=== PATIENT | female | born 1940 | race Caucasian/White ===

== ENCOUNTER → 2018-07-20 13:12 | Outpatient (CLI) | payer MEDICARE, SELFPAY ==
--- NOTE | 2018-07-20 | DI.RAD.S_ITS ---
PROCEDURE: XR CERVICAL SPINE 2V OR 3V INDICATIONS: NECK PAIN TECHNIQUE: 3 view(s) of the cervical spine were acquired. COMPARISON: None. FINDINGS: Bones: No fractures or dislocations to the T1 level. The lateral masses of C1 appear intact on the odontoid view. No suspicious bony lesions. Multilevel disc degeneration, most notably in severe at the C7-T1 level. Moderate mid and lower cervical spine multilevel facet joint arthropathy and uncovertebral hypertrophy. Soft tissues: No prevertebral soft tissue swelling. IMPRESSION: Multilevel degenerative changes throughout the cervical spine. Dictated by: Stefan VÁZQUEZ Interpreted: Stephen Dukes MD on 07/20/2018 at 13:42 Approved by: Stephen Dukes M.D. on 07/20/2018 at 17:18
== END ==
PROVIDERS: Family Provider Family Medicine; PCP Family Medicine; Visit Provider Anesthesiology Pain Medicine
DX: M47.22 Other spondylosis with radiculopathy, cervical region (principal); M50.13 Cervical disc disorder with radiculopathy, cervicothoracic region
CPT/HCPCS: 72040

== ENCOUNTER → 2018-07-25 14:41 | Outpatient (CLI) | payer MEDICARE, SELFPAY ==
[2018-07-25 15:36] LABS: Hemoglobin A1C% w Est Avg Glu 6.1 % (4.0-6.0)
== END ==
PROVIDERS: Family Provider Student in an Organized Health Care Education/Training Program; PCP Student in an Organized Health Care Education/Training Program; Visit Provider Student in an Organized Health Care Education/Training Program
DX: F41.9 Anxiety disorder, unspecified (principal)
CPT/HCPCS: 36415; 83036

== ENCOUNTER → 2018-08-01 14:00 | Outpatient (CLI) | payer MEDICARE, SELFPAY ==
--- NOTE | 2018-08-01 | DI.MRI.S_ITS ---
PROCEDURE: MR CERVICAL SPINE WO CON INDICATIONS: Radiculopathy, cervical region TECHNIQUE: Noncontrast sagittal T1 spin echo and T2 fast spin echo, sagittal STIR, foraminal oblique sagittal T2 fast spin echo, and axial gradient echo or T2 fast spin echo through the cervical spine. COMPARISON: None. FINDINGS: Image quality: Excellent. Alignment and Curvature: Straightening of the normal cervical lordosis. Trace anterolisthesis of C3 on C4, C5 on C6 and C7 on T1. There is also grade one anterolisthesis of T1 on T2. Bone Marrow: Scattered endplate spurring and degenerative signal changes. Spinal Cord: Visualized spinal cord has normal size and signal. No cerebellar tonsillar herniation. Paraspinous Soft Tissues: No paravertebral masses. Prevertebral soft tissues are normal in thickness. C2-C3: Bilateral uncovertebral arthropathy and posterior intervening disc osteophyte complex, and bilateral facet disease. No canal stenosis. Moderate bilateral foraminal stenoses. C3-C4: Bilateral uncovertebral arthropathy and posterior intervening disc osteophyte complex, and bilateral facet arthropathy. No definite canal stenosis. Moderate to severe bilateral foraminal stenoses C4-C5: Bilateral uncovertebral arthropathy and posterior intervening disc osteophyte complex, which is mildly asymmetric, right greater than left. Bilateral facet arthropathy also asymmetric, right greater than left. Mild canal narrowing partial effacement of the anterior thecal sac. Severe right foraminal stenosis. No definite left foraminal narrowing. C5-C6: Bilateral uncovertebral arthropathy and posterior intervening disc osteophyte complex, with superimposed left paracentral disc osteophyte protrusion. Bilateral facet disease. Moderate (predominantly left-sided) canal stenosis with effacement of the anterior and posterior thecal sac. Moderate to severe right foraminal narrowing. Minimal left foraminal narrowing. C6-C7: Bilateral uncovertebral arthropathy and posterior intervening disc osteophyte complex, and bilateral facet arthropathy. Mild to moderate canal narrowing. Moderate right foraminal stenosis. Mild to moderate left foraminal narrowing. C7-T1: Bilateral uncovertebral arthropathy and posterior intervening disc osteophyte complex, and bilateral facet disease. Mild canal stenosis. Mild right foraminal stenosis. Mild left foraminal narrowing. IMPRESSION: Multilevel cervical disc degeneration with straightening of the normal cervical lordosis and multilevel spondylolisthesis as above. Moderate C5-C6 and C6-C7 canal stenoses. Severe right C4-C5 and C5-C6 foraminal stenoses. Additional, multilevel [id number] foraminal narrowing as detailed above Dictated by: Stephen Dukes M.D. on 08/01/2018 at 15:46 Approved by: Stephen Dukes M.D. on 08/01/2018 at 15:57
== END ==
PROVIDERS: Family Provider Student in an Organized Health Care Education/Training Program; PCP Student in an Organized Health Care Education/Training Program; Visit Provider Anesthesiology Pain Medicine
DX: M50.11 Cervical disc disorder with radiculopathy, high cervical region (principal); M48.02 Spinal stenosis, cervical region; M43.12 Spondylolisthesis, cervical region; M43.13 Spondylolisthesis, cervicothoracic region
CPT/HCPCS: 72141

== ENCOUNTER → 2018-12-09 10:35 | Outpatient (CLI) | payer MEDICARE, SELFPAY ==
--- NOTE | 2018-12-09 10:39 | DI.RAD.S_ITS ---
PROCEDURE: XR SHOULDER LT MIN 2V INDICATIONS: Left shoulder pain, worsening TECHNIQUE: 3 views of the shoulder were acquired. COMPARISON: [facility], CR, XR SHOULDER RT MIN 2V, 12/09/2018, 10:42. [facility], CR, SHOULDER MINIMUM 2 VIEW LEFT, 06/07/2017, 18:49. FINDINGS: Bones: No fractures or dislocations. No suspicious bony lesions. There is moderate glenohumeral joint and mild acromioclavicular joint degeneration. Visualized ribs appear intact. Soft tissues: No suspicious soft tissue calcifications. IMPRESSION: Moderate degenerative joint disease at the left glenohumeral joint. Dictated by: Marjorie Gallo M.D. on 12/09/2018 at 16:00 Approved by: Marjorie Gallo M.D. on 12/09/2018 at 16:02
--- NOTE | 2018-12-09 10:39 | DI.RAD.S_ITS ---
PROCEDURE: XR SHOULDER RT MIN 2V INDICATIONS: right shoulder pain, worsening TECHNIQUE: 3 views of the shoulder were acquired. COMPARISON: None. FINDINGS: Bones: No fractures or dislocations. No suspicious bony lesions. There is [id number] degenerative joint disease in right acromioclavicular and glenohumeral joints. Large soft tissue calcification superior to the right acromioclavicular joint. Visualized ribs appear intact. Soft tissues: No suspicious soft tissue calcifications. IMPRESSION: Ijip-iu-fhytzcye degenerative disease. If clinical symptoms persist or clinical suspicion for internal derangement is high, MRI is suggested for further evaluation. Dictated by: Marjorie Gallo M.D. on 12/09/2018 at 15:56 Approved by: Marjorie Gallo M.D. on 12/09/2018 at 16:00
== END ==
PROVIDERS: Family Provider Student in an Organized Health Care Education/Training Program; PCP Student in an Organized Health Care Education/Training Program; Visit Provider Nurse Practitioner
DX: M25.512 Pain in left shoulder (principal); M25.511 Pain in right shoulder; M19.012 Primary osteoarthritis, left shoulder; M19.011 Primary osteoarthritis, right shoulder
CPT/HCPCS: 73030

== ENCOUNTER → 2018-12-19 07:53 | Outpatient (CLI) | payer MEDICARE, SELFPAY ==
--- NOTE | 2018-12-19 07:55 | DI.MRI.S_ITS ---
PROCEDURE: MR SHOULDER RT WO CON INDICATIONS: persistent right shoulder pain/unable to use arm. TECHNIQUE: Noncontrast oblique coronal T2 fast spin echo with fat saturation, oblique sagittal T1 spin echo and T2 fast spin echo with fat saturation, axial T1 spin echo and T2 fast spin echo with fat saturation through the shoulder. COMPARISON: None. FINDINGS: Image quality: Suboptimal due to signal dropout and body habitus. Rotator cuff: Full-thickness tear of the supraspinatus and infraspinatus tendons is seen measuring at least 2.0 cm in the transverse left longitudinal dimension as seen on coronal image 11 series 8. This measures at least 3.3 cm in AP dimension as seen on sagittal image 12 series 10. There is also marked thickening and intrasubstance signal change involving the teres minor tendon, with bursal surface fraying. Severe subscapularis tendinopathy with partial thickness articular and bursal sided tear although no definite full-thickness defect. There is atrophy of the supraspinatus, subscapularis and infraspinatus muscles. There is also severe fatty infiltration of the teres minor muscle Bones and bursae: No bone marrow contusions or fractures. Severe acromioclavicular and glenohumeral joint degeneration. The acromion demonstrates conventional anatomy, without an os acromiale. Small joint effusion. Capsule and soft tissues: Poorly defined circumferential tear the labrum is seen although suboptimal evaluation given motion artifact and signal drop out. Posterior subluxation of the humeral head relative to the glenoid suggestive of microinstability Medial subluxation of the long head biceps tendon. Long head biceps tendinopathy and intrasubstance signal change. Coracohumeral ligament not well visualized. IMPRESSION: Full-thickness tear of the supraspinatus and infraspinatus tendons. Severe subscapularis tendinopathy with partial-thickness bursal and articular sided tear. Teres minor tendinopathy and thickening with bursal surface fraying Diffuse atrophy of the rotator cuff musculature as above, in addition to fatty infiltration of the teres minor. Severe degenerative joint disease. Medial subluxation of the long head biceps tendon, with severe background tendinopathy. Poorly defined circumferential labral tear, likely chronic. Posteriorly subluxed appearance of the humeral head relative to the glenoid suggestive of microinstability. Please correlate clinically. Dictated by: Stephen Dukes M.D. on 12/19/2018 at 9:45 Approved by: Stephen Dukes M.D. on 12/19/2018 at 10:26
== END ==
PROVIDERS: Family Provider Student in an Organized Health Care Education/Training Program; PCP Student in an Organized Health Care Education/Training Program; Visit Provider Nurse Practitioner
DX: M25.511 Pain in right shoulder (principal); M75.121 Complete rotator cuff tear or rupture of right shoulder, not specified as traumatic; M19.011 Primary osteoarthritis, right shoulder; M75.81 Other shoulder lesions, right shoulder; S43.491A Other sprain of right shoulder joint, initial encounter
CPT/HCPCS: 73221

== ENCOUNTER → 2019-01-28 11:25 | Outpatient (CLI) | payer MEDICARE, SELFPAY ==
[2019-01-28 11:32] LABS: RBC Urine None Seen (0-5/HPF)
[2019-01-28 12:14] LABS: Appearance Urine UA CLOUDY; Bilirubin Urine UA NEGATIVE (NEGATIVE); Color Urine UA YELLOW; Glucose Urine UA NEGATIVE (Negative); Ketones Urine UA NEGATIVE (NEGATIVE); Leukocyte Esterase Urine UA 3+ (NEGATIVE); Nitrite Urine UA NEGATIVE (Negative); Occult Blood Urine UA TRACE-LYSED (Negative); Protein Urine UA TRACE (Negative); Urobilinogen Urine UA 0.2 E.U./dL (0.2)
[2019-01-28 13:36] LABS: Squamous Epithelial Cell Urine None Seen (0-5/HPF); WBC Urine >100/HPF (0-5/HPF)
[2019-01-28 13:37] LABS: Bacteria Urine Many (>30); Culture Indicated Urine Specimen Cultured; Renal Epithelial Cells Urine 1-5/HPF (0-1/HPF)
== END ==
PROVIDERS: Family Provider Student in an Organized Health Care Education/Training Program; PCP Student in an Organized Health Care Education/Training Program; Visit Provider Student in an Organized Health Care Education/Training Program
DX: R30.0 Dysuria (principal)
CPT/HCPCS: 81001; 87077; 87086; 87186

== ENCOUNTER → 2019-02-22 07:55 | Outpatient (CLI) | payer MEDICARE, SELFPAY ==
--- NOTE | 2019-02-22 | DI.MRI.S_ITS ---
PROCEDURE: MR LUMBAR SPINE WO CON INDICATIONS: Spinal stenosis, lumbosacral region TECHNIQUE: Noncontrast sagittal T1 spin echo and T2 fast echo, sagittal STIR, axial T1 and T2 fast spin echo through the lumbar spine. In cases with scoliosis, additional coronal T2 fast spin echo may be performed. COMPARISON: [facility], MR, L-SPINE WITHOUT CONTRAST, 02/25/2015, 9:29. FINDINGS: Image quality: Excellent. Alignment and Curvature: Dextrocurvature. Grade 1 anterolisthesis of L5 on S1. Bone Marrow: Multilevel degenerative endplate sclerosis and spurring. Diffuse facet arthropathy. . No acute vertebral body compression fractures. Normal appearance of the sacroiliac joints. Spinal Cord: Conus medullaris terminates at the L2 level. Visualized cord demonstrates normal signal and size. Paraspinous Soft Tissues: Presumed T2 hyperintense left renal cysts although technically nonspecific. There is diffuse dorsal epidural lipomatosis. There is nonspecific, dependent posterior subcutaneous soft tissue edema from level of L1-L4. L1-L2: Dorsal epidural lipomatosis and mild canal narrowing. Lateral recess appear grossly patent. No definite foraminal stenoses. L2-L3: Broad-based posterior disc bulge and bilateral facet arthropathy. Dorsal epidural lipomatosis, with moderate canal narrowing. Partial effacement of both lateral recesses although symmetric in nature. Overall no interval change. Severe left foraminal stenosis with nerve root compression. This appears progressed since the prior study. Mild unchanged right foraminal narrowing. L3-L4: Broad-based posterior disc bulge and bilateral facet arthropathy. Dorsal epidural lipomatosis is present. Mild central canal narrowing. Mild partial effacement of both lateral recesses although symmetric and grossly unchanged. Severe left and mild right foraminal narrowing, unchanged L4-L5: Broad-based posterior disc bulge and bilateral facet arthropathy. No central canal narrowing. Lateral recesses appear grossly patent. Severe left foraminal stenosis, with nerve root compression. There is also severe right foraminal narrowing with nerve root compression. This appears progressed slightly bilaterally L5-S1: Broad-based posterior disc bulge and bilateral facet arthropathy. No central canal narrowing. Lateral recesses appear grossly patent. Severe right foraminal narrowing with nerve root compression. Mild left foraminal stenosis. Overall, no interval change IMPRESSION: Slight interval progression in bilateral severe L4-L5 foraminal stenoses. There is also interval progression in severe left L2-L3 foraminal stenosis. Remainder of examination unchanged as detailed above. Dextroscoliosis. Grade 1 anterolisthesis of L5 on S1. Diffuse epidural lipomatosis. Dictated by: Stephen Dukes M.D. on 02/22/2019 at 11:25 Approved by: Stephen Dukes M.D. on 02/22/2019 at 11:56
== END ==
PROVIDERS: PCP Student in an Organized Health Care Education/Training Program; Visit Provider Anesthesiology Pain Medicine
DX: M48.07 Spinal stenosis, lumbosacral region (principal); M48.061 Spinal stenosis, lumbar region without neurogenic claudication; M47.816 Spondylosis without myelopathy or radiculopathy, lumbar region; M47.817 Spondylosis without myelopathy or radiculopathy, lumbosacral region; M51.26 Other intervertebral disc displacement, lumbar region; M51.27 Other intervertebral disc displacement, lumbosacral region; M43.17 Spondylolisthesis, lumbosacral region; M41.9 Scoliosis, unspecified; E88.2 Lipomatosis, not elsewhere classified
CPT/HCPCS: 72148

== ENCOUNTER 2019-03-25 19:00 | Emergency (ER) | payer MEDICARE, SELFPAY ==
[2019-03-25 19:03] VITALS: BP 194/103; PULSE 88; RESP 19; TEMP 37; O2SAT 100
--- NOTE | 2019-03-25 19:22 | DI.CT.S_ITS ---
PROCEDURE: CT HEAD/BRAIN WO CON INDICATIONS: GLF, head contusion TECHNIQUE: Noncontrast 4.5 mm thick angled axial sections acquired from the foramen magnum to the vertex, with coronal and sagittal reformats. For radiation dose reduction, the following was used: automated exposure control, adjustment of mA and/or kV according to patient size. COMPARISON: None. FINDINGS: Image quality: Excellent. CSF spaces: Basal cisterns are patent. No extra-axial fluid collections. The ventricles are symmetric in size and shape. Brain: No intracranial bleeds or masses. There is moderate cerebral volume loss for age, with resultant ventricular and sulcal prominence. There are severe periventricular and deep white matter chronic small vessel ischemic changes. There is intracranial internal carotid artery atherosclerosis. Skull and face: Calvarium and visualized facial bones appear intact, without suspicious lesions. Small occipital scalp hematoma. Sinuses: Visualized sinuses and mastoids are clear. IMPRESSION: No acute intracranial disease process. Dictated by: Rhiannon Gracia MD, PhD on 03/25/2019 at 19:45 Approved by: Rhiannon Gracia MD, PhD on 03/25/2019 at 19:47
--- NOTE | 2019-03-25 19:42 | ED_ITS ---
HPI - Fall <Renata Valencia PA-C - Last Filed: 03/25/19 20:55> General Chief Complaint: Fall Stated Complaint: GLF Time Seen by Provider: 03/25/19 19:01 Source: patient Mode of arrival: EMS Limitations: no limitations History of Present Illness HPI Narrative: This 79-year-old female is brought in by EMS secondary to ground level fall. 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 Earlier in the day, she had been kneeling on her knees for awhile in the garage and was trying to get to the hand rail when her left knee buckled and was stiff. She had to call EMS as she buckled to the ground and was not able to get up. They helped her get into her chair. Later this evening she was still having difficulty getting up secondary to the knee feeling like it was buckling, but eventually she was able to get up and walk with her walker to the kitchen and start to get some dinner. She states that her knee started to feel weak again so she started to walk to her chair. She reached out for the chair and went to turn around when the knee buckled and she fell backwards, hitting her head on the wood floor. She denies any LOC. Currently she denies any headache, vision change, nausea or vomiting. She states that she knew very well what had happened and she falls frequently, but thought she better get this checked because she noted a bump on the back of her head that is now smaller. She states she has chronic back pain and does not think she hit her back at all, no new pain. She denies any neck pain or hip pain. She states she has arthritis in the knee but did not hit it when she fell, no increased pain today. She denies any other new pain or complaints on systems review. She notes that she has chronic rotator cuff syndrome of the right shoulder which exacerbate her balance issues Related Data Home Medications Medication Instructions Recorded Confirmed [metamucil ] #0 10/26/16 03/19/19 diclofenac 1 % topical gel 2 gram TOP QID PRN 12/08/18 03/19/19 Previous Rx's Medication Instructions Recorded Lancet: Device ea . Q DAY #100 04/07/17 irbesartan 300 mg tablet 300 mg PO QDAY #90 tab 03/08/18 Glucose: Test Strips See Rx Instructions SUBCUT QDAY 06/24/18 #100 strip atorvastatin 10 mg tablet 10 mg PO HS #90 tab 09/13/18 omeprazole 20 mg capsule,delayed 20 mg PO DAILY #90 cap 09/13/18 release metformin 1,000 mg tablet 1,000 mg PO BID #180 tab 11/15/18 levothyroxine 88 mcg tablet 88 mcg PO QDAY #90 tab 12/16/18 metoprolol succinate ER 100 mg 100 mg PO QDAY #90 tab 12/16/18 tablet,extended release 24 hr triamterene 37.5 1 tab PO DAILY #90 tab 12/16/18 mg-hydrochlorothiazide 25 mg tablet hydroxyzine HCl 10 mg tablet 10 mg PO QID PRN #30 tab 12/17/18 olmesartan 20 mg tablet 20 mg PO DAILY #90 tab 01/05/19 DISABLED PARKING PERMIT #1 each 01/27/19 meloxicam 15 mg tablet 15 mg PO DAILY #90 tab 01/27/19 Allergies Allergy/AdvReac Type Severity Reaction Status Date / Time ciprofloxacin [CIPROFLOXACIN] AdvReac Severe Bloody Verified 03/19/19 10:18 diahrrea, swollen feet. Benzodiazepines AdvReac Intermediate EXTREME Verified 03/19/19 10:18 SENSITIVITY fentanyl AdvReac Intermediate EXTREME Verified 03/19/19 10:18 SENSITIVITY TO ALL NARCOTICS meperidine AdvReac Intermediate EXTREME Verified 03/19/19 10:18 SENSITIVITY Opioids - Morphine Analogues AdvReac Intermediate EXTREME Verified 03/19/19 10:18 SENSITIVITY - SOMNOLENCE Review of Systems <Renata Valencia PA-C - Last Filed: 03/25/19 20:55> Review of Systems ROS Unobtainable: All systems reviewed & are unremarkable except as noted in HPI and below Exam <Renata Valencia PA-C - Last Filed: 03/25/19 20:55> Narrative Exam Narrative: GENERAL APPEARANCE: Patient sitting comfortably, in no distress. HEENT: There is perhaps a tiny central occipital hematoma, minially tender. PERRL, EOMI, normal ear canals, nasal mucosa and oropharynx NECK: Supple LUNGS: Clear to auscultation bilaterally. HEART: Rate and rhythm regular without murmur, normal S1 and S2, no S3 or S4. ABDOMEN: Soft, NT, ND, + BS x 4 quadrants NEUROLOGIC: Alert and oriented, normal speech, gait and coordination. MUSCULOSKELETAL: No point tenderness over the cervical spine, full range of motion. No thoracolumbar point tenderness. No tenderness over the hips. Left knee mild effusion with mild joint line tenderness, full AROM. Strength 5/5 left knee extension, foot plantar and dorsiflexion Initial Vital Signs Initial Vital Signs: Vital Signs Temperature 98.6 F 03/25/19 19:03 Pulse Rate 88 03/25/19 19:03 Respiratory Rate 03/25/19 19:03 Blood Pressure 194/103 H 03/25/19 19:03 Pulse Oximetry 100 03/25/19 19:03 <Belkys Chacko DO - Last Filed: 03/26/19 03:18> Initial Vital Signs Initial Vital Signs: Vital Signs Temperature 98.6 F 03/25/19 19:03 Pulse Rate 88 03/25/19 19:03 Respiratory Rate 03/25/19 19:03 Blood Pressure 194/103 H 03/25/19 19:03 Pulse Oximetry 100 03/25/19 19:03 PFSH <Renata Valencia PA-C - Last Filed: 03/25/19 20:55> Medical History (Updated 03/25/19 @ 20:24 by Renata Valencia PA-C) Eczema (Chronic 02/10/16) 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) Hot flashes due to menopause (Resolved) Chronic pain of both shoulders (Chronic 10/26/16) Primary insomnia (Chronic 10/26/16) Balance problems (Chronic 02/01/17) Bunion (Chronic 03/02/17) Hammer toe of left foot (Chronic 03/02/17) Type 2 diabetes mellitus without complication, without long-term current use of insulin (Chronic 2015) Ankle pain (Chronic 1989) Diverticulitis (Chronic) Foot pain (Chronic 1989) GERD (gastroesophageal reflux disease) (Chronic) Moreno's disease (Chronic 1974) Hyperlipemia (Chronic 1979) Hypertension (Chronic 1979) Hypothyroidism (Chronic 1974) IBS (irritable bowel syndrome) (Chronic 2003) Lumbar spine pain (Chronic 2005) Scoliosis (Chronic) Sjogren's syndrome (Chronic 2003) Carpal tunnel syndrome (Resolved 1974) Cataracts, bilateral (Resolved 2013) Chicken pox (Resolved) Chickenpox (Resolved) Fibroids (Resolved 1979) Measles (Resolved) Measles (Resolved) Mumps (Resolved) Mumps (Resolved) Ovarian cyst (Resolved 1989) Acquired hypothyroidism (02/10/16) Essential hypertension with goal blood pressure less than 140/90 (02/10/16) History of diverticulitis (06/25/16) Pure hypercholesterolemia (02/10/16) Sjogren's syndrome (02/10/16) Surgical History (Updated 09/09/18 @ 13:05 by Maria De Jesus Camacho) Status post hysterectomy (Resolved 1990) History of carpal tunnel repair (Resolved 1974) Status post cholecystectomy (Resolved 1964) Status post appendectomy (Resolved 1954) Anesthesia complication (Resolved) History of colonoscopy (Resolved 04/01/07) History of colonoscopy with polypectomy (Resolved 05/08/11) History of left cataract surgery (Resolved 11/13/14) History of right cataract surgery (Resolved 12/11/14) Hx of hand surgery (Resolved 2013) Hx of surgical procedure (Resolved 1996) History of cataract removal with insertion of prosthetic lens (2013) Family History (Updated 09/09/18 @ 12:38 by Maria De Jesus Camacho) Child Hypertension Child Hypertension Sister Age: 77 Rheumatoid arthritis Father NC (myocardial infarction) Heart disease Mother NC (myocardial infarction) Hypertension Angina pectoris Sister Colon cancer Social History Smoking Status: Never smoker second hand exposure: No alcohol intake: former (I used to drink wine, but I don't anymore.) substance use type: does not use Social History Smoking Status: Never smoker second hand exposure: No alcohol intake: former (I used to drink wine, but I don't anymore.) substance use type: does not use Course <Renata Valencia PA-C - Last Filed: 03/25/19 20:55> Additional Information: Patient did not think she had any acute injury and declined knee x-ray. She did not appear to have other musculoskeletal injuries. She does have a history of frequent falls. She declined walking test with walker, but was able to ambulate to the restroom. She declined trial of a knee brace for instability. She has a friend who will help her get settled at home tonight and does have help from [facility] as needed. Advised about concern for frequent falls especially with her balance difficulties which are exacerbated by her joint issues and chronic rotator cuff syndrome. Advised home physical therapy eval for this specifically, and she agrees to talk with her PCP next week as she is at risk for significant injury Orders Ordered: ED Orders 03/25/19 19:22 CT head/brain wo con Stat Vital Signs - 8 hr 03/25/19 20:50 Pulse Rate 76 Respiratory Rate 17 Blood Pressure [Right Arm] 194/100 H Pulse Oximetry 100 <Belkys Chacko DO - Last Filed: 03/26/19 03:18> Orders Ordered: ED Orders 03/25/19 19:22 CT head/brain wo con Stat Vital Signs - 8 hr 03/25/19 20:50 Pulse Rate 76 Respiratory Rate 17 Blood Pressure [Right Arm] 194/100 H Pulse Oximetry 100 MDM - Fall <Renata Valencia PA-C - Last Filed: 03/25/19 20:55> Imaging Data CT scan - head: Radiologist's impression: Carey Mtz 79 F [address] [address] [address] Scan Report Signed Patient: Eldon Mtzula EMR#: [id number] : [id number] Age/Sex: 79 / FDate of Service: 03/25/19 Loc: ED Accession Number: [id number] Procedure: CT head/brain wo con Ordering Provider: Renata Valencia P.A-C PROCEDURE: CT HEAD/BRAIN WO CON INDICATIONS: GLF, head contusion TECHNIQUE: Noncontrast 4.5 mm thick angled axial sections acquired from the foramen magnum to the vertex, with coronal and sagittal reformats. For radiation dose reduction, the following was used: automated exposure control, adjustment of mA and/or kV according to patient size. COMPARISON: None. FINDINGS: Image quality: Excellent. CSF spaces: Basal cisterns are patent. No extra-axial fluid collections. The ventricles are symmetric in size and shape. Brain: No intracranial bleeds or masses. There is moderate cerebral volume loss for age, with resultant ventricular and sulcal prominence. There are severe periventricular and deep white matter chronic small vessel ischemic changes. There is intracranial internal carotid artery atherosclerosis. Skull and face: Calvarium and visualized facial bones appear intact, without suspicious lesions. Small occipital scalp hematoma. Sinuses: Visualized sinuses and mastoids are clear. IMPRESSION: No acute intracranial disease process. Dictated by: Rhiannon Gracia MD, PhD on 03/25/2019 at 19:45 Approved by: Rhiannon Gracia MD, PhD on 03/25/2019 at 19:47 Discharge Plan Departure Patient Disposition: Home Clinical Impression: Fall from ground level Contusion of scalp Qualifiers: Encounter type: initial encounter Qualified Code(s): S00.03XA - Contusion of scalp, initial encounter Discharge Date/Time: 03/25/19 20:55 Interventions: ED Discharge Assessment Last Done: 03/25/19 20:50 Instructions: How to Prevent Falls Activity Restrictions/Additional Instructions: As we talked about, you should return if you have any worsening symptoms or acute changes such as vomiting, vision change, or severe headache. (There was no acute problem found on your CT scan of your brain today, and you do not appear to have a concussion). I agree with you that your knee buckling and arthritis likely caused your falls today after you were kneeling, and I would like you to talk with Dr. Centeno and your physical therapist about getting a new walker with a seat, and handles that may be easier for you to use given your rotator cuff problem in your shoulder. Since you have had multiple falls, please follow-up with your PCP this week to discuss getting a physical therapy referral specifically the for this, preferably to come out to your house and evaluate there to see what you can do to get around more easily and safely at home as well as addressing your rotator cuff problem. Please rest and do minim al walking tonight and tomorrow, rest after walking a short distance rather than being up on your feet for a long time to make sure that you feel stable, and change positions slowly. Prescriptions: No Action Glucose: Test Strips See Rx Instructions SUBCUT QDAY Qty: 100 RF: 6 [metamucil ] Qty: 0 RF: 0 Lancet: Device . Q DAY Qty: 100 RF: 3 irbesartan [Avapro] 300 mg tablet 300 mg PO QDAY Qty: 90 RF: 3 levothyroxine 88 mcg tablet 88 mcg PO QDAY Qty: 90 RF: 3 metoprolol succinate [Toprol XL] 100 mg tablet extended release 24 hr 100 mg PO QDAY Qty: 90 RF: 1 triamterene-hydrochlorothiazid [Maxzide-25mg] 37.5-25 mg tablet 1 tab PO DAILY Qty: 90 RF: 1 hydroxyzine HCl 10 mg tablet 10 mg PO QID PRN (Reason: anxiety) Qty: 30 RF: 5 omeprazole 20 mg capsule,delayed release(DR/EC) 20 mg PO DAILY Qty: 90 RF: 1 atorvastatin [Lipitor] 10 mg tablet 10 mg PO HS Qty: 90 RF: 3 diclofenac sodium 1 % gel 2 gram TOP QID PRNRF: 0 metformin 1,000 mg tablet 1,000 mg PO BID Qty: 180 RF: 5 olmesartan 20 mg tablet 20 mg PO DAILY Qty: 90 RF: 1 DISABLED PARKING PERMIT Qty: 1 RF: 0 meloxicam 15 mg tablet 15 mg PO DAILY Qty: 90 RF: 1 Referrals: Catrachito Santiago MD [Primary Care Provider] - <Belkys Chacko DO - Last Filed: 03/26/19 03:18> Cosign ED Attending Vickyature Attestation: I was immediately available in the department for consultation. Documentation has been reviewed. I agree with assessment and plan.
[2019-03-25 20:50] VITALS: BP 194/100; PULSE 76; RESP 17; O2SAT 100
== END 2019-03-25 20:55 | disposition home or self-care (01) ==
PROVIDERS: Emergency Provider Internal Medicine; PCP Student in an Organized Health Care Education/Training Program
DX: S00.03XA Contusion of scalp, initial encounter (principal); W18.30XA Fall on same level, unspecified, initial encounter
CPT/HCPCS: 70450; 99282; 99284

== ENCOUNTER → 2019-03-28 10:38 | Outpatient (CLI) | payer MEDICARE, SELFPAY ==
[2019-03-28 11:38] LABS: Hemoglobin 11.3 g/dL (12.0-16.0); Mean Corpuscular HGB Conc 34.4 % (30-36); Mean Corpuscular Hemoglobin 32.6 PG (26-34); Mean Corpuscular Volume 94.9 fL (80-100); Platelet Count 290 X10^3/uL (150-400); Red Blood Cell Count 3.48 X10^6/uL (4.0-5.2); Red Cell Distribution Width 13.9 % (11.6-14.8); White Blood Cell Count 6.6 X10^3/uL (4.5-11.0)
[2019-03-28 12:16] LABS: Alanine Aminotransferase 14 IU/L (9-52); Albumin 4.1 g/dL (3.5-5.0); Albumin Globulin Ratio 1.6 (1.0-2.8); Alkaline Phosphatase 54 U/L (38-126); Aspartate Aminotransferase 20 IU/L (14-36); BUN Creatinine Ratio 21.4 (6-22); Bilirubin Total 0.6 mg/dL (0.2-1.3); Blood Urea Nitrogen 15 mg/dL (7-17); Calcium 9.4 mg/dL (8.4-10.2); Carbon Dioxide 28 mmol/L (22-32); Chloride 85 mmol/L (98-107); Creatine Kinase 91 U/L (30-135); Estimated Glomerular Filt Rate > 60.0 mL/min (>60); Globulin 2.5 g/dL (1.7-4.1); Glucose 112 mg/dL (80-110); HEMOLYSIS < 15 (0-50); Potassium 4.1 mmol/L (3.4-5.1); Sodium 124 mmol/L (137-145); Total Protein 6.6 g/dL (6.3-8.2)
[2019-03-28 12:26] LABS: Hemoglobin A1C% w Est Avg Glu 5.3 % (4.0-6.0); Prealbumin 21.8 mg/dL (17.6-36.0)
== END ==
PROVIDERS: PCP Student in an Organized Health Care Education/Training Program; Visit Provider Student in an Organized Health Care Education/Training Program
DX: E46 Unspecified protein-calorie malnutrition (principal); W18.30XA Fall on same level, unspecified, initial encounter; R73.9 Hyperglycemia, unspecified; R42 Dizziness and giddiness; Z92.241 Personal history of systemic steroid therapy
CPT/HCPCS: 36415; 80053; 82550; 83036; 84134; 85027

== ENCOUNTER 2019-04-15 22:05 | Observation (INO) | payer MEDICARE, SELFPAY ==
[2019-04-15 22:15] VITALS: BP 194/99; PULSE 94; RESP 20; TEMP 37.5; O2SAT 100; BMI 25.9
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
--- NOTE | 2019-04-15 22:34 | DI.CT.S_ITS ---
PROCEDURE: CT HEAD/BRAIN WO CON INDICATIONS: Confusion TECHNIQUE: Noncontrast 4.5 mm thick angled axial sections acquired from the foramen magnum to the vertex, with coronal and sagittal reformats. For radiation dose reduction, the following was used: automated exposure control, adjustment of mA and/or kV according to patient size. COMPARISON: [facility], CT, CT HEAD/BRAIN WO CON, 03/25/2019, 19:24. FINDINGS: Image quality: Excellent. CSF spaces: Basal cisterns are patent. No extra-axial fluid collections. Ventricles are mildly prominent. Brain: No midline shift. No intracranial masses or hemorrhage. [place]-white matter interface is normal. Moderate-sized areas of low-attenuation are seen within the periventricular and deep white matter of the supratentorial brain. Skull and face: Calvarium and visualized facial bones are intact, without suspicious lesions. Sinuses: Visualized sinuses and mastoids are clear. IMPRESSION: 1. No acute intracranial hemorrhage. 2. Moderate chronic small vessel ischemic changes and parenchymal volume loss are similar to the prior study. Note: The preliminary [facility] report and the final report are concordant. Dictated by: Derek Lopez M.D. on 04/16/2019 at 8:03 Approved by: Derek Lopez M.D. on 04/16/2019 at 8:06
[2019-04-15 22:41] LABS: Add Manual Diff / Slide Review NO; Basophils Absolute Auto 0 /uL (0-100); Basophils Percent Auto 0.5 % (0-2); Eosinophils Absolute Auto 100 /uL (0-450); Eosinophils Percent Auto 1.1 % (2-4); Hemoglobin 12.2 g/dL (12.0-16.0); Lymphocytes Absolute Auto 1500 /uL (1100-4500); Lymphocytes Percent Auto 15.1 % (25-40); Mean Corpuscular HGB Conc 33.8 % (30-36); Mean Corpuscular Hemoglobin 32.2 PG (26-34); Mean Corpuscular Volume 95.2 fL (80-100); Monocytes Absolute Auto 700 /uL (0-900); Monocytes Percent Auto 6.9 % (3-14); Neutrophils Absolute Auto 7400 /uL (1500-7000); Neutrophils Percent Auto 76.4 % (50-75); Platelet Count 349 X10^3/uL (150-400); Red Blood Cell Count 3.78 X10^6/uL (4.0-5.2); White Blood Cell Count 9.8 X10^3/uL (4.5-11.0)
[2019-04-15 22:42] LABS: INR 0.9 (0.9-1.3)
[2019-04-15 22:44] LABS: PTT Partial Thromboplastin Tim 27 SECONDS (26.4-36.2)
[2019-04-15 22:46] LABS: Alanine Aminotransferase 13 IU/L (9-52); Albumin 4.7 g/dL (3.5-5.0); Albumin Globulin Ratio 1.5 (1.0-2.8); Alkaline Phosphatase 66 U/L (38-126); Aspartate Aminotransferase 19 IU/L (14-36); BUN Creatinine Ratio 43.3 (6-22); Bilirubin Total 0.5 mg/dL (0.2-1.3); Blood Urea Nitrogen 26 mg/dL (7-17); Calcium 9.7 mg/dL (8.4-10.2); Carbon Dioxide 26 mmol/L (22-32); Chloride 92 mmol/L (98-107); Estimated Glomerular Filt Rate > 60.0 mL/min (>60); Globulin 3.2 g/dL (1.7-4.1); Glucose 129 mg/dL (80-110); HEMOLYSIS 20 (0-50); Lipase 51 U/L (23-300); Sodium 130 mmol/L (137-145); Total Protein 7.9 g/dL (6.3-8.2)
[2019-04-15 22:58] LABS: Troponin I < 0.012 ng/mL (0.01-0.034)
[2019-04-15 23:17] LABS: Thyroid Stimulating Hormone 0.13 uIU/mL (0.47-4.68)
[2019-04-15 23:48] VITALS: BP 175/102; PULSE 90; RESP 15; O2SAT 97
[2019-04-15 23:59] LABS: RBC Urine None Seen (0-5/HPF)
[2019-04-16 00:09] LABS: Bacteria Urine Few (2-10); Culture Indicated Urine Specimen Cultured; Squamous Epithelial Cell Urine 0-1 /HPF (0-5/HPF); WBC Urine 1-5/HPF (0-5/HPF)
[2019-04-16] MEDS: ASPIRIN 325 MG TABLET PO (00:34)
[2019-04-16 00:39] VITALS: BP 153/94; PULSE 85; RESP 18; O2SAT 96
[2019-04-16 00:57] VITALS: BP 157/94; PULSE 85; RESP 18; O2SAT 96
[2019-04-16 01:15] VITALS: BP 161/92; PULSE 84; RESP 18; TEMP 36.6; O2SAT 100
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
[2019-04-16 01:20] VITALS: BMI 25.9
[2019-04-16 04:39] VITALS: BP 153/92; PULSE 80; RESP 18; TEMP 36.1; O2SAT 100
[2019-04-16 05:16] VITALS: O2SAT 100
[2019-04-16 05:52] LABS: BUN Creatinine Ratio 36.7 (6-22); Blood Urea Nitrogen 22 mg/dL (7-17); Carbon Dioxide 27 mmol/L (22-32); Chloride 95 mmol/L (98-107); Cholesterol 178 mg/dL (140-199); Estimated Glomerular Filt Rate > 60.0 mL/min (>60); Glucose 122 mg/dL (80-110); HDL Cholesterol 62 mg/dL (40-60); HEMOLYSIS < 15 (0-50); LDL Cholesterol Calculated 109 mg/dL (<100); Potassium 3.8 mmol/L (3.4-5.1); Sodium 129 mmol/L (137-145); Triglycerides 37 mg/dL (35-150)
[2019-04-16 09:35] VITALS: BP 161/106; PULSE 92; RESP 18; TEMP 36.6; O2SAT 99
[2019-04-16] MEDS: LEVOTHYROXINE 88 MCG TABLET PO (09:45)
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
[2019-04-16] MEDS: METOPROLOL ER 50 MG TABLET 100 MG PO (10:57)
[2019-04-16] MEDS: IRBESARTAN 150 MG TABLET 300 MG PO (10:58)
[2019-04-16] MEDS: METFORMIN HCL 500 MG TABLET 1000 MG PO (10:58)
[2019-04-16] MEDS: AMLODIPINE 2.5 MG TABLET PO (10:58)
--- NOTE | 2019-04-16 11:52 | CM.DANOTE ---
DCP/Assessment: Reviewed chart. Patient is a 79yr old female admitted under OBS status with confusion. PCP listed is Dr. Chinchilla. Primary payor is 1)Medicare 2)AAR. Met with patient explained CM/SW role. Patient reports that she is completely I in all ADL's. Patient does not use DME and continues to drive. [place]. Patient reports that she [place] 2 [place]'s [place] Patient's spouse of over 50yrs approximately 4 months ago. Patient reports that she is having difficulty with the loss. Patient offered resources for grief and loss counseling and groups. Patient reports that she is aware of what is out there. Her spouse was on hospice and she is aware that they can assist. Patient denies having any d/c planning needs and would like to go home today. Patient has many friends in the area. She does not need additional support. Patient friend will be picking her up. P: Home when deemed medically stable. Anticipate today. Patient reports that all symptoms of confusion have resolved. JAKE Rodriguez Discharge Planning/Care Management CM Discharge Assessment Start: 04/16/19 11:50 Freq: Status: Active Protocol: Document 04/16/19 11:50 KJS (Rec: 04/16/19 11:52 KJS [id number]) Discharge Planning Assessment Assigned Platform Engineer JAKE Rodriguez Contact Information Nobody listed Advance Directives? No History Provided By Patient Medical Record Prior Living Arrangements House Household Members other Type of transporation used prior to Drives own vehicle admit Independent with ADL's Yes Is patient alert and oriented? Yes Caregiver for Another No Barriers to Discharge No Discharge Plan Home Transportation Arrangement Friends to provide transport. Referrals Initiated None needed Whiteboard Updated in Patient Room with Yes name and ext. # of Platform Engineer Review Status In Process Next Review Type Continued Stay Review
== END 2019-04-16 11:29 | disposition home or self-care (01) ==
LOC: ED 23:01 → AC 04-16 00:17
PROVIDERS: Admitting Provider Nurse Practitioner Adult Health; Emergency Provider Emergency Medicine; PCP Student in an Organized Health Care Education/Training Program; Visit Provider Nurse Practitioner Adult Health
DX: G45.9 Transient cerebral ischemic attack, unspecified (principal); R41.82 Altered mental status, unspecified; I10 Essential (primary) hypertension; E11.9 Type 2 diabetes mellitus without complications; Z79.84 Long term (current) use of oral hypoglycemic drugs; E78.5 Hyperlipidemia, unspecified; E06.3 Autoimmune thyroiditis; K58.9 Irritable bowel syndrome, unspecified; K21.9 Gastro-esophageal reflux disease without esophagitis
CPT/HCPCS: 36415; 70450; 80048; 80053; 80061; 81003; 81015; 82962; 83690; 84443; 84484; 85025; 85610; 85730; 87077; 87086; 87147; 93005; 93010; 94762; 99284; 99285; G0378

== ENCOUNTER 2019-04-18 14:38 | Emergency (ER) | payer MEDICARE, SELFPAY ==
[2019-04-18 14:41] VITALS: BP 190/94; PULSE 84; RESP 17; TEMP 36.4; O2SAT 100
[2019-04-18 14:46] VITALS: BP 189/100; PULSE 84; RESP 17; TEMP 36.4; O2SAT 100
--- NOTE | 2019-04-18 15:57 | ED.FALL ---
HPI - Fall <Noemi Larkin MD - Last Filed: 04/20/19 20:18> General Chief Complaint: Fall Stated Complaint: Fall at home: unable to ambulate Time Seen by Provider: 04/18/19 14:50 Source: patient Mode of arrival: EMS Limitations: no limitations History of Present Illness HPI Narrative: Patient comes emergency department complaining of bilateral lower extremity weakness that started this afternoon. She was just discharged from the hospital after having a possible TIA in states she was doing fine this morning, but that this afternoon, she took several falls. Patient states that she did not feel that there is any focal weakness, but that was just generally her lower extremities. Patient states that she has otherwise been feeling fine since discharge yesterday. Patient denies any fevers. She has not felt ill with anything else. Patient is not sure why she began to become weak. Patient denies any upper extremity symptoms. She was not hurt during her falls. No other complaints at this time. No chest pain or shortness of breath. No nausea or vomiting. No abdominal pain. Related Data Home Medications Medication Instructions Recorded Confirmed diclofenac 1 % topical gel 2 gram TOP QID PRN 12/08/18 04/20/19 Lancet: Device 1 ea . Q DAY 04/18/19 04/20/19 atorvastatin [Lipitor] 10 mg PO BEDTIME 04/18/19 04/20/19 diclofenac sodium 50 mg PO DAILY 04/18/19 04/20/19 fluoride (sodium) [PreviDent 5000 1 applic DENTAL DIRECTED 04/18/19 04/20/19 Dry Mouth] hydroxyzine HCl 10 - 20 mg PO Q6H PRN 04/18/19 04/20/19 irbesartan [Avapro] 300 mg PO DAILY 04/18/19 04/20/19 levothyroxine 88 mcg PO DAILY 04/18/19 04/20/19 metoprolol succinate [Toprol XL] 100 mg PO DAILY 04/18/19 04/20/19 polyethylene glycol 3350 [Miralax] 1 dose PO PRN PRN 04/18/19 04/20/19 Previous Rx's Medication Instructions Recorded Glucose: Test Strips See Rx Instructions SUBCUT QDAY 06/24/18 #100 strip omeprazole 20 mg capsule,delayed 20 mg PO DAILY #90 cap 09/13/18 release metformin 1,000 mg tablet 1,000 mg PO BID #180 tab 11/15/18 DISABLED PARKING PERMIT #1 each 01/27/19 meloxicam 15 mg tablet 15 mg PO DAILY #90 tab 01/27/19 aspirin 325 mg PO DAILY #30 tab 04/16/19 amlodipine 2.5 mg tablet 2.5 mg PO DAILY #90 tab 04/20/19 Allergies Allergy/AdvReac Type Severity Reaction Status Date / Time ciprofloxacin [CIPROFLOXACIN] AdvReac Severe Bloody Verified 04/20/19 09:08 diahrrea, swollen feet. Benzodiazepines AdvReac Intermediate EXTREME Verified 04/20/19 09:08 SENSITIVITY fentanyl AdvReac Intermediate EXTREME Verified 04/20/19 09:08 SENSITIVITY TO ALL NARCOTICS meperidine AdvReac Intermediate EXTREME Verified 04/20/19 09:08 SENSITIVITY Opioids - Morphine Analogues AdvReac Intermediate EXTREME Verified 04/20/19 09:08 SENSITIVITY - SOMNOLENCE Review of Systems <Noemi Larkin MD - Last Filed: 04/20/19 20:18> Constitutional Denies chills, Denies fever(s), Denies lethargy and Reports weakness Eyes Denies change in vision, Denies eye discharge, Denies irritation and Denies loss of vision ENT Ears, Nose, Mouth, and Throat: Denies change in voice, Denies neck pain and Denies sore throat Cardiovascular Denies chest pain, Denies irregular heart rhythm, Denies lightheadedness, Denies palpitations, Denies dyspnea, Denies dyspnea on exertion and Denies orthopnea Respiratory Denies cough, Denies dyspnea, Denies dyspnea on exertion and Denies wheezing Gastrointestinal Gastrointestinal: Denies abdominal pain, Denies change in bowel habits, Denies diarrhea, Denies nausea and Denies vomiting Genitourinary Denies hematuria, Denies flank pain, Denies urinary incontinence and Denies urinary urgency Musculoskeletal Denies neck pain Integumentary/Breasts Denies pruritus, Denies erythema, Denies rash and Denies wounds Neurologic Denies confusion, Denies loss of vision and Reports weakness Comments: Lower extremity weakness Psychiatric Denies anxiety, Denies confusion, Denies depression, Denies homicidal ideation and Denies suicidal ideation Endocrine Denies palpitations Hematologic/Lymphatic Denies easy bruising Allergic/Immunologic Denies wheezing Exam <Noemi Larkin MD - Last Filed: 07/11/19 20:18> Initial Vital Signs Initial Vital Signs: Vital Signs Temperature 97.6 F 04/18/19 14:41 Pulse Rate 84 04/18/19 14:41 Respiratory Rate 17 04/18/19 14:41 Blood Pressure 190/94 H 04/18/19 14:41 Pulse Oximetry 100 04/18/19 14:41 Const General: cooperative and well developed Nutritional Appearance: well nourished Orientation: alert, awake, oriented x3 and not confused [facility] Head: normocephalic and atraumatic Ears: external ears normal and TM's normal bilaterally Nose: external nose normal and No nasal discharge Face and sinus: sinuses nontender, face symmetric, no sinus tenderness and No dry mucous membranes Mouth: oral mucosae normal and moist mucous membranes Teeth and gingiva: dentition normal Throat: tonsils normal and uvula midline Eyes General: appearance normal, both eyes and all related structures Eyelids: eyelids normal Conjunctivae: conjunctivae normal Sclera: sclerae normal Pupils: PERRL EOM: EOM intact bilaterally Neck Neck: normal visual inspection, trachea midline, No lymphadenopathy, No midline deformity and No JVD Lymphatic: No lymphedema Chest Chest: normal inspection of the chest Resp Effort & Inspection: normal respiratory effort, able to speak in complete sentences, no respiratory distress and no use of accessory muscles Auscultation: clear to auscultation bilaterally, no rales, no rhonchi and no wheezes Cardio Rate: regular rate Rhythm: regular rhythm Heart Sounds: no click, no gallops, no murmurs and no rubs Pulses: normal peripheral pulses GI Inspection: non-distended Palpation: soft, no hepatosplenomegaly, No guarding, No pulsatile mass and No tender Auscultation: normal bowel sounds Back/Spine/Pelvis Back: No CVA tenderness Cervical Spine: cervical ROM normal and No pain with cervical ROM Thoracic/Lumbar Spine: thoracic and lumbar spine normal to inspection Skin General: no rashes or lesions noted, No jaundice and No petechiae Neuro General: alert, awake, oriented x3 and no focal motor deficits Cranial Nerves: CN's II-XI intact bilaterally Speech: speech normal Motor: muscle tone normal throughout and strength 5/5 throughout (Except for 5-strength at the left hip flexor--decreased compared to the rig) Extrem General: full ROM, no clubbing, cyanosis or edema, no pedal edema and no calf tenderness Psych Appearance: well kempt Mental Status: mental status grossly normal Attitude: cooperative Thought Content: normal and suicidality Judgment: judgment good <Sy Vogel DO - Last Filed: 04/19/19 00:36> Initial Vital Signs Initial Vital Signs: Vital Signs Temperature 97.6 F 04/18/19 14:41 Pulse Rate 84 04/18/19 14:41 Respiratory Rate 17 04/18/19 14:41 Blood Pressure 190/94 H 04/18/19 14:41 Pulse Oximetry 100 04/18/19 14:41 PFSH <Noemi Larkin MD - Last Filed: 04/20/19 20:18> Medical History Eczema (Chronic 02/10/16) 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) Hot flashes due to menopause (Resolved) Chronic pain of both shoulders (Chronic 10/26/16) Primary insomnia (Chronic 10/26/16) Balance problems (Chronic 02/01/17) Bunion (Chronic 03/02/17) Hammer toe of left foot (Chronic 03/02/17) Type 2 diabetes mellitus without complication, without long-term current use of insulin (Chronic 2015) Ankle pain (Chronic 1989) Diverticulitis (Chronic) Foot pain (Chronic 1989) GERD (gastroesophageal reflux disease) (Chronic) Moreno's disease (Chronic 1974) Hyperlipemia (Chronic 1979) Hypertension (Chronic 1979) Hypothyroidism (Chronic 1974) IBS (irritable bowel syndrome) (Chronic 2003) Lumbar spine pain (Chronic 2005) Scoliosis (Chronic) Sjogren's syndrome (Chronic 2003) Carpal tunnel syndrome (Resolved 1974) Cataracts, bilateral (Resolved 2013) Chicken pox (Resolved) Chickenpox (Resolved) Fibroids (Resolved 1979) Measles (Resolved) Measles (Resolved) Mumps (Resolved) Mumps (Resolved) Ovarian cyst (Resolved 1989) Acquired hypothyroidism (02/10/16) Essential hypertension with goal blood pressure less than 140/90 (02/10/16) History of diverticulitis (06/25/16) Pure hypercholesterolemia (02/10/16) Sjogren's syndrome (02/10/16) Surgical History Status post hysterectomy (Resolved 1990) History of carpal tunnel repair (Resolved 1974) Status post cholecystectomy (Resolved 1964) Status post appendectomy (Resolved 1954) Anesthesia complication (Resolved) History of colonoscopy (Resolved 04/01/07) History of colonoscopy with polypectomy (Resolved 05/08/11) History of left cataract surgery (Resolved 11/13/14) History of right cataract surgery (Resolved 12/11/14) Hx of hand surgery (Resolved 2013) Hx of surgical procedure (Resolved 1996) History of cataract removal with insertion of prosthetic lens (2013) Family History Child Hypertension Child Hypertension Sister Age: 77 Rheumatoid arthritis Father NM (myocardial infarction) Heart disease Mother NM (myocardial infarction) Hypertension Angina pectoris Sister Colon cancer Social History household members: other Smoking Status: Never smoker second hand exposure: No alcohol intake: former substance use type: does not use Family History Child Hypertension Child Hypertension Sister Age: 77 Rheumatoid arthritis Father NM (myocardial infarction) Heart disease Mother NM (myocardial infarction) Hypertension Angina pectoris Sister Colon cancer Social History household members: none Smoking Status: Never smoker second hand exposure: No alcohol intake: former substance use type: does not use Course <Noemi Larkin MD - Last Filed: 04/20/19 20:18> Course Narrative: Patient was worked up with labs , which showed moderate hyponatremia but otherwise unremarkable. PT was consulted to get the patient up, and found that the patient listed consistently to the left and could not walk steadily, even with a walker. they also noted that when given a cup of water, the patient was not able to be coordinated get the cup to her mouth, mainly with her left side, and ended up spilling the water on her shirt. An MRI of the patient's brain was ordered, as she had refused MRI on her recent admission, so this had never been done. This was pending at the time of shift change, and patient was signed out to Dr. Vogel for MRI and final disposition. Orders Ordered: ED Orders 04/18/19 15:40 Urine Microscopic Stat 04/18/19 15:47 Basic Metabolic Panel Stat Complete Blood Count AUTO DIFF Stat Partial Thromboplastin Time Stat Prothrombin Time INR Stat 04/18/19 17:24 MR head/brain wo con Stat 04/18/19 17:25 US carotid doppler BI Stat Vital Signs - 8 hr 04/18/19 16:54 04/18/19 19:21 Pulse Rate 80 Respiratory Rate 16 Blood Pressure [Left Arm] 186/92 H Blood Pressure [Right Arm] 175/92 H Pulse Oximetry 100 <Sy Vogel DO - Last Filed: 04/19/19 00:36> Orders Ordered: ED Orders 04/18/19 15:40 Urine Microscopic Stat 04/18/19 15:47 Basic Metabolic Panel Stat Complete Blood Count AUTO DIFF Stat Partial Thromboplastin Time Stat Prothrombin Time INR Stat 04/18/19 17:24 MR head/brain wo con Stat 04/18/19 17:25 US carotid doppler BI Stat Vital Signs - 8 hr 04/18/19 16:54 04/18/19 19:21 Pulse Rate 80 Respiratory Rate 16 Blood Pressure [Left Arm] 186/92 H Blood Pressure [Right Arm] 175/92 H Pulse Oximetry 100 MDM - Fall <Noemi Larkin MD - Last Filed: 04/20/19 20:18> Medical Records Attestation: I reviewed the patient's medical records. Lab Data Attestation: I reviewed the patient's lab results. Result diagrams: 04/18/19 15:47 04/18/19 15:47 Lab Results 04/18/19 04/18/19 04/18/19 Range/Units 15:40 15:47 15:47 WBC 9.2 (4.5-11.0) X10^3/uL RBC 3.67 L (4.0-5.2) X10^6/uL Hgb 11.9 L (12.0-16.0) g/dL Hct 34.5 L (36-46) % MCV 94.0 (80-100) fL MCH 32.5 (26-34) PG MCHC 34.6 (30-36) % RDW 13.8 (11.6-14.8) % Plt Count 286 (150-400) X10^3/uL Neut % (Auto) 83.7 H (50-75) % Lymph % (Auto) 8.8 L (25-40) % [place] % (Auto) 6.4 (3-14) % Eos % (Auto) 0.6 L (2-4) % Baso % (Auto) 0.5 (0-2) % Neut # (Auto) 7700 H (8615-1549) /uL Lymph # (Auto) 800 L (1825-1284) /uL [place] # (Auto) 600 (0-900) /uL Eos # (Auto) 100 (0-450) /uL Baso # (Auto) 0 (0-100) /uL PT 11.2 (10.1-12.7) SECONDS INR 1.0 (0.9-1.3) APTT 28 (26.4-36.2) SECONDS Sodium (137-145) mmol/L Potassium (3.4-5.1) mmol/L Chloride (98-107) mmol/L Carbon Dioxide (22-32) mmol/L BUN (7-17) mg/dL Creatinine (0.52-1.04) mg/dL Estimated GFR (>60) mL/min BUN/Creatinine Ratio (6-22) Glucose (80-110) mg/dL Calcium (8.4-10.2) mg/dL Urine RBC 0-1/hpf (0-5/HPF) Urine WBC 1-5/hpf (0-5/HPF) Ur Squamous Epith Cells 10-30 /hpf H D (0-5/HPF) Urine Bacteria Occasional (0-1) (None) Ur Culture Indicated? Cult not indicated 04/18/19 Range/Units 15:47 WBC (4.5-11.0) X10^3/uL RBC (4.0-5.2) X10^6/uL Hgb (12.0-16.0) g/dL Hct (36-46) % MCV (80-100) fL MCH (26-34) PG MCHC (30-36) % RDW (11.6-14.8) % Plt Count (150-400) X10^3/uL Neut % (Auto) (50-75) % Lymph % (Auto) (25-40) % [place] % (Auto) (3-14) % Eos % (Auto) (2-4) % Baso % (Auto) (0-2) % Neut # (Auto) (0438-2460) /uL Lymph # (Auto) (0884-6709) /uL [place] # (Auto) (0-900) /uL Eos # (Auto) (0-450) /uL Baso # (Auto) (0-100) /uL PT (10.1-12.7) SECONDS INR (0.9-1.3) APTT (26.4-36.2) SECONDS Sodium 126 L (137-145) mmol/L Potassium 3.8 (3.4-5.1) mmol/L Chloride 88 L (98-107) mmol/L Carbon Dioxide 26 (22-32) mmol/L BUN 22 H (7-17) mg/dL Creatinine 0.60 (0.52-1.04) mg/dL Estimated GFR > 60.0 (>60) mL/min BUN/Creatinine Ratio 36.7 H (6-22) Glucose 123 H (80-110) mg/dL Calcium 9.4 (8.4-10.2) mg/dL Urine RBC (0-5/HPF) Urine WBC (0-5/HPF) Ur Squamous Epith Cells (0-5/HPF) Urine Bacteria (None) Ur Culture Indicated? <Sy Vogel, DO - Last Filed: 04/19/19 00:36> Lab Data Lab Results 04/18/19 04/18/19 04/18/19 Range/Units 15:40 15:47 15:47 WBC 9.2 (4.5-11.0) X10^3/uL RBC 3.67 L (4.0-5.2) X10^6/uL Hgb 11.9 L (12.0-16.0) g/dL Hct 34.5 L (36-46) % MCV 94.0 (80-100) fL MCH 32.5 (26-34) PG MCHC 34.6 (30-36) % RDW 13.8 (11.6-14.8) % Plt Count 286 (150-400) X10^3/uL Neut % (Auto) 83.7 H (50-75) % Lymph % (Auto) 8.8 L (25-40) % [place] % (Auto) 6.4 (3-14) % Eos % (Auto) 0.6 L (2-4) % Baso % (Auto) 0.5 (0-2) % Neut # (Auto) 7700 H (3522-9040) /uL Lymph # (Auto) 800 L (7268-2448) /uL [place] # (Auto) 600 (0-900) /uL Eos # (Auto) 100 (0-450) /uL Baso # (Auto) 0 (0-100) /uL PT 11.2 (10.1-12.7) SECONDS INR 1.0 (0.9-1.3) APTT 28 (26.4-36.2) SECONDS Sodium (137-145) mmol/L Potassium (3.4-5.1) mmol/L Chloride (98-107) mmol/L Carbon Dioxide (22-32) mmol/L BUN (7-17) mg/dL Creatinine (0.52-1.04) mg/dL Estimated GFR (>60) mL/min BUN/Creatinine Ratio (6-22) Glucose (80-110) mg/dL Calcium (8.4-10.2) mg/dL Urine RBC 0-1/hpf (0-5/HPF) Urine WBC 1-5/hpf (0-5/HPF) Ur Squamous Epith Cells 10-30 /hpf H D (0-5/HPF) Urine Bacteria Occasional (0-1) (None) Ur Culture Indicated? Cult not indicated 04/18/19 Range/Units 15:47 WBC (4.5-11.0) X10^3/uL RBC (4.0-5.2) X10^6/uL Hgb (12.0-16.0) g/dL Hct (36-46) % MCV (80-100) fL MCH (26-34) PG MCHC (30-36) % RDW (11.6-14.8) % Plt Count (150-400) X10^3/uL Neut % (Auto) (50-75) % Lymph % (Auto) (25-40) % [place] % (Auto) (3-14) % Eos % (Auto) (2-4) % Baso % (Auto) (0-2) % Neut # (Auto) (2919-3046) /uL Lymph # (Auto) (7957-5302) /uL [place] # (Auto) (0-900) /uL Eos # (Auto) (0-450) /uL Baso # (Auto) (0-100) /uL PT (10.1-12.7) SECONDS INR (0.9-1.3) APTT (26.4-36.2) SECONDS Sodium 126 L (137-145) mmol/L Potassium 3.8 (3.4-5.1) mmol/L Chloride 88 L (98-107) mmol/L Carbon Dioxide 26 (22-32) mmol/L BUN 22 H (7-17) mg/dL Creatinine 0.60 (0.52-1.04) mg/dL Estimated GFR > 60.0 (>60) mL/min BUN/Creatinine Ratio 36.7 H (6-22) Glucose 123 H (80-110) mg/dL Calcium 9.4 (8.4-10.2) mg/dL Urine RBC (0-5/HPF) Urine WBC (0-5/HPF) Ur Squamous Epith Cells (0-5/HPF) Urine Bacteria (None) Ur Culture Indicated? Imaging Data MRI - head: Radiologist's impression: [place] [address] Magnetic Resonance Report Signed Patient: Carey Mtz EMR#: [id number] : 8Acct:[id number] Age/Sex: 79 / FDate of Service: 04/18/19 Loc: ED Accession Number: [id number] Procedure: MR head/brain wo con Ordering Provider: Noemi Larkin MD PROCEDURE: MR HEAD/BRAIN WO CON INDICATIONS: stroke sx TECHNIQUE: Non-contrast axial T1 spin echo, axial T2 fast spin echo, sagittal and axial FLAIR, coronal T2 fast spin echo, axial gradient echo, axial diffusion and ADC through the brain. COMPARISON: [facility], CT, CT HEAD/BRAIN WO CON, 04/15/2019, 22:34. FINDINGS: Image quality: Excellent. CSF spaces: Ventricles appear symmetric in size and shape. Basal cisterns are patent. No extra-axial fluid collections. Brain: No intracranial bleeds or mass effects. There is cerebral volume loss for age. There are periventricular and deep white matter chronic small vessel ischemic changes. Brainstem appears normal. Diffusion-weighted images show no acute ischemic insults. No chronic ischemic insults. Normal intravascular flow voids are present. Skull and face: Calvarial bone marrow is normal in signal. Orbits are normal. Sinuses: Sinuses and mastoids are clear. IMPRESSION: Diffuse small white matter signal changes, probably represent chronic microvascular ischemic disease, versus statistically less likely demyelination or other infectious, inflammatory, neurodegenerative etiology, technically nonspecific. No evidence of acute ischemia. Dictated by: Stephen Dukes M.D. on 04/18/2019 at 19:28 Approved by: Stephen Dukes M.D. on 04/18/2019 at 19:31 [facility] Narrative Medical decision making narrative: Received turned over from day provider. Patient's MRI in the brain shows no acute ischemic changes. Patient was alert and oriented x3. In my opinion has the capacity to make decisions. Was tolerating oral intake. Stated that she did not want to be admitted to the hospital wanted to go home. She stated that she was feeling much better. She uses a walker at home. She got up from a lying position to a seated position on the bed without any problems. With minimal assistance from myself she stood up next to the bed and took several steps around the room without any problems. She stated that she felt like she get around the house with her walker. She stated that she felt stable on her feet. Once again stated that she did not want to be admitted to the hospital. I evaluated this patient when she was in the emergency department a couple days ago when she made it abundantly clear to me at that time that she did not want any resuscitation. I informed the patient that she could return to the emergency department at any time for further evaluation. I did inform her that she should talk with her primary doctor about potential change in her living situation to avoid falling. She expressed understanding and agreement with this plan. Discharge Plan Departure Patient Disposition: Home Clinical Impression: Bilateral leg weakness Fall Qualifiers: Encounter type: initial encounter Qualified Code(s): W19.XXXA - Unspecified fall, initial encounter Discharge Date/Time: 04/18/19 20:25 Interventions: ED Discharge Assessment Last Done: 04/18/19 20:10 Instructions: How to Prevent Falls Activity Restrictions/Additional Instructions: Continue all of your medications as directed. I do recommend that you talk with your primary provider about your weakness. Use your walker at home. It is important that you avoid falling. Return to the emergency department for any new or worsening symptoms Prescriptions: No Action Glucose: Test Strips See Rx Instructions SUBCUT QDAY Qty: 100 RF: 6 omeprazole 20 mg capsule,delayed release(DR/EC) 20 mg PO DAILY Qty: 90 RF: 1 diclofenac sodium 1 % gel 2 gram TOP QID PRN (Reason: pain) RF: 0 amlodipine 2.5 mg tablet 2.5 mg PO DAILY Qty: 90 RF: 1 metformin 1,000 mg tablet 1,000 mg PO BID Qty: 180 RF: 5 DISABLED PARKING PERMIT Qty: 1 RF: 0 meloxicam 15 mg tablet 15 mg PO DAILY Qty: 90 RF: 1 aspirin 325 mg tablet,delayed release (DR/EC) 325 mg PO DAILY Qty: 30 RF: 0 PreviDent 5000 Dry Mouth 1.1 % gel 1 applic dental DIRECTED RF: 0 atorvastatin [Lipitor] 10 mg tablet 10 mg PO BEDTIME RF: 0 metoprolol succinate [Toprol XL] 100 mg tablet extended release 24 hr 100 mg PO DAILY RF: 0 levothyroxine 88 mcg tablet 88 mcg PO DAILY RF: 0 hydroxyzine HCl 10 mg tablet 10 - 20 mg PO Q6H PRN (Reason: anxiety) RF: 0 irbesartan [Avapro] 300 mg tablet 300 mg PO DAILY RF: 0 diclofenac sodium 50 mg Tablet,Delayed Release (Dr/Ec) 50 mg PO DAILY RF: 0 polyethylene glycol 3350 [Miralax] 17 gram/dose Powder 1 dose PO PRN PRN (Reason: Constipation) RF: 0 Lancet: Device 1 ea . Q DAY RF: 0 Referrals: Catrachito Santiago MD [Primary Care Provider] -
[2019-04-18 15:58] LABS: Add Manual Diff / Slide Review NO; Basophils Absolute Auto 0 /uL (0-100); Basophils Percent Auto 0.5 % (0-2); Eosinophils Absolute Auto 100 /uL (0-450); Eosinophils Percent Auto 0.6 % (2-4); Hematocrit 34.5 % (36-46); Hemoglobin 11.9 g/dL (12.0-16.0); Lymphocytes Absolute Auto 800 /uL (1100-4500); Lymphocytes Percent Auto 8.8 % (25-40); Mean Corpuscular HGB Conc 34.6 % (30-36); Mean Corpuscular Hemoglobin 32.5 PG (26-34); Monocytes Absolute Auto 600 /uL (0-900); Monocytes Percent Auto 6.4 % (3-14); Neutrophils Absolute Auto 7700 /uL (1500-7000); Neutrophils Percent Auto 83.7 % (50-75); Platelet Count 286 X10^3/uL (150-400); Red Blood Cell Count 3.67 X10^6/uL (4.0-5.2); Red Cell Distribution Width 13.8 % (11.6-14.8); White Blood Cell Count 9.2 X10^3/uL (4.5-11.0)
[2019-04-18 16:00] LABS: Bacteria Urine Occasional (0-1); Culture Indicated Urine Cult Not Indicated; RBC Urine 0-1/HPF (0-5/HPF); Squamous Epithelial Cell Urine 10-30 /HPF (0-5/HPF); WBC Urine 1-5/HPF (0-5/HPF)
--- NOTE | 2019-04-18 16:01 | ED_ITS ---
HPI - Fall <Noemi Larkin MD - Last Filed: 04/20/19 20:18> General Chief Complaint: Fall Stated Complaint: Fall at home: unable to ambulate Time Seen by Provider: 04/18/19 14:50 Source: patient Mode of arrival: EMS Limitations: no limitations History of Present Illness HPI Narrative: Patient comes emergency department complaining of bilateral lower extremity weakness that started this afternoon. She was just discharged from the hospital after having a possible TIA in states she was doing fine this morning, but that this afternoon, she took several falls. Patient states that she did not feel that there is any focal weakness, but that was just generally her lower extremities. Patient states that she has otherwise been feeling fine since discharge yesterday. Patient denies any fevers. She has not felt ill with anything else. Patient is not sure why she began to become weak. Patient denies any upper extremity symptoms. She was not hurt during her falls. No other complaints at this time. No chest pain or shortness of breath. No nausea or vomiting. No abdominal pain. Related Data Home Medications Medication Instructions Recorded Confirmed diclofenac 1 % topical gel 2 gram TOP QID PRN 12/08/18 04/20/19 Lancet: Device 1 ea . Q DAY 04/18/19 04/20/19 atorvastatin [Lipitor] 10 mg PO BEDTIME 04/18/19 04/20/19 diclofenac sodium 50 mg PO DAILY 04/18/19 04/20/19 fluoride (sodium) [PreviDent 5000 1 applic DENTAL DIRECTED 04/18/19 04/20/19 Dry Mouth] hydroxyzine HCl 10 - 20 mg PO Q6H PRN 04/18/19 04/20/19 irbesartan [Avapro] 300 mg PO DAILY 04/18/19 04/20/19 levothyroxine 88 mcg PO DAILY 04/18/19 04/20/19 metoprolol succinate [Toprol XL] 100 mg PO DAILY 04/18/19 04/20/19 polyethylene glycol 3350 [Miralax] 1 dose PO PRN PRN 04/18/19 04/20/19 Previous Rx's Medication Instructions Recorded Glucose: Test Strips See Rx Instructions SUBCUT QDAY 06/24/18 #100 strip omeprazole 20 mg capsule,delayed 20 mg PO DAILY #90 cap 09/13/18 release metformin 1,000 mg tablet 1,000 mg PO BID #180 tab 11/15/18 DISABLED PARKING PERMIT #1 each 01/27/19 meloxicam 15 mg tablet 15 mg PO DAILY #90 tab 01/27/19 aspirin 325 mg PO DAILY #30 tab 04/16/19 amlodipine 2.5 mg tablet 2.5 mg PO DAILY #90 tab 04/20/19 Allergies Allergy/AdvReac Type Severity Reaction Status Date / Time ciprofloxacin [CIPROFLOXACIN] AdvReac Severe Bloody Verified 04/20/19 09:08 diahrrea, swollen feet. Benzodiazepines AdvReac Intermediate EXTREME Verified 04/20/19 09:08 SENSITIVITY fentanyl AdvReac Intermediate EXTREME Verified 04/20/19 09:08 SENSITIVITY TO ALL NARCOTICS meperidine AdvReac Intermediate EXTREME Verified 04/20/19 09:08 SENSITIVITY Opioids - Morphine Analogues AdvReac Intermediate EXTREME Verified 04/20/19 09:08 SENSITIVITY - SOMNOLENCE Review of Systems <Noemi Larkin MD - Last Filed: 04/20/19 20:18> Constitutional Denies chills, Denies fever(s), Denies lethargy and Reports weakness Eyes Denies change in vision, Denies eye discharge, Denies irritation and Denies loss of vision ENT Ears, Nose, Mouth, and Throat: Denies change in voice, Denies neck pain and Denies sore throat Cardiovascular Denies chest pain, Denies irregular heart rhythm, Denies lightheadedness, Denies palpitations, Denies dyspnea, Denies dyspnea on exertion and Denies orthopnea Respiratory Denies cough, Denies dyspnea, Denies dyspnea on exertion and Denies wheezing Gastrointestinal Gastrointestinal: Denies abdominal pain, Denies change in bowel habits, Denies diarrhea, Denies nausea and Denies vomiting Genitourinary Denies hematuria, Denies flank pain, Denies urinary incontinence and Denies urinary urgency Musculoskeletal Denies neck pain Integumentary/Breasts Denies pruritus, Denies erythema, Denies rash and Denies wounds Neurologic Denies confusion, Denies loss of vision and Reports weakness Comments: Lower extremity weakness Psychiatric Denies anxiety, Denies confusion, Denies depression, Denies homicidal ideation and Denies suicidal ideation Endocrine Denies palpitations Hematologic/Lymphatic Denies easy bruising Allergic/Immunologic Denies wheezing Exam <Noemi Larkin MD - Last Filed: 07/11/19 20:18> Initial Vital Signs Initial Vital Signs: Vital Signs Temperature 97.6 F 04/18/19 14:41 Pulse Rate 84 04/18/19 14:41 Respiratory Rate 17 04/18/19 14:41 Blood Pressure 190/94 H 04/18/19 14:41 Pulse Oximetry 100 04/18/19 14:41 Const General: cooperative and well developed Nutritional Appearance: well nourished Orientation: alert, awake, oriented x3 and not confused [facility] Head: normocephalic and atraumatic Ears: external ears normal and TM's normal bilaterally Nose: external nose normal and No nasal discharge Face and sinus: sinuses nontender, face symmetric, no sinus tenderness and No dry mucous membranes Mouth: oral mucosae normal and moist mucous membranes Teeth and gingiva: dentition normal Throat: tonsils normal and uvula midline Eyes General: appearance normal, both eyes and all related structures Eyelids: eyelids normal Conjunctivae: conjunctivae normal Sclera: sclerae normal Pupils: PERRL EOM: EOM intact bilaterally Neck Neck: normal visual inspection, trachea midline, No lymphadenopathy, No midline deformity and No JVD Lymphatic: No lymphedema Chest Chest: normal inspection of the chest Resp Effort & Inspection: normal respiratory effort, able to speak in complete sentences, no respiratory distress and no use of accessory muscles Auscultation: clear to auscultation bilaterally, no rales, no rhonchi and no wheezes Cardio Rate: regular rate Rhythm: regular rhythm Heart Sounds: no click, no gallops, no murmurs and no rubs Pulses: normal peripheral pulses GI Inspection: non-distended Palpation: soft, no hepatosplenomegaly, No guarding, No pulsatile mass and No tender Auscultation: normal bowel sounds Back/Spine/Pelvis Back: No CVA tenderness Cervical Spine: cervical ROM normal and No pain with cervical ROM Thoracic/Lumbar Spine: thoracic and lumbar spine normal to inspection Skin General: no rashes or lesions noted, No jaundice and No petechiae Neuro General: alert, awake, oriented x3 and no focal motor deficits Cranial Nerves: CN's II-XI intact bilaterally Speech: speech normal Motor: muscle tone normal throughout and strength 5/5 throughout (Except for 5- strength at the left hip flexor--decreased compared to the rig) Extrem General: full ROM, no clubbing, cyanosis or edema, no pedal edema and no calf tenderness Psych Appearance: well kempt Mental Status: mental status grossly normal Attitude: cooperative Thought Content: normal and suicidality Judgment: judgment good <Sy Vogel DO - Last Filed: 04/19/19 00:36> Initial Vital Signs Initial Vital Signs: Vital Signs Temperature 97.6 F 04/18/19 14:41 Pulse Rate 84 04/18/19 14:41 Respiratory Rate 17 04/18/19 14:41 Blood Pressure 190/94 H 04/18/19 14:41 Pulse Oximetry 100 04/18/19 14:41 PFSH <Noemi Larkin MD - Last Filed: 04/20/19 20:18> Medical History Eczema (Chronic 02/10/16) 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) Hot flashes due to menopause (Resolved) Chronic pain of both shoulders (Chronic 10/26/16) Primary insomnia (Chronic 10/26/16) Balance problems (Chronic 02/01/17) Bunion (Chronic 03/02/17) Hammer toe of left foot (Chronic 03/02/17) Type 2 diabetes mellitus without complication, without long-term current use of insulin (Chronic 2015) Ankle pain (Chronic 1989) Diverticulitis (Chronic) Foot pain (Chronic 1989) GERD (gastroesophageal reflux disease) (Chronic) Moreno's disease (Chronic 1974) Hyperlipemia (Chronic 1979) Hypertension (Chronic 1979) Hypothyroidism (Chronic 1974) IBS (irritable bowel syndrome) (Chronic 2003) Lumbar spine pain (Chronic 2005) Scoliosis (Chronic) Sjogren's syndrome (Chronic 2003) Carpal tunnel syndrome (Resolved 1974) Cataracts, bilateral (Resolved 2013) Chicken pox (Resolved) Chickenpox (Resolved) Fibroids (Resolved 1979) Measles (Resolved) Measles (Resolved) Mumps (Resolved) Mumps (Resolved) Ovarian cyst (Resolved 1989) Acquired hypothyroidism (02/10/16) Essential hypertension with goal blood pressure less than 140/90 (02/10/16) History of diverticulitis (06/25/16) Pure hypercholesterolemia (02/10/16) Sjogren's syndrome (02/10/16) Surgical History Status post hysterectomy (Resolved 1990) History of carpal tunnel repair (Resolved 1974) Status post cholecystectomy (Resolved 1964) Status post appendectomy (Resolved 1954) Anesthesia complication (Resolved) History of colonoscopy (Resolved 04/01/07) History of colonoscopy with polypectomy (Resolved 05/08/11) History of left cataract surgery (Resolved 11/13/14) History of right cataract surgery (Resolved 12/11/14) Hx of hand surgery (Resolved 2013) Hx of surgical procedure (Resolved 1996) History of cataract removal with insertion of prosthetic lens (2013) Family History Child Hypertension Child Hypertension Sister Age: 77 Rheumatoid arthritis Father [place] (myocardial infarction) Heart disease Mother NC (myocardial infarction) Hypertension Angina pectoris Sister Colon cancer Social History household members: other Smoking Status: Never smoker second hand exposure: No alcohol intake: former substance use type: does not use Family History Child Hypertension Child Hypertension Sister Age: 77 Rheumatoid arthritis Father NC (myocardial infarction) Heart disease Mother NC (myocardial infarction) Hypertension Angina pectoris Sister Colon cancer Social History household members: none Smoking Status: Never smoker second hand exposure: No alcohol intake: former substance use type: does not use Course <Noemi Larkin MD - Last Filed: 04/20/19 20:18> Course Narrative: Patient was worked up with labs , which showed moderate hyponatremia but otherwise unremarkable. PT was consulted to get the patient up, and found that the patient listed consistently to the left and could not walk steadily, even with a walker. they also noted that when given a cup of water, the patient was not able to be coordinated get the cup to her mouth, mainly with her left side, and ended up spilling the water on her shirt. An MRI of the patient's brain was ordered, as she had refused MRI on her recent admission, so this had never been done. This was pending at the time of shift change, and patient was signed out to Dr. Vogel for MRI and final disposition. Orders Ordered: ED Orders 04/18/19 15:40 Urine Microscopic Stat 04/18/19 15:47 Basic Metabolic Panel Stat Complete Blood Count AUTO DIFF Stat Partial Thromboplastin Time Stat Prothrombin Time INR Stat 04/18/19 17:24 MR head/brain wo con Stat 04/18/19 17:25 US carotid doppler BI Stat Vital Signs - 8 hr 04/18/19 16:54 04/18/19 19:21 Pulse Rate 80 Respiratory Rate 16 Blood Pressure [Left Arm] 186/92 H Blood Pressure [Right Arm] 175/92 H Pulse Oximetry 100 <Sy Vogel DO - Last Filed: 04/19/19 00:36> Orders Ordered: ED Orders 04/18/19 15:40 Urine Microscopic Stat 04/18/19 15:47 Basic Metabolic Panel Stat Complete Blood Count AUTO DIFF Stat Partial Thromboplastin Time Stat Prothrombin Time INR Stat 04/18/19 17:24 MR head/brain wo con Stat 04/18/19 17:25 US carotid doppler BI Stat Vital Signs - 8 hr 04/18/19 16:54 04/18/19 19:21 Pulse Rate 80 Respiratory Rate 16 Blood Pressure [Left Arm] 186/92 H Blood Pressure [Right Arm] 175/92 H Pulse Oximetry 100 MDM - Fall <Noemi Larkin MD - Last Filed: 04/20/19 20:18> Medical Records Attestation: I reviewed the patient's medical records. Lab Data Attestation: I reviewed the patient's lab results. Result diagrams: 04/18/19 15:47 04/18/19 15:47 Lab Results 04/18/19 04/18/19 04/18/19 Range/Units 15:40 15:47 15:47 WBC 9.2 (4.5-11.0) X10^3/uL RBC 3.67 L (4.0-5.2) X10^6/uL Hgb 11.9 L (12.0-16.0) g/dL Hct 34.5 L (36-46) % MCV 94.0 (80-100) fL MCH 32.5 (26-34) PG MCHC 34.6 (30-36) % RDW 13.8 (11.6-14.8) % Plt Count 286 (150-400) X10^3/uL Neut % (Auto) 83.7 H (50-75) % Lymph % (Auto) 8.8 L (25-40) % [place] % (Auto) 6.4 (3-14) % Eos % (Auto) 0.6 L (2-4) % Baso % (Auto) 0.5 (0-2) % Neut # (Auto) 7700 H (4652-3188) /uL Lymph # (Auto) 800 L (4435-2760) /uL [place] # (Auto) 600 (0-900) /uL Eos # (Auto) 100 (0-450) /uL Baso # (Auto) 0 (0-100) /uL PT 11.2 (10.1-12.7) SECONDS INR 1.0 (0.9-1.3) APTT 28 (26.4-36.2) SECONDS Sodium (137-145) mmol/L Potassium (3.4-5.1) mmol/L Chloride (98-107) mmol/L Carbon Dioxide (22-32) mmol/L BUN (7-17) mg/dL Creatinine (0.52-1.04) mg/dL Estimated GFR (>60) mL/min BUN/Creatinine Ratio (6-22) Glucose (80-110) mg/dL Calcium (8.4-10.2) mg/dL Urine RBC 0-1/hpf (0-5/HPF) Urine WBC 1-5/hpf (0-5/HPF) Ur Squamous Epith Cells 10-30 /hpf H D (0-5/HPF) Urine Bacteria Occasional (0-1) (None) Ur Culture Indicated? Cult not indicated 04/18/19 Range/Units 15:47 WBC (4.5-11.0) X10^3/uL RBC (4.0-5.2) X10^6/uL Hgb (12.0-16.0) g/dL Hct (36-46) % MCV (80-100) fL MCH (26-34) PG MCHC (30-36) % RDW (11.6-14.8) % Plt Count (150-400) X10^3/uL Neut % (Auto) (50-75) % Lymph % (Auto) (25-40) % [place] % (Auto) (3-14) % Eos % (Auto) (2-4) % Baso % (Auto) (0-2) % Neut # (Auto) (5174-2474) /uL Lymph # (Auto) (1784-8646) /uL [place] # (Auto) (0-900) /uL Eos # (Auto) (0-450) /uL Baso # (Auto) (0-100) /uL PT (10.1-12.7) SECONDS INR (0.9-1.3) APTT (26.4-36.2) SECONDS Sodium 126 L (137-145) mmol/L Potassium 3.8 (3.4-5.1) mmol/L Chloride 88 L (98-107) mmol/L Carbon Dioxide 26 (22-32) mmol/L BUN 22 H (7-17) mg/dL Creatinine 0.60 (0.52-1.04) mg/dL Estimated GFR > 60.0 (>60) mL/min BUN/Creatinine Ratio 36.7 H (6-22) Glucose 123 H (80-110) mg/dL Calcium 9.4 (8.4-10.2) mg/dL Urine RBC (0-5/HPF) Urine WBC (0-5/HPF) Ur Squamous Epith Cells (0-5/HPF) Urine Bacteria (None) Ur Culture Indicated? <Sy Vogel, DO - Last Filed: 04/19/19 00:36> Lab Data Lab Results 04/18/19 04/18/19 04/18/19 Range/Units 15:40 15:47 15:47 WBC 9.2 (4.5-11.0) X10^3/uL RBC 3.67 L (4.0-5.2) X10^6/uL Hgb 11.9 L (12.0-16.0) g/dL Hct 34.5 L (36-46) % MCV 94.0 (80-100) fL MCH 32.5 (26-34) PG MCHC 34.6 (30-36) % RDW 13.8 (11.6-14.8) % Plt Count 286 (150-400) X10^3/uL Neut % (Auto) 83.7 H (50-75) % Lymph % (Auto) 8.8 L (25-40) % [place] % (Auto) 6.4 (3-14) % Eos % (Auto) 0.6 L (2-4) % Baso % (Auto) 0.5 (0-2) % Neut # (Auto) 7700 H (0052-3905) /uL Lymph # (Auto) 800 L (4438-2376) /uL [place] # (Auto) 600 (0-900) /uL Eos # (Auto) 100 (0-450) /uL Baso # (Auto) 0 (0-100) /uL PT 11.2 (10.1-12.7) SECONDS INR 1.0 (0.9-1.3) APTT 28 (26.4-36.2) SECONDS Sodium (137-145) mmol/L Potassium (3.4-5.1) mmol/L Chloride (98-107) mmol/L Carbon Dioxide (22-32) mmol/L BUN (7-17) mg/dL Creatinine (0.52-1.04) mg/dL Estimated GFR (>60) mL/min BUN/Creatinine Ratio (6-22) Glucose (80-110) mg/dL Calcium (8.4-10.2) mg/dL Urine RBC 0-1/hpf (0-5/HPF) Urine WBC 1-5/hpf (0-5/HPF) Ur Squamous Epith Cells 10-30 /hpf H D (0-5/HPF) Urine Bacteria Occasional (0-1) (None) Ur Culture Indicated? Cult not indicated 04/18/19 Range/Units 15:47 WBC (4.5-11.0) X10^3/uL RBC (4.0-5.2) X10^6/uL Hgb (12.0-16.0) g/dL Hct (36-46) % MCV (80-100) fL MCH (26-34) PG MCHC (30-36) % RDW (11.6-14.8) % Plt Count (150-400) X10^3/uL Neut % (Auto) (50-75) % Lymph % (Auto) (25-40) % [place] % (Auto) (3-14) % Eos % (Auto) (2-4) % Baso % (Auto) (0-2) % Neut # (Auto) (4774-8191) /uL Lymph # (Auto) (0472-5446) /uL [place] # (Auto) (0-900) /uL Eos # (Auto) (0-450) /uL Baso # (Auto) (0-100) /uL PT (10.1-12.7) SECONDS INR (0.9-1.3) APTT (26.4-36.2) SECONDS Sodium 126 L (137-145) mmol/L Potassium 3.8 (3.4-5.1) mmol/L Chloride 88 L (98-107) mmol/L Carbon Dioxide 26 (22-32) mmol/L BUN 22 H (7-17) mg/dL Creatinine 0.60 (0.52-1.04) mg/dL Estimated GFR > 60.0 (>60) mL/min BUN/Creatinine Ratio 36.7 H (6-22) Glucose 123 H (80-110) mg/dL Calcium 9.4 (8.4-10.2) mg/dL Urine RBC (0-5/HPF) Urine WBC (0-5/HPF) Ur Squamous Epith Cells (0-5/HPF) Urine Bacteria (None) Ur Culture Indicated? Imaging Data MRI - head: Radiologist's impression: [place] [address] Magnetic Resonance Report Signed Patient: Carey Mtz EMR#: [id number] : 8Acct:[id number] Age/Sex: 79 / FDate of Service: 04/18/19 Loc: ED Accession Number: [id number] Procedure: MR head/brain wo con Ordering Provider: Noemi Larkin MD PROCEDURE: MR HEAD/BRAIN WO CON INDICATIONS: stroke sx TECHNIQUE: Non-contrast axial T1 spin echo, axial T2 fast spin echo, sagittal and axial FLAIR, coronal T2 fast spin echo, axial gradient echo, axial diffusion and ADC through the brain. COMPARISON: [facility], CT, CT HEAD/BRAIN WO CON, 04/15/2019, 22:34. FINDINGS: Image quality: Excellent. CSF spaces: Ventricles appear symmetric in size and shape. Basal cisterns are patent. No extra-axial fluid collections. Brain: No intracranial bleeds or mass effects. There is cerebral volume loss for age. There are periventricular and deep white matter chronic small vessel ischemic changes. Brainstem appears normal. Diffusion-weighted images show no acute ischemic insults. No chronic ischemic insults. Normal intravascular flow voids are present. Skull and face: Calvarial bone marrow is normal in signal. Orbits are normal. Sinuses: Sinuses and mastoids are clear. IMPRESSION: Diffuse small white matter signal changes, probably represent chronic microvascular ischemic disease, versus statistically less likely demyelination or other infectious, inflammatory, neurodegenerative etiology, technically nonspecific. No evidence of acute ischemia. Dictated by: Stephen Dukes M.D. on 04/18/2019 at 19:28 Approved by: Stephen Dukes M.D. on 04/18/2019 at 19:31 [facility] Narrative Medical decision making narrative: Received turned over from day provider. Patient's MRI in the brain shows no acute ischemic changes. Patient was alert and oriented x3. In my opinion has the capacity to make decisions. Was tolerating oral intake. Stated that she did not want to be admitted to the spital wanted to go home. She stated that she was feeling much better. She uses a walker at home. She got up from a lying position to a seated position on the bed without any problems. With minimal assistance from myself she stood up next to the bed and took several steps around the room without any problems. She stated that she felt like she get around the house with her walker. She stated that she felt stable on her feet. Once again stated that she did not want to be admitted to the hospital. I evaluated this patient when she was in the emergency department a couple days ago when she made it abundantly clear to me at that time that she did not want any resuscitation. I informed the patient that she could return to the emergency department at any time for further evaluation. I did inform her that she should talk with her primary doctor about potential change in her living situation to avoid falling. She expressed understanding and agreement with this plan. Discharge Plan Departure Patient Disposition: Home Clinical Impression: Bilateral leg weakness Fall Qualifiers: Encounter type: initial encounter Qualified Code(s): W19.XXXA - Unspecified fall, initial encounter Discharge Date/Time: 04/18/19 20:25 Interventions: ED Discharge Assessment Last Done: 04/18/19 20:10 Instructions: How to Prevent Falls Activity Restrictions/Additional Instructions: Continue all of your medications as directed. I do recommend that you talk with your primary provider about your weakness. Use your walker at home. It is important that you avoid falling. Return to the emergency department for any new or worsening symptoms Prescriptions: No Action Glucose: Test Strips See Rx Instructions SUBCUT QDAY Qty: 100 RF: 6 omeprazole 20 mg capsule,delayed release(DR/EC) 20 mg PO DAILY Qty: 90 RF: 1 diclofenac sodium 1 % gel 2 gram TOP QID PRN (Reason: pain) RF: 0 amlodipine 2.5 mg tablet 2.5 mg PO DAILY Qty: 90 RF: 1 metformin 1,000 mg tablet 1,000 mg PO BID Qty: 180 RF: 5 DISABLED PARKING PERMIT Qty: 1 RF: 0 meloxicam 15 mg tablet 15 mg PO DAILY Qty: 90 RF: 1 aspirin 325 mg tablet,delayed release (DR/EC) 325 mg PO DAILY Qty: 30 RF: 0 PreviDent 5000 Dry Mouth 1.1 % gel 1 applic dental DIRECTED RF: 0 atorvastatin [Lipitor] 10 mg tablet 10 mg PO BEDTIME RF: 0 metoprolol succinate [Toprol XL] 100 mg tablet extended release 24 hr 100 mg PO DAILY RF: 0 levothyroxine 88 mcg tablet 88 mcg PO DAILY RF: 0 hydroxyzine HCl 10 mg tablet 10 - 20 mg PO Q6H PRN (Reason: anxiety) RF: 0 irbesartan [Avapro] 300 mg tablet 300 mg PO DAILY RF: 0 diclofenac sodium 50 mg Tablet,Delayed Release (Dr/Ec) 50 mg PO DAILY RF: 0 polyethylene glycol 3350 [Miralax] 17 gram/dose Powder 1 dose PO PRN PRN (Reason: Constipation) RF: 0 Lancet: Device 1 ea . Q DAY RF: 0 Referrals: Catrachito Santiago MD [Primary Care Provider] -
[2019-04-18 16:05] LABS: Prothrombin Time 11.2 SECONDS (10.1-12.7)
[2019-04-18 16:08] LABS: PTT Partial Thromboplastin Tim 28 SECONDS (26.4-36.2)
[2019-04-18 16:10] LABS: BUN Creatinine Ratio 36.7 (6-22); Blood Urea Nitrogen 22 mg/dL (7-17); Calcium 9.4 mg/dL (8.4-10.2); Carbon Dioxide 26 mmol/L (22-32); Chloride 88 mmol/L (98-107); Estimated Glomerular Filt Rate > 60.0 mL/min (>60); Glucose 123 mg/dL (80-110); HEMOLYSIS < 15 (0-50); Potassium 3.8 mmol/L (3.4-5.1); Sodium 126 mmol/L (137-145)
--- NOTE | 2019-04-18 16:24 | PT.IIE ---
Surgical History (Last Reviewed 04/18/19 @ 16:06 by Noemi Larkin MD) Status post hysterectomy (Resolved 1990) History of carpal tunnel repair (Resolved 1974) Status post cholecystectomy (Resolved 1964) Status post appendectomy (Resolved 1954) Anesthesia complication (Resolved) History of colonoscopy (Resolved 04/01/07) History of colonoscopy with polypectomy (Resolved 05/08/11) History of left cataract surgery (Resolved 11/13/14) History of right cataract surgery (Resolved 12/11/14) Hx of hand surgery (Resolved 2013) Hx of surgical procedure (Resolved 1996) History of cataract removal with insertion of prosthetic lens (2013) Medical History (Last Reviewed 04/18/19 @ 16:06 by Noemi Larkin MD) Eczema (Chronic 02/10/16) 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) Hot flashes due to menopause (Resolved) Chronic pain of both shoulders (Chronic 10/26/16) Primary insomnia (Chronic 10/26/16) Balance problems (Chronic 02/01/17) Bunion (Chronic 03/02/17) Hammer toe of left foot (Chronic 03/02/17) Type 2 diabetes mellitus without complication, without long-term current use of insulin (Chronic 2015) Ankle pain (Chronic 1989) Diverticulitis (Chronic) Foot pain (Chronic 1989) GERD (gastroesophageal reflux disease) (Chronic) Moreno's disease (Chronic 1974) Hyperlipemia (Chronic 1979) Hypertension (Chronic 1979) Hypothyroidism (Chronic 1974) IBS (irritable bowel syndrome) (Chronic 2003) Lumbar spine pain (Chronic 2005) Scoliosis (Chronic) Sjogren's syndrome (Chronic 2003) Carpal tunnel syndrome (Resolved 1974) Cataracts, bilateral (Resolved 2013) Chicken pox (Resolved) Chickenpox (Resolved) Fibroids (Resolved 1979) Measles (Resolved) Measles (Resolved) Mumps (Resolved) Mumps (Resolved) Ovarian cyst (Resolved 1989) Acquired hypothyroidism (02/10/16) Essential hypertension with goal blood pressure less than 140/90 (02/10/16) History of diverticulitis (06/25/16) Pure hypercholesterolemia (02/10/16) Sjogren's syndrome (02/10/16) Physical Therapy Inpatient Evaluation/Re-Eval M1 PT/OT-IP Prior Functional Status Start: 04/18/19 18:04 Freq: Status: Active Protocol: Document 04/18/19 16:24 AB (Rec: 04/18/19 18:23 AB [id number]) Medical Review Prior Functional Status Medical History Reviewed Yes Communication able to make needs known Mobility and Gait pt stated that she is modified independent with all mobilities and ambulation using a 4WW Prior Functional Level (Other details) pt was just hospitalized 04/15 for TIA but went home 04/28. pt stated that BLE just got weak and fell at home and unable to get up. pt stated that she has her life alert on and EMS came in. Social History Household Members none Living Arrangements House Number of Floors (Floors) One Floor Number of Stairs To Enter/Railing? has 1 step to enter Home Environment Standard Height Toilet Tub/Shower Home Equipment Four Wheel Walker Straight Cane Hand Held Shower Grab Bars Near Toilet Grab Bars In Shower Employment Status Retired Additional Social History Comment stated that she has a caregiver that comes in 3x/ week for ~ 2-4 hours and has friends that assists her with meals, grocery shopping and drives her to her doctor's appointments pt also stated that she has a life alert M2 PT-IP Current Condition Start: 04/18/19 18:04 Freq: Status: Active Protocol: Document 04/18/19 16:24 AB (Rec: 04/18/19 18:23 AB [id number]) Physical Therapy Current Condition Current Condition Evaluation Date 04/18/19 Treatment Diagnosis h/o falls; generalized weakness Onset Date 04/18/19 Precautions Other Precautions Falls M3 PT-IP Subjective Start: 04/18/19 18:04 Freq: Status: Active Protocol: Document 04/18/19 16:24 AB (Rec: 04/18/19 18:23 AB [id number]) Subjective Physical Therapy Visit Type Type Initial Evaluation Visit Start Time 16:24 Visit Stop Time 17:20 Total Visit Minutes 56 Number of SEWER BUILDER Visits 0 Physical Therapy Visit Comments Patient Comments pt agreed to do PT Therapy Pain Assessment Pain Present Pain Present Denied Pain M4 PT-IP Mobility and Gait Start: 04/18/19 18:04 Freq: Status: Active Protocol: Document 04/18/19 16:24 AB (Rec: 04/18/19 18:23 AB [id number]) PT-Bed Mobility Assessment Supine to Sit Supine to Sit Maximum Assistance 1 Person Assistance Sit to Supine Sit to Supine Standby Assistance PT-Transfer Assessment Sit to and From Stand Sit to and from Stand Moderate Assistance 1 Person Assistance Use of Upper Extremities Equipment Transfer Assistive Device Gait Belt Front Wheeled Walker Orthotic/Prosthetic Devices or Brace: No Comments Mobility Comments pt completed supine to sit max A and max cues. pt with increas posterior trunk LOB requiring max A to maintain sitting balance on EOB. repositioned pt and continues to require min to mod A for balance. pt completed sit to stand from EOB mod A and cues. pt ambulated in room using FWW mod to max A and max cues with unsteady gait, decrease FWW control especially n L side and tends to run into things on L side. pt assisted back to bed. positioned pt in bed. call light and table placed within reach. Gait Assessment Gait Gait Assistance Required: Moderate Assistance Maximum Assistance 1 Person Assist Distance (Feet) 10 Able to Maintain Weight Bearing Status Yes During Gait Assistive Devices Assistive Device Gait Belt Front Wheeled Walker Orthotic/Prosthetic Devices or Brace: No Gait Deviations General Gait Pattern Antalgic Decreased Stride Length Flexed Trunk Narrow Based Gait Factors Limiting Gait Function Factors Limiting Gait Function Decreased Activity Tolerance Decreased Strength Difficulty Following Directions Poor Balance Poor Safety Awareness Comments Gait Comments pt ambulated in room using FWW mod to max A ~ 10 ft requiring max cues for safety. pt presents with unsteady gait, increase forward trunk flexion, requires assist with maneuvering FWW due to pt running into things on L side. PT-Balance Assessment Sitting Balance and Reactions Static Sitting Balance Ability Fair Dynamic Sitting Balance Ability Poor Standing Balance and Reactions Static Standing Balance Ability Poor Dynamic Standing Balance Ability Poor Device Used FWW M5 PT-IP Objective Assessments Start: 04/18/19 18:04 Freq: Status: Active Protocol: Document 04/18/19 16:24 AB (Rec: 04/18/19 18:23 AB [id number]) Orientation Orientation/Cognition Level of Alertness Alert Language Function Ability Hard of Hearing Safety Awareness Decreased Safety Awareness Memory Description Short Term Impaired Bond Analyst Impaired Gross Range of Motion Lower Extremity ROM Assessment Right Impaired Strength Upper Extremity Strength Assessment Bilaterally Impaired Lower Extremity Strength Assessment Bilaterally Impaired Comments Strength Comments L senior network administrator is significantly less than R L elbow flexion/extension 3/5 RLE: 4-/5 LLE: 3+/5 Sensation Assessment Sensation Gross Sensation WNL Muscle Tone Muscle Tone WNL Yes M6 PT-IP Treatment Start: 04/18/19 18:04 Freq: Status: Active Protocol: Document 04/18/19 16:24 AB (Rec: 04/18/19 18:23 AB [id number]) Physical Therapy Treatment Education Education Provided Precautions Safety M7 PT-IP Assessment and Plan Start: 04/18/19 18:04 Freq: Status: Active Protocol: Document 04/18/19 16:24 AB (Rec: 04/18/19 18:23 AB [id number]) PT Summary Assessment and Plan Potential Rehabilitation Potential Fair Status of Condition at Evaluation Evolving Summary Impairments Pain ROM Strength Balance Coordination Sensation Tone Cognition Bed Mobility Transfers Gait Activity Tolerance Assessment Summary pt requiring mod to max A with mobility at this time. pt presents decrease sitting balance with increase posterior leaning with sitting on EOB. pt also has unsteady gait and decrease safety awareness. pt has decrease strength on L side of her body. pt lives alone and is not safe to go home at this time. Recommending SNF rehab to improve strength, safety and functional moiblity prior to going home. Goals Bed Mobility Goal Independent Transfer Goal Standby Assistance Front Wheeled Walker Four Wheeled Walker Gait Goal Standby Assistance Front Wheel Walker Four Wheel Walker Gait Distance 100 Other Goals uup/down 1 step using FWW/4WW SBA Days to Meet Goals 10 Frequency of Treatment Frequency Of Treatment Twice a Day Treatment Plan Physical Therapy Treatment Plan Bed Mobility Training Transfer Training Gait Training Therapeutic Exercise Balance Retraining Discharge Planning Hot or Cold Pack Neuromuscular Re-ed Coordination Retraining Manual Therapy Other Recommendations and Next Treatment ambulation Focus Recommendations To Nursing Amount of Assist Needed 2 Person Assist Discharge Recommendations PT Discharge Recommendations SNF Rehab Equipment Needed for Home Before FWW if pt goes home and not Discharge safe with 4WW
[2019-04-18 16:54] VITALS: BP 175/92
--- NOTE | 2019-04-18 17:24 | DI.MRI.S_ITS ---
PROCEDURE: MR HEAD/BRAIN WO CON INDICATIONS: stroke sx TECHNIQUE: Non-contrast axial T1 spin echo, axial T2 fast spin echo, sagittal and axial FLAIR, coronal T2 fast spin echo, axial gradient echo, axial diffusion and ADC through the brain. COMPARISON: [facility], CT, CT HEAD/BRAIN WO CON, 04/15/2019, 22:34. FINDINGS: Image quality: Excellent. CSF spaces: Ventricles appear symmetric in size and shape. Basal cisterns are patent. No extra-axial fluid collections. Brain: No intracranial bleeds or mass effects. There is cerebral volume loss for age. There are periventricular and deep white matter chronic small vessel ischemic changes. Brainstem appears normal. Diffusion-weighted images show no acute ischemic insults. No chronic ischemic insults. Normal intravascular flow voids are present. Skull and face: Calvarial bone marrow is normal in signal. Orbits are normal. Sinuses: Sinuses and mastoids are clear. IMPRESSION: Diffuse small white matter signal changes, probably represent chronic microvascular ischemic disease, versus statistically less likely demyelination or other infectious, inflammatory, neurodegenerative etiology, technically nonspecific. No evidence of acute ischemia. Dictated by: Stephen Dukes M.D. on 04/18/2019 at 19:28 Approved by: Stephen Dukes M.D. on 04/18/2019 at 19:31
--- NOTE | 2019-04-18 17:25 | DI.US.S_ITS ---
PROCEDURE: US CAROTID DOPPLER BI INDICATIONS: STROKE-LIKE SYMPTOMS TECHNIQUE: Color and pulse Doppler interrogation was performed of both carotid systems, with image documentation and velocity measurements. COMPARISON: None. FINDINGS: Stenosis calculations are based on SRU (Society of Radiologists in Ultrasound) criteria. Right side: Brachial blood pressure: 162/94 mm Hg. Common carotid artery peak systolic velocity: 45 cm/sec. Internal carotid artery peak systolic velocity: 31 cm/sec. Internal carotid artery end diastolic velocity: 10 cm/sec. External carotid artery peak systolic velocity: 58 cm/sec. ICA/CCA peak systolic ratio: 0.7. Rico scale imaging description: Minimal plaque at the bifurcation and proximal ICA Percent internal carotid artery stenosis: Less than 50%. Vertebral artery: Not visualized. Left side: Brachial blood pressure: 139/1:15 mm Hg. Common carotid artery peak systolic velocity: 65 cm/sec. Internal carotid artery peak systolic velocity: 40 cm/sec. Internal carotid artery end diastolic velocity: 9 cm/sec. External carotid artery peak systolic velocity: 58 cm/sec. ICA/CCA peak systolic ratio: 0.6. Rico scale imaging description: No plaque Percent internal carotid artery stenosis: None. Vertebral artery: Flow direction is antegrade. IMPRESSION: Less than 50% right ICA stenosis. No left ICA stenosis. Dictated by: Stephen Dukes M.D. on 04/18/2019 at 18:43 Approved by: Stephen Dukes M.D. on 04/18/2019 at 18:45
--- NOTE | 2019-04-18 18:49 | CM.SWNOTE ---
Addendum entered by JAKE Calvert 04/18/19 20:03: According to Dr Vogel, pt was able to walk around the room and desires to return home. She manages in her own home with the use of a walker and with the assistance of [facility]. No discharge planning services needed. Original Note: Presenting Problem: Pt was recently hospitalized at after a [place] [facility]. According to the notes, she was unable to express herself in Belarusian and tried to speak in [place]guillan. ( her sen[place] language) Pt told FERRY TERMINAL SUPERVISOR that she knew what she wanted to say, but it would not come out in either Belarusian or [place]guillan. Pt returned today after a fall. She reported that her legs were very weak, she grabbed onto the bathroom grab bar and it came out of the wall. Pt reported that her of 57 years, 4 months ago at home; they had home hospice and pt reported that they were a wonderful agency and they both felt very supported. She said she continues to receive phone calls from them regularly and finds this to be very helpful. A note form JAKE Rodriguez ( /dcp) on 04/16/19 stated pt denied any discharge planning needs and requested to be discharged that day. Pt has had frequent falls. She reported that she receives help at home from [facility] three times per week. ( Wednesday, 4 hours, Wednesday, 3 hours and 2 hours. This agency helps her with showers, dressing, and laundering her clothes. Pt stated that friends bring food to her as she would not probably eat the food cooked by this agency as she is particular about her food choices. Pt lives independently with the assistance of [facility] and friends. FERRY TERMINAL SUPERVISOR inquired if she could increase the hours with [facility] as she seemed to be falling more often. Pt stated that if necessary, she thought she would be able to increase the services. An MRI was ordered to evaluate whether there were specific issues causing the increased frequency of falls. Depending upon the results of this evaluation, discharge plans will be determined.
[2019-04-18 19:21] VITALS: BP 186/92; PULSE 80; RESP 16; O2SAT 100
== END 2019-04-18 20:25 | disposition home or self-care (01) ==
PROVIDERS: Emergency Medicine; Emergency Provider Emergency Medicine; PCP Student in an Organized Health Care Education/Training Program
DX: R29.898 Other symptoms and signs involving the musculoskeletal system (principal); E87.1 Hypo-osmolality and hyponatremia; R27.0 Ataxia, unspecified; W19.XXXA Unspecified fall, initial encounter; Z86.73 Personal history of transient ischemic attack (TIA), and cerebral infarction without residual deficits; Z91.81 History of falling
CPT/HCPCS: 36415; 70551; 80048; 81015; 85025; 85610; 85730; 93880; 97162; 97530; 99283; 99284

== ENCOUNTER 2019-06-30 13:57 | Observation (INO) | payer MEDICARE, SELFPAY ==
[2019-06-30] VITALS (7 sets, daily range): BP systolic 148–204; BP diastolic 83–108; PULSE 75–88; RESP 16–21; TEMP 36.3–36.8; O2SAT 96–100
--- NOTE | 2019-06-30 13:59 | DI.CT.S_ITS ---
PROCEDURE: CT HEAD/BRAIN WO CON INDICATIONS: stroke - TPA candidate TECHNIQUE: Noncontrast 4.5 mm thick angled axial sections acquired from the foramen magnum to the vertex, with coronal and sagittal reformats. For radiation dose reduction, the following was used: automated exposure control, adjustment of mA and/or kV according to patient size. COMPARISON: [facility], CT, CT HEAD/BRAIN WO CON, 03/25/2019, 19:24. [facility], MR, MR HEAD/BRAIN WO CON, 04/18/2019, 18:33. [facility], CT, CT HEAD/BRAIN WO CON, 04/15/2019, 22:34. FINDINGS: Image quality: This examination is limited by involuntary motion artifact. Images are repeated, with some improvement. CSF spaces: Basal cisterns are patent. No extra-axial fluid collections. The ventricles are symmetric in size and shape. Brain: No intracranial bleeds or masses. There is cerebral volume loss for age, with resultant ventricular and sulcal prominence. There are periventricular and deep white matter chronic small vessel ischemic changes. There is intracranial internal carotid artery atherosclerosis. Skull and face: Calvarium and visualized facial bones appear intact, without suspicious lesions. Sinuses: Visualized sinuses and mastoids are clear. IMPRESSION: Limited study, without visualization of an acute intracranial process. Dictated by: Ramírez Mauro M.D. on 06/30/2019 at 14:11 Approved by: Ramírez Mauro M.D. on 06/30/2019 at 14:12
--- NOTE | 2019-06-30 14:02 | ED.NEUROSD ---
HPI - Neuro Symptoms/Deficit General Chief Complaint: Neuro Symptoms/Deficit Stated Complaint: Stroke Time Seen by Provider: 06/30/19 14:00 Source: patient and EMS Mode of arrival: EMS Limitations: no limitations History of Present Illness HPI Narrative: 79-year-old female nonsmoker with history of hypertension, diabetes presents by EMS for stroke-like symptoms for the past 25 minutes. She was activated as a code stroke and taken directly to CT scan. She was at her primary care office this morning for routine follow-up and on the drive home the patient developed confusion and slurring of speech. EMS was called and she was transported here. Her speech had almost improved by the time she to reach the CT scan room. She has generalized weakness but no other focal neurologic findings. There has been no recent illness involving fever or chills. She was seen by EMS last week after a ground level fall but not transported. Onset (ago): minute(s) Timing confirmed by: caregiver Location: speech History of same: No Severity: moderate Quality: improving Relieving factors: none Exacerbating factors: none Context: sudden onset On Anticoagulants: No Associated symptoms: confusion and weakness Treatments Prior to Arrival: none Related Data Home Medications Medication Instructions Recorded Confirmed Lancet: Device 1 ea . Q DAY 04/18/19 06/30/19 atorvastatin [Lipitor] 10 mg PO BEDTIME 04/18/19 06/30/19 fluoride (sodium) [PreviDent 5000 1 applic DENTAL DIRECTED 04/18/19 06/30/19 Dry Mouth] hydroxyzine HCl 10 - 20 mg PO Q6H PRN 04/18/19 06/30/19 levothyroxine 88 mcg PO DAILY 04/18/19 06/30/19 metoprolol succinate [Toprol XL] 100 mg PO DAILY 04/18/19 06/30/19 polyethylene glycol 3350 [Miralax] 1 dose PO PRN PRN 04/18/19 06/30/19 aspirin 81 mg tablet,delayed 81 mg PO DAILY 06/16/19 06/30/19 release amlodipine 2.5 mg PO DAILY 06/30/19 06/30/19 Previous Rx's Medication Instructions Recorded Glucose: Test Strips See Rx Instructions SUBCUT QDAY 06/24/18 #100 strip omeprazole 20 mg capsule,delayed 20 mg PO DAILY #90 cap 09/13/18 release metformin 1,000 mg tablet 1,000 mg PO BID #180 tab 11/15/18 meloxicam 15 mg tablet 15 mg PO DAILY #90 tab 01/27/19 irbesartan 300 mg tablet 300 mg PO DAILY #90 tab 05/09/19 hydrochlorothiazide 12.5 mg tablet 12.5 mg PO DAILY #90 tab 06/16/19 meclizine 12.5 mg tablet 12.5 mg PO TID PRN #30 tab 06/30/19 Allergies Allergy/AdvReac Type Severity Reaction Status Date / Time ciprofloxacin [CIPROFLOXACIN] AdvReac Severe Bloody Verified 06/30/19 14:14 diahrrea, swollen feet. Benzodiazepines AdvReac Intermediate EXTREME Verified 06/30/19 14:14 SENSITIVITY fentanyl AdvReac Intermediate EXTREME Verified 06/30/19 14:14 SENSITIVITY TO ALL NARCOTICS meperidine AdvReac Intermediate EXTREME Verified 06/30/19 14:14 SENSITIVITY Opioids - Morphine Analogues AdvReac Intermediate EXTREME Verified 06/30/19 14:14 SENSITIVITY - SOMNOLENCE Review of Systems Review of Systems ROS Unobtainable: All systems reviewed & are unremarkable except as noted in HPI and below Constitutional Constitutional: Denies chills, Denies fatigue, Denies fever(s), Denies frequent falls, Denies lethargy and Reports weakness Eyes Eyes: Denies change in vision, Denies eye discharge, Denies irritation and Denies loss of vision ENT Ears, Nose, Mouth, and Throat: Denies change in voice, Denies dizziness, Denies neck pain, Denies sore throat and Denies throat swelling Cardiovascular Cardiovascular: Denies chest pain, Denies irregular heart rhythm, Denies lightheadedness, Denies palpitations, Denies dyspnea, Denies dyspnea on exertion and Denies orthopnea Respiratory Respiratory: Denies cough, Denies dyspnea, Denies dyspnea on exertion and Denies wheezing Gastrointestinal Gastrointestinal: Denies abdominal pain, Denies change in bowel habits, Denies diarrhea, Denies nausea and Denies vomiting Genitourinary Genitourinary: Denies hematuria, Denies flank pain, Denies urinary incontinence and Denies urinary urgency Musculoskeletal Musculoskeletal: Denies back pain, Denies muscle weakness, Denies neck pain, Denies numbness and Denies tingling Integumentary/Breasts Skin/Breast: Denies pruritus, Denies erythema, Denies rash and Denies wounds Neurologic Neurologic: Reports abnormal speech, Denies behavioral changes, Reports confusion, Denies dizziness, Denies frequent falls, Denies loss of vision, Denies numbness, Denies tingling and Reports weakness Psychiatric Psychiatric: Denies anxiety, Denies behavioral changes, Reports confusion, Denies depression, Denies homicidal ideation and Denies suicidal ideation Endocrine Endocrine: Denies fatigue, Denies flushing and Denies palpitations Hematologic/Lymphatic Hematologic/Lymphatic: Denies easy bruising Allergic/Immunologic Allergic/Immunologic: Denies urticaria, Denies throat swelling and Denies wheezing [facility] Medical History Acquired hypothyroidism (02/10/16) Ankle pain (Chronic 1989) Balance problems (Chronic 02/01/17) Bunion (Chronic 03/02/17) Carpal tunnel syndrome (Resolved 1974) Cataracts, bilateral (Resolved 2013) Chicken pox (Resolved) Chickenpox (Resolved) Chronic pain of both shoulders (Chronic 10/26/16) Diverticulitis (Chronic) Eczema (Chronic 02/10/16) Essential hypertension with goal blood pressure less than 140/90 (02/10/16) Fibroids (Resolved 1979) Foot pain (Chronic 1989) GERD (gastroesophageal reflux disease) (Chronic) Hammer toe of left foot (Chronic 03/02/17) Moreno's disease (Chronic 1974) History of diverticulitis (06/25/16) Hot flashes due to menopause (Resolved) Hyperlipemia (Chronic 1979) Hypertension (Chronic 1979) Hypothyroidism (Chronic 1974) IBS (irritable bowel syndrome) (Chronic 2003) Lumbar spine pain (Chronic 2005) Measles (Resolved) Measles (Resolved) Mumps (Resolved) Mumps (Resolved) 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) Ovarian cyst (Resolved 1989) Primary insomnia (Chronic 10/26/16) Pure hypercholesterolemia (02/10/16) Scoliosis (Chronic) Sjogren's syndrome (02/10/16) Sjogren's syndrome (Chronic 2003) Type 2 diabetes mellitus without complication, without long-term current use of insulin (Chronic 2015) Surgical History Anesthesia complication (Resolved) History of carpal tunnel repair (Resolved 1974) History of cataract removal with insertion of prosthetic lens (2013) History of colonoscopy (Resolved 04/01/07) History of colonoscopy with polypectomy (Resolved 05/08/11) History of left cataract surgery (Resolved 11/13/14) History of right cataract surgery (Resolved 12/11/14) Hx of hand surgery (Resolved 2013) Hx of surgical procedure (Resolved 1996) Status post appendectomy (Resolved 1954) Status post cholecystectomy (Resolved 1964) Status post hysterectomy (Resolved 1990) Family History Child Hypertension Child Hypertension Sister Age: 77 Rheumatoid arthritis Father [place] (myocardial infarction) Heart disease Mother [place] (myocardial infarction) Hypertension Angina pectoris Sister Colon cancer Social History household members: none Smoking Status: Never smoker second hand exposure: No alcohol intake: former substance use type: does not use Family History Child Hypertension Child Hypertension Sister Age: 77 Rheumatoid arthritis Father [place] (myocardial infarction) Heart disease Mother [place] (myocardial infarction) Hypertension Angina pectoris Sister Colon cancer Social History household members: none Smoking Status: Never smoker second hand exposure: No alcohol intake: former substance use type: does not use Exam Initial Vital Signs Initial Vital Signs: Vital Signs Temperature 98.2 F 06/30/19 13:56 Pulse Rate 80 06/30/19 13:56 Respiratory Rate 21 06/30/19 13:56 Blood Pressure 148/88 H 06/30/19 13:56 Pulse Oximetry 100 06/30/19 13:56 Scores ABCD2 Age >= 60 years: yes Initial BP. Either SBP >= 140 or DBP >= 90.: yes Clinical features of the TIA: speech disturbance without weakness Duration of symptoms: 10-59 minutes History of diabetes: yes ABCD2 Score: 5 NIH Stroke Scale Level of Conciousness: Not alert, but arousable by minor stim to obey, answer or respond Ask month/age: Answers both questions correctly. Open/close eyes, close hand: Performs both tasks correctly Best gaze horizontal: Normal Visual pryor: No visual loss Facial palsy: Minor paralysis, flattened nasolabial fold, asymmetry on smiling Left arm drift: Drifts down, not to bed Right arm drift: Drifts down, not to bed Left leg drift: Some effort against gravity, cannot maintain, drifts down to bed Right leg drift: Some effort against gravity, cannot maintain, drifts down to bed Limb ataxia: Absent Sensory on face/arms/legs: Normal, no sensory loss Best language: No aphasia, normal Dysarthria: Mild to mod,some slurring Extinction or inattention: No abnormality Total NIH Stroke scale score: 9 Course Course Course Narrative: by discussion with stroke physician NIHSS had improved to baseline Orders Ordered: ED Orders 06/30/19 13:59 CT head/brain wo con Stat 06/30/19 14:06 EKG-12 Lead Stat 06/30/19 14:10 Basic Metabolic Panel Stat Complete Blood Count AUTO DIFF Stat Partial Thromboplastin Time Stat Prothrombin Time INR Stat 06/30/19 15:26 Urine Culture Stat Urine Drug Screen, Rapid Stat Urine Microscopic Stat 06/30/19 16:27 CT angio head and neck Stat Sodium Chloride (Normal Saline 0.9%) 1,000 mls @ 150 mls/hr IV CONT MILADY Last Admin: 06/30/19 14:58 Dose: 150 mls/hr Documented by: MAKENNA Potassium Chloride 40 meq/ (Sodium Chloride) 520 mls @ 130 mls/hr IV NOW ONE Stop: 06/30/19 19:02 Last Admin: 06/30/19 15:18 Dose: 130 mls/hr Documented by: MAKENNA Cosigned by: BTONER Discontinued Medications Ondansetron HCl (Zofran) 4 mg IV NOW ONE Stop: 06/30/19 16:01 Last Admin: 06/30/19 16:04 Dose: 4 mg Documented by: MAKENNA Vital Signs Vital signs: Vital Signs - 8 hr 06/30/19 13:56 06/30/19 14:59 06/30/19 15:25 Temperature 98.2 F Pulse Rate 80 88 Respiratory Rate 21 20 Blood Pressure 148/88 H Blood Pressure [Left Arm] 158/101 H Pulse Oximetry 100 99 06/30/19 17:46 Temperature Pulse Rate 79 Respiratory Rate 19 Blood Pressure Blood Pressure [Left Arm] 188/97 H Pulse Oximetry 96 MDM - Neuro Symptoms/Deficit Lab Data Result diagrams: 06/30/19 14:10 06/30/19 14:10 Labs: Lab Results 06/30/19 06/30/19 06/30/19 Range/Units 14:10 14:10 14:10 WBC 10.4 (4.5-11.0) X10^3/uL RBC 3.60 L (4.0-5.2) X10^6/uL Hgb 11.4 L (12.0-16.0) g/dL Hct 33.3 L (36-46) % MCV 92.3 (80-100) fL MCH 31.7 (26-34) PG MCHC 34.4 (30-36) % RDW 14.0 (11.6-14.8) % Plt Count 373 (150-400) X10^3/uL Neut % (Auto) 79.5 H (50-75) % Lymph % (Auto) 11.0 L (25-40) % Creek % (Auto) 7.5 (3-14) % Eos % (Auto) 0.8 L (2-4) % Baso % (Auto) 1.2 (0-2) % Neut # (Auto) 8200 H (7666-2678) /uL Lymph # (Auto) 1100 (9290-2689) /uL Creek # (Auto) 800 (0-900) /uL Eos # (Auto) 100 (0-450) /uL Baso # (Auto) 100 (0-100) /uL PT 11.4 (10.1-12.7) SECONDS INR 1.0 (0.9-1.3) APTT 30 D (26.4-36.2) SECONDS Sodium 123 L (137-145) mmol/L Potassium 3.0 L (3.4-5.1) mmol/L Chloride 82 L (98-107) mmol/L Carbon Dioxide 29 (22-32) mmol/L BUN 16 (7-17) mg/dL Creatinine 0.70 (0.52-1.04) mg/dL Estimated GFR > 60.0 (>60) mL/min BUN/Creatinine Ratio 22.9 H (6-22) Glucose 117 H (80-110) mg/dL Calcium 9.6 (8.4-10.2) mg/dL Urine RBC (0-5/HPF) Urine WBC (0-5/HPF) Ur Squamous Epith Cells (0-5/HPF) Ur Transition Epith Cell (0-5/HPF) Ur Renal Epithelial Cell (0-1/HPF) Urine Bacteria (None) Hyaline Casts (None) Ur Culture Indicated? Urine Opiates Screen (Negative) Ur Oxycodone Screen (Negative) Urine Methadone Screen (Negative) Ur Barbiturates Screen (Negative) U Tricyclic Antidepress (Negative) Ur Phencyclidine Scrn (Negative) Ur Amphetamines Screen (Negative) U Methamphetamines Scrn (Negative) Ur MDMA Scrn (Ecstasy) (Negative) U Benzodiazepines Scrn (Negative) Urine Cocaine Screen (Negative) U Marijuana (THC) Screen (Negative) 06/30/19 06/30/19 Range/Units 15:26 15:26 WBC (4.5-11.0) X10^3/uL RBC (4.0-5.2) X10^6/uL Hgb (12.0-16.0) g/dL Hct (36-46) % MCV (80-100) fL MCH (26-34) PG MCHC (30-36) % RDW (11.6-14.8) % Plt Count (150-400) X10^3/uL Neut % (Auto) (50-75) % Lymph % (Auto) (25-40) % Creek % (Auto) (3-14) % Eos % (Auto) (2-4) % Baso % (Auto) (0-2) % Neut # (Auto) (6747-0952) /uL Lymph # (Auto) (6595-1649) /uL Creek # (Auto) (0-900) /uL Eos # (Auto) (0-450) /uL Baso # (Auto) (0-100) /uL PT (10.1-12.7) SECONDS INR (0.9-1.3) APTT (26.4-36.2) SECONDS Sodium (137-145) mmol/L Potassium (3.4-5.1) mmol/L Chloride (98-107) mmol/L Carbon Dioxide (22-32) mmol/L BUN (7-17) mg/dL Creatinine (0.52-1.04) mg/dL Estimated GFR (>60) mL/min BUN/Creatinine Ratio (6-22) Glucose (80-110) mg/dL Calcium (8.4-10.2) mg/dL Urine RBC 0-1/hpf (0-5/HPF) Urine WBC 30-100/hpf H (0-5/HPF) Ur Squamous Epith Cells 1-5 /hpf D (0-5/HPF) Ur Transition Epith Cell 1-5/hpf (0-5/HPF) Ur Renal Epithelial Cell 1-5/hpf H (0-1/HPF) Urine Bacteria Moderate (10-30) H (None) Hyaline Casts 1-5/lpf (None) Ur Culture Indicated? Specimen cultured Urine Opiates Screen Negative (Negative) Ur Oxycodone Screen Negative (Negative) Urine Methadone Screen Negative (Negative) Ur Barbiturates Screen Negative (Negative) U Tricyclic Antidepress Negative (Negative) Ur Phencyclidine Scrn Negative (Negative) Ur Amphetamines Screen Negative (Negative) U Methamphetamines Scrn Negative (Negative) Ur MDMA Scrn (Ecstasy) Negative (Negative) U Benzodiazepines Scrn Negative (Negative) Urine Cocaine Screen Negative (Negative) U Marijuana (THC) Screen Negative (Negative) Point of Care Testing Glucose POC 104 Urine Dip Bedside Urine Glucose Negative Bedside Urine Bilirubin - Negative Bedside Urine Ketone - Negative Urine Specific Okay 1.015 Bedside Urine Occult Blood - Negative Bedside Urine pH 6.5 Bedside Urine Protein +/- 15 Bedside Urine Urobilinogen - Negative Bedside Urine Nitrite - Negative Bedside Urine Leukocytes +++ [address] scan - head: Radiologist's impression: [place] [address] CT Scan Report Signed Patient: Carey Mtz EMR#: [id number] : 8Acct:[id number] Age/Sex: 79 / FDate of Service: 06/30/19 Loc: ED Accession Number: [id number] Procedure: CT angio head and neck Ordering Provider: Alber Anglin D.O. PROCEDURE: CT ANGIO HEAD AND NECK INDICATIONS: stroke symptoms, request per stroke TECHNIQUE: Pre-contrast images were performed earlier in the day and not repeated. This After the administration of intravenous contrast, 1 mm thick sections acquired from the aortic arch through the [place] of [place]. Post-contrast 4.5 mm thick sections then re-acquired from the foramen magnum to the vertex. 3-dimensional vardatp-qjegbbvhd-ylodubzkiw (MIP) and/or volume rendering reformats were acquired of the central intracranial vasculature and neck separately. COMPARISON: [facility], CT, CT HEAD/BRAIN WO CON, 06/30/2019, 13:53. [facility], CT, CT HEAD/BRAIN WO CON, 03/25/2019, 19:24. [facility], CT, CT HEAD/BRAIN WO CON, 04/15/2019, 22:34. [facility], MR, MR HEAD/BRAIN WO CON, 04/18/2019, 18:33. FINDINGS: Image quality: Excellent. BRAIN: CSF spaces: Ventricles are normal in size and shape. Basal cisterns are patent. No extra-axial fluid collections. Brain: No midline shift. No intracranial bleeds or masses. Rico-white matter interface appears intact. Skull and face: Calvarium and facial bones appear intact, without suspicious lesions. Orbits appear normal. Sinuses: Sinuses and mastoids are clear. HEAD CT ANGIOGRAPHY: Anterior circulation: Intracranial internal carotid arteries are normal in size and flow. The flow within the paired anterior cerebral arteries is normal and symmetric. The flow within the middle cerebral arteries is normal and symmetric. The anterior communicating artery is seen. No aneurysms are seen. Posterior circulation: Visualized portions of the vertebral arteries demonstrate normal caliber, and join to form a normal appearing basilar artery. There is a prominent right posterior communicating artery seen, with an accompanying diminutive right P1 segment. This is attributed to a type origin of the right posterior cerebral artery, which is considered to be a normal developmental variant of typically no clinical consequence. Flow within the posterior cerebral arteries is normal and symmetric. No aneurysms are seen. NECK CT ANGIOGRAPHY: Carotid system: The great vessels demonstrate a conventional anatomy as they arise from the aortic arch. The origins of the common carotid arteries appear patent. The common carotid arteries demonstrate normal caliber and courses. The bifurcation regions are both widely patent. The internal carotid arteries demonstrate normal calibers. Both internal carotid arteries are tortuous and demonstrate lateral image courses. Posterior circulation: The origins of the vertebral arteries both appear widely patent. The left vertebral artery is dominant to the right. The more superior extracranial portions of both vertebral arteries also demonstrate normal courses and calibers. They join to form a normal appearing basilar artery. Soft tissues: Visualized neck soft tissues demonstrate no suspicious abnormalities. Bones: No suspicious bony lesions. Visualized cervical spine appears normally aligned. Relatively prominent cervical spine degenerative changes are seen. Moderate to severe disc space narrowing is seen at C5-C6, C6-C7, and C7-T1. Bridging anterior osteophytes are seen at least C4-T2. IMPRESSION: No significant intracranial arterial abnormality is seen. Within the arteries of the neck, no hemodynamically significant stenosis can be seen. Any quantitative measurements of stenosis were performed using NASCET criteria. Dictated by: Ramírez Mauro M.D. on 06/30/2019 at 18:15 Approved by: Ramírez Mauro M.D. on 06/30/2019 at 18:21 [facility] Narrative Medical decision making narrative: 79-year-old female with hypertension and diabetes presents with neurologic symptoms including slurred speech, left-sided facial droop and lower extremity weakness. Her symptoms were improving even by the time we obtained the noncontrasted head CT. She did still have some residual lower extremity weakness and Neurology at [facility] ([place], [place]) was consulted, however by the time they called back the patient's symptoms had resolved and she was essentially at baseline. Their recommendation was to obtain CTA of the head neck to be sure there is no large vessel stenosis or occlusion given that she is still in the time frame for interventional radiology and clot retrieval. She continues to be at her baseline, imaging is back and not terribly impressive. Hospitalist is happy to accept. Discharge Plan Departure Patient Disposition: Admitted As Inpatient Clinical Impression: Brain TIA
[2019-06-30 14:25] LABS: Add Manual Diff / Slide Review NO; Basophils Absolute Auto 100 /uL (0-100); Basophils Percent Auto 1.2 % (0-2); Eosinophils Absolute Auto 100 /uL (0-450); Eosinophils Percent Auto 0.8 % (2-4); Hematocrit 33.3 % (36-46); Hemoglobin 11.4 g/dL (12.0-16.0); Lymphocytes Absolute Auto 1100 /uL (1100-4500); Mean Corpuscular HGB Conc 34.4 % (30-36); Mean Corpuscular Hemoglobin 31.7 PG (26-34); Mean Corpuscular Volume 92.3 fL (80-100); Monocytes Absolute Auto 800 /uL (0-900); Monocytes Percent Auto 7.5 % (3-14); Neutrophils Absolute Auto 8200 /uL (1500-7000); Neutrophils Percent Auto 79.5 % (50-75); Platelet Count 373 X10^3/uL (150-400); White Blood Cell Count 10.4 X10^3/uL (4.5-11.0)
[2019-06-30 14:30] LABS: Prothrombin Time 11.4 SECONDS (10.1-12.7)
[2019-06-30 14:33] LABS: PTT Partial Thromboplastin Tim 30 SECONDS (26.4-36.2)
[2019-06-30 14:35] LABS: BUN Creatinine Ratio 22.9 (6-22); Blood Urea Nitrogen 16 mg/dL (7-17); Calcium 9.6 mg/dL (8.4-10.2); Carbon Dioxide 29 mmol/L (22-32); Chloride 82 mmol/L (98-107); Estimated Glomerular Filt Rate > 60.0 mL/min (>60); Glucose 117 mg/dL (80-110); HEMOLYSIS < 15 (0-50); Sodium 123 mmol/L (137-145)
[2019-06-30] MEDS: SODIUM CHLORIDE 0.9% 1,000 ML 150 ML IV (14:58)
--- NOTE | 2019-06-30 14:58 | PC.NURSE ---
pt is climbing oob. 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
[2019-06-30] MEDS: POTASSIUM CHLORIDE 40 MEQ in SODIUM CHLORIDE 0.9% 500 ML 130 ML IV (15:18)
[2019-06-30 15:35] LABS: Urine Amphetamines Negative (Negative); Urine Barbiturates Negative (Negative); Urine Benzodiazepines Negative (Negative); Urine Cocaine Negative (Negative); Urine MDMA Negative (Negative); Urine Methadone Negative (Negative); Urine Methamphetamines Negative (Negative); Urine Morphine/Opi cutoff 2000 Negative (Negative); Urine Oxycodone Negative (Negative); Urine Phencyclidine Negative (Negative); Urine Tetrahydrocannabinol Negative (Negative); Urine Tricyclic Antidepressant Negative (Negative)
[2019-06-30 16:01] LABS: Bacteria Urine Moderate (10-30); Culture Indicated Urine Specimen Cultured; Hyaline Casts Urine 1-5/LPF; RBC Urine 0-1/HPF (0-5/HPF); Renal Epithelial Cells Urine 1-5/HPF (0-1/HPF); Squamous Epithelial Cell Urine 1-5 /HPF (0-5/HPF); Transitional Epi Cells Urine 1-5/HPF (0-5/HPF); WBC Urine 30-100/HPF (0-5/HPF)
[2019-06-30] MEDS: ONDANSETRON 4 MG/2 ML INJ IV (16:04)
--- NOTE | 2019-06-30 16:06 | PC.NURSE ---
c/o nausea. no abdominal pain.
--- NOTE | 2019-06-30 16:27 | DI.CT.S_ITS ---
PROCEDURE: CT ANGIO HEAD AND NECK INDICATIONS: stroke symptoms, request per stroke TECHNIQUE: Pre-contrast images were performed earlier in the day and not repeated. This After the administration of intravenous contrast, 1 mm thick sections acquired from the aortic arch through the [place] of [place]. Post-contrast 4.5 mm thick sections then re-acquired from the foramen magnum to the vertex. 3-dimensional mbutwjk-slljltdfm-tpsjksnfon (MIP) and/or volume rendering reformats were acquired of the central intracranial vasculature and neck separately. COMPARISON: [facility], CT, CT HEAD/BRAIN WO CON, 06/30/2019, 13:53. [facility], CT, CT HEAD/BRAIN WO CON, 03/25/2019, 19:24. [facility], CT, CT HEAD/BRAIN WO CON, 04/15/2019, 22:34. [facility], MR, MR HEAD/BRAIN WO CON, 04/18/2019, 18:33. FINDINGS: Image quality: Excellent. BRAIN: CSF spaces: Ventricles are normal in size and shape. Basal cisterns are patent. No extra-axial fluid collections. Brain: No midline shift. No intracranial bleeds or masses. Rico-white matter interface appears intact. Skull and face: Calvarium and facial bones appear intact, without suspicious lesions. Orbits appear normal. Sinuses: Sinuses and mastoids are clear. HEAD CT ANGIOGRAPHY: Anterior circulation: Intracranial internal carotid arteries are normal in size and flow. The flow within the paired anterior cerebral arteries is normal and symmetric. The flow within the middle cerebral arteries is normal and symmetric. The anterior communicating artery is seen. No aneurysms are seen. Posterior circulation: Visualized portions of the vertebral arteries demonstrate normal caliber, and join to form a normal appearing basilar artery. There is a prominent right posterior communicating artery seen, with an accompanying diminutive right P1 segment. This is attributed to a type origin of the right posterior cerebral artery, which is considered to be a normal developmental variant of typically no clinical consequence. Flow within the posterior cerebral arteries is normal and symmetric. No aneurysms are seen. NECK CT ANGIOGRAPHY: Carotid system: The great vessels demonstrate a conventional anatomy as they arise from the aortic arch. The origins of the common carotid arteries appear patent. The common carotid arteries demonstrate normal caliber and courses. The bifurcation regions are both widely patent. The internal carotid arteries demonstrate normal calibers. Both internal carotid arteries are tortuous and demonstrate lateral image courses. Posterior circulation: The origins of the vertebral arteries both appear widely patent. The left vertebral artery is dominant to the right. The more superior extracranial portions of both vertebral arteries also demonstrate normal courses and calibers. They join to form a normal appearing basilar artery. Soft tissues: Visualized neck soft tissues demonstrate no suspicious abnormalities. Bones: No suspicious bony lesions. Visualized cervical spine appears normally aligned. Relatively prominent cervical spine degenerative changes are seen. Moderate to severe disc space narrowing is seen at C5-C6, C6-C7, and C7-T1. Bridging anterior osteophytes are seen at least C4-T2. IMPRESSION: No significant intracranial arterial abnormality is seen. Within the arteries of the neck, no hemodynamically significant stenosis can be seen. Any quantitative measurements of stenosis were performed using NASCET criteria. Dictated by: Ramírez Mauro M.D. on 06/30/2019 at 18:15 Approved by: Ramírez Mauro M.D. on 06/30/2019 at 18:21
--- NOTE | 2019-06-30 18:52 | PC.NURSE ---
pt continues to have a generating station mechanic sitter at bedside. if left alone, pt starts to climb OOB, pulls at her iv's, etc.
--- NOTE | 2019-06-30 21:18 | PM.HP.1 ---
History of Present Illness History of Present Illness Date Patient Seen: 06/30/19 Time Patient Seen: 21:06 Chief complaint: Stroke Narrative: Ms Carey Mtz is an 79-year-old female patient with a complex medical history significant for type 2 noninsulin dependent diabetes, hypertension, hyperlipidemia, Moreno's thyroiditis, irritable bowel syndrome, lumbar sacral spine pain a history of scoliosis, diverticulosis and prior TIA who presents to the ER via EMS with stroke symptoms. At approximately 1:[address] while on the drive home the patient developed confusion and slurring of speech. She had associated left facial droop and left-sided weakness. She reports no prodromal symptoms of recent colder illness, she has had no headaches or dizziness before or since. She reports no chest pain or palpitations, shortness of breath cough or wheezing. She reports no abdominal pain, nausea vomiting diarrhea or constipation. She has frequent urination but denies dysuria. The patient was seen for a similar episode of confusion on 04/16/2019 at which time the patient declined echocardiogram or further imaging. Upon arrival to the ER the patient is found to be afebrile with temperature 98.2?, heart rate of 80, blood pressure was 66/90, respiratory rate 22 and saturation 100% on room air. A CT of the head was obtained which was limited study which found no acute intracranial processes. CTA was also obtained which found no intracranial arterial abnormalities and no neck artery stenosis. On laboratory analysis the patient has a white count of 10.4, hemoglobin of 11.4, hematocrit of 33.3 and platelets 373. On chemistries the patient found to have and a sodium of 123 and chloride of 82 with a potassium of 3.0. She has a BUN of 16 and creatinine of 0.7 nonfasting glucose 117. Her coags are unremarkable. Urinalysis was obtained finding white blood cells and bacteria with casts is reflex to culture. The patient is admitted for TIA and continued monitoring and evaluation. Patient History Medical History (Updated 07/01/19 @ 02:24 by TRACEY Martines) Acquired hypothyroidism (02/10/16) Ankle pain (Chronic 1989) Balance problems (Chronic 02/01/17) Bunion (Chronic 03/02/17) Carpal tunnel syndrome (Resolved 1974) Cataracts, bilateral (Resolved 2013) Chickenpox (Resolved) Chronic pain of both shoulders (Chronic 10/26/16) Diverticulitis (Chronic) Eczema (Chronic 02/10/16) Essential hypertension with goal blood pressure less than 140/90 (02/10/16) Fibroids (Resolved 1979) Foot pain (Chronic 1989) GERD (gastroesophageal reflux disease) (Chronic) Hammer toe of left foot (Chronic 03/02/17) History of diverticulitis (06/25/16) Hot flashes due to menopause (Resolved) Hyperlipemia (Chronic 1979) Hypertension (Chronic 1979) IBS (irritable bowel syndrome) (Chronic 2003) Lumbar spine pain (Chronic 2005) Measles (Resolved) Mumps (Resolved) 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) Ovarian cyst (Resolved 1989) Primary insomnia (Chronic 10/26/16) Pure hypercholesterolemia (02/10/16) Scoliosis (Chronic) Sjogren's syndrome (Chronic 2003) Type 2 diabetes mellitus without complication, without long-term current use of insulin (Chronic 2015) Surgical History Anesthesia complication (Resolved) History of carpal tunnel repair (Resolved 1974) History of cataract removal with insertion of prosthetic lens (2013) History of colonoscopy (Resolved 04/01/07) History of colonoscopy with polypectomy (Resolved 05/08/11) History of left cataract surgery (Resolved 11/13/14) History of right cataract surgery (Resolved 12/11/14) Hx of hand surgery (Resolved 2013) Hx of surgical procedure (Resolved 1996) Status post appendectomy (Resolved 1954) Status post cholecystectomy (Resolved 1964) Status post hysterectomy (Resolved 1990) Family History Child Hypertension Child Hypertension Sister Age: 77 Rheumatoid arthritis Father ND (myocardial infarction) Heart disease Mother ND (myocardial infarction) Hypertension Angina pectoris Sister Colon cancer Social History household members: none Smoking Status: Never smoker second hand exposure: No alcohol intake: former substance use type: does not use Family & Social History Family History Child Hypertension Child Hypertension Sister Age: 77 Rheumatoid arthritis Father ND (myocardial infarction) Heart disease Mother ND (myocardial infarction) Hypertension Angina pectoris Sister Colon cancer Social History: household members none Safety & Behavioral: Feels Safe in Current Yes Environment Been Physically Hurt or No Threatened By a Person Tobacco & Substance use: Smoking Status Never smoker alcohol intake former Substance Use Type does not use Comment: The patient lives alone in a condominium in a senior housing complex. The patient's 4 months ago after being for 56 years. Smoking: Patient denies having ever smoked. Alcohol: Patient with consume a rare glass of wine in the remote past. Substance use: Patient denies recreational pharmaceuticals, herbal or cannabis products. Advanced directives: The patient states emphatically that she wants nothing done and wishes to be DO NOT RESUSCITATE. She designates her daughter's Amina and Maribel Mtz as surrogate decision makers. Meds Home Medications and Allergies Home Medications Medication Instructions Recorded Confirmed Type Glucose: Test Strips See Rx Instructions SUBCUT QDAY 06/24/18 06/30/19 Rx #100 strip omeprazole 20 mg capsule,delayed 20 mg PO DAILY #90 cap 09/13/18 06/30/19 Rx release metformin 1,000 mg tablet 1,000 mg PO BID #180 tab 11/15/18 06/30/19 Rx meloxicam 15 mg tablet 15 mg PO DAILY #90 tab 01/27/19 06/30/19 Rx Lancet: Device 1 ea . Q DAY 04/18/19 06/30/19 History atorvastatin [Lipitor] 10 mg PO BEDTIME 04/18/19 06/30/19 History fluoride (sodium) [PreviDent 5000 1 applic DENTAL DIRECTED 04/18/19 06/30/19 History Dry Mouth] hydroxyzine HCl 10 - 20 mg PO Q6H PRN 04/18/19 06/30/19 History levothyroxine 88 mcg PO DAILY 04/18/19 06/30/19 History metoprolol succinate [Toprol XL] 100 mg PO DAILY 04/18/19 06/30/19 History polyethylene glycol 3350 [Miralax] 1 dose PO PRN PRN 04/18/19 06/30/19 History irbesartan 300 mg tablet 300 mg PO DAILY #90 tab 05/09/19 06/30/19 Rx aspirin 81 mg tablet,delayed 81 mg PO DAILY 06/16/19 06/30/19 History release hydrochlorothiazide 12.5 mg tablet 12.5 mg PO DAILY #90 tab 06/16/19 06/30/19 Rx amlodipine 2.5 mg PO DAILY 06/30/19 06/30/19 History meclizine 12.5 mg tablet 12.5 mg PO TID PRN #30 tab 06/30/19 06/30/19 Rx Allergies Allergy/AdvReac Type Severity Reaction Status Date / Time ciprofloxacin [CIPROFLOXACIN] AdvReac Severe Bloody Verified 06/30/19 14:14 diahrrea, swollen feet. Benzodiazepines AdvReac Intermediate EXTREME Verified 06/30/19 14:14 SENSITIVITY fentanyl AdvReac Intermediate EXTREME Verified 06/30/19 14:14 SENSITIVITY TO ALL NARCOTICS meperidine AdvReac Intermediate EXTREME Verified 06/30/19 14:14 SENSITIVITY Opioids - Morphine Analogues AdvReac Intermediate EXTREME Verified 06/30/19 14:14 SENSITIVITY - SOMNOLENCE Exam Vital Signs (past 8 hours): - 06/30/19 13:56 06/30/19 14:59 06/30/19 15:25 Temperature 98.2 F Pulse Rate 80 88 Respiratory Rate 21 20 Blood Pressure 148/88 H Blood Pressure [Left Arm] 158/101 H Pulse Oximetry 100 99 06/30/19 17:46 06/30/19 19:30 Temperature 97.6 F Pulse Rate 79 82 Respiratory Rate 19 18 Blood Pressure 204/108 H Blood Pressure [Left Arm] 188/97 H Pulse Oximetry 96 96 Oxygen Delivery Method Room Air Oxygen Flow Rate 0 Narrative Exam Narrative: GENERAL APPEARANCE: well developed, well nourished, in no acute distress. HEAD: Normocephalic, atraumatic, symmetrical facies, no scalp lesions. EYES: PERRL, sclera non-icteric, extraocular movement intact without nystagmus. EARS: normal external structures, no ear pain NOSE: sinuses non tender to percussion, no rhinorrhea ORAL CAVITY: No dysphonia, oral mucosa is dry without lesions or exudate, poor dentition, palate normal, tongue in midline. THROAT: normal, no erythema, no exudate, pharynx normal, uvula midline NECK/THYROID: neck supple, no jugular venous distention, no carotid bruit, no thyromegaly, trachea midline. LYMPH NODES: no cervical or supraclavicular lymphadenopathy. SKIN: warm and dry, no suspicious lesions, no rashes, good turgor. HEART: regular rate and rhythm, S1-S2 1/6 systolic murmur loudest over left sternal border, no rubs or gallops, brisk capillary refill, trace bilateral pedal edema LUNGS: clear to auscultation bilaterally, no coarseness crackles or wheezing, no cough present CHEST: Symmetrical movement, no accessory muscle use, no pain to AP and lateral compression. ABDOMEN: Soft, no distention, no epigastric or abdominal tenderness on palpation, no organomegaly, no flank tenderness, active bowel tones. 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 NEUROLOGIC: AAO x4, no focal neurologic deficits, cranial nerves II-XII grossly intact , motor strength normal upper and lower extremities, sensory exam intact to light monofilament touch, hearing grossly normal to speech. PSYCH: alert, marginally cooperative, frequently refusing care and evaluation. Objective Labs Result Diagrams: 06/30/19 14:10 06/30/19 14:10 Labs: Laboratory Results - last 24 hr 06/30/19 06/30/19 06/30/19 14:10 14:10 14:10 WBC 10.4 RBC 3.60 L Hgb 11.4 L Hct 33.3 L MCV 92.3 MCH 31.7 MCHC 34.4 RDW 14.0 Plt Count 373 Neut % (Auto) 79.5 H Lymph % (Auto) 11.0 L Fountain % (Auto) 7.5 Eos % (Auto) 0.8 L Baso % (Auto) 1.2 Neut # (Auto) 8200 H Lymph # (Auto) 1100 Fountain # (Auto) 800 Eos # (Auto) 100 Baso # (Auto) 100 PT 11.4 INR 1.0 APTT 30 D Sodium 123 L Potassium 3.0 L Chloride 82 L Carbon Dioxide 29 BUN 16 Creatinine 0.70 Estimated GFR > 60.0 BUN/Creatinine Ratio 22.9 H Glucose 117 H Calcium 9.6 Urine RBC Urine WBC Ur Squamous Epith Cells Ur Transition Epith Cell Ur Renal Epithelial Cell Urine Bacteria Hyaline Casts Ur Culture Indicated? Urine Opiates Screen Ur Oxycodone Screen Urine Methadone Screen Ur Barbiturates Screen U Tricyclic Antidepress Ur Phencyclidine Scrn Ur Amphetamines Screen U Methamphetamines Scrn Ur MDMA Scrn (Ecstasy) U Benzodiazepines Scrn Urine Cocaine Screen U Marijuana (THC) Screen 06/30/19 06/30/19 15:26 15:26 WBC RBC Hgb Hct MCV MCH MCHC RDW Plt Count Neut % (Auto) Lymph % (Auto) Fountain % (Auto) Eos % (Auto) Baso % (Auto) Neut # (Auto) Lymph # (Auto) Fountain # (Auto) Eos # (Auto) Baso # (Auto) PT INR APTT Sodium Potassium Chloride Carbon Dioxide BUN Creatinine Estimated GFR BUN/Creatinine Ratio Glucose Calcium Urine RBC 0-1/hpf Urine WBC 30-100/hpf H Ur Squamous Epith Cells 1-5 /hpf D Ur Transition Epith Cell 1-5/hpf Ur Renal Epithelial Cell 1-5/hpf H Urine Bacteria Moderate (10-30) H Hyaline Casts 1-5/lpf Ur Culture Indicated? Specimen cultured Urine Opiates Screen Negative Ur Oxycodone Screen Negative Urine Methadone Screen Negative Ur Barbiturates Screen Negative U Tricyclic Antidepress Negative Ur Phencyclidine Scrn Negative Ur Amphetamines Screen Negative U Methamphetamines Scrn Negative Ur MDMA Scrn (Ecstasy) Negative U Benzodiazepines Scrn Negative Urine Cocaine Screen Negative U Marijuana (THC) Screen Negative Assessment & Plan Assessment & Plan narrative: The patient is a 1-year-old female patient who previously has refused investigatory studies for prior TIA. The patient continues to be selectively cooperative. She states her desire to go home. 1. Transitory ischemic attack, resolved on admission -patient's presenting symptoms were confusion and speech difficulties, left facial droop and left-sided weakness -symptoms have mostly resolved upon arrival to the ER. Patient has no complaints of prodromal symptoms, headache or visual changes -patient currently is NIH score is 0 and has an ABC D 2 score of 6. -CT scan is negative for intracranial pathology and CTA finds no intracranial arterial abnormalities or neck or artery stenosis. -aspirin 325 mg administered in the ER will continue aspirin 81 mg daily. -perform serial neurological evaluations every 4 hours. -PT and OT to consult. 2. Chronic Hypertension, present on admission -admitting blood pressure is 166/90. She reports blood pressures at home over 200 systolic. She states she has been compliant with medications. -she denies complaints of chest pain or palpitations or shortness of breath. -will continue current regimen of amlodipine 2.5 mg daily, hydrochlorothiazide 12.5 daily, irbesartan 300 mg daily and metoprolol succinate 100 mg daily. 3. Chronic hyperlipidemia, active -patient is currently taking atorvastatin 10 mg daily. -last lipid panel reveals total cholesterol 178, LDL of 109 HDL of 62. -patient previously refused increase in atorvastatin dosage. -will obtain updated lipid panel. 4. Type 2 non insulin dependent diabetes, controlled, active -patient is currently taking metformin 1000 mg twice daily -last hemoglobin A1c obtained 03/28/2019 was 5.3 will recheck hemoglobin A1c. -glucose fingerstick a.c. and HS with correctional insulin low-dose range. -medium carbohydrate, heart healthy diet 5. Moreno's disease, active -will continue patient's home regimen of levothyroxine 88 mcg daily. -last TSH was 0.13, will recheck TSH with reflex to T4. 6. Lumbar spine disease, active -patient with minimal impairment in mobility with scoliosis of the lumbar spine and degenerative joint disease. -will continue home medication of meloxicam 15 mg with evidence of good renal function. The patient is admitted to the hospital related to the severity of her symptoms and the risk for potential complications and adverse events. Patient is admitted observation status with expected length of stay to be less than 2 midnights. Scores ABCD2 Age >= 60 years: yes Initial BP. Either SBP >= 140 or DBP >= 90.: yes Clinical features of the TIA: unilateral weakness Duration of symptoms: 10-59 minutes History of diabetes: yes ABCD2 Score: 6 NIHSS Level of Conciousness: Alert, keenly responsive Ask month/age: Answers both questions correctly. Open/close eyes, close hand: Performs both tasks correctly Best gaze horizontal: Normal Visual pryor: No visual loss Facial palsy: Normal symetrical movement Left arm drift: No drift for full 10 sec Right arm drift: No drift for full 10 sec Left leg drift: No drift for full 5 sec Right leg drift: No drift for full 5 sec Limb ataxia: Absent Sensory on face/arms/legs: Normal, no sensory loss Best language: No aphasia, normal Dysarthria: Normal Extinction or inattention: No abnormality Total NIH Stroke scale score: 0
--- NOTE | 2019-06-30 22:22 | PC.NURSE ---
Evening Shift/Admit Note- Patient arrived to room from ER via stretcher. Patient able to pivot from stretcher to bed with 1PA. Patient alert and confused. Patient impulsive and combative. Patient uncooperative with swallow eval and also uncooperative when asked questions. Patiehnt has 1:1 sitter due to impulsive behaviors, continuously trying to pull out IV live, trying to take tele monitor off, and removing hospital gown. Patient refused to do swallow eval with this RN. Unable to do admission assessmwent at this time due to patient confusion and patient being uncooperative. safety measures in place. !;1 in room. bed alarm activated. call jeronimo and phone within reach. will continue to monitor.
[2019-07-01] VITALS (12 sets, daily range): BP systolic 145–205; BP diastolic 75–112; PULSE 65–79; RESP 16–20; TEMP 36.5–36.9; O2SAT 93–100; BMI 23.9
--- NOTE | 2019-07-01 01:40 | PC.NURSE ---
Addendum entered by Gavi Dang R.N. 07/01/19 02:50: Pt refusing BS checks and vital signs. Addendum entered by Gavi Dang R.N. 07/01/19 02:15: Sedrick TRACEY was notified about pt's refusal for evaluations and assessments at 0130. Original Note: Pt refuses interventions. Pt refuses swallow eval, NIH, and assessment. Pt states No I don't want it. Reason for screening was explained but patient still refused. Pt did have sip of water on evening shift with no complications.
--- NOTE | 2019-07-01 09:47 | PC.NURSE ---
Day shift: Pt refused morning meds. This blog writer let Pt know that those meds are important but she still refused. 1 on 1 at door of room. Pt asking when she will d/c. Will inform MD that Pt is up to talking now. Pt did not want to do or say anything when she was eating breakfast. Call light in reach and bed alarm is on.
[2019-07-01 11:08] LABS: BUN Creatinine Ratio 18.3 (6-22); Blood Urea Nitrogen 11 mg/dL (7-17); Calcium 9.3 mg/dL (8.4-10.2); Carbon Dioxide 29 mmol/L (22-32); Chloride 87 mmol/L (98-107); Estimated Glomerular Filt Rate > 60.0 mL/min (>60); Glucose 166 mg/dL (80-110); HEMOLYSIS < 15 (0-50); Potassium 2.9 mmol/L (3.4-5.1); Sodium 127 mmol/L (137-145)
--- NOTE | 2019-07-01 12:28 | PT.IPTN ---
Physical Therapy Treatment Note M3 PT-IP Subjective Start: 07/01/19 12:27 Freq: NEEDED Status: Active Protocol: Document 07/01/19 12:27 AB (Rec: 07/01/19 12:28 AB [id number]) Subjective Physical Therapy Visit Type Notes checked on pt and pt is with the doctor. checked back on pt and pt just got her lunch tray and want PT later. will check on pt again in the afternoon.
[2019-07-01] MEDS: POTASSIUM CHLORIDE 20 MEQ TAB 40 MEQ PO (13:52)
[2019-07-01] MEDS: MAGNESIUM SULFATE 2 GM/50 ML PIGGYBACK IV (13:52)
--- NOTE | 2019-07-01 14:40 | PT.IPTN ---
Physical Therapy Treatment Note M3 PT-IP Subjective Start: 07/01/19 12:27 Freq: NEEDED Status: Active Protocol: Document 07/01/19 14:38 AB (Rec: 07/01/19 14:40 AB [id number]) Subjective Physical Therapy Visit Type Type Patient Refusal Notes pt refused PT. stated that they already know she does not walk that good and that PT is only wanting to know to let them know how she does. asked pt is PT can checked again and pt did not answer. asked pt is she can walk with PT and pt stated NO.
--- NOTE | 2019-07-01 16:10 | P.PN_ITS ---
Subjective Subjective Date Patient Seen: 07/01/19 Time Patient Seen: 08:45 Interval history: Ms Carey Mtz is an 79-year-old female patient with a complex medical history significant for type 2 noninsulin dependent diabetes, hypertension, hyperlipidemia, Moreno's thyroiditis, irritable bowel syndrome, lumbar sacral spine pain a history of scoliosis, diverticulosis and prior TIA who presents to the ER via EMS with stroke symptoms. She remains intermittently compliant and today she dressed herself to go home. I was uncomfortable with her doing this given her hyponatremia which is slightly lower than baseline but was still 123. During my discussion with her she was not able to tell me why I was worried about discharging her home which included gait imbalance, possible seizure, and . During this examination she became agitated with me and reported to me that she would rather be , and that she would rather be with her who passed. Later on she was compliant with laboratory evaluations which showed an improved sodium. She refused to take her blood pressure medications or any medications this morning. She refused an MRI, and ec hocardiogram. She did not want to work with physical therapy or occupational therapy. Exam Vital Signs (past 8 hours): - 07/01/19 09:02 07/01/19 09:35 07/01/19 12:53 Temperature Pulse Rate 73 Respiratory Rate 19 Blood Pressure 145/81 H Pulse Oximetry 97 94 93 07/01/19 16:00 Temperature 97.7 F Pulse Rate 70 Respiratory Rate 20 Blood Pressure 205/112 H Pulse Oximetry Oxygen Delivery Method Room Air Oxygen Flow Rate 0 Narrative Exam Narrative: GENERAL APPEARANCE: well developed, well nourished, in no acute distress. HEAD: Normocephalic, atraumatic, symmetrical facies, no scalp lesions. EYES: PERRL, sclera non-icteric, extraocular movement intact without nystagmus. EARS: normal external structures, no ear pain NOSE: sinuses non tender to percussion, no rhinorrhea ORAL CAVITY: No dysphonia, oral mucosa is dry without lesions or exudate, poor dentition, palate normal, tongue in midline. THROAT: normal, no erythema, no exudate, pharynx normal, uvula midline NECK/THYROID: neck supple, no jugular venous distention, no carotid bruit, no thyromegaly, trachea midline. LYMPH NODES: no cervical or supraclavicular lymphadenopathy. SKIN: warm and dry, no suspicious lesions, no rashes, good turgor. HEART: regular rate and rhythm, S1-S2 1/6 systolic murmur loudest over left sternal border, no rubs or gallops, brisk capillary refill, trace bilateral pedal edema LUNGS: clear to auscultation bilaterally, no coarseness crackles or wheezing, no cough present CHEST: Symmetrical movement, no accessory muscle use, no pain to AP and lateral compression. ABDOMEN: Soft, no distention, no epigastric or abdominal tenderness on palpation, no organomegaly, no flank tenderness, active bowel tones. 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 NEUROLOGIC: AAO x4, no focal neurologic deficits, cranial nerves II-XII grossly intact , motor strength normal upper and lower extremities, sensory exam intact to light monofilament touch, hearing grossly normal to speech. PSYCH: alert, marginally cooperative and intermittently agitated, frequently refusing care and evaluation. Objective Labs Result Diagrams: 06/30/19 14:10 07/01/19 11:02 Labs: Laboratory Results - last 24 hr 06/30/19 07/01/19 14:10 11:02 Sodium 127 L Potassium 2.9 L Chloride 87 L Carbon Dioxide 29 BUN 11 Creatinine 0.60 Estimated GFR > 60.0 BUN/Creatinine Ratio 18.3 Glucose 166 H Calcium 9.3 Magnesium 1.0 L Assessment & Plan Assessment & Plan narrative: The patient is a 79-year-old female patient who previously has refused investigatory studies for prior TIA, and refuses these evaluations again today. The patient continues to be selectively cooperative. She states her desire to go home but given her passive suicidal ideations, lack of someone at home, and lack of ability to discuss the risks of a discharge home we feel is unsafe for her to leave, even against medical advice at this time. 1. Transitory ischemic attack, resolved on admission -patient's presenting symptoms were confusion and speech difficulties, left facial droop and left-sided weakness -symptoms have seemingly resolved, except for confusion and depression as noted below. -patient currently is NIH score is 0. -CT scan is negative for intracranial pathology and CTA finds no intracranial arterial abnormalities or neck or artery stenosis. -aspirin 325 mg administered in the ER will continue aspirin 81 mg daily. -PT and OT to consult once patient allows - would like to do MRI, however patient refuses 2. Depression - patient reports passive suicidal ideation. She would not answer if she has a plan or not. She is refusing interventions at this time. This is likely secondary to grieving from the loss of her . Her prior TIA also resulted in confusion which resolved, so the hope is that this is temporary and will improve over time. - plan for psychiatry evaluation on Wednesday if still persistent. - would like to do MRI as noted above 2. Chronic Hypertension, present on admission -admitting blood pressure is 166/90. She reports blood pressures at home over 200 systolic. She states she has been compliant with medications. -she denies complaints of chest pain or palpitations or shortness of breath. -will continue current regimen of amlodipine 2.5 mg daily, hydrochlorothiazide 1 2.5 daily, irbesartan 300 mg daily and metoprolol succinate 100 mg daily. - hold HCTZ for hyponatremia. 3. Chronic hyperlipidemia, active -patient is currently taking atorvastatin 10 mg daily. -last lipid panel reveals total cholesterol 178, LDL of 109 HDL of 62. -patient previously refused increase in atorvastatin dosage and again refuses this stating her PCP will change these medications. 4. Type 2 non insulin dependent diabetes, controlled, active -patient is currently taking metformin 1000 mg twice daily -last hemoglobin A1c obtained 03/28/2019 was 5.3 will recheck hemoglobin A1c. -glucose fingerstick a.c. and HS with correctional insulin low-dose range. -medium carbohydrate, heart healthy diet 5. Moreno's disease, active -will continue patient's home regimen of levothyroxine 88 mcg daily. -last TSH was 0.13, will recheck TSH if patient allows additional labs. 6. Lumbar spine disease, active -patient with minimal impairment in mobility with scoliosis of the lumbar spine and degenerative joint disease. -will continue home medication of meloxicam 15 mg with evidence of good renal function. 7. Hyponatremia, chronic, improved- Patient's sodium on admission was 123. She appears to have chronic hyponatremia and this appears close to prior exam. HCTZ will be held and she refused BP medications this morning. - continue to monitor Na if patient allows. 8. Hypokalemia - potassium of 2.9 - patient refused repletion. Dispo: Patient is felt to be an unsafe discharge at this time given current confusion, passive suicidal ideation, and lack of support at home.
--- NOTE | 2019-07-01 16:12 | OT.IP.TRT ---
Occupational Therapy Treatment Note M3 OT- IP Subjective and Pain Start: 07/01/19 16:10 Freq: Status: Active Protocol: Document 07/01/19 16:11 CGR (Rec: 07/01/19 16:12 CGR [id number]) OT- Subjective Occupational Therapy Visit Type Type Administrative Note Notes Attempted to see pt in AM. Pt working with nursing. Attempted to see in PM and pt declines all activity. Per nursing, pt refusing some medications and activity. Will hold and continue to follow for OT services.
--- NOTE | 2019-07-01 17:14 | CM.DANOTE ---
DCP/Assessment: Reviewed chart. Patient is a 79yr old female admitted under OBS status with stroke like symptoms. PCP listed is Dr. Santiago. Primary payor is 1)Medicare 2)[employer]. Spoke with Dr. Osullivan in AM rounds. He reports that patient refusing all medical treatment. Unclear at this time if patient capable of making decisions for herself. Patient refused all therapy evaluations today and refused to answer any questions asked by CT TECHNOLOGIST. Placed call to [facility] and determined that patient is their client. Left vm with [facility] office requesting call back over the weekend. Dr. Osullivan treating patient for low sodium and hopes that patient will be more appropriate with care tomorrow. P: Pending. CT TECHNOLOGIST to follow closely. JAKE Rodriguez Discharge Planning/Care Management Advanced directive, confirm from FAMILY Start: 07/01/19 08:38 Freq: Q24H Status: Active Protocol: Document 07/01/19 08:38 YAD (Rec: 07/01/19 08:38 YAD [id number]) Advance Directive, confirm on record Time 08:38 Person contacted patient Copy received No CM Discharge Assessment Start: 07/01/19 17:09 Freq: Status: Active Protocol: Document 07/01/19 17:10 KJS (Rec: 07/01/19 17:14 KJS [id number]) Discharge Planning Assessment Assigned Side Panel Padder JAKE Rodriguez Contact Information None indicated. Advance Directives? No History Provided By Patient,Medical Record Has Patient been admitted in last 30 No days? Prior Living Arrangements House Household Members none Independent with ADL's Patient declines treatment/or work up Is patient alert and oriented? Unclear at this time Comment Unsure Caregiver for Another No Barriers to Discharge Yes Comment Patient refusing treatment during hospitalization. No contact listed. Reviewed previous notes indicating patient has [facility]? Left message at [facility] office ph# [phone]. Contacts per main office are Mady or Jeremias. Discharge Plan Home Transportation Arrangement Unclear because of patient's uncoopertativeness. Review Status In Process Next Review Type Continued Stay Review
--- NOTE | 2019-07-01 17:17 | PC.NURSE ---
Addendum entered by Renetta Diaz R.N. 07/01/19 21:50: Pt condition remains essentially unchanged. Has been cooperative this evening. HL intact. Call light w/in reach, bed alarm on for pt safety. Continune w/plan of care. Original Note: Pt sitting in chair, denies any issues at this time. SpO2 97% RA. HL MARY intact. NIH = 0 AC 130, pt refuses S/S. Call light w/in reach.
[2019-07-02 01:12] VITALS: O2SAT 97
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
[2019-07-02 05:48] VITALS: O2SAT 97
--- NOTE | 2019-07-02 05:48 | PC.NURSE ---
Patient woke up and had to use the restroom. I attempted to help her because she is very unsteady and she kept shoving me and raising her hand like she was gonna hit me and kept calling me stupid. I stood close by while she used the restroom and when I tried to help her get her blankets on she tried to kick me. She refused to have her vitals and blood sugar checked every time I asked.
[2019-07-02 08:17] VITALS: BP 161/104; PULSE 84; RESP 18; TEMP 36.7; O2SAT 99
--- NOTE | 2019-07-02 11:38 | PT.IIE ---
Surgical History (Last Reviewed 06/30/19 @ 21:18 by TRACEY Martines) Anesthesia complication (Resolved) History of carpal tunnel repair (Resolved 1974) History of cataract removal with insertion of prosthetic lens (2013) History of colonoscopy (Resolved 04/01/07) History of colonoscopy with polypectomy (Resolved 05/08/11) History of left cataract surgery (Resolved 11/13/14) History of right cataract surgery (Resolved 12/11/14) Hx of hand surgery (Resolved 2013) Hx of surgical procedure (Resolved 1996) Status post appendectomy (Resolved 1954) Status post cholecystectomy (Resolved 1964) Status post hysterectomy (Resolved 1990) Medical History (Last Updated 07/01/19 @ 02:24 by TRACEY Martines) Acquired hypothyroidism (02/10/16) Ankle pain (Chronic 1989) Balance problems (Chronic 02/01/17) Bunion (Chronic 03/02/17) Carpal tunnel syndrome (Resolved 1974) Cataracts, bilateral (Resolved 2013) Chickenpox (Resolved) Chronic pain of both shoulders (Chronic 10/26/16) Diverticulitis (Chronic) Eczema (Chronic 02/10/16) Essential hypertension with goal blood pressure less than 140/90 (02/10/16) Fibroids (Resolved 1979) Foot pain (Chronic 1989) GERD (gastroesophageal reflux disease) (Chronic) Hammer toe of left foot (Chronic 03/02/17) History of diverticulitis (06/25/16) Hot flashes due to menopause (Resolved) Hyperlipemia (Chronic 1979) Hypertension (Chronic 1979) IBS (irritable bowel syndrome) (Chronic 2003) Lumbar spine pain (Chronic 2005) Measles (Resolved) Mumps (Resolved) 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) Ovarian cyst (Resolved 1989) Primary insomnia (Chronic 10/26/16) Pure hypercholesterolemia (02/10/16) Scoliosis (Chronic) Sjogren's syndrome (Chronic 2003) Type 2 diabetes mellitus without complication, without long-term current use of insulin (Chronic 2015) Physical Therapy Inpatient Evaluation/Re-Eval M1 PT/OT-IP Prior Functional Status Start: 07/01/19 16:10 Freq: NEEDED Status: Active Protocol: Document 07/02/19 11:07 AW (Rec: 07/02/19 11:38 AW [id number]) Medical Review Prior Functional Status Medical History Reviewed Yes Diet/Fluid Consistency Regular Communication Able to make needs known Mobility and Gait Pt reports she ambulated with 4WW household and short community distances. She has scoliosis and presents with left-leaning at baseline Activities of Daily Living and IADL's Pt received assistance from [facility] in 3-4 hour shifts, 3 days per week. They assisted her with house cleaning, dressing, showering. Pt reports she manages her own meds. She states she drives in town, but often relies on a ride service for appointments, particularly when she needs to go to [place] Social History Household Members none Living Arrangements House Number of Floors (Floors) One Floor Number of Stairs To Enter/Railing? 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 Pt refused all other questions. She states she has two children who live on the [facility], one niece in [place], one nephew in [facility], and friends in [place]. Her dies this past December. M2 PT-IP Current Condition Start: 07/01/19 12:27 Freq: NEEDED Status: Active Protocol: Document 07/02/19 11:07 AW (Rec: 07/02/19 11:38 AW [id number]) Physical Therapy Current Condition Current Condition Evaluation Date 07/02/19 Treatment Diagnosis TIA, difficulty in walking Onset Date 06/30/19 Precautions Other Precautions Falls risk Weight Bearing Status Weight Bearing Status Full Weight Bearing M3 PT-IP Subjective Start: 07/01/19 12:27 Freq: NEEDED Status: Active Protocol: Document 07/02/19 11:07 AW (Rec: 07/02/19 11:38 AW [id number]) Subjective Physical Therapy Visit Type Type Initial Evaluation Visit Start Time 10:10 Visit Stop Time 10:55 Total Visit Minutes 45 Notes Pt refused PT at first, but was eventually persuaded to participate. Number of BISCUITWARE BRUSHER Visits 0 Physical Therapy Visit Comments Patient Comments I'm here as a result of a fall. The ID called EMS, I didn't. I want to go home Patient Goals To return to home with resumption of services through [facility]. Therapy Pain Assessment Pain When Pain Assessed At Rest Pain Present Pain Present Pain Reported Location hands Scale Used Pt reports pain with handshake but is able to roll scale man handles of 4WW Pain Behaviors Calling Out,Facial Grimacing, Holding Area,Restlessness M4 PT-IP Mobility and Gait Start: 07/01/19 12:27 Freq: NEEDED Status: Active Protocol: Document 07/02/19 11:07 AW (Rec: 07/02/19 11:38 AW [id number]) PT-Bed Mobility Assessment Rolling Type of Rolling Roll to Right Level of Assist Standby Assistance Sit to Supine Sit to Supine Standby Assistance Scooting Scooting to Edge of Bed Standby Assistance Scooting Up and Down in Bed Standby Assistance PT-Transfer Assessment Sit to and From Stand Sit to and from Stand Standby Assistance Equipment Transfer Assistive Device 4 Wheeled Walker Orthotic/Prosthetic Devices or Brace: No Transfers Transfer Destination Bed,Chair Transfer Technique pt ambulated to destination Transfer Ability Level of Assist Standby Assistance,Contact Guard Assistance Comments Mobility Comments Pt presents with left-leaning at baseline due to scoliosis. Gait Assessment Gait Gait Assistance Required: Standby Assistance,Contact Guard Assist,Minimum Assistance Distance (Feet) 500 Able to Maintain Weight Bearing Status Yes During Gait Assistive Devices Assistive Device 4 Wheeled Walker Orthotic/Prosthetic Devices or Brace: No Gait Deviations General Gait Pattern Decreased Stride Length, Decreased Feet Clearance, Lateral Trunk Lean Factors Limiting Gait Function Factors Limiting Gait Function Poor Balance,Poor Safety Awareness Comments Gait Comments Pt required SBA to ambulate with 4WW with occasional CGA due to poor obstacle navigation. Vision appears unaffected, no signs of annelise- neglect. Pt struggled to clear obstacles on both sides. At a T-intersection, she could identify all possible routes. Pt attempted to ambulate without 4WW in room, demonstrating heavy reliance on countertops and de leon for support with one loss of balance requiring therapist min assist to recover. PT-Balance Assessment Sitting Balance and Reactions Static Sitting Balance Ability Good Dynamic Sitting Balance Ability Fair Standing Balance and Reactions Static Standing Balance Ability Fair Dynamic Standing Balance Ability Fair Device Used 4WW M5 PT-IP Objective Assessments Start: 07/01/19 12:27 Freq: NEEDED Status: Active Protocol: Document 07/02/19 11:07 AW (Rec: 07/02/19 11:38 AW [id number]) Orientation Orientation/Cognition Level of Alertness Alert Orientation Name,Place Language Function Ability No Deficits Noted Safety Awareness Decreased Safety Awareness Memory Description Short Term Impaired Comments Pt insists she is here as the result of a fall. She remembers the slurred speech incident, but describes that as separate from current hospitalization. Decreased safety awareness evident with impulsive ambulation without AD and difficulty clearing obstacles in the hallway during ambulation with 4WW. Gross Range of Motion Upper Extremity ROM Assessment Right Impaired Impairments R GH flexion to ~90 degrees Lower Extremity ROM Impairments Pt refused assessment Strength Comments Strength Comments Pt refused assessment but was able to perform sit to stand transfer with CGA at most and ambulated 500 feet with 4WW Coordination Assessment Assessment Coordination Comments Pt refused formal assessment Sensation Assessment Comments Sensation Comments Pt refused assessment M6 PT-IP Treatment Start: 07/01/19 12:27 Freq: NEEDED Status: Active Protocol: Document 07/02/19 11:07 AW (Rec: 07/02/19 11:38 AW [id number]) Physical Therapy Treatment Education Education Provided Safety Other Treatments Other Treatment Performed Pt advised to use walker at all times M7 PT-IP Assessment and Plan Start: 07/01/19 12:27 Freq: NEEDED Status: Active Protocol: Document 07/02/19 11:07 AW (Rec: 07/02/19 11:38 AW [id number]) PT Summary Assessment and Plan Potential Rehabilitation Potential Good Status of Condition at Evaluation Stable Summary Impairments Balance,Transfers,Gait, Activity Tolerance Assessment Summary Pt is an 79 yo woman admitted two days ago with apparent TIA , exhibiting slurred speech and left-sided facial droop. Symptoms cleared and CT/CTA were unremarkable. PLOF: Pt reports use of 4WW for all mobility. She states [facility] service provides assistance with dressing, bathing, household management 3 days per week in 3-4 hour increments. CLOF: Pt was reluctantly willing to participate in PT. She insists she is in the hospital following a fall at home where her [facility] called EMS. She required mostly SBA/CGA for transfers and ambulation with 4WW due to unsteady gait and poor obstacle navigation but did not have any limitations in ambulation distance. Without an assistive device, she required min assist to recover from a loss of balance. She is likely at baseline for functional mobility as long as she uses an assistive device. PT recommends discharge to home with resumption of [facility] service including a possible increase in hours provided. She would also likely benefit from outpatient PT to address balance and gait concerns. Goals Bed Mobility Goal Independent Transfer Goal Standby Assistance,Four Wheeled Walker Gait Goal Standby Assistance,Four Wheel Walker Gait Distance 200 feet with good obstacle clearance Frequency of Treatment Frequency Of Treatment Once a Day Treatment Plan Physical Therapy Treatment Plan Bed Mobility Training,Transfer Training,Gait Training, Therapeutic Exercise,Balance Retraining,Post Op Education, Discharge Planning,Hot or Cold Pack,Neuromuscular Re-ed, Coordination Retraining,Manual Therapy Other Recommendations and Next Treatment gait training with 4WW for Focus improved environmental awareness and obstacle clearance Recommendations To Nursing Amount of Assist Needed 1 Person Assist Discharge Recommendations PT Discharge Recommendations Home with Assistance,Home with 24/ Assist,Outpatient PT
[2019-07-02] MEDS: LEVOTHYROXINE 88 MCG TABLET PO (12:35)
--- NOTE | 2019-07-02 14:20 | CM.DANOTE ---
Addendum entered by Loyda Terrazas JAKE 07/02/19 15:54: ADD: Per MD, pt medically stable to d/c home today with HH as she is mostly refusing medical care here and no medical interventions approved by pt at this time. Per RN, pt had two supportive friends bedside who will be back later this evening and can hopefully provide transport home, otherwise taxi can be set up as pt is ambulatory and lives a couple blocks away. MICHAEL faxed MD Cesar orders, and d/c summary to [facility] to review and left another message. MICHAEL called pt's Dtr Char and left msg regarding pt's d/c with HH and [facility] tomorrow at 0900 and left RN phone number to call if she has any medical questions. MICHAEL called allie Aqu[facility] and left msg with update on pt d/c today. BF Original Note: Per , pt continues to decline most medical care and recommendations for labs and tests and has been challenging for staff members and pt seems to be distrustful of her care here. If pt remains in the hospital through the weekend then MD will request Psych Consult to help clarify dx and symptoms of dementia vs depressive episode with possible paranoid features. MICHAEL called [facility] again and left msg for their furniture sales consultant staff who called back confirming that they do not have any other contact family/friend on record and pt had stated that she doesn't have anyone to call and to just call 911 if there is a problem. Allie Ken stated that pt has Caregivers M, Tues, Thurs for about 9-12 hours a week and has been mostly independent at home. They can increase hours easily if pt is agreeable. Per steel hanger, pt's Dtr Maribel was on the phone and RN transferred call to . Dtr Maribel ([phone]) and Dtr Char ([phone]) confirm that they are pt's DPOAs and both unfortunately live on the [facility]. Dtrs have noticed that pt seems to have increased confusion over the past few months and increased falls but typically declines coming to the doctor or hospital and is quite stubborn. Pt's spouse in December 2018 of this year and since then pt had [facility] [place] set up since February 2019. Dtrs state that pt has a couple of close friends/neighbors locally that help provide additional support and care to the pt and check on her regularly and one was headed to the hospital now as no one knew that the pt was in the hospital. Dtrs requested SW transfer the call into pt's room so that they could encourage her to get the medical care needed. SW met bedside with pt just as her supportive family friend Sana arrived bedside and pt tearful and so thankful that her Dtrs were calling. SW transferred call into the room and pt discussed her frustrations with not leaving the hospital for home yet and was able to calm. Family and friend Sana encouraged pt to increase her [facility] [place] hours and pt very agreeable and feels its needed as she has no caregiving from [facility]. Pt denies any hx of SNF or HH but states her PCP office had been working on HH but it had not happened yet. SW discussed HH and pt very agreeable as well as her supportive friend. Pt does not have a HH preference. Pt seemed to have some difficulty with either remembering or understanding that since she has refused further blood draws to check her levels or the MRI to determine any further medical concerns or take her medications that MD has been hesitant to discharge her from the hospital. Pt preference is still to go home with increased [facility] [place] (whose next appointment is at 0900 tomorrow), new referral to HH, and her local supportive friends to check on her. Pt denies the need for SNF or further senior living care. SW updated MD who feels pt's mentation has somewhat improved and now that family and local friends have been contacted pt is somewhat safer to return to the community and was agreeable with HH. MICHAEL made new referral to [facility] base on [facility] Calendar and called and left vm requesting review and faxed clinicals. Plan: SW to follow closely for possible pt d/c home with new [facility] referral and [facility] [place] and local supportive friends. JAKE Baltazar
--- NOTE | 2019-07-02 15:43 | PC.NURSE ---
Pt declines most medications this morning, but did take Thyroid med; IV d/c due to compromised site; MD informed regarding no IV access; Pt does declines any assessment of neuro and heart but did accept this RN's auscultation of lungs - LS crackles to LLL, diminished to RLL; pt's friend, Sana in room for part of the day today
--- NOTE | 2019-07-02 15:46 | PM.DS.1 ---
History of Present Illness History of Present Illness Date Patient Seen: 07/02/19 Time Patient Seen: 10:30 Chief complaint: Stroke Narrative: As per TRACEY Martines: Ms Carey Mtz is an 79-year-old female patient with a complex medical history significant for type 2 noninsulin dependent diabetes, hypertension, hyperlipidemia, Moreno's thyroiditis, irritable bowel syndrome, lumbar sacral spine pain a history of scoliosis, diverticulosis and prior TIA who presents to the ER via EMS with stroke symptoms. At approximately 1:[address] while on the drive home the patient developed confusion and slurring of speech. She had associated left facial droop and left-sided weakness. She reports no prodromal symptoms of recent colder illness, she has had no headaches or dizziness before or since. She reports no chest pain or palpitations, shortness of breath cough or wheezing. She reports no abdominal pain, nausea vomiting diarrhea or constipation. She has frequent urination but denies dysuria. The patient was seen for a similar episode of confusion on 04/16/2019 at which time the patient declined echocardiogram or further imaging. Upon arrival to the ER the patient is found to be afebrile with temperature 98.2?, heart rate of 80, blood pressure was 66/90, respiratory rate 22 and saturation 100% on room air. A CT of the head was obtained which was limited study which found no acute intracranial processes. CTA was also obtained which found no intracranial arterial abnormalities and no neck artery stenosis. On laboratory analysis the patient has a white count of 10.4, hemoglobin of 11.4, hematocrit of 33.3 and platelets 373. On chemistries the patient found to have and a sodium of 123 and chloride of 82 with a potassium of 3.0. She has a BUN of 16 and creatinine of 0.7 nonfasting glucose 117. Her coags are unremarkable. Urinalysis was obtained finding white blood cells and bacteria with casts is reflex to culture. The patient is admitted for TIA and continued monitoring and evaluation. Discharge Providers Provider Date of admission: 06/30/19 19:02 Discharge Date: 07/02/19 Primary care physician: Catrachito Santiago MD Consults: 06/30/19 21:12 Consult to Discharge Planning Routine Comment: Consult to Occupational Therapy Evaluate & Treat Comment: Recurrent TIA Physician Instructions: Evaluate and treat Consult to Physical Therapy Evaluate & Treat Comment: Recurrent TIA Physician Instructions: Evaluate and Treat 07/02/19 14:09 Consult to Home Health Routine Comment: TIA, Hypertension, Hyperlipidemia, Moreno Reason For Exam: Set up HH RN/PT/OT/SW for d/c home Discharge provider: Ryley Osullivan DO Summary Hospital Course Discharge Diagnosis: 1. Transitory ischemic attack, resolved on admission 2. Depression 3. Chronic Hypertension, present on admission 4. Chronic hyperlipidemia, active 5. Type 2 non insulin dependent diabetes, controlled, active 6. Moreno's disease, active 7. Lumbar spine disease, active 8. Hyponatremia, chronic 9. Hypokalemia Hospital Course: The patient is a 79-year-old female patient who previously has refused investigatory studies for prior TIA, who was admitted for confusion, speech difficulties left-sided facial droop and left-sided weakness. Her motor symptoms resolved rather quickly but her confusion continued. Evaluation was made difficult as patient did not trust the care providers here, stating she has a very good primary care provider who can take care of her better than we can. Her confusion seemed to improve over time and she was more agreeable, she worked with Physical therapy who recommended discharge home. She was seen by the care management team who will get her home health and potentially additional home services. She has adequate support in the area who state they will check on the patient. 1. Transitory ischemic attack, resolved on admission -patient's presenting symptoms were confusion and speech difficulties, left facial droop and left-sided weakness -symptoms have seemingly resolved, and confusion has improved. -CT scan is negative for intracranial pathology and CTA finds no intracranial arterial abnormalities or neck or artery stenosis. Patient refused further evaluation with MRI. -aspirin 325 mg administered in the ER will continue aspirin 81 mg daily. - recommend outpatient PT - PT evaluation recommended discharge home as patient was seemingly at baseline. 2. Depression - patient reported passive suicidal ideation during this admission, however she did not the following day. She appears to have adequate social support as noted above. - recommend outpatient PMD followup and potential psychiatry evaluation. 3. Chronic Hypertension, present on admission -admitting blood pressure is 166/90. She reports blood pressures at home over 200 systolic. She states she has been compliant with medications. -she denies complaints of chest pain or palpitations or shortness of breath. -will continue current regimen of amlodipine 2.5 mg daily, hydrochlorothiazide 12.5 daily, irbesartan 300 mg daily and metoprolol succinate 100 mg daily. - recommend holding HCTZ at discharge given hyponatremia. 4. Chronic hyperlipidemia, active -patient is currently taking atorvastatin 10 mg daily. -last lipid panel reveals total cholesterol 178, LDL of 109 HDL of 62. -patient previously refused increase in atorvastatin dosage and again refuses this stating her PCP will change these medications. 5. Type 2 non insulin dependent diabetes, controlled, active -patient is currently taking metformin 1000 mg twice daily and should continue this. 6. Moreno's disease, active -will continue patient's home regimen of levothyroxine 88 mcg daily. -last TSH was 0.13, will recheck TSH if patient allows additional labs. 7. Lumbar spine disease, active -patient with minimal impairment in mobility with scoliosis of the lumbar spine and degenerative joint disease. -will continue home medication of meloxicam 15 mg with evidence of good renal function. 8. Hyponatremia, chronic, improved- Patient's sodium on admission was 123 and improved to 127 on repeat. She appears to have chronic hyponatremia and this appears close to prior exam. 9. Hypokalemia - potassium of 2.9 - patient refused repletion. Dispo: Patient will be discharged home as she no longer reports passive SI, she does appear to have adequate support, and she is currently refusing all medical therapies and treatments due to distrust with medical providers here. She will have better medical care as an outpatient with providers she trusts. Exam Vital Signs (past 8 hours): - 07/02/19 08:17 Temperature 98.0 F Pulse Rate 84 Respiratory Rate 18 Blood Pressure 161/104 H Pulse Oximetry 99 Oxygen Delivery Method Room Air Oxygen Flow Rate 0 Narrative Exam Narrative: GENERAL APPEARANCE: Well developed, well nourished, in no acute distress. SKIN: Patient refused. HEENT: Patient refused. NECK: Patient refused. CHEST: Scoliosis present. LUNGS: Patient refused. CARDIOVASCULAR: Patient refused ABDOMEN: patient refused MUSCULOSKELETAL: There was no effusions noted. Muscle strength and tone were grossly normal. EXTREMITIES: No cyanosis, clubbing or edema. NEUROLOGIC: Alert. No facial droop. Gait steady with use of four wheeled walker. Objective Labs Result Diagrams: 06/30/19 14:10 07/01/19 11:02 Discharge Plan Discharge Plan Patient Disposition: Home Health Service Transfer to: [facility] Discharge comment: You were admitted to the hospital for weakness and had a TIA. Your symptoms resolved. You were evaluated by PT. You refused further evaluation with occupational therapy but when you worked with physical therapy you appeared to be at your baseline. You should see your primary care provider within one week and increase your home services. You should obtain outpatient physical therapy. You refused any medication changes but you should stop the HCTZ because of your low sodium. Discharge Med Rec/Prescriptions Prescriptions: Continued Glucose: Test Strips See Rx Instructions SUBCUT QDAY Qty: 100 RF: 6 irbesartan [Avapro] 300 mg tablet 300 mg PO DAILY Qty: 90 RF: 3 omeprazole 20 mg capsule,delayed release(DR/EC) 20 mg PO DAILY Qty: 90 RF: 1 aspirin 81 mg tablet,delayed release (DR/EC) 81 mg PO DAILY RF: 0 metformin 1,000 mg tablet 1,000 mg PO BID Qty: 180 RF: 5 meloxicam 15 mg tablet 15 mg PO DAILY Qty: 90 RF: 1 meclizine 12.5 mg tablet 12.5 mg PO TID PRN (Reason: dizziness) Qty: 30 RF: 0 amlodipine 2.5 mg tablet 2.5 mg PO DAILY RF: 0 fluoride (sodium) 1.1 % gel 1 applic dental DIRECTED RF: 0 atorvastatin [Lipitor] 10 mg tablet 10 mg PO BEDTIME RF: 0 metoprolol succinate [Toprol XL] 100 mg tablet extended release 24 hr 100 mg PO DAILY RF: 0 levothyroxine 88 mcg tablet 88 mcg PO DAILY RF: 0 hydroxyzine HCl 10 mg tablet 10 - 20 mg PO Q6H PRN (Reason: anxiety) RF: 0 polyethylene glycol 3350 [Miralax] 17 gram/dose Powder 1 dose PO PRN PRN (Reason: Constipation) RF: 0 Lancet: Device 1 ea . Q DAY RF: 0 Discontinued hydrochlorothiazide 12.5 mg tablet 12.5 mg PO DAILY Qty: 90 RF: 1 Follow up/Referrals: Catrachito Santiago MD [Primary Care Provider] - Provider Discharge Instructions Diet: Diet as Tolerated and Carb-consistent/Diabetic Activity: Please use 4 wheeled walker when ambulatory. Discharge Data Primary Care Provider: Catrachito Santiago
--- NOTE | 2019-07-02 15:52 | PC.NURSE ---
Pt refusing Vital Signs, refusing to use a walker, and threatening to hit me.
--- NOTE | 2019-07-02 16:10 | PC.NURSE ---
Addendum entered by Renetta Diaz R.N. 07/02/19 16:35: Discharge instructions given to pt and Sana (caregiver). Pt escorted by staff via W/C to waiting vehicle. Pt D/C'd in stable condition. Original Note: Pt sitting in chair. Refusing all care. Discharge orders received by . Pt friend Sana Olivas notified and will transport pt home.
[2019-07-02 18:06] LABS: Cholesterol 221 mg/dL (140-199); HDL Cholesterol 74 mg/dL (40-60); LDL Cholesterol Calculated 122 mg/dL (<100); Triglycerides 126 mg/dL (35-150)
[2019-07-02 18:07] LABS: Hemoglobin A1C% w Est Avg Glu 5.4 % (4.0-6.0)
[2019-07-02 18:36] LABS: TSH w/ Reflex to FT4 1.78 uIU/mL (0.47-4.68)
--- NOTE | 2019-07-05 14:55 | CM.DPNOTE ---
Per previous discussion with air drier machine operator, concerns were noted regarding pt previous d/c home with caregivers and HH due to pt's memory issues and pt continuing to drive and SW had agreed to place APS report for possible follow up at home to determine if any further intervention needed to keep pt safe in the community and at home. MICHAEL completed online APS report (confirmation #[id number]). JAKE Baltazar
--- NOTE | 2019-07-07 12:01 | CM.SWNOTE ---
APS referral: Received VM from [place], Intake at [facility] P# [phone] re: online report made 07.05.19. The VM stated the following: Report did not include the following; allegations? This person not refusing care and agrees to help in the home , PD does wellness check not APS. 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 No grounds for investigation found. JAKE Steward
--- NOTE | 2019-07-07 12:46 | PC.NURSE ---
late entry: magnesium sulfate stopped 07/01 1556
== END 2019-07-02 16:37 | disposition home health service (06) ==
LOC: ED 18:28 → AC 19:14
PROVIDERS: Nurse Practitioner Adult Health; Admitting Provider Internal Medicine; Emergency Provider Emergency Medicine; PCP Student in an Organized Health Care Education/Training Program; Visit Provider Internal Medicine
DX: G45.9 Transient cerebral ischemic attack, unspecified (principal); R29.818 Other symptoms and signs involving the nervous system; E87.6 Hypokalemia; E87.1 Hypo-osmolality and hyponatremia; M41.86 Other forms of scoliosis, lumbar region; E06.3 Autoimmune thyroiditis; E11.9 Type 2 diabetes mellitus without complications; Z79.84 Long term (current) use of oral hypoglycemic drugs; E78.5 Hyperlipidemia, unspecified; I10 Essential (primary) hypertension; F32.9 Major depressive disorder, single episode, unspecified
CPT/HCPCS: 36415; 36591; 70450; 70496; 70498; 80048; 80061; 80305; 81003; 81015; 82962; 83036; 83735; 84443; 85025; 85610; 85730; 87077; 87086; 87147; 93005; 96361; 96365; 96366; 96367; 96375; 97116; 97161; 99285; 99291; 99292; G0378; J2405; J3480; Q9967

== ENCOUNTER 2019-07-14 11:23 | Emergency (ER) | payer MEDICARE, SELFPAY ==
[2019-07-01 08:23] VITALS: BMI 23.9
[2019-07-14 11:25] VITALS: BP 193/91; PULSE 66; RESP 16; TEMP 36.8; O2SAT 96
--- NOTE | 2019-07-14 11:34 | DI.CT.S_ITS ---
PROCEDURE: CT HEAD/BRAIN WO CON INDICATIONS: fall hit head TECHNIQUE: Noncontrast 4.5 mm thick angled axial sections acquired from the foramen magnum to the vertex, with coronal and sagittal reformats. For radiation dose reduction, the following was used: automated exposure control, adjustment of mA and/or kV according to patient size. COMPARISON: [facility], CT, CT HEAD/BRAIN WO CON, 06/30/2019, 13:53. FINDINGS: Image quality: Excellent. CSF spaces: Basal cisterns are patent. No extra-axial fluid collections. The ventricles are symmetric in size and shape. Brain: No intracranial bleeds or masses. There is mild cerebral volume loss for age, with resultant ventricular and sulcal prominence. There are moderate periventricular and deep white matter chronic small vessel ischemic changes. There is intracranial internal carotid artery atherosclerosis. Skull and face: Calvarium and visualized facial bones appear intact, without suspicious lesions. Sinuses: Visualized sinuses and mastoids are clear. IMPRESSION: No acute intracranial disease process. Dictated by: Rhiannon Gracia MD, PhD on 07/14/2019 at 12:11 Approved by: Rhiannon Gracia MD, PhD on 07/14/2019 at 12:13
--- NOTE | 2019-07-14 11:38 | ED_ITS ---
HPI - Fall General Chief Complaint: Fall Stated Complaint: Dizziness Time Seen by Provider: 07/14/19 11:27 Source: patient and EMS Mode of arrival: EMS History of Present Illness HPI Narrative: Patient is an 79-year-old female who has hypertension, hyperlipidemia type 2 diabetes, she presents after ground level fall. She does have small abrasions on the left side of her head. No weakness numbness or tingling. She says she was little dizzy before she fell she does have some dementia as well she can't remember exactly how she fell she denies any complaints or pain. She was admitted to the hospital last TIA and discharged the following day. She has caretakers at home, some of the time. I spoke with the daughter STEPHENOA was grave concerns for her mother who has frequent falls. She called [facility] almost daily. They are trying to get her into assisted living however she has been refusing. According to the last up PCP no doctor rahseed states that she is willing to go. MD complaint: fall Onset (ago): minute(s) Fall from: standing Fall witnessed: no Place fall occurred: home Loss of consciousness: unsure Related Data Home Medications Medication Instructions Recorded Confirmed Lancet: Device 1 ea . Q DAY 04/18/19 07/14/19 atorvastatin [Lipitor] 10 mg PO BEDTIME 04/18/19 07/14/19 fluoride (sodium) 1 applic DENTAL DIRECTED 04/18/19 07/14/19 hydroxyzine HCl 10 - 20 mg PO Q6H PRN 04/18/19 07/14/19 levothyroxine 88 mcg PO DAILY 04/18/19 07/14/19 polyethylene glycol 3350 [Miralax] 1 dose PO PRN PRN 04/18/19 07/14/19 aspirin 81 mg tablet,delayed 81 mg PO DAILY 06/16/19 07/14/19 release amlodipine 2.5 mg PO DAILY 07/14/19 07/14/19 hydrochlorothiazide 12.5 mg PO DAILY 07/14/19 07/14/19 triamterene-hydrochlorothiazid 1 tab PO DAILY 07/14/19 07/14/19 Previous Rx's Medication Instructions Recorded Glucose: Test Strips See Rx Instructions SUBCUT QDAY 06/24/18 #100 strip omeprazole 20 mg capsule,delayed 20 mg PO DAILY #90 cap 09/13/18 release metformin 1,000 mg tablet 1,000 mg PO BID #180 tab 11/15/18 meloxicam 15 mg tablet 15 mg PO DAILY #90 tab 01/27/19 irbesartan 300 mg tablet 300 mg PO DAILY #90 tab 05/09/19 meclizine 12.5 mg tablet 12.5 mg PO TID PRN #30 tab 06/30/19 ketotifen fumarate 0.025 % (0.035 1 drop EYE-BOTH BID PRN #5 ml 07/06/19 %) eye drops metoprolol succinate 200 mg 200 mg PO DAILY #90 tab 07/06/19 tablet,extended release 24 hr Allergies Allergy/AdvReac Type Severity Reaction Status Date / Time ciprofloxacin [CIPROFLOXACIN] AdvReac Severe Bloody Verified 07/06/19 16:13 diahrrea, swollen feet. Benzodiazepines AdvReac Intermediate EXTREME Verified 07/06/19 16:13 SENSITIVITY fentanyl AdvReac Intermediate EXTREME Verified 07/06/19 16:13 SENSITIVITY TO ALL NARCOTICS meperidine AdvReac Intermediate EXTREME Verified 07/06/19 16:13 SENSITIVITY Opioids - Morphine Analogues AdvReac Intermediate EXTREME Verified 07/06/19 16:13 SENSITIVITY - SOMNOLENCE Review of Systems Review of Systems ROS Unobtainable: All systems reviewed & are unremarkable except as noted in HPI and below Constitutional Constitutional: Denies chills, Denies fever(s), Denies lethargy and Denies weakness Eyes Eyes: Denies change in vision, Denies eye discharge, Denies irritation and Denies loss of vision Cardiovascular Cardiovascular: Reports lightheadedness, Denies dyspnea and Denies dyspnea on exertion Respiratory Respiratory: Denies cough, Denies dyspnea, Denies dyspnea on exertion and Denies wheezing Gastrointestinal Gastrointestinal: Denies abdominal pain, Denies change in bowel habits, Denies diarrhea, Denies nausea and Denies vomiting Genitourinary Genitourinary: Denies hematuria, Denies flank pain, Denies urinary incontinence and Denies urinary urgency Musculoskeletal Musculoskeletal: Denies back pain, Denies muscle weakness, Denies numbness and Denies tingling Integumentary/Breasts Skin/Breast: Reports as per HPI Neurologic Neurologic: Denies loss of vision, Denies numbness, Denies tingling and Denies weakness Allergic/Immunologic Allergic/Immunologic: Denies wheezing Exam Initial Vital Signs Initial Vital Signs: Vital Signs Temperature 98.2 F 07/14/19 11:25 Pulse Rate 66 07/14/19 11:25 Respiratory Rate 16 07/14/19 11:25 Blood Pressure 193/91 H 07/14/19 11:25 Pulse Oximetry 96 07/14/19 11:25 GENERAL: Alert pleasant elderly female and in [no acute] distress. HEENT: Head small abrasion left temporal area no depressions or crepitation CARDIOVASCULAR: Regular rate and rhythm without murmurs, rubs or gallops. RESPIRATORY: Breath sounds equal bilaterally, no wheezes rales or rhonchi. ABDOMEN: Soft, nontender. Normoactive bowel sounds all 4 quadrants. No gu arding or rebound. : No CVA tenderness EXTREMITIES: Normal range of motion, no clubbing or edema. Neurovascularly intact NEUROLOGICAL: Normal gait and speech. Cranial nerves II through XII grossly intact. Production Planning Supervisor strength equal bilaterally SKIN: Warm, dry, no laceration, no petechiae, no rashes or lesions. [facility] Medical History Acquired hypothyroidism (02/10/16) Ankle pain (Chronic 1989) Balance problems (Chronic 02/01/17) Bunion (Chronic 03/02/17) Carpal tunnel syndrome (Resolved 1974) Cataracts, bilateral (Resolved 2013) Chickenpox (Resolved) Chronic pain of both shoulders (Chronic 10/26/16) Diverticulitis (Chronic) Eczema (Chronic 02/10/16) Essential hypertension with goal blood pressure less than 140/90 (02/10/16) Fibroids (Resolved 1979) Foot pain (Chronic 1989) GERD (gastroesophageal reflux disease) (Chronic) Hammer toe of left foot (Chronic 03/02/17) History of diverticulitis (06/25/16) Hot flashes due to menopause (Resolved) Hyperlipemia (Chronic 1979) Hypertension (Chronic 1979) IBS (irritable bowel syndrome) (Chronic 2003) Lumbar spine pain (Chronic 2005) Measles (Resolved) Mumps (Resolved) 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) Ovarian cyst (Resolved 1989) Primary insomnia (Chronic 10/26/16) Pure hypercholesterolemia (02/10/16) Scoliosis (Chronic) Sjogren's syndrome (Chronic 2003) Type 2 diabetes mellitus without complication, without long-term current use of insulin (Chronic 2015) Surgical History Anesthesia complication (Resolved) History of carpal tunnel repair (Resolved 1974) History of cataract removal with insertion of prosthetic lens (2013) History of colonoscopy (Resolved 04/01/07) History of colonoscopy with polypectomy (Resolved 05/08/11) History of left cataract surgery (Resolved 11/13/14) History of right cataract surgery (Resolved 12/11/14) Hx of hand surgery (Resolved 2013) Hx of surgical procedure (Resolved 1996) Status post appendectomy (Resolved 1954) Status post cholecystectomy (Resolved 1964) Status post hysterectomy (Resolved 1990) Family History Child Hypertension Child Hypertension Sister Age: 77 Rheumatoid arthritis Father CA (myocardial infarction) Heart disease Mother CA (myocardial infarction) Hypertension Angina pectoris Sister Colon cancer Social History household members: none Smoking Status: Never smoker second hand exposure: No alcohol intake: former substance use type: does not use Family History Child Hypertension Child Hypertension Sister Age: 77 Rheumatoid arthritis Father CA (myocardial infarction) Heart disease Mother CA (myocardial infarction) Hypertension Angina pectoris Sister Colon cancer Social History household members: none Smoking Status: Never smoker second hand exposure: No alcohol intake: former substance use type: does not use Course Orders Ordered: ED Orders 07/14/19 11:34 CT head/brain wo con Stat 07/14/19 11:40 Basic Metabolic Panel Stat Complete Blood Count AUTO DIFF Stat 07/14/19 13:06 Consult to Physical Therapy Evaluate & Treat 07/14/19 13:07 Consult to Physical Therapy Evaluate & Treat Vital Signs Vital signs: Vital Signs - 8 hr 07/14/19 11:25 07/14/19 12:33 07/14/19 13:30 Temperature 98.2 F Pulse Rate 66 70 67 Respiratory Rate 16 18 17 Blood Pressure 193/91 H Blood Pressure [Left Arm] 116/55 L 165/83 H Pulse Oximetry 96 98 98 07/14/19 14:00 07/14/19 15:26 Temperature Pulse Rate 70 68 Respiratory Rate 21 17 Blood Pressure Blood Pressure [Left Arm] 160/79 H 168/91 H Pulse Oximetry 99 100 MDM - Fall Lab Data Attestation: I reviewed the patient's lab results. Result diagrams: 07/14/19 11:40 07/14/19 11:40 Labs: Lab Results 07/14/19 07/14/19 Range/Units 11:40 11:40 WBC 8.7 (4.5-11.0) X10^3/uL RBC 3.88 L (4.0-5.2) X10^6/uL Hgb 12.2 (12.0-16.0) g/dL Hct 36.4 (36-46) % MCV 93.7 (80-100) fL MCH 31.5 (26-34) PG MCHC 33.7 (30-36) % RDW 14.0 (11.6-14.8) % Plt Count 342 (150-400) X10^3/uL Neut % (Auto) 86.3 H (50-75) % Lymph % (Auto) 7.8 L (25-40) % [place] % (Auto) 4.8 (3-14) % Eos % (Auto) 0.4 L (2-4) % Baso % (Auto) 0.7 (0-2) % Neut # (Auto) 7500 H (1896-5949) /uL Lymph # (Auto) 700 L (0741-3188) /uL [place] # (Auto) 400 (0-900) /uL Eos # (Auto) 0 (0-450) /uL Baso # (Auto) 100 (0-100) /uL Sodium 128 L (137-145) mmol/L Potassium 3.2 L (3.4-5.1) mmol/L Chloride 85 L (98-107) mmol/L Carbon Dioxide 29 (22-32) mmol/L BUN 15 (7-17) mg/dL Creatinine 0.70 (0.52-1.04) mg/dL Estimated GFR > 60.0 (>60) mL/min BUN/Creatinine Ratio 21.4 (6-22) Glucose 155 H (80-110) mg/dL Calcium 10.0 (8.4-10.2) mg/dL Imaging Data CT scan - head: Radiologist's impression: PROCEDURE: CT HEAD/BRAIN WO CON INDICATIONS: fall hit head TECHNIQUE: Noncontrast 4.5 mm thick angled axial sections acquired from the foramen magnum to the vertex, with coronal and sagittal reformats. For radiation dose reduction, the following was used: automated exposure control, adjustment of mA and/or kV according to patient size. COMPARISON: [facility], CT, CT HEAD/BRAIN WO CON, 06/30/2019, 13:53. FINDINGS: Image quality: Excellent. CSF spaces: Basal cisterns are patent. No extra-axial fluid collections. The ventricles are symmetric in size and shape. Brain: No intracranial bleeds or masses. There is mild cerebral volume loss f or age, with resultant ventricular and sulcal prominence. There are moderate periventricular and deep white matter chronic small vessel ischemic changes. There is intracranial internal carotid artery atherosclerosis. Skull and face: Calvarium and visualized facial bones appear intact, without suspicious lesions. Sinuses: Visualized sinuses and mastoids are clear. IMPRESSION: No acute intracranial disease process. Dictated by: Rhiannon Gracia MD, PhD on 07/14/2019 at 12:11 Approved by: Rhiannon Gracia MD, PhD on 07/14/2019 at 12:13 ECG Data Attestation: I personally reviewed and interpreted this ECG as follows: Prior ECG tracings: available for review Interpretation: Normal sinus rhythm rate 61 p.r[address] interval [address] changes, T- wave inversion noted in lead 3 similar to previous EKG MDM Narrative Medical decision making narrative: I discussed case with the daughter who feels like she is extreme extremely unsafe at home and wants her placed. However p atient has his historically declined going anywhere. I have spoken with Dr. Santiago who also says that she falls frequently but is also confirms that she refuses to go to assisted living. Patient is evaluated by physical therapy she is ambulatory with a walker without any difficulty healthy. She states that she is willing to go to assisted living and in fact measures have been taken to get her in to [facility] for next week. However she would like to go home 1st she has some things to do she does not want to go there today. Both her daughters are on their way here from different states in will be on airplanes over the weekend Leigh Ann Valenzuela is here to pick patient up Discharge Plan Departure Patient Disposition: Home Clinical Impression: Chronic hyponatremia Fall Qualifiers: Encounter type: initial encounter Qualified Code(s): W19.XXXA - Unspecified fall, initial encounter Discharge Date/Time: 07/14/19 16:12 Instructions: How to Prevent Falls Activity Restrictions/Additional Instructions: *You have been diagnosed with fall, chronic stable hyponatremia *What to do: At this time no indication to stay in the hospital. Use her walker at all times to get around nor your [facility] button at all times. It is recommended that you go to assisted living where people can help you and help prevent falls *Continue to take medications as directed *Follow up with your primary care provider in 2-3 days *Return to ER if you should have falls, confusion or any new, worsening or concerning symptoms Prescriptions: No Action Glucose: Test Strips See Rx Instructions SUBCUT QDAY Qty: 100 RF: 6 irbesartan [Avapro] 300 mg tablet 300 mg PO DAILY Qty: 90 RF: 3 omeprazole 20 mg capsule,delayed release(DR/EC) 20 mg PO DAILY Qty: 90 RF: 1 aspirin 81 mg tablet,delayed release (DR/EC) 81 mg PO DAILY RF: 0 metformin 1,000 mg tablet 1,000 mg PO BID Qty: 180 RF: 5 meloxicam 15 mg tablet 15 mg PO DAILY Qty: 90 RF: 1 meclizine 12.5 mg tablet 12.5 mg PO TID PRN (Reason: dizziness) Qty: 30 RF: 0 metoprolol succinate 200 mg tablet extended release 24 hr 200 mg PO DAILY Qty: 90 RF: 1 ketotifen fumarate 0.025 % (0.035 %) drops 1 drop EYE-BOTH BID PRN (Reason: allergy symptoms) Qty: 5 RF: 5 fluoride (sodium) 1.1 % gel 1 applic dental DIRECTED RF: 0 atorvastatin [Lipitor] 10 mg tablet 10 mg PO BEDTIME RF: 0 levothyroxine 88 mcg tablet 88 mcg PO DAILY RF: 0 hydroxyzine HCl 10 mg tablet 10 - 20 mg PO Q6H PRN (Reason: anxiety) RF: 0 polyethylene glycol 3350 [Miralax] 17 gram/dose Powder 1 dose PO PRN PRN (Reason: Constipation) RF: 0 Lancet: Device 1 ea . Q DAY RF: 0 amlodipine 2.5 mg tablet 2.5 mg PO DAILY RF: 0 triamterene-hydrochlorothiazid 37.5-25 mg tablet 1 tab PO DAILY RF: 0 hydrochlorothiazide 12.5 mg tablet 12.5 mg PO DAILY RF: 0 Referrals: Catrachito Santiago MD [Primary Care Provider] -
[2019-07-14 11:50] LABS: Add Manual Diff / Slide Review NO; Basophils Absolute Auto 100 /uL (0-100); Basophils Percent Auto 0.7 % (0-2); Eosinophils Absolute Auto 0 /uL (0-450); Eosinophils Percent Auto 0.4 % (2-4); Hematocrit 36.4 % (36-46); Hemoglobin 12.2 g/dL (12.0-16.0); Lymphocytes Absolute Auto 700 /uL (1100-4500); Lymphocytes Percent Auto 7.8 % (25-40); Mean Corpuscular HGB Conc 33.7 % (30-36); Mean Corpuscular Hemoglobin 31.5 PG (26-34); Mean Corpuscular Volume 93.7 fL (80-100); Monocytes Absolute Auto 400 /uL (0-900); Monocytes Percent Auto 4.8 % (3-14); Neutrophils Absolute Auto 7500 /uL (1500-7000); Neutrophils Percent Auto 86.3 % (50-75); Platelet Count 342 X10^3/uL (150-400); Red Blood Cell Count 3.88 X10^6/uL (4.0-5.2); White Blood Cell Count 8.7 X10^3/uL (4.5-11.0)
[2019-07-14 12:00] LABS: BUN Creatinine Ratio 21.4 (6-22); Blood Urea Nitrogen 15 mg/dL (7-17); Carbon Dioxide 29 mmol/L (22-32); Chloride 85 mmol/L (98-107); Estimated Glomerular Filt Rate > 60.0 mL/min (>60); Glucose 155 mg/dL (80-110); HEMOLYSIS < 15 (0-50); Potassium 3.2 mmol/L (3.4-5.1); Sodium 128 mmol/L (137-145)
[2019-07-14 12:33] VITALS: BP 116/55; PULSE 70; RESP 18; O2SAT 98
--- NOTE | 2019-07-14 12:49 | PC.NURSE ---
spoke with Char Smith, daughter and LEAH in length about plan of care and her mom. emotional support given to daughter. notified care management after I got off phone with Char. Char is requesting that her mom be placed in a senior living. JAKE Whitfield is aware and evaluating patient
[2019-07-14 13:30] VITALS: BP 165/83; PULSE 67; RESP 17; O2SAT 98
[2019-07-14 14:00] VITALS: BP 160/79; PULSE 70; RESP 21; O2SAT 99
--- NOTE | 2019-07-14 14:40 | PT.IIE ---
Surgical History (Last Reviewed 07/14/19 @ 11:46 by Belkys Chacko DO) Anesthesia complication (Resolved) History of carpal tunnel repair (Resolved 1974) History of cataract removal with insertion of prosthetic lens (2013) History of colonoscopy (Resolved 04/01/07) History of colonoscopy with polypectomy (Resolved 05/08/11) History of left cataract surgery (Resolved 11/13/14) History of right cataract surgery (Resolved 12/11/14) Hx of hand surgery (Resolved 2013) Hx of surgical procedure (Resolved 1996) Status post appendectomy (Resolved 1954) Status post cholecystectomy (Resolved 1964) Status post hysterectomy (Resolved 1990) Medical History (Last Reviewed 07/14/19 @ 11:46 by Belkys Chacko DO) Acquired hypothyroidism (02/10/16) Ankle pain (Chronic 1989) Balance problems (Chronic 02/01/17) Bunion (Chronic 03/02/17) Carpal tunnel syndrome (Resolved 1974) Cataracts, bilateral (Resolved 2013) Chickenpox (Resolved) Chronic pain of both shoulders (Chronic 10/26/16) Diverticulitis (Chronic) Eczema (Chronic 02/10/16) Essential hypertension with goal blood pressure less than 140/90 (02/10/16) Fibroids (Resolved 1979) Foot pain (Chronic 1989) GERD (gastroesophageal reflux disease) (Chronic) Hammer toe of left foot (Chronic 03/02/17) History of diverticulitis (06/25/16) Hot flashes due to menopause (Resolved) Hyperlipemia (Chronic 1979) Hypertension (Chronic 1979) IBS (irritable bowel syndrome) (Chronic 2003) Lumbar spine pain (Chronic 2005) Measles (Resolved) Mumps (Resolved) 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) Ovarian cyst (Resolved 1989) Primary insomnia (Chronic 10/26/16) Pure hypercholesterolemia (02/10/16) Scoliosis (Chronic) Sjogren's syndrome (Chronic 2003) Type 2 diabetes mellitus without complication, without long-term current use of insulin (Chronic 2015) Physical Therapy Inpatient Evaluation/Re-Eval M1 PT/OT-IP Prior Functional Status Start: 07/14/19 15:17 Freq: Status: Active Protocol: Document 07/14/19 14:40 DCW (Rec: 07/14/19 15:31 DCW [id number]) Medical Review Prior Functional Status Mobility and Gait Ambulates with 4WW at home Social History Household Members none Number of Floors (Floors) One Floor Number of Stairs To Enter/Railing? 2? Additional Social History Comment Pt poor historian. Seems to live in a one story home with two stairs to enter, although she can enter through the garage, which has no stairs. At various times, reports help at home by a tie puller, and no help at home. Reports she uses 4WW at all times. M2 PT-IP Current Condition Start: 07/14/19 15:17 Freq: Status: Active Protocol: Document 07/14/19 14:40 DCW (Rec: 07/14/19 15:31 DCW [id number]) Physical Therapy Current Condition Current Condition Evaluation Date 07/14/19 Treatment Diagnosis Fall, Lightheadedness, weakness Onset Date 07/14/19 M3 PT-IP Subjective Start: 07/14/19 15:17 Freq: Status: Active Protocol: Document 07/14/19 14:40 DCW (Rec: 07/14/19 15:31 DCW [id number]) Subjective Physical Therapy Visit Type Type Initial Evaluation Visit Start Time 14:40 Visit Stop Time 15:14 Total Visit Minutes 34 Number of WATCH ASSEMBLY INSPECTOR Visits 0 Physical Therapy Visit Comments Patient Comments Why do I always have to do what you people say? I can't just get up now, I need to wait. M4 PT-IP Mobility and Gait Start: 07/14/19 15:17 Freq: Status: Active Protocol: Document 07/14/19 14:40 DCW (Rec: 07/14/19 15:31 DCW [id number]) PT-Bed Mobility Assessment Rolling Type of Rolling Bilateral Level of Assist Independent Supine to Sit Supine to Sit Independent Sit to Supine Sit to Supine Independent Scooting Scooting to Edge of Bed Independent PT-Transfer Assessment Sit to and From Stand Sit to and from Stand Independent Equipment Transfer Assistive Device Front Wheeled Walker Comments Mobility Comments Pt able to get out of bed and stand at FWW completely independently. Gait Assessment Gait Gait Assistance Required: Standby Assistance Distance (Feet) 200 Assistive Devices Assistive Device Gait Belt,Standard Walker Factors Limiting Gait Function Factors Limiting Gait Function Difficulty Following Directions,Poor Safety Awareness Comments Gait Comments Pt able to ambulate loop around ER with no loss of balance, pain, or difficulties , although pt did have two instances of poor obstacle avoidance, when she would have caught the wheel of her walker on a cart without verbal cues. Pt gets easily distracted while walking. PT-Balance Assessment Sitting Balance and Reactions Static Sitting Balance Ability Normal Dynamic Sitting Balance Ability Normal Standing Balance and Reactions Static Standing Balance Ability Good Dynamic Standing Balance Ability Good Device Used FWW M5 PT-IP Objective Assessments Start: 07/14/19 15:17 Freq: Status: Active Protocol: Document 07/14/19 14:40 DCW (Rec: 07/14/19 15:31 DCW [id number]) Orientation Orientation/Cognition Orientation Name,Age,Birthday,Place, Situation Safety Awareness Decreased Safety Awareness Memory Description Short Term Impaired Comments Pt unsure of current date, including year. Tangential, confused history. Gross Range of Motion Upper Extremity ROM Assessment Within Functional Limits Lower Extremity ROM Assessment Within Functional Limits Strength Upper Extremity Strength Assessment Within Functional Limits Lower Extremity Strength Assessment Within Functional Limits M7 PT-IP Assessment and Plan Start: 07/14/19 15:17 Freq: Status: Active Protocol: Document 07/14/19 14:40 DCW (Rec: 07/14/19 15:31 DCW [id number]) PT Summary Assessment and Plan Potential Rehabilitation Potential Good Status of Condition at Evaluation Stable Summary Impairments Cognition Assessment Summary Pt demonstrated independent function during her evaluation . Pt bed mobility and transfers all independent. Pt even able to get herself back into the much higher-than normal ER bed, despite her smaller stature, with no assistance. Pt did demonstrate some lack of attention during walking, and nearly walked into two carts due to inattention. Pt appears to be relatively safe with her ambulation at this time, however her falls history suggests an ongoing issue at home. Pt would likely benefit from assistance at home following discharge from hospital. Per ER staff, pt will likely be discharging this evening. Frequency of Treatment Frequency Of Treatment Discharge Recommendations To Nursing Amount of Assist Needed Standby Assistance Discharge Recommendations PT Discharge Recommendations Home with Assistance
[2019-07-14 15:26] VITALS: BP 168/91; PULSE 68; RESP 17; O2SAT 100
--- NOTE | 2019-07-14 16:01 | PC.NURSE ---
small laceration was cleansed earlier with hibiclens and water. tolerated well. no bleeding.
--- NOTE | 2019-07-14 16:10 | CM.SWNOTE ---
ED Social Work Note ED provider requested social work assistance with care and resource coordination. Pt presents to the ED for the second time in 2-weeks after experiencing another fall, resulting in a small laceration on her forehead and EMS intervention. She presents with moderate dementia, is able to share some things congruently, has very limited short term memory. Dtr, Char (lives in [facility]) called the ED nurse and expressed wanting her mother placed in a snf. She will be flying out tomorrow, followed by her sister, who will arrive on Wednesday. FLAVOR EXTRACTOR called Char and explained that we are not able to place pt in a snf, explained the circumstances under which Medicare pays for skilled care, and that pt does not have any medical issues other than dementia at this time, and has been medically cleared by the ED doctor. The family did recently hire [facility] for limited in-home care. FLAVOR EXTRACTOR suggested that they call [facility] and ask if they can provide an evening shift for tonight, and that pt would soon be discharged home. She and her sister do already have a plan to move pt to [facility] next week. Pt was discharged home with her [facility] cg.
== END 2019-07-14 16:12 | disposition home or self-care (01) ==
PROVIDERS: Emergency Provider Emergency Medicine; PCP Student in an Organized Health Care Education/Training Program
DX: R42 Dizziness and giddiness (principal); E87.1 Hypo-osmolality and hyponatremia; W19.XXXA Unspecified fall, initial encounter
CPT/HCPCS: 36415; 70450; 80048; 85025; 93005; 97161; 99283; 99285

== ENCOUNTER 2019-10-14 10:11 | Emergency (ER) | payer MEDICARE, SELFPAY ==
[2019-07-01 08:23] VITALS: BMI 23.9
--- NOTE | 2019-10-14 10:04 | ED.FALL ---
HPI - Fall General Chief Complaint: Fall Stated Complaint: GLF Time Seen by Provider: 10/14/19 10:20 Source: patient and EMS Mode of arrival: EMS History of Present Illness HPI Narrative: The patient is an 79-year-old female who lives alone presenting after a ground level fall. She does have some mild dementia she is a difficult historian. She apparently fell and pushed her Life Alert button. She says she did hit her head although there is no evidence of head injury. She is awake alert unable to follow commands. She denies any chest pain dizziness lightheadedness. She does have some chronic ongoing low back pain which is only worse when she moves. Lying still it does not seem to bother her. Her PCP as she states that she uses her walker on a regular basis MD complaint: fall Onset (ago): minute(s) Fall from: standing Fall witnessed: no Place fall occurred: home Loss of consciousness: none Symptoms prior to fall: none Related Data Home Medications Medication Instructions Recorded Confirmed Lancet: Device 1 ea . Q DAY 04/18/19 10/10/19 fluoride (sodium) 1 applic DENTAL DIRECTED 04/18/19 10/10/19 polyethylene glycol 3350 [Miralax] 1 dose PO PRN PRN 04/18/19 10/10/19 Previous Rx's Medication Instructions Recorded Glucose: Test Strips See Rx Instructions SUBCUT QDAY 06/24/18 #100 strip irbesartan 300 mg tablet 300 mg PO DAILY #90 tab 05/09/19 ketotifen fumarate 0.025 % (0.035 1 drop EYE-BOTH BID PRN #5 ml 07/06/19 %) eye drops atorvastatin 10 mg tablet 10 mg PO BEDTIME #90 tab 10/10/19 levothyroxine 88 mcg tablet 88 mcg PO DAILY #90 tab 10/10/19 meloxicam 15 mg tablet 15 mg PO DAILY #90 tab 10/10/19 metformin 1,000 mg tablet 1,000 mg PO BID #180 tab 10/10/19 metoprolol succinate 200 mg 200 mg PO DAILY #90 tab 10/10/19 tablet,extended release 24 hr Allergies Allergy/AdvReac Type Severity Reaction Status Date / Time ciprofloxacin [CIPROFLOXACIN] AdvReac Severe Bloody Verified 10/14/19 10:46 diahrrea, swollen feet. Benzodiazepines AdvReac Intermediate EXTREME Verified 10/14/19 10:46 SENSITIVITY fentanyl AdvReac Intermediate EXTREME Verified 10/14/19 10:46 SENSITIVITY TO ALL NARCOTICS meperidine AdvReac Intermediate EXTREME Verified 10/14/19 10:46 SENSITIVITY Opioids - Morphine Analogues AdvReac Intermediate EXTREME Verified 10/14/19 10:46 SENSITIVITY - SOMNOLENCE Review of Systems Review of Systems ROS Unobtainable: All systems reviewed & are unremarkable except as noted in HPI and below Constitutional Constitutional: Denies chills, Denies fever(s), Reports frequent falls, Denies lethargy and Denies weakness Eyes Eyes: Denies change in vision, Denies eye discharge, Denies irritation and Denies loss of vision ENT Ears, Nose, Mouth, and Throat: Denies change in voice, Denies neck pain and Denies sore throat Cardiovascular Cardiovascular: Denies chest pain, Denies irregular heart rhythm, Denies lightheadedness, Denies palpitations, Denies dyspnea, Denies dyspnea on exertion and Denies orthopnea Respiratory Respiratory: Denies cough, Denies dyspnea, Denies dyspnea on exertion and Denies wheezing Gastrointestinal Gastrointestinal: Denies abdominal pain, Denies change in bowel habits, Denies diarrhea, Denies nausea and Denies vomiting Musculoskeletal Musculoskeletal: Reports back pain (chronic), Denies neck pain and Denies tingling Integumentary/Breasts Skin/Breast: Denies pruritus, Denies erythema, Denies rash and Denies wounds Neurologic Neurologic: Reports frequent falls, Denies focal weakness, Denies loss of vision, Denies tingling, Denies paresthesias, Denies tremor(s) and Denies weakness Endocrine Endocrine: Denies palpitations Allergic/Immunologic Allergic/Immunologic: Denies wheezing Patient History Medical History Acquired hypothyroidism (02/10/16) Ankle pain (Chronic 1989) Balance problems (Chronic 02/01/17) Bunion (Chronic 03/02/17) Carpal tunnel syndrome (Resolved 1974) Cataracts, bilateral (Resolved 2013) Chickenpox (Resolved) Chronic pain of both shoulders (Chronic 10/26/16) Diverticulitis (Chronic) Eczema (Chronic 02/10/16) Essential hypertension with goal blood pressure less than 140/90 (02/10/16) Fibroids (Resolved 1979) Foot pain (Chronic 1989) GERD (gastroesophageal reflux disease) (Chronic) Hammer toe of left foot (Chronic 03/02/17) History of diverticulitis (06/25/16) Hot flashes due to menopause (Resolved) Hyperlipemia (Chronic 1979) Hypertension (Chronic 1979) IBS (irritable bowel syndrome) (Chronic 2003) Lumbar spine pain (Chronic 2005) Measles (Resolved) Mumps (Resolved) 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) Ovarian cyst (Resolved 1989) Primary insomnia (Chronic 10/26/16) Pure hypercholesterolemia (02/10/16) Scoliosis (Chronic) Sjogren's syndrome (Chronic 2003) Type 2 diabetes mellitus without complication, without long-term current use of insulin (Chronic 2015) Surgical History Anesthesia complication (Resolved) History of carpal tunnel repair (Resolved 1974) History of cataract removal with insertion of prosthetic lens (2013) History of colonoscopy (Resolved 04/01/07) History of colonoscopy with polypectomy (Resolved 05/08/11) History of left cataract surgery (Resolved 11/13/14) History of right cataract surgery (Resolved 12/11/14) Hx of hand surgery (Resolved 2013) Hx of surgical procedure (Resolved 1996) Status post appendectomy (Resolved 1954) Status post cholecystectomy (Resolved 1964) Status post hysterectomy (Resolved 1990) Family History Child Hypertension Child Hypertension Sister Age: 77 Rheumatoid arthritis Father ND (myocardial infarction) Heart disease Mother ND (myocardial infarction) Hypertension Angina pectoris Sister Colon cancer Social History household members: none Smoking Status: Never smoker second hand exposure: No alcohol intake: former substance use type: does not use Smoking Status: Never smoker alcohol intake frequency: 0-2 drinks per day Substance Use Type: does not use Exam Initial Vital Signs Initial Vital Signs: Vital Signs Temperature 97.8 F 10/14/19 10:05 Pulse Rate 73 10/14/19 10:05 Respiratory Rate 15 10/14/19 10:05 Blood Pressure 203/93 H 10/14/19 10:05 Pulse Oximetry 100 10/14/19 10:05 GENERAL: Alert well-appearing pleasant elderly female and in no acute distress. HEENT: Head atraumatic,EOMI, pupils reactive, face symmetric, moist mucous membranes NECK: No vertebral tenderness no step-off CARDIOVASCULAR: Regular rate and rhythm without murmurs, rubs or gallops. RESPIRATORY: Breath sounds equal bilaterally, no wheezes rales or rhonchi. ABDOMEN: Soft, nontender. Normoactive bowel sounds all 4 quadrants. No guarding or rebound. BACK: Mild lumbar tenderness no sign of trauma no step-off : No CVA tenderness EXTREMITIES: Normal range of motion, no clubbing or edema. Neurovascularly intact NEUROLOGICAL: Alert and oriented to person place. Pecan Sheller strength equal bilaterally following, SKIN: Warm, dry, no laceration, no petechiae, no rashes or lesions. Course Orders Ordered: ED Orders 10/14/19 10:11 CT head/brain wo con Stat XR chest 1V Stat EKG-12 Lead Stat 10/14/19 10:22 Complete Blood Count AUTO DIFF Stat Comprehensive Metabolic Panel Stat Lipase Stat Partial Thromboplastin Time Stat Prothrombin Time INR Stat Troponin & CK Cardiac Panel Stat Discontinued Medications Sodium Chloride (Normal Saline 0.9%) 1,000 mls @ 150 mls/hr IV CONT MILADY Last Infusion: 10/14/19 14:50 Dose: 0 mls/hr Documented by: Infusion: 10/14/19 12:35 Dose: 0 mls/hr Documented by: Admin: 10/14/19 11:07 Dose: 150 mls/hr Documented by: MAKENNA Vital Signs Vital signs: Vital Signs - 8 hr 10/14/19 10:05 10/14/19 11:00 10/14/19 11:25 Temperature 97.8 F Pulse Rate 73 68 67 Respiratory Rate 15 21 16 Blood Pressure 203/93 H Blood Pressure [Left Arm] 185/91 H 185/91 H Blood Pressure [Right Arm] Pulse Oximetry 100 99 97 10/14/19 12:00 10/14/19 13:20 10/14/19 15:04 Temperature 98.9 F Pulse Rate 67 73 72 Respiratory Rate 17 17 18 Blood Pressure Blood Pressure [Left Arm] 167/88 H 168/92 H Blood Pressure [Right Arm] 170/99 H Pulse Oximetry 98 98 97 MDM - Fall Lab Data Attestation: I reviewed the patient's lab results. Result diagrams: 10/14/19 10:22 10/14/19 10:22 Labs: Lab Results 10/14/19 10/14/19 10/14/19 Range/Units 10:22 10:22 10:22 WBC 8.0 (4.5-11.0) X10^3/uL RBC 4.03 (4.0-5.2) X10^6/uL Hgb 12.6 (12.0-16.0) g/dL Hct 37.0 (36-46) % MCV 91.9 (80-100) fL MCH 31.3 (26-34) PG MCHC 34.1 (30-36) % RDW 14.5 (11.6-14.8) % Plt Count 329 (150-400) X10^3/uL Neut % (Auto) 72.4 (50-75) % Lymph % (Auto) 18.0 L (25-40) % Villalba % (Auto) 6.3 (3-14) % Eos % (Auto) 2.0 (2-4) % Baso % (Auto) 1.3 (0-2) % Neut # (Auto) 5800 (3280-7220) /uL Lymph # (Auto) 1400 (1818-5340) /uL Villalba # (Auto) 500 (0-900) /uL Eos # (Auto) 200 (0-450) /uL Baso # (Auto) 100 (0-100) /uL PT 10.4 (10.1-12.7) SECONDS INR 0.9 (0.9-1.3) APTT 27 D (26.4-36.2) SECONDS Sodium 124 L (137-145) mmol/L Potassium 3.7 (3.4-5.1) mmol/L Chloride 85 L (98-107) mmol/L Carbon Dioxide 29 (22-32) mmol/L BUN 22 H (7-17) mg/dL Creatinine 0.80 (0.52-1.04) mg/dL Estimated GFR > 60.0 (>60) mL/min BUN/Creatinine Ratio 27.5 H (6-22) Glucose 143 H (80-110) mg/dL Calcium 9.9 (8.4-10.2) mg/dL Total Bilirubin 0.7 (0.2-1.3) mg/dL AST 23 (14-36) IU/L ALT 13 (<35) IU/L Alkaline Phosphatase 69 (38-126) U/L Total Creatine Kinase 93 (30-135) U/L CK-MB (CK-2) TNP CK-MB (CK-2) Rel Index TNP Troponin I < 0.012 (0.01-0.034) ng/mL Total Protein 7.2 (6.3-8.2) g/dL Albumin 4.5 (3.5-5.0) g/dL Globulin 2.7 (1.7-4.1) g/dL Albumin/Globulin Ratio 1.7 (1.0-2.8) Lipase 62 (23-300) U/L Imaging Data Chest x-ray: Radiologist's Impression: PROCEDURE: XR CHEST 1V INDICATIONS: fall TECHNIQUE: One view of the chest was acquired. COMPARISON: [facility], , CHEST 1 VIEW, 12/24/2016, 20:41. [facility], CT, CT HEAD/BRAIN WO CON, 10/14/2019, 10:22. [facility], CHEST 2 VIEW, 10/09/2017, 13:06. FINDINGS: Surgical changes and devices: An apparent epigastric postoperative changes are seen. Lungs and pleura: Lungs are clear. No pleural effusions or pneumothorax. Mediastinum: The cardiac contours are within normal limits. The aorta demonstrates calcification and tortuosity. Bones and chest wall: No suspicious bony lesions. Overlying soft tissues appear unremarkable. IMPRESSION: No acute abnormality is seen on this portable chest study. Dictated by: Ramírez Mauro M.D. on 10/14/2019 at 9:43 CT scan - head: Radiologist's Impression: PROCEDURE: CT HEAD/BRAIN WO CON INDICATIONS: fall TECHNIQUE: Noncontrast 4.5 mm thick angled axial sections acquired from the foramen magnum to the vertex, with coronal and sagittal reformats. For radiation dose reduction, the following was used: automated exposure control, adjustment of mA and/or kV according to patient size. COMPARISON: [facility], MR, MR HEAD/BRAIN WO CON, 04/18/2019, 18:33. [facility], CT, CT HEAD/BRAIN WO CON, 06/30/2019, 13:53. [facility], CT, CT ANGIO HEAD AND NECK, 06/30/2019, 17:29. [facility], CR, XR CHEST 1V, 10/14/2019, 10:15. [facility], CT, CT HEAD/BRAIN WO CON, 07/14/2019, 11:56. FINDINGS: Image quality: Excellent. CSF spaces: Basal cisterns are patent. No extra-axial fluid collections. The ventricles are symmetric in size and shape. Brain: No intracranial bleeds or masses. There is cerebral volume loss for age, with resultant ventricular and sulcal prominence. There are periventricular and deep white matter chronic small vessel ischemic changes. There is intracranial internal carotid artery atherosclerosis. Skull and face: Calvarium and visualized facial bones appear intact, without suspicious lesions. Sinuses: Visualized sinuses and mastoids are clear. IMPRESSION: No acute intracranial process is seen. Dictated by: Ramírez Mauro M.D. on 10/14/2019 at 9:44 ECG Data Attestation: I personally reviewed and interpreted this ECG as follows: Prior ECG tracings: available for review Interpretation: Sinus rhythm rate [address] elevation depression or T-wave inversion. MDM Narrative Medical decision making narrative: The patient is hyponatremic slightly lower than her baseline she is usually 127 however she has in the past been as low as 123. Today sodium levels 124. She is awake alert cooperative. I've called and spoken with her daughter Maribel who lives in [place] and updated her on test results. At this time patient is ambulatory in the in the emergency department with a walker without any difficulty. Visiting kristan is scheduled to be with her from 3-5. They will come to the emergency department and pick her up. At this time no reason for fall. Discharge Plan Departure Patient Disposition: Home Clinical Impression: Fall Qualifiers: Encounter type: initial encounter Qualified Code(s): W19.XXXA - Unspecified fall, initial encounter Discharge Date/Time: 10/14/19 15:04 Instructions: How to Prevent Falls Activity Restrictions/Additional Instructions: *You have been diagnosed with fall *What to do: At this time blood work and CT scan are negative. I spoke with Maribel she has been updated on all your test results. If you continue to have frequent falls you may require assisted living *Continue to take medications as directed *Follow up with your primary care provider in 2-3 days *Return to ER if you should have recurrent falls, increased confusion or any new, worsening or concerning symptoms Prescriptions: No Action Glucose: Test Strips See Rx Instructions SUBCUT QDAY Qty: 100 RF: 6 irbesartan [Avapro] 300 mg tablet 300 mg PO DAILY Qty: 90 RF: 3 ketotifen fumarate 0.025 % (0.035 %) drops 1 drop EYE-BOTH BID PRN (Reason: allergy symptoms) Qty: 5 RF: 5 atorvastatin [Lipitor] 10 mg tablet 10 mg PO BEDTIME Qty: 90 RF: 3 levothyroxine 88 mcg tablet 88 mcg PO DAILY Qty: 90 RF: 3 metformin 1,000 mg tablet 1,000 mg PO BID Qty: 180 RF: 3 meloxicam 15 mg tablet 15 mg PO DAILY Qty: 90 RF: 3 metoprolol succinate 200 mg tablet extended release 24 hr 200 mg PO DAILY Qty: 90 RF: 3 fluoride (sodium) 1.1 % gel 1 applic dental DIRECTED RF: 0 polyethylene glycol 3350 [Miralax] 17 gram/dose Powder 1 dose PO PRN PRN (Reason: Constipation) RF: 0 Lancet: Device 1 ea . Q DAY RF: 0 Referrals: Catrachito Santiago MD [Primary Care Provider] -
[2019-10-14 10:05] VITALS: BP 203/93; PULSE 73; RESP 15; TEMP 36.6; O2SAT 100
--- NOTE | 2019-10-14 10:11 | DI.RAD.S_ITS ---
PROCEDURE: XR CHEST 1V INDICATIONS: fall TECHNIQUE: One view of the chest was acquired. COMPARISON: [facility], CR, CHEST 1 VIEW, 12/24/2016, 20:41. [facility], CT, CT HEAD/BRAIN WO CON, 10/14/2019, 10:22. [facility], CR, CHEST 2 VIEW, 10/09/2017, 13:06. FINDINGS: Surgical changes and devices: An apparent epigastric postoperative changes are seen. Lungs and pleura: Lungs are clear. No pleural effusions or pneumothorax. Mediastinum: The cardiac contours are within normal limits. The aorta demonstrates calcification and tortuosity. Bones and chest wall: No suspicious bony lesions. Overlying soft tissues appear unremarkable. IMPRESSION: No acute abnormality is seen on this portable chest study. Dictated by: Ramírez Mauro M.D. on 10/14/2019 at 9:43 Approved by: Ramírez Mauro M.D. on 10/14/2019 at 9:44
--- NOTE | 2019-10-14 10:11 | DI.CT.S_ITS ---
PROCEDURE: CT HEAD/BRAIN WO CON INDICATIONS: fall TECHNIQUE: Noncontrast 4.5 mm thick angled axial sections acquired from the foramen magnum to the vertex, with coronal and sagittal reformats. For radiation dose reduction, the following was used: automated exposure control, adjustment of mA and/or kV according to patient size. COMPARISON: [facility], MR, MR HEAD/BRAIN WO CON, 04/18/2019, 18:33. [facility], CT, CT HEAD/BRAIN WO CON, 06/30/2019, 13:53. [facility], CT, CT ANGIO HEAD AND NECK, 06/30/2019, 17:29. [facility], CR, XR CHEST 1V, 10/14/2019, 10:15. [facility], CT, CT HEAD/BRAIN WO CON, 07/14/2019, 11:56. FINDINGS: Image quality: Excellent. CSF spaces: Basal cisterns are patent. No extra-axial fluid collections. The ventricles are symmetric in size and shape. Brain: No intracranial bleeds or masses. There is cerebral volume loss for age, with resultant ventricular and sulcal prominence. There are periventricular and deep white matter chronic small vessel ischemic changes. There is intracranial internal carotid artery atherosclerosis. Skull and face: Calvarium and visualized facial bones appear intact, without suspicious lesions. Sinuses: Visualized sinuses and mastoids are clear. IMPRESSION: No acute intracranial process is seen. Dictated by: Ramírez Mauro M.D. on 10/14/2019 at 9:44 Approved by: Ramírez Mauro M.D. on 10/14/2019 at 9:46
[2019-10-14 10:28] LABS: Add Manual Diff / Slide Review NO; Basophils Absolute Auto 100 /uL (0-100); Basophils Percent Auto 1.3 % (0-2); Eosinophils Absolute Auto 200 /uL (0-450); Hemoglobin 12.6 g/dL (12.0-16.0); Lymphocytes Absolute Auto 1400 /uL (1100-4500); Mean Corpuscular HGB Conc 34.1 % (30-36); Mean Corpuscular Hemoglobin 31.3 PG (26-34); Mean Corpuscular Volume 91.9 fL (80-100); Monocytes Absolute Auto 500 /uL (0-900); Monocytes Percent Auto 6.3 % (3-14); Neutrophils Absolute Auto 5800 /uL (1500-7000); Neutrophils Percent Auto 72.4 % (50-75); Platelet Count 329 X10^3/uL (150-400); Red Blood Cell Count 4.03 X10^6/uL (4.0-5.2); Red Cell Distribution Width 14.5 % (11.6-14.8)
[2019-10-14 10:29] LABS: INR 0.9 (0.9-1.3); Prothrombin Time 10.4 SECONDS (10.1-12.7)
[2019-10-14 10:32] LABS: PTT Partial Thromboplastin Tim 27 SECONDS (26.4-36.2)
[2019-10-14 10:35] LABS: Alanine Aminotransferase 13 IU/L (<35); Albumin 4.5 g/dL (3.5-5.0); Albumin Globulin Ratio 1.7 (1.0-2.8); Alkaline Phosphatase 69 U/L (38-126); Aspartate Aminotransferase 23 IU/L (14-36); BUN Creatinine Ratio 27.5 (6-22); Bilirubin Total 0.7 mg/dL (0.2-1.3); Blood Urea Nitrogen 22 mg/dL (7-17); Calcium 9.9 mg/dL (8.4-10.2); Carbon Dioxide 29 mmol/L (22-32); Chloride 85 mmol/L (98-107); Creatine Kinase 93 U/L (30-135); Estimated Glomerular Filt Rate > 60.0 mL/min (>60); Globulin 2.7 g/dL (1.7-4.1); Glucose 143 mg/dL (80-110); HEMOLYSIS < 15 (0-50); Lipase 62 U/L (23-300); Potassium 3.7 mmol/L (3.4-5.1); Sodium 124 mmol/L (137-145); Total Protein 7.2 g/dL (6.3-8.2)
[2019-10-14 10:47] LABS: Troponin I < 0.012 ng/mL (0.01-0.034)
[2019-10-14 11:00] VITALS: BP 185/91; PULSE 68; RESP 21; O2SAT 99
[2019-10-14] MEDS: SODIUM CHLORIDE 0.9% 1,000 ML 150 ML IV (11:07)
[2019-10-14 11:25] VITALS: BP 185/91; PULSE 67; RESP 16; O2SAT 97
[2019-10-14 12:00] VITALS: BP 167/88; PULSE 67; RESP 17; O2SAT 98
--- NOTE | 2019-10-14 13:18 | PC.NURSE ---
SBA with patient and walker. Walked to the main ED door and back.
[2019-10-14 13:20] VITALS: BP 168/92; PULSE 73; RESP 17; O2SAT 98
[2019-10-14 15:04] VITALS: BP 170/99; PULSE 72; RESP 18; TEMP 37.2; O2SAT 97
== END 2019-10-14 15:04 | disposition home or self-care (01) ==
PROVIDERS: Emergency Provider Emergency Medicine; PCP Student in an Organized Health Care Education/Training Program
DX: F03.90 Unspecified dementia, unspecified severity, without behavioral disturbance, psychotic disturbance, mood disturbance, and anxiety (principal); I10 Essential (primary) hypertension; W18.30XA Fall on same level, unspecified, initial encounter; Z91.81 History of falling
CPT/HCPCS: 70450; 71045; 80053; 82550; 83690; 84484; 85025; 85610; 85730; 93005; 96360; 99284; 99285

== ENCOUNTER → 2019-10-18 14:37 | Outpatient (CLI) | payer MEDICARE, SELFPAY ==
[2019-07-01 08:23] VITALS: BMI 23.9
[2019-10-18 16:01] LABS: Creatinine Urine Random 74.5 mg/dL; Potassium Urine Random 46.2 mmol/L; Sodium Urine Random 27 mmol/L (30-90)
== END ==
PROVIDERS: PCP Student in an Organized Health Care Education/Training Program; Visit Provider Student in an Organized Health Care Education/Training Program
DX: E87.8 Other disorders of electrolyte and fluid balance, not elsewhere classified (principal)
CPT/HCPCS: 82570; 84133; 84300

== ENCOUNTER 2019-12-26 13:07 | Emergency (ER) | payer MEDICARE, SELFPAY ==
[2019-07-01 08:23] VITALS: BMI 23.9
[2019-12-26] VITALS (10 sets, daily range): BP systolic 182–228; BP diastolic 98–124; PULSE 83–98; RESP 14–22; TEMP 36.8; O2SAT 97–100
--- NOTE | 2019-12-26 13:15 | ED.HEATRA ---
HPI - Head Injury General Chief complaint: Fall Stated complaint: GLF Time Seen by Provider: 12/26/19 13:09 Source: patient and EMS Mode of arrival: EMS History of Present Illness HPI Narrative: Female nonsmoker with history of hypertension and hyperlipidemia presents by EMS for evaluation of a ground level fall suffered just prior to arrival. The patient states that she was walking on a smooth surface in her socks in her feet were caught up in her walker and she fell, striking the back of her head. She has full recall denies any loss of consciousness, nausea, vomiting or other neurologic symptoms. She takes no blood thinners. She denies any other injury. She lives at home with home nursing help but due to the - pandemic they have ceased services. Patient has no upper respiratory symptoms, fever or exposure to known or suspected patient's MD Complaint: head injury Onset (ago): minute(s) Mechanism of Injury: fall Place: home Loss of Consciousness: no Location of injury: occipital Severity: mild Quality: aching Radiation: none Associated symptoms: denies other symptoms Related Data Home Medications Medication Instructions Recorded Confirmed Lancet: Device 1 ea . Q DAY 04/18/19 10/18/19 fluoride (sodium) 1 applic DENTAL DIRECTED 04/18/19 10/18/19 polyethylene glycol 3350 [Miralax] 1 dose PO PRN PRN 04/18/19 10/18/19 Previous Rx's Medication Instructions Recorded Glucose: Test Strips See Rx Instructions SUBCUT QDAY 06/24/18 #100 strip irbesartan 300 mg tablet 300 mg PO DAILY #90 tab 05/09/19 atorvastatin 10 mg tablet 10 mg PO BEDTIME #90 tab 10/10/19 levothyroxine 88 mcg tablet 88 mcg PO DAILY #90 tab 10/10/19 meloxicam 15 mg tablet 15 mg PO DAILY #90 tab 10/10/19 metformin 1,000 mg tablet 1,000 mg PO BID #180 tab 10/10/19 metoprolol succinate 200 mg 200 mg PO DAILY #90 tab 10/10/19 tablet,extended release 24 hr ketotifen fumarate 0.025 % (0.035 1 drop EYE-BOTH BID PRN #5 ml 10/18/19 %) eye drops ondansetron 4 mg disintegrating 4 mg PO Q8H PRN 60 Days #30 tab 10/18/19 tablet Allergies Allergy/AdvReac Type Severity Reaction Status Date / Time ciprofloxacin [CIPROFLOXACIN] AdvReac Severe Bloody Verified 10/18/19 14:10 diahrrea, swollen feet. Benzodiazepines AdvReac Intermediate EXTREME Verified 10/18/19 14:10 SENSITIVITY fentanyl AdvReac Intermediate EXTREME Verified 10/18/19 14:10 SENSITIVITY TO ALL NARCOTICS meperidine AdvReac Intermediate EXTREME Verified 10/18/19 14:10 SENSITIVITY Opioids - Morphine Analogues AdvReac Intermediate EXTREME Verified 10/18/19 14:10 SENSITIVITY - SOMNOLENCE Review of Systems Constitutional Constitutional: Denies chills, Denies fatigue, Denies fever(s), Denies frequent falls, Denies lethargy and Denies weakness Eyes Eyes: Denies change in vision, Denies eye discharge, Denies irritation and Denies loss of vision ENT Ears, Nose, Mouth, and Throat: Denies change in voice, Denies dizziness, Denies neck pain, Denies sore throat and Denies throat swelling Cardiovascular Cardiovascular: Denies chest pain, Denies irregular heart rhythm, Denies lightheadedness, Denies palpitations, Denies dyspnea, Denies dyspnea on exertion and Denies orthopnea Respiratory Respiratory: Denies cough, Denies dyspnea, Denies dyspnea on exertion and Denies wheezing Gastrointestinal Gastrointestinal: Denies abdominal pain, Denies change in bowel habits, Denies diarrhea, Denies nausea and Denies vomiting Genitourinary Genitourinary: Denies hematuria, Denies flank pain, Denies urinary incontinence and Denies urinary urgency Musculoskeletal Musculoskeletal: Denies back pain, Denies muscle weakness, Denies neck pain, Denies numbness and Denies tingling Integumentary/Breasts Skin/Breast: Denies pruritus, Denies erythema, Denies rash and Denies wounds Neurologic Neurologic: Denies behavioral changes, Denies confusion, Denies dizziness, Denies frequent falls, Denies loss of vision, Denies numbness, Denies tingling and Denies weakness Psychiatric Psychiatric: Denies anxiety, Denies behavioral changes, Denies confusion, Denies depression, Denies homicidal ideation and Denies suicidal ideation Endocrine Endocrine: Denies fatigue, Denies flushing and Denies palpitations Hematologic/Lymphatic Hematologic/Lymphatic: Denies easy bruising Allergic/Immunologic Allergic/Immunologic: Denies urticaria, Denies throat swelling and Denies wheezing Patient History Medical History Acquired hypothyroidism (02/10/16) Ankle pain (Chronic 1989) Balance problems (Chronic 02/01/17) Bunion (Chronic 03/02/17) Carpal tunnel syndrome (Resolved 1974) Cataracts, bilateral (Resolved 2013) Chickenpox (Resolved) Chronic pain of both shoulders (Chronic 10/26/16) Diverticulitis (Chronic) Eczema (Chronic 02/10/16) Essential hypertension with goal blood pressure less than 140/90 (02/10/16) Fibroids (Resolved 1979) Foot pain (Chronic 1989) GERD (gastroesophageal reflux disease) (Chronic) Hammer toe of left foot (Chronic 03/02/17) History of diverticulitis (06/25/16) Hot flashes due to menopause (Resolved) Hyperlipemia (Chronic 1979) Hypertension (Chronic 1979) IBS (irritable bowel syndrome) (Chronic 2003) Lumbar spine pain (Chronic 2005) Measles (Resolved) Mumps (Resolved) 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) Ovarian cyst (Resolved 1989) Primary insomnia (Chronic 10/26/16) Pure hypercholesterolemia (02/10/16) Scoliosis (Chronic) Sjogren's syndrome (Chronic 2003) Type 2 diabetes mellitus without complication, without long-term current use of insulin (Chronic 2015) Surgical History Anesthesia complication (Resolved) History of carpal tunnel repair (Resolved 1974) History of cataract removal with insertion of prosthetic lens (2013) History of colonoscopy (Resolved 04/01/07) History of colonoscopy with polypectomy (Resolved 05/08/11) History of left cataract surgery (Resolved 11/13/14) History of right cataract surgery (Resolved 12/11/14) Hx of hand surgery (Resolved 2013) Hx of surgical procedure (Resolved 1996) Status post appendectomy (Resolved 1954) Status post cholecystectomy (Resolved 1964) Status post hysterectomy (Resolved 1990) Family History Child Hypertension Child Hypertension Sister Age: 77 Rheumatoid arthritis Father NC (myocardial infarction) Heart disease Mother NC (myocardial infarction) Hypertension Angina pectoris Sister Colon cancer Social History household members: none Smoking Status: Never smoker second hand exposure: No alcohol intake: former substance use type: does not use Smoking Status: Never smoker alcohol intake frequency: 0-2 drinks per day Substance Use Type: does not use Exam Narrative Exam Narrative: GENERAL: [79] year old patient appears stated age. Well-nourished, well-developed patient, in mild distress. Pleasantly confused. GCS 14 HEAD: Atraumatic. Normocephalic. EYES: Pupils equal round and reactive. Extraocular motions intact. No scleral icterus. No injection or drainage. ENT: Nose without bleeding, purulent drainage. Throat without erythema, tonsillar hypertrophy or exudate. Airway patent. NECK: Trachea midline. Non tender CARDIOVASCULAR: Regular rate and rhythm without murmurs, gallops, or rubs. RESPIRATORY: Clear to auscultation. Breath sounds equal bilaterally. No wheezes, rales, or rhonchi. GASTROINTESTINAL: Abdomen soft, non-tender, nondistended. EXTREMITIES: No edema or joint tenderness. BACK: Nontender without deformity or crepitance. No flank tenderness. NEURO: AOx3. SKIN: No rash or erythema of visible areas Initial Vital Signs Initial Vital Signs: Vital Signs Temperature 98.3 F 12/26/19 13:11 Pulse Rate 98 H 12/26/19 13:11 Respiratory Rate 20 12/26/19 13:11 Blood Pressure 210/114 H 12/26/19 13:11 Pulse Oximetry 97 12/26/19 13:11 Course Course Course Narrative: patient AOx3. Demonstrates capacity to make her own decisions. Orders Ordered: ED Orders 12/26/19 13:21 CT head/brain wo con Stat 12/26/19 13:40 Basic Metabolic Panel Stat Complete Blood Count AUTO DIFF Stat NT-proBNP (BNP-Adult 18+) Stat Troponin & CK Cardiac Panel Stat 12/26/19 13:44 EKG-12 Lead Stat 12/26/19 14:15 Urine Culture Stat Urine Microscopic Stat 12/26/19 15:11 Consult to Physical Therapy Evaluate & Treat Discontinued Medications Hydralazine HCl (Apresoline) 5 mg IV NOW ONE Stop: 12/26/19 15:16 Last Admin: 12/26/19 15:29 Dose: 5 mg Documented by: AURE Labetalol HCl (Trandate) 10 mg IV NOW ONE Stop: 12/26/19 13:43 Last Admin: 12/26/19 13:49 Dose: 10 mg Documented by: AURE Vital Signs Vital signs: Vital Signs - 8 hr 12/26/19 13:11 12/26/19 13:42 12/26/19 13:49 Temperature 98.3 F Pulse Rate 98 H 97 H 98 H Respiratory Rate 20 17 Blood Pressure 210/114 H 228/124 H Blood Pressure [Left Arm] 228/124 H Pulse Oximetry 97 99 12/26/19 13:57 12/26/19 14:30 12/26/19 15:03 Temperature Pulse Rate 91 H 91 H 94 H Respiratory Rate 14 Blood Pressure 197/104 H Blood Pressure [Left Arm] 185/117 H 198/98 H Pulse Oximetry 99 12/26/19 15:14 12/26/19 15:29 12/26/19 17:08 Temperature Pulse Rate 91 H 90 85 Respiratory Rate 22 18 Blood Pressure 188/109 H Blood Pressure [Left Arm] 189/109 H 218/105 H Pulse Oximetry 98 98 MDM - Head Injury Lab Data Result diagrams: 12/26/19 13:40 12/26/19 13:40 Labs: Lab Results 12/26/19 12/26/19 12/26/19 Range/Units 13:40 13:40 14:15 WBC 10.4 (4.5-11.0) X10^3/uL RBC 3.88 L (4.0-5.2) X10^6/uL Hgb 12.4 (12.0-16.0) g/dL Hct 36.7 (36-46) % MCV 94.8 (80-100) fL MCH 32.1 (26-34) PG MCHC 33.9 (30-36) % RDW 15.5 H (11.6-14.8) % Plt Count 330 (150-400) X10^3/uL Neut % (Auto) 78.5 H (50-75) % Lymph % (Auto) 13.2 L (25-40) % [place] % (Auto) 6.6 (3-14) % Eos % (Auto) 1.1 L (2-4) % Baso % (Auto) 0.6 (0-2) % Neut # (Auto) 8200 H (2952-9489) /uL Lymph # (Auto) 1400 (4596-5005) /uL [place] # (Auto) 700 (0-900) /uL Eos # (Auto) 100 (0-450) /uL Baso # (Auto) 100 (0-100) /uL Sodium 131 L (137-145) mmol/L Potassium 4.2 (3.4-5.1) mmol/L Chloride 94 L (98-107) mmol/L Carbon Dioxide 26 (22-32) mmol/L BUN 21 H (7-17) mg/dL Creatinine 0.83 (0.52-1.04) mg/dL Estimated GFR > 60.0 (>60) mL/min BUN/Creatinine Ratio 25.3 H (6-22) Glucose 129 H (80-110) mg/dL Calcium 9.9 (8.4-10.2) mg/dL Total Creatine Kinase 76 (30-135) U/L CK-MB (CK-2) TNP CK-MB (CK-2) Rel Index TNP Troponin I < 0.012 (0.01-0.034) ng/mL NT-Pro-B Natriuret Pep 403 (<450) pg/mL Urine RBC 0-1/hpf (0-5/HPF) Urine WBC 5-10/hpf H (0-5/HPF) Ur Squamous Epith Cells 1-5 /hpf (0-5/HPF) Urine Bacteria Many (>30) H (None) Hyaline Casts 1-5/lpf (None) Urine Mucus 1+ H (Negative) Ur Culture Indicated? Specimen cultured MDM Narrative Medical decision making narrative: patient ready to go home, labs and exam reassuring. BP remains elevated, call to PCP whom suggests we hold off on any changes given her lability, this is confirmed by her daughter. Family has been pushing for assisted living for quite sometime, happy for her to go home and will follow up with her. Questions answered to her apparent satisfaction, return precautions given Discharge Plan Departure Patient Disposition: Home Clinical Impression: Contusion of scalp, Hypertension Instructions: How to Prevent Falls Activity Restrictions/Additional Instructions: *You have been diagnosed with [ chronic hypertension, fall with scalp contusion ] *What to do: *Take medications as directed *Follow up with your primary care provider in 2-3 days, call for an appointment. Let them know you were seen in the Emergency Department and that we ask that you be seen in follow up *Return to ER if you should have any new, worsening or concerning symptoms Prescriptions: No Action Glucose: Test Strips See Rx Instructions SUBCUT QDAY Qty: 100 RF: 6 irbesartan [Avapro] 300 mg tablet 300 mg PO DAILY Qty: 90 RF: 3 atorvastatin [Lipitor] 10 mg tablet 10 mg PO BEDTIME Qty: 90 RF: 3 levothyroxine 88 mcg tablet 88 mcg PO DAILY Qty: 90 RF: 3 metformin 1,000 mg tablet 1,000 mg PO BID Qty: 180 RF: 3 meloxicam 15 mg tablet 15 mg PO DAILY Qty: 90 RF: 3 metoprolol succinate 200 mg tablet extended release 24 hr 200 mg PO DAILY Qty: 90 RF: 3 ondansetron 4 mg tablet,disintegrating 4 mg PO Q8H PRN (Reason: nausea and vomiting) 60 Days Qty: 30 RF: 1 ketotifen fumarate 0.025 % (0.035 %) drops 1 drop EYE-BOTH BID PRN (Reason: allergy symptoms) Qty: 5 RF: 5 fluoride (sodium) 1.1 % gel 1 applic dental DIRECTED RF: 0 polyethylene glycol 3350 [Miralax] 17 gram/dose Powder 1 dose PO PRN PRN (Reason: Constipation) RF: 0 Lancet: Device 1 ea . Q DAY RF: 0 Referrals: Catrachito Santiago MD [Primary Care Provider] -
--- NOTE | 2019-12-26 13:16 | PC.NURSE ---
Denies neck or back pain. denies any other injury in fall. Requested to come by EMS. Lives home alone.
--- NOTE | 2019-12-26 13:21 | DI.CT.S_ITS ---
PROCEDURE: CT HEAD/BRAIN WO CON INDICATIONS: fall with head injury TECHNIQUE: Noncontrast 4.5 mm thick angled axial sections acquired from the foramen magnum to the vertex, with coronal and sagittal reformats. For radiation dose reduction, the following was used: automated exposure control, adjustment of mA and/or kV according to patient size. COMPARISON: [facility], CT, CT HEAD/BRAIN WO CON, 10/14/2019, 10:22. [facility], CT, CT HEAD/BRAIN WO CON, 07/14/2019, 11:56. FINDINGS: Image quality: Excellent. CSF spaces: Basal cisterns are patent. No extra-axial fluid collections. The ventricles are symmetric in size and shape. Brain: No intracranial bleeds or masses. There is cerebral volume loss for age, with resultant ventricular and sulcal prominence. There are periventricular and deep white matter chronic small vessel ischemic changes. There is intracranial internal carotid artery atherosclerosis. Skull and face: Calvarium and visualized facial bones appear intact, without suspicious lesions. Sinuses: Visualized sinuses and mastoids are clear. IMPRESSION: Moderate microvascular atherosclerotic change in the deep white matter of each hemisphere, no acute trauma found. Dictated by: Jace Rodriguez M.D. on 12/26/2019 at 14:00 Approved by: Jace Rodriguez M.D. on 12/26/2019 at 14:01
--- NOTE | 2019-12-26 13:25 | PC.NURSE ---
[facility].
[2019-12-26 13:49] LABS: Add Manual Diff / Slide Review NO; Basophils Absolute Auto 100 /uL (0-100); Basophils Percent Auto 0.6 % (0-2); Eosinophils Absolute Auto 100 /uL (0-450); Eosinophils Percent Auto 1.1 % (2-4); Hematocrit 36.7 % (36-46); Hemoglobin 12.4 g/dL (12.0-16.0); Lymphocytes Absolute Auto 1400 /uL (1100-4500); Lymphocytes Percent Auto 13.2 % (25-40); Mean Corpuscular HGB Conc 33.9 % (30-36); Mean Corpuscular Hemoglobin 32.1 PG (26-34); Mean Corpuscular Volume 94.8 fL (80-100); Monocytes Absolute Auto 700 /uL (0-900); Monocytes Percent Auto 6.6 % (3-14); Neutrophils Absolute Auto 8200 /uL (1500-7000); Neutrophils Percent Auto 78.5 % (50-75); Platelet Count 330 X10^3/uL (150-400); Red Blood Cell Count 3.88 X10^6/uL (4.0-5.2); Red Cell Distribution Width 15.5 % (11.6-14.8); White Blood Cell Count 10.4 X10^3/uL (4.5-11.0)
[2019-12-26] MEDS: LABETALOL 20 MG/4 ML SYRINGE 10 MG IV (13:49)
[2019-12-26 13:57] LABS: BUN Creatinine Ratio 25.3 (6-22); Blood Urea Nitrogen 21 mg/dL (7-17); Calcium 9.9 mg/dL (8.4-10.2); Carbon Dioxide 26 mmol/L (22-32); Chloride 94 mmol/L (98-107); Creatine Kinase 76 U/L (30-135); Estimated Glomerular Filt Rate > 60.0 mL/min (>60); Glucose 129 mg/dL (80-110); Potassium 4.2 mmol/L (3.4-5.1); Sodium 131 mmol/L (137-145)
[2019-12-26 14:08] LABS: Troponin I < 0.012 ng/mL (0.01-0.034)
[2019-12-26 14:26] LABS: HEMOLYSIS 17 (0-50); NT-proBNP (BNP-Adult 18+) 403 pg/mL (<450)
[2019-12-26 14:51] LABS: RBC Urine 0-1/HPF (0-5/HPF)
[2019-12-26 14:52] LABS: Bacteria Urine Many (>30); Culture Indicated Urine Specimen Cultured; Hyaline Casts Urine 1-5/LPF; Mucus Urine 1+ (Negative); Squamous Epithelial Cell Urine 1-5 /HPF (0-5/HPF); WBC Urine 5-10/HPF (0-5/HPF)
[2019-12-26] MEDS: HYDRALAZINE 20 MG/ML VIAL 5 MG IV (15:29)
--- NOTE | 2019-12-26 16:20 | PC.NURSE ---
PT at bedside
--- NOTE | 2019-12-26 17:27 | PT.IIE ---
Surgical History (Last Reviewed 12/26/19 @ 13:39 by Alber Anglin DO) Anesthesia complication (Resolved) History of carpal tunnel repair (Resolved 1974) History of cataract removal with insertion of prosthetic lens (2013) History of colonoscopy (Resolved 04/01/07) History of colonoscopy with polypectomy (Resolved 05/08/11) History of left cataract surgery (Resolved 11/13/14) History of right cataract surgery (Resolved 12/11/14) Hx of hand surgery (Resolved 2013) Hx of surgical procedure (Resolved 1996) Status post appendectomy (Resolved 1954) Status post cholecystectomy (Resolved 1964) Status post hysterectomy (Resolved 1990) Medical History (Last Reviewed 12/26/19 @ 13:39 by Alber Anglin DO) Acquired hypothyroidism (02/10/16) Ankle pain (Chronic 1989) Balance problems (Chronic 02/01/17) Bunion (Chronic 03/02/17) Carpal tunnel syndrome (Resolved 1974) Cataracts, bilateral (Resolved 2013) Chickenpox (Resolved) Chronic pain of both shoulders (Chronic 10/26/16) Diverticulitis (Chronic) Eczema (Chronic 02/10/16) Essential hypertension with goal blood pressure less than 140/90 (02/10/16) Fibroids (Resolved 1979) Foot pain (Chronic 1989) GERD (gastroesophageal reflux disease) (Chronic) Hammer toe of left foot (Chronic 03/02/17) History of diverticulitis (06/25/16) Hot flashes due to menopause (Resolved) Hyperlipemia (Chronic 1979) Hypertension (Chronic 1979) IBS (irritable bowel syndrome) (Chronic 2003) Lumbar spine pain (Chronic 2005) Measles (Resolved) Mumps (Resolved) 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 Mobility and Gait Pt does not answer questions. She has a 4WRW and over the phone, her daughter, Lucia, states that she lives alone, has visiting angels but does not provide further info to the nurse. Activities of Daily Living and IADL's Pt cannot report Prior Functional Level (Other details) Pt does state that she wears Depends everyday Social History Household Members none Number of Stairs To Enter/Railing? Pt refuses to answer questions when asked. States, I don't know that. Can you call my daughter? 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 When asked where her daughter, Lucia, lives, she states, [place] say [place]. M2 PT-IP Current Condition Start: 12/26/19 16:49 Freq: Status: Active Protocol: Document 12/26/19 16:12 MB (Rec: 12/26/19 17:27 [id number]) Physical Therapy Current Condition Current Condition Evaluation Date 12/26/19 Treatment Diagnosis Falls, confusion, decreased safety Onset Date Today, history of falls and ED visits M3 PT-IP Subjective Start: 12/26/19 16:49 Freq: Status: Active Protocol: Document 12/26/19 16:12 MB (Rec: 12/26/19 17:27 MB [id number]) Subjective Physical Therapy Visit Type Type Initial Evaluation Visit Start Time 16:12 Visit Stop Time 16:35 Total Visit Minutes 27 Number of USED CAR SALES MANAGER Visits 0 Physical Therapy Visit Comments Patient Comments Pt is not clear, states she does not like therapist, states she doesn't want to use the BSC and then states she wants to after PT leaves the room and so asst to get to commode and nsg stays with her , pt wants to talk with her daughter Patient Goals To go home Therapy Pain Assessment Pain When Pain Assessed Mobility Pain Present Pain Present Denied Pain M4 PT-IP Mobility and Gait Start: 12/26/19 16:49 Freq: Status: Active Protocol: Document 12/26/19 16:12 MB (Rec: 12/26/19 17:27 MB [id number]) PT-Bed Mobility Assessment Rolling Level of Assist Minimal Assistance Supine to Sit Supine to Sit Minimal Assistance Sit to Supine Sit to Supine Contact Guard Assistance Scooting Scooting to Edge of Bed Standby Assistance PT-Transfer Assessment Sit to and From Stand Sit to and from Stand Contact Guard Assistance Equipment Transfer Assistive Device Gait Belt,Front Wheeled Walker Transfers Transfer Destination Toilet Transfer Ability Level of Assist Minimal Assistance Comments Mobility Comments First sit to stand to walker: CGA with gait belt; second transfer when she wants to get OOB again to get to [facility], left RUSTIC FENCE BUILDER Gait Assessment Gait Gait Assistance Required: Minimum Assistance Distance (Feet) 10 Assistive Devices Assistive Device Gait Belt,Front Wheeled Walker Gait Deviations General Gait Pattern Decreased Stride Length, Decreased Feet Clearance, Flexed Trunk Factors Limiting Gait Function Factors Limiting Gait Function Poor Balance Comments Gait Comments Pt refuses gait in hallway. She gait trains 10' around room, has trouble moving walker that is hospital issue. It is high for her and cannot be lowered anymore and it does stick to floor. She requires min A to help move it , occ LOB. PT-Balance Assessment Sitting Balance and Reactions Static Sitting Balance Ability Good Dynamic Sitting Balance Ability Good Standing Balance and Reactions Static Standing Balance Ability Fair Dynamic Standing Balance Ability Poor Device Used PT RUSTIC FENCE BUILDER Comments Other Balance Tests/Deviations/Treatment UE support for static and : dynamic sitting, RUSTIC FENCE BUILDER for static and dynamic standing balance M5 PT-IP Objective Assessments Start: 12/26/19 16:49 Freq: Status: Active Protocol: Document 12/26/19 16:12 MB (Rec: 12/26/19 17:27 [id number]) Orientation Orientation/Cognition Level of Alertness Confusional State Orientation Name,Birthday,Month,Place, Situation Language Function Ability [place] as Second Language Safety Awareness Decreased Safety Awareness Memory Description Short Term Impaired,Auto Body Repair Technician Impaired Comments Pt is somewhat resistant to answering questions, gets easily agitated and does not answer questions Gross Range of Motion Upper Extremity ROM Impairments She does not participate with range or strength testing, appears functional all limbs Lower Extremity ROM Impairments She does not participate with range or strength testing, appears functional all limbs Strength Comments Strength Comments She does not participate with range or strength testing, appears functional all limbs M7 PT-IP Assessment and Plan Start: 12/26/19 16:49 Freq: Status: Active Protocol: Document 12/26/19 16:12 MB (Rec: 12/26/19 17:27 MB [id number]) PT Summary Assessment and Plan Potential Rehabilitation Potential Poor Status of Condition at Evaluation Evolving Summary Impairments Balance,Cognition,Bed Mobility ,Transfers,Gait Assessment Summary Pt is an 79 y/o female presenting with agitation, poor communication and historian, fall before arriving to ED and history of falls and ED visits. She denies dizziness and does not participate with orthostatic and BPPV testing. She continually moves her arm when PT attempts to check her BP. She does not participate with range and strength testing. She requires asst for bed mobility, transfers and gait. She is unsteady, has decreased safety awareness and poor communicator of needs. PT is concerned about home safety, fall risk and injury risk. Recommend ongoing PT for gait and balance and transfer training, 24 hour asst at d/c and increasing level of care from home alone to assisted living. Goals Bed Mobility Goal Independent Transfer Goal Independent,Front Wheeled Walker Gait Goal Independent,Front Wheel Walker Gait Distance 100 Frequency of Treatment Frequency Of Treatment Once a Day Treatment Plan Physical Therapy Treatment Plan Bed Mobility Training,Transfer Training,Gait Training, Therapeutic Exercise,Balance Retraining Recommendations To Nursing Amount of Assist Needed 1 Person Assist Discharge Recommendations Other Discharge Recommendations 24 hour asst and PT consult at d/c
== END 2019-12-26 17:55 | disposition home or self-care (01) ==
PROVIDERS: Emergency Provider Emergency Medicine; PCP Student in an Organized Health Care Education/Training Program
DX: S00.03XA Contusion of scalp, initial encounter (principal); I10 Essential (primary) hypertension; E78.5 Hyperlipidemia, unspecified; W18.30XA Fall on same level, unspecified, initial encounter
CPT/HCPCS: 36415; 70450; 80048; 81015; 82550; 83880; 84484; 85025; 87077; 87086; 87186; 93005; 96374; 96375; 97161; 99284; J0360; Q9967

== ENCOUNTER 2020-02-14 17:46 | Inpatient (IN) | payer MEDICARE, SELFPAY ==
[2019-07-01 08:23] VITALS: BMI 23.9
[2020-02-14 18:10] VITALS: BP 157/80; PULSE 120; RESP 16; TEMP 36.7; O2SAT 97
--- NOTE | 2020-02-14 18:12 | ED_ITS ---
HPI - Head Injury General Chief complaint: Fall Stated complaint: Trip/fell hit head Time Seen by Provider: 02/14/20 18:07 Source: EMS Mode of arrival: EMS Limitations: altered mental status History of Present Illness HPI Narrative: 79-year-old female nonsmoker with history of hypertension and hyperlipidemia presents by EMS with what is reported as a mechanical fall from ground level in which she fell and struck her head on furniture in her home. She lives at home alone and has full recall of the event. She denies the use of any blood thinners. She denies loss of consciousness and has had some nausea but denies any vomiting. She has no chest pain or shortness of breath. She denies any dizziness or lightheadedness. There is a significant amount of blood loss noted at the scene and patient is covered in bright red blood from the scalp laceration. MD Complaint: head injury Onset (ago): minute(s) Mechanism of Injury: fall Place: home Loss of Consciousness: no Location of injury: occipital Severity: moderate Quality: sharp Other Injuries: none Associated symptoms: nausea Related Data Home Medications Medication Instructions Recorded Confirmed Lancet: Device 1 ea . Q DAY 04/18/19 10/18/19 fluoride (sodium) 1 applic DENTAL DIRECTED 04/18/19 10/18/19 polyethylene glycol 3350 [Miralax] 1 dose PO PRN PRN 04/18/19 10/18/19 Previous Rx's Medication Instructions Recorded Glucose: Test Strips See Rx Instructions SUBCUT QDAY 06/24/18 #100 strip irbesartan 300 mg tablet 300 mg PO DAILY #90 tab 05/09/19 atorvastatin 10 mg tablet 10 mg PO BEDTIME #90 tab 10/10/19 levothyroxine 88 mcg tablet 88 mcg PO DAILY #90 tab 10/10/19 meloxicam 15 mg tablet 15 mg PO DAILY #90 tab 10/10/19 metformin 1,000 mg tablet 1,000 mg PO BID #180 tab 10/10/19 metoprolol succinate 200 mg 200 mg PO DAILY #90 tab 10/10/19 tablet,extended release 24 hr ketotifen fumarate 0.025 % (0.035 1 drop EYE-BOTH BID PRN #5 ml 10/18/19 %) eye drops ondansetron 4 mg disintegrating 4 mg PO Q8H PRN 60 Days #30 tab 10/18/19 tablet Allergies Allergy/AdvReac Type Severity Reaction Status Date / Time ciprofloxacin [CIPROFLOXACIN] AdvReac Severe Bloody Verified 10/18/19 14:10 diahrrea, swollen feet. Benzodiazepines AdvReac Intermediate EXTREME Verified 10/18/19 14:10 SENSITIVITY fentanyl AdvReac Intermediate EXTREME Verified 10/18/19 14:10 SENSITIVITY TO ALL NARCOTICS meperidine AdvReac Intermediate EXTREME Verified 10/18/19 14:10 SENSITIVITY Opioids - Morphine Analogues AdvReac Intermediate EXTREME Verified 10/18/19 14:10 SENSITIVITY - SOMNOLENCE Review of Systems Constitutional Constitutional: Denies chills, Denies fatigue, Denies fever(s), Denies frequent falls, Denies lethargy and Denies weakness Eyes Eyes: Denies change in vision, Denies eye discharge, Denies irritation and D enies loss of vision ENT Ears, Nose, Mouth, and Throat: Denies change in voice, Denies dizziness, Denies neck pain, Denies sore throat and Denies throat swelling Cardiovascular Cardiovascular: Denies chest pain, Denies irregular heart rhythm, Denies lightheadedness, Denies palpitations, Denies dyspnea, Denies dyspnea on exertion and Denies orthopnea Respiratory Respiratory: Denies cough, Denies dyspnea, Denies dyspnea on exertion and Denies wheezing Gastrointestinal Gastrointestinal: Denies abdominal pain, Denies change in bowel habits, Denies diarrhea, Denies nausea and Denies vomiting Genitourinary Genitourinary: Denies hematuria, Denies flank pain, Denies urinary incontinence and Denies urinary urgency Musculoskeletal Musculoskeletal: Denies back pain, Denies muscle weakness, Denies neck pain, De nies numbness and Denies tingling Integumentary/Breasts Skin/Breast: Denies pruritus, Denies erythema, Denies rash and Reports wounds Neurologic Neurologic: Denies behavioral changes, Denies confusion, Denies dizziness, Denies frequent falls, Denies loss of vision, Denies numbness, Denies tingling and Denies weakness Psychiatric Psychiatric: Denies anxiety, Denies behavioral changes, Denies confusion, Denies depression, Denies homicidal ideation and Denies suicidal ideation Endocrine Endocrine: Denies fatigue, Denies flushing and Denies palpitations Hematologic/Lymphatic Hematologic/Lymphatic: Denies easy bruising Allergic/Immunologic Allergic/Immunologic: Denies urticaria, Denies throat swelling and Denies wheezing Patient History Medical History Acquired hypothyroidism (02/10/16) Ankle pain (Chronic 1989) Balance problems (Chronic 02/01/17) Bunion (Chronic 03/02/17) Carpal tunnel syndrome (Resolved 1974) Cataracts, bilateral (Resolved 2013) Chickenpox (Resolved) Chronic pain of both shoulders (Chronic 10/26/16) Diverticulitis (Chronic) Eczema (Chronic 02/10/16) Essential hypertension with goal blood pressure less than 140/90 (02/10/16) Fibroids (Resolved 1979) Foot pain (Chronic 1989) GERD (gastroesophageal reflux disease) (Chronic) Hammer toe of left foot (Chronic 03/02/17) History of diverticulitis (06/25/16) Hot flashes due to menopause (Resolved) Hyperlipemia (Chronic 1979) Hypertension (Chronic 1979) IBS (irritable bowel syndrome) (Chronic 2003) Lumbar spine pain (Chronic 2005) Measles (Resolved) Mumps (Resolved) 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) Ovarian cyst (Resolved 1989) Primary insomnia (Chronic 10/26/16) Pure hypercholesterolemia (02/10/16) Scoliosis (Chronic) Sjogren's syndrome (Chronic 2003) Type 2 diabetes mellitus without complication, without long-term current use of insulin (Chronic 2015) Surgical History Anesthesia complication (Resolved) History of carpal tunnel repair (Resolved 1974) History of cataract removal with insertion of prosthetic lens (2013) History of colonoscopy (Resolved 04/01/07) History of colonoscopy with polypectomy (Resolved 05/08/11) History of left cataract surgery (Resolved 11/13/14) History of right cataract surgery (Resolved 12/11/14) Hx of hand surgery (Resolved 2013) Hx of surgical procedure (Resolved 1996) Status post appendectomy (Resolved 1954) Status post cholecystectomy (Resolved 1964) Status post hysterectomy (Resolved 1990) Family History Child Hypertension Child Hypertension Sister Age: 78 Rheumatoid arthritis Father [place] (myocardial infarction) Heart disease Mother [place] (myocardial infarction) Hypertension Angina pectoris Sister Colon cancer Social History household members: none Smoking Status: Never smoker second hand exposure: No alcohol intake: former substance use type: does not use Smoking Status: Never smoker alcohol intake frequency: 0-2 drinks per day Substance Use Type: does not use Exam Narrative Exam Narrative: GENERAL: [79] year old patient appears stated age. Well- nourished, well-developed patient, in mild distress. HEAD: 2 cm deep laceration on occiput with active bleeding, no depressed skull fracture EYES: Pupils equal round and reactive. Extraocular motions intact. No scleral icterus. No injection or drainage. ENT: Nose without bleeding, purulent drainage. Throat without erythema, tonsillar hypertrophy or exudate. Airway patent. NECK: Trachea midline. Non tender CARDIOVASCULAR: Regular rate and rhythm without murmurs, gallops, or rubs. RESPIRATORY: Clear to auscultation. Breath sounds equal bilaterally. No wheezes, rales, or rhonchi. GASTROINTESTINAL: Abdomen soft, non-tender, nondistended. EXTREMITIES: No edema or joint tenderness. BACK: Nontender without deformity or crepitance. No flank tenderness. NEURO: AOx3. SKIN: No rash or erythema of visible areas Initial Vital Signs Initial Vital Signs: Vital Signs Temperature 98.0 F 02/14/20 18:10 Pulse Rate 120 H 02/14/20 18:10 Respiratory Rate 16 02/14/20 18:10 Blood Pressure 157/80 H 02/14/20 18:10 Pulse Oximetry 97 02/14/20 18:10 Procedures Laceration Repair Laceration 1: Site: scalp Size (cm): 2 Description: linear and clean Depth: involves muscle layer Local Anesthetic: lidocaine 1% and with epi Amount of anesthesia used (mL): 4 Pre-repair: wound explored, irrigated extensively and deep structures intact Skin layer closed with: donna Subcutaneous layer closed with: vicryl Size: 3-0 Number of sutures: 1 Scores GCS [place] coma scale eye opening: Spontaneous Gustavo coma scale verbal response: Confused [place] coma scale motor response: Obey commands Gustavo coma scale total score: 14 Course Course Course Narrative: Nursing has spoken with the patient's daughter. Patient lives at home alone and has had at least 3 falls in the past few weeks. She has become increasingly confused. Orders Ordered: Acetaminophen (Tylenol) 650 mg PO Q6HR PRN PRN Reason: Fever/Mild Pain (1-3) Atorvastatin Calcium (Lipitor) 10 mg PO BEDTIME [facility] Last Admin: 02/14/20 22:42 Dose: 10 mg Documented by: MATTI Dextrose ([email or web address]) 25 gm IV PRN PRN PRN Reason: Hypoglycemia Sodium Chloride (Normal Saline 0.9%) 1,000 mls @ 100 mls/hr IV CONT [facility] Stop: 03/16/20 07:44 Last Admin: 02/14/20 22:43 Dose: 100 mls/hr Documented by: MATTI Insulin Aspart (Novolog Flexpen) 0 unit SUBCUT ACHS [facility]; Protocol Irbesartan (Avapro) 300 mg PO DAILY [facility] Levothyroxine Sodium (Synthroid) 88 mcg PO 0700 [facility] Magnesium Hydroxide (Milk Of Magnesia) 30 ml PO DAILY PRN PRN Reason: Constipation Metoprolol Tartrate (Lopressor) 50 mg PO BID [facility] Naloxone HCl (Narcan) 0.2 mg IV Q2MIN PRN PRN Reason: Opiate Reversal Ondansetron HCl (Zofran) 4 mg IV Q8HR PRN PRN Reason: Nausea And Vomiting Discontinued Medications Lidocaine/Epinephrine (Xylocaine 1% W/Epi) 1 ml SUBCUT NOW ONE Stop: 02/14/20 18:14 Last Admin: 02/14/20 18:52 Dose: 1 ml Documented by: SILVERIO Metoprolol Tartrate (Lopressor) 25 mg PO NOW ONE Stop: 02/14/20 22:10 Last Admin: 02/14/20 22:42 Dose: 25 mg Documented by: MATTI Tranexamic Acid (Cyklokapron) 1,000 mg MM NOW ONE Stop: 02/14/20 18:12 Last Admin: 02/14/20 18:53 Dose: Not Given Documented by: SILVERIO Consultations Consultation #1: call to supervisor communications and signals surgery (Rosalba) given admission of patient with traumatic injury. No significant additions Consultation #2: hospitalist happy to accept Vital Signs Vital signs: Vital Signs - 8 hr 02/14/20 18:10 02/14/20 18:30 02/14/20 19:49 Temperature 98.0 F Pulse Rate 120 H 104 H 102 H Respiratory Rate 16 16 Blood Pressure 157/80 H Blood Pressure [Left Arm] 170/94 H 169/91 H Pulse Oximetry 97 98 100 02/14/20 20:11 Temperature Pulse Rate 101 H Respiratory Rate 12 Blood Pressure Blood Pressure [Left Arm] 164/84 H Pulse Oximetry 99 MDM - Head Injury Lab Data Result diagrams: 02/15/20 05:33 02/15/20 05:33 Labs: Lab Results 02/14/20 02/14/20 02/14/20 Range/Units 18:23 18:23 18:23 WBC 7.1 (4.5-11.0) X10^3/uL RBC 3.27 L (4.0-5.2) X10^6/uL Hgb 10.7 L (12.0-16.0) g/dL Hct 30.4 L (36-46) % MCV 93.0 (80-100) fL MCH 32.7 (26-34) PG MCHC 35.2 (30-36) % RDW 14.1 (11.6-14.8) % Plt Count 341 (150-400) X10^3/uL Neut % (Auto) 66.3 (50-75) % Lymph % (Auto) 22.0 L (25-40) % [place] % (Auto) 9.1 (3-14) % Eos % (Auto) 2.3 (2-4) % Baso % (Auto) 0.3 (0-2) % Neut # (Auto) 4700 (3766-9754) /uL Lymph # (Auto) 1600 (6264-2373) /uL [place] # (Auto) 700 (0-900) /uL Eos # (Auto) 200 (0-450) /uL Baso # (Auto) 0 (0-100) /uL PT 11.6 (10.1-12.7) SECONDS INR 1.0 (0.9-1.3) APTT 21 L D (26.4-36.2) SECONDS Sodium 129 L (137-145) mmol/L Potassium 4.0 (3.4-5.1) mmol/L Chloride 95 L (98-107) mmol/L Carbon Dioxide 25 (22-32) mmol/L BUN 20 H (7-17) mg/dL Creatinine 0.75 (0.52-1.04) mg/dL Estimated GFR > 60.0 (>60) mL/min BUN/Creatinine Ratio 26.7 H (6-22) Glucose 170 H (80-110) mg/dL Hemoglobin A1c (4.0-6.0) % Calcium 9.4 (8.4-10.2) mg/dL Total Bilirubin 0.2 (0.2-1.3) mg/dL AST 20 (14-36) IU/L ALT 16 (<35) IU/L Alkaline Phosphatase 57 (38-126) U/L Total Creatine Kinase (30-135) U/L CK-MB (CK-2) CK-MB (CK-2) Rel Index Troponin I (0.01-0.034) ng/mL Total Protein 6.7 (6.3-8.2) g/dL Albumin 3.9 (3.5-5.0) g/dL Globulin 2.8 (1.7-4.1) g/dL Albumin/Globulin Ratio 1.4 (1.0-2.8) Blood Type Antibody Screen 02/14/20 02/14/20 02/14/20 Range/Units 18:23 18:23 18:23 WBC (4.5-11.0) X10^3/uL RBC (4.0-5.2) X10^6/uL Hgb (12.0-16.0) g/dL Hct (36-46) % MCV (80-100) fL MCH (26-34) PG MCHC (30-36) % RDW (11.6-14.8) % Plt Count (150-400) X10^3/uL Neut % (Auto) (50-75) % Lymph % (Auto) (25-40) % [place] % (Auto) (3-14) % Eos % (Auto) (2-4) % Baso % (Auto) (0-2) % Neut # (Auto) (9841-8485) /uL Lymph # (Auto) (0683-6234) /uL [place] # (Auto) (0-900) /uL Eos # (Auto) (0-450) /uL Baso # (Auto) (0-100) /uL PT (10.1-12.7) SECONDS INR (0.9-1.3) APTT (26.4-36.2) SECONDS Sodium (137-145) mmol/L Potassium (3.4-5.1) mmol/L Chloride (98-107) mmol/L Carbon Dioxide (22-32) mmol/L BUN (7-17) mg/dL Creatinine (0.52-1.04) mg/dL Estimated GFR (>60) mL/min BUN/Creatinine Ratio (6-22) Glucose (80-110) mg/dL Hemoglobin A1c 6.0 (4.0-6.0) % Calcium (8.4-10.2) mg/dL Total Bilirubin (0.2-1.3) mg/dL AST (14-36) IU/L ALT (<35) IU/L Alkaline Phosphatase (38-126) U/L Total Creatine Kinase 73 (30-135) U/L CK-MB (CK-2) TNP CK-MB (CK-2) Rel Index TNP Troponin I 0.024 (0.01-0.034) ng/mL Total Protein (6.3-8.2) g/dL Albumin (3.5-5.0) g/dL Globulin (1.7-4.1) g/dL Albumin/Globulin Ratio (1.0-2.8) Blood Type A Negative Antibody Screen Negative Imaging Data CT scan - head: Radiologist's Impression: [place] [address] CT Scan Report Signed Patient: Carey Mtz EMR#: [id number] : 8Acct:[id number] Age/Sex: 79 / FDate of Service: 02/14/20 Loc: ED Accession Number: [id number] Procedure: CT head/brain wo con Ordering Provider: Alber Anglin D.O. PROCEDURE: CT HEAD/BRAIN WO CON INDICATIONS: fall, head injury TECHNIQUE: Noncontrast 4.5 mm thick angled axial sections acquired from the foramen magnum to the vertex, with coronal and sagittal reformats. For radiation dose reduction, the following was used: automated exposure control, adjustment of mA and/or kV according to patient size. COMPARISON: [facility], CT, CT HEAD/BRAIN WO CON, 07/14/2019, 11:56. [facility], CT, CT HEAD/BRAIN WO CON, 12/26/2019, 13:21. FINDINGS: Image quality: Excellent. CSF spaces: Basal cisterns are patent. No extra-axial fluid collections. The ventricles are symmetric in size and shape. Brain: No intracranial bleeds or masses. There is cerebral volume loss for age, with resultant ventricular and sulcal prominence. There are periventricular and deep white matter chronic small vessel ischemic changes. There is intracranial internal carotid artery atherosclerosis. Skull and face: Calvarium and visualized facial bones appear intact, without suspicious lesions. Right posterior scalp donna Sinuses: Visualized sinuses and mastoids are clear. IMPRESSION: Right posterior scalp laceration No acute intracranial process. Dictated by: Stephen Dukes M.D. on 02/14/2020 at 19:44 Approved by: Stephen Dukes M.D. on 02/14/2020 at 19:46 [facility] Narrative Medical decision making narrative: With increasing falls presents with laceration, significant blood loss, nearly 2 g hemoglobin down. Lives at home alone and remains mildly confused after head injury. No chest pain, SOB, abdominal pain or other complaint. Patient will require overnight stay in hospital for observation, repeat neuro checks and probable repeat H&H. PCP is Dr. Santiago. Discharge Plan Departure Patient Disposition: Admitted as Observation Clinical Impression: Closed head injury, Laceration of scalp Discharge Date/Time: 02/14/20 21:49 Admit Date/Time: 02/14/20 21:12 Admit Provider: Meagan Dukes
[2020-02-14 18:30] VITALS: BP 170/94; PULSE 104; O2SAT 98
--- NOTE | 2020-02-14 18:41 | DI.CT.S_ITS ---
PROCEDURE: CT HEAD/BRAIN WO CON INDICATIONS: fall, head injury TECHNIQUE: Noncontrast 4.5 mm thick angled axial sections acquired from the foramen magnum to the vertex, with coronal and sagittal reformats. For radiation dose reduction, the following was used: automated exposure control, adjustment of mA and/or kV according to patient size. COMPARISON: [facility], CT, CT HEAD/BRAIN WO CON, 07/14/2019, 11:56. [facility], CT, CT HEAD/BRAIN WO CON, 12/26/2019, 13:21. FINDINGS: Image quality: Excellent. CSF spaces: Basal cisterns are patent. No extra-axial fluid collections. The ventricles are symmetric in size and shape. Brain: No intracranial bleeds or masses. There is cerebral volume loss for age, with resultant ventricular and sulcal prominence. There are periventricular and deep white matter chronic small vessel ischemic changes. There is intracranial internal carotid artery atherosclerosis. Skull and face: Calvarium and visualized facial bones appear intact, without suspicious lesions. Right posterior scalp donna Sinuses: Visualized sinuses and mastoids are clear. IMPRESSION: Right posterior scalp laceration No acute intracranial process. Dictated by: Stephen Dukes M.D. on 02/14/2020 at 19:44 Approved by: Stephen Dukes M.D. on 02/14/2020 at 19:46
[2020-02-14] MEDS: LIDOCAINE 1% W/EPI 1 ML SUBCUT (18:52)
[2020-02-14 19:09] LABS: Add Manual Diff / Slide Review NO; Basophils Absolute Auto 0 /uL (0-100); Basophils Percent Auto 0.3 % (0-2); Eosinophils Absolute Auto 200 /uL (0-450); Eosinophils Percent Auto 2.3 % (2-4); Hematocrit 30.4 % (36-46); Hemoglobin 10.7 g/dL (12.0-16.0); Lymphocytes Absolute Auto 1600 /uL (1100-4500); Mean Corpuscular HGB Conc 35.2 % (30-36); Mean Corpuscular Hemoglobin 32.7 PG (26-34); Monocytes Absolute Auto 700 /uL (0-900); Monocytes Percent Auto 9.1 % (3-14); Neutrophils Absolute Auto 4700 /uL (1500-7000); Neutrophils Percent Auto 66.3 % (50-75); Platelet Count 341 X10^3/uL (150-400); Red Blood Cell Count 3.27 X10^6/uL (4.0-5.2); Red Cell Distribution Width 14.1 % (11.6-14.8); White Blood Cell Count 7.1 X10^3/uL (4.5-11.0)
[2020-02-14 19:15] LABS: Prothrombin Time 11.6 SECONDS (10.1-12.7)
[2020-02-14 19:17] LABS: PTT Partial Thromboplastin Tim 21 SECONDS (26.4-36.2)
[2020-02-14 19:20] LABS: Alanine Aminotransferase 16 IU/L (<35); Albumin 3.9 g/dL (3.5-5.0); Albumin Globulin Ratio 1.4 (1.0-2.8); Alkaline Phosphatase 57 U/L (38-126); Aspartate Aminotransferase 20 IU/L (14-36); BUN Creatinine Ratio 26.7 (6-22); Bilirubin Total 0.2 mg/dL (0.2-1.3); Blood Urea Nitrogen 20 mg/dL (7-17); Calcium 9.4 mg/dL (8.4-10.2); Carbon Dioxide 25 mmol/L (22-32); Chloride 95 mmol/L (98-107); Estimated Glomerular Filt Rate > 60.0 mL/min (>60); Globulin 2.8 g/dL (1.7-4.1); Glucose 170 mg/dL (80-110); HEMOLYSIS < 15 (0-50); Sodium 129 mmol/L (137-145); Total Protein 6.7 g/dL (6.3-8.2)
[2020-02-14 19:49] VITALS: BP 169/91; PULSE 102; RESP 16; O2SAT 100
[2020-02-14 20:11] VITALS: BP 164/84; PULSE 101; RESP 12; O2SAT 99
--- NOTE | 2020-02-14 20:18 | DI.RAD.S_ITS ---
PROCEDURE: XR CHEST 1V INDICATIONS: fall, confusion TECHNIQUE: One view of the chest was acquired. COMPARISON: [facility], CR, XR CHEST 1V, 10/14/2019, 10:15. FINDINGS: Surgical changes and devices: None. Lungs and pleura: Lungs are clear. No pleural effusions or pneumothorax. Mediastinum: Mediastinal contours appear normal. Heart size is normal. Mitral annular calcifications Bones and chest wall: No suspicious bony lesions. Overlying soft tissues appear unremarkable. IMPRESSION: No acute disease Dictated by: Stephen Dukes M.D. on 02/14/2020 at 21:23 Approved by: Stephen Dukes M.D. on 02/14/2020 at 21:24
[2020-02-14 20:49] LABS: Creatine Kinase 73 U/L (30-135)
[2020-02-14 21:02] LABS: Troponin I 0.024 ng/mL (0.01-0.034)
[2020-02-14 21:45] VITALS: BP 163/73; PULSE 99; RESP 17; TEMP 36.3; O2SAT 97
[2020-02-14 22:08] VITALS: BMI 27.8
[2020-02-14] MEDS: METOPROLOL IR 25 MG TABLET PO (22:42)
[2020-02-14] MEDS: ATORVASTATIN 10 MG TABLET PO (22:42)
[2020-02-14] MEDS: SODIUM CHLORIDE 0.9% 1,000 ML 100 ML IV (22:43)
--- NOTE | 2020-02-14 23:21 | P.HP_ITS ---
History of Present Illness History of Present Illness Date Patient Seen: 02/14/20 Time Patient Seen: 21:00 Chief complaint: Trip/fell hit head Narrative: Carey Mtz is an 79-year-old Bengali and Omani speaking female who lives at home alone was brought into the emergency department after a ground level fall resulting in a scalp laceration. She has a history of having 7 visits since March of 2019 and 2 admissions for falls and TIAs resulting in falls and admitted for workups. She is quite confused tonight and keeps talking about her parents and has speaks in unintellegable words (possibly O[place]i) with me during my interview with her. She refers to living with her parents and when asked how old they are and how old she is she seems to get quite confused. She is unable to give me a history or provide a review of systems. Upon reviewing her prior records, her admissions have always been accompanied with a UTI. Review of her medical records and prescription history indicate that she has been mistrustful of medications changed on discharge and a questionable compliance history. In the ED, they did a head CT which was negative for an acute process. They sutured up a posterior head laceration. Patient History Medical History Acquired hypothyroidism (02/10/16) Ankle pain (Chronic 1989) Balance problems (Chronic 02/01/17) Bunion (Chronic 03/02/17) Carpal tunnel syndrome (Resolved 1974) Cataracts, bilateral (Resolved 2013) Chickenpox (Resolved) Chronic pain of both shoulders (Chronic 10/26/16) Diverticulitis (Chronic) Eczema (Chronic 02/10/16) Essential hypertension with goal blood pressure less than 140/90 (02/10/16) Fibroids (Resolved 1979) Foot pain (Chronic 1989) GERD (gastroesophageal reflux disease) (Chronic) Hammer toe of left foot (Chronic 03/02/17) History of diverticulitis (06/25/16) Hot flashes due to menopause (Resolved) Hyperlipemia (Chronic 1979) Hypertension (Chronic 1979) IBS (irritable bowel syndrome) (Chronic 2003) Lumbar spine pain (Chronic 2005) Measles (Resolved) Mumps (Resolved) 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) Ovarian cyst (Resolved 1989) Primary insomnia (Chronic 10/26/16) Pure hypercholesterolemia (02/10/16) Scoliosis (Chronic) Sjogren's syndrome (Chronic 2003) Type 2 diabetes mellitus without complication, without long-term current use of insulin (Chronic 2015) Surgical History Anesthesia complication (Resolved) History of carpal tunnel repair (Resolved 1974) History of cataract removal with insertion of prosthetic lens (2013) History of colonoscopy (Resolved 04/01/07) History of colonoscopy with polypectomy (Resolved 05/08/11) History of left cataract surgery (Resolved 11/13/14) History of right cataract surgery (Resolved 12/11/14) Hx of hand surgery (Resolved 2013) Hx of surgical procedure (Resolved 1996) Status post appendectomy (Resolved 1954) Status post cholecystectomy (Resolved 1964) Status post hysterectomy (Resolved 1990) Family & Social History Family History Child Hypertension Child Hypertension Sister Age: 78 Rheumatoid arthritis Father [place] (myocardial infarction) Heart disease Mother VT (myocardial infarction) Hypertension Angina pectoris Sister Colon cancer Social History: household members none Safety & Behavioral: Feels Safe in Current Yes Environment Been Physically Hurt or No Threatened By a Person Tobacco & Substance use: Smoking Status Never smoker alcohol intake former alcohol intake frequency 0-2 drinks per day Substance Use Type does not use Meds Home Medications and Allergies Home Medications Medication Instructions Recorded Confirmed Type Glucose: Test Strips See Rx Instructions SUBCUT QDAY 06/24/18 10/18/19 Rx #100 strip Lancet: Device 1 ea . Q DAY 04/18/19 10/18/19 History fluoride (sodium) 1 applic DENTAL DIRECTED 04/18/19 10/18/19 History polyethylene glycol 3350 [Miralax] 1 dose PO PRN PRN 04/18/19 10/18/19 History irbesartan 300 mg tablet 300 mg PO DAILY #90 tab 05/09/19 10/18/19 Rx atorvastatin 10 mg tablet 10 mg PO BEDTIME #90 tab 10/10/19 10/18/19 Rx levothyroxine 88 mcg tablet 88 mcg PO DAILY #90 tab 10/10/19 10/18/19 Rx meloxicam 15 mg tablet 15 mg PO DAILY #90 tab 10/10/19 10/18/19 Rx metformin 1,000 mg tablet 1,000 mg PO BID #180 tab 10/10/19 10/18/19 Rx metoprolol succinate 200 mg 200 mg PO DAILY #90 tab 10/10/19 10/18/19 Rx tablet,extended release 24 hr ketotifen fumarate 0.025 % (0.035 1 drop EYE-BOTH BID PRN #5 ml 10/18/19 10/18/19 Rx %) eye drops ondansetron 4 mg disintegrating 4 mg PO Q8H PRN 60 Days #30 tab 10/18/19 10/18/19 Rx tablet Allergies Allergy/AdvReac Type Severity Reaction Status Date / Time ciprofloxacin [CIPROFLOXACIN] AdvReac Severe Bloody Verified 10/18/19 14:10 diahrrea, swollen feet. Benzodiazepines AdvReac Intermediate EXTREME Verified 10/18/19 14:10 SENSITIVITY fentanyl AdvReac Intermediate EXTREME Verified 10/18/19 14:10 SENSITIVITY TO ALL NARCOTICS meperidine AdvReac Intermediate EXTREME Verified 10/18/19 14:10 SENSITIVITY Opioids - Morphine Analogues AdvReac Intermediate EXTREME Verified 10/18/19 14:10 SENSITIVITY - SOMNOLENCE Review of Systems Review of Systems ROS: Yes unobtainable due to mental status Exam Vital Signs (past 8 hours): - 02/14/20 18:10 02/14/20 18:30 02/14/20 19:49 Temperature 98.0 F Pulse Rate 120 H 104 H 102 H Respiratory Rate 16 16 Blood Pressure 157/80 H Blood Pressure [Left Arm] 170/94 H 169/91 H Pulse Oximetry 97 98 100 02/14/20 20:11 02/14/20 21:45 Temperature 97.3 F L Pulse Rate 101 H 99 H Respiratory Rate 12 17 Blood Pressure 163/73 H Blood Pressure [Left Arm] 164/84 H Pulse Oximetry 99 97 Oxygen Delivery Method Room Air Oxygen Flow Rate 0 Narrative Exam Narrative: Gen: Alert, oriented, thin 79 y.o. female, is very confused HEENT: has blood staining in her head and surrounding bedding,conjunctiva clear, sclera non-icteric, oral mucosa pink and moist Neck: supple, full ROM, no JVD Resp: Lungs CTA, non-labored breathing CV: RRR, no murmur or rubs Abd: soft, non-tender, normoactive BTs Skin: no lesions or rashes, dry and intact Neuro: Confused as to time, keeps stating her parents are alive and that she lives with them, word salad or speaking in Omani Extremities: Right arm appears to be flaccid, negative Francia?s sign Psyche: mildly agitated Objective Labs Result Diagrams: 02/14/20 18:23 02/14/20 18:23 Labs: Laboratory Results - last 24 hr 02/14/20 02/14/20 02/14/20 18:23 18:23 18:23 WBC 7.1 RBC 3.27 L Hgb 10.7 L Hct 30.4 L MCV 93.0 MCH 32.7 MCHC 35.2 RDW 14.1 Plt Count 341 Neut % (Auto) 66.3 Lymph % (Auto) 22.0 L [place] % (Auto) 9.1 Eos % (Auto) 2.3 Baso % (Auto) 0.3 Neut # (Auto) 4700 Lymph # (Auto) 1600 [place] # (Auto) 700 Eos # (Auto) 200 Baso # (Auto) 0 PT 11.6 INR 1.0 APTT 21 L D Sodium 129 L Potassium 4.0 Chloride 95 L Carbon Dioxide 25 BUN 20 H Creatinine 0.75 Estimated GFR > 60.0 BUN/Creatinine Ratio 26.7 H Glucose 170 H Hemoglobin A1c Calcium 9.4 Total Bilirubin 0.2 AST 20 ALT 16 Alkaline Phosphatase 57 Total Creatine Kinase CK-MB (CK-2) CK-MB (CK-2) Rel Index Troponin I Total Protein 6.7 Albumin 3.9 Globulin 2.8 Albumin/Globulin Ratio 1.4 Blood Type Antibody Screen 02/14/20 02/14/20 02/14/20 18:23 18:23 18:23 WBC RBC Hgb Hct MCV MCH MCHC RDW Plt Count Neut % (Auto) Lymph % (Auto) [place] % (Auto) Eos % (Auto) Baso % (Auto) Neut # (Auto) Lymph # (Auto) [place] # (Auto) Eos # (Auto) Baso # (Auto) PT INR APTT Sodium Potassium Chloride Carbon Dioxide BUN Creatinine Estimated GFR BUN/Creatinine Ratio Glucose Hemoglobin A1c 6.0 Calcium Total Bilirubin AST ALT Alkaline Phosphatase Total Creatine Kinase 73 CK-MB (CK-2) TNP CK-MB (CK-2) Rel Index TNP Troponin I 0.024 Total Protein Albumin Globulin Albumin/Globulin Ratio Blood Type A Negative Antibody Screen Negative Assessment & Plan Assessment & Plan narrative: Carey Mtz is admitted for a probable concussion to monitor for progressive neurologic deterioration or improvement Probable concussion, in the setting of a ground level fall, acute and present on admission -Q4hour neuro checks -Posterior head laceration repair was done in the ED. -Patient has been admitted or seen in the ED for multiple ground level falls. It is no longer safe for her to live at home alone and during previous visits, the patient was amenable to being placed in assisted living. -Discharge planning consult to initiate discussion with her family regarding long-term placement. -PT/OT evaluations Confusion, acute, likely secondary to concussion and possible infectious etiology, acute and present on admission -She has exhibited this on prior admissions and has been found previously to have a UTI. -U/A ordered by ED, but cancelled -due to previous history of UTIs at previous admissions, new U/A W/reflex to micro ordered Chronic Hypertension, present on admission -admitting blood pressure is 163/73 -will continue current regimen of irbesartan 300 mg daily -She was previously taking metoprolol succinate 200 mg daily, I have changed to metoprolol tartrate 50 mg po bid to start in the am, with a one time dose of metoprolol tartrate 25 mg po X 1. Chronic hyperlipidemia, active, present on admission -patient is currently taking atorvastatin 10 mg daily. -last lipid panel reveals total cholesterol 178, LDL of 109 HDL of 62. -patient previously refused increase in atorvastatin dosage. -will obtain updated lipid panel, was not done during previous admission. Type 2 non insulin dependent diabetes, controlled with an A1c of 6, present on admission -patient is currently taking metformin 1000 mg twice daily -glucose fingerstick a.c. and HS with correctional insulin low-dose range. -medium carbohydrate, heart healthy diet Moreno's disease, active -will continue patient's home regimen of levothyroxine 88 mcg daily. -last TSH on 06/30 was 1.78, will recheck TSH with reflex to T4. Lumbar spine disease, active -patient with minimal impairment in mobility with scoliosis of the lumbar spine and degenerative joint disease. -Holding home medication of meloxicam due to current risk of bleeding The patient is admitted as an inpatient to the hospital related to the severity of her symptoms and the risk for potential complications and adverse events. Consults: none. ED initially consulted surgery per trauma protocol and they recommended medical management. FEN: NS at 100 ml/hour X 2L, carb control diet, BMP in the am. VTE prophylaxis: Bilateral SCDs Dispo: Probable rehab, eventual assisted living Code Status: DNR/DNI on comfort measures per POLST in her chart.
--- NOTE | 2020-02-14 23:53 | PC.NURSE ---
Evening Shift/Admit Note- Patient arrived to room via stretcher from ER at 2145. Slider board used to transfer patient. Unable to fully complete admissiob questions due to patients confusion. Patient alert and confused and unable to answer questiobns appropriatly and occasionbally slips into speaking Tim while trying to answer questions. Skin check done with nightshift NATALIO Reina. Laceration with donna to right side of back of head and skin tear with purple bruise to left lower woods. Attempted to orient patinet to bed controls and call jeronimo. Safety measures in place. bed alar activated. call jeronimo within reach. will continue to monitor.
[2020-02-15] VITALS: BP 125/59; PULSE 81; RESP 18; TEMP 36.7; O2SAT 99
--- NOTE | 2020-02-15 01:48 | PC.NURSE ---
Patient seen and assessed at 0040. Is oriented to self and birthdate but stated she already celebrated her birthday ([birth year]) on Wednesday and does not believe staff that it it is [birth year]. Wouldn't answer most of questions stating I'll let you figure that out for yourself or becoming upset stating she is too weak and needs to sleep. Breath sounds CTA with RA sat of 99%. HRR. BT present and abdomen is soft. Has not voided as yet this shift; evening RN reports patient used bedpan earlier. Is able to turn self in bed. Laceration to posterior head with donna; oozing blood. Noted small skin tear on left LE. Denies pain. Bilateral calf SCD's applied. Fall risk score is high and bed alarm is activated.
[2020-02-15 02:47] LABS: Appearance Urine UA CLEAR; Bilirubin Urine UA NEGATIVE (NEGATIVE); Color Urine UA YELLOW; Glucose Urine UA NEGATIVE (Negative); Ketones Urine UA NEGATIVE (NEGATIVE); Leukocyte Esterase Urine UA 1+ (NEGATIVE); Nitrite Urine UA NEGATIVE (Negative); Occult Blood Urine UA 2+ (Negative); Protein Urine UA NEGATIVE (Negative); Specific Gravity Urine UA 1.015 (1.000-1.035); Urobilinogen Urine UA 0.2 E.U./dL (0.2)
[2020-02-15 02:48] LABS: pH Urine UA 6.5 (4.5-8.0)
[2020-02-15 03:07] LABS: Bacteria Urine Few (2-10); Culture Indicated Urine Specimen Cultured; RBC Urine 1-5/HPF (0-5/HPF); Squamous Epithelial Cell Urine 1-5 /HPF (0-5/HPF); WBC Urine 1-5/HPF (0-5/HPF)
[2020-02-15 05:48] LABS: Add Manual Diff / Slide Review NO; Basophils Absolute Auto 100 /uL (0-100); Basophils Percent Auto 1.3 % (0-2); Eosinophils Absolute Auto 100 /uL (0-450); Eosinophils Percent Auto 1.9 % (2-4); Hemoglobin 8.1 g/dL (12.0-16.0); Lymphocytes Absolute Auto 1100 /uL (1100-4500); Lymphocytes Percent Auto 17.8 % (25-40); Mean Corpuscular HGB Conc 34.8 % (30-36); Mean Corpuscular Hemoglobin 32.3 PG (26-34); Mean Corpuscular Volume 92.8 fL (80-100); Monocytes Absolute Auto 600 /uL (0-900); Neutrophils Absolute Auto 4300 /uL (1500-7000); Platelet Count 249 X10^3/uL (150-400); Red Blood Cell Count 2.52 X10^6/uL (4.0-5.2); Red Cell Distribution Width 13.9 % (11.6-14.8); White Blood Cell Count 6.1 X10^3/uL (4.5-11.0)
[2020-02-15 05:59] LABS: Cholesterol 154 mg/dL (140-199); HDL Cholesterol 45 mg/dL (40-60); LDL Cholesterol Calculated 89 mg/dL (<100); Triglycerides 98 mg/dL (35-150)
[2020-02-15 06:00] LABS: BUN Creatinine Ratio 27.6 (6-22); Blood Urea Nitrogen 21 mg/dL (7-17); Calcium 8.6 mg/dL (8.4-10.2); Carbon Dioxide 27 mmol/L (22-32); Chloride 98 mmol/L (98-107); Estimated Glomerular Filt Rate > 60.0 mL/min (>60); Glucose 119 mg/dL (80-110); HEMOLYSIS < 15 (0-50); Magnesium 1.5 mg/dL (1.6-2.3); Potassium 3.8 mmol/L (3.4-5.1); Sodium 130 mmol/L (137-145)
[2020-02-15 06:04] LABS: Hematocrit 23.4 % (36-46)
[2020-02-15 06:37] LABS: TSH w/ Reflex to FT4 3.84 uIU/mL (0.47-4.68)
--- NOTE | 2020-02-15 07:52 | P.HP_ITS ---
History of Present Illness History of Present Illness Date Patient Seen: 02/15/20 Time Patient Seen: 07:53 Chief complaint: Trip/fell hit head Narrative: This is a 79-year-old woman who tripped and had a ground level fall striking the back of her head, she did not lose consciousness.. Asked to see the patient in consultation for trauma. On admission she was hemodynamically stable she underwent a CT of her head which shows no evidence of intracranial injury as well as a chest x-ray which was normal. She had laboratory studies the CBC is normal. Chemistries remarkable for a sodium of 130 and a urinalysis is consistent with a urinary tract infection. This morning she says she feels well. She has mild pain in the posterior scalp where she had a laceration. She is not on anticoagulation. Patient History Medical History Acquired hypothyroidism (02/10/16) Ankle pain (Chronic 1989) Balance problems (Chronic 02/01/17) Bunion (Chronic 03/02/17) Carpal tunnel syndrome (Resolved 1974) Cataracts, bilateral (Resolved 2013) Chickenpox (Resolved) Chronic pain of both shoulders (Chronic 10/26/16) Diverticulitis (Chronic) Eczema (Chronic 02/10/16) Essential hypertension with goal blood pressure less than 140/90 (02/10/16) Fibroids (Resolved 1979) Foot pain (Chronic 1989) GERD (gastroesophageal reflux disease) (Chronic) Hammer toe of left foot (Chronic 03/02/17) History of diverticulitis (06/25/16) Hot flashes due to menopause (Resolved) Hyperlipemia (Chronic 1979) Hypertension (Chronic 1979) IBS (irritable bowel syndrome) (Chronic 2003) Lumbar spine pain (Chronic 2005) Measles (Resolved) Mumps (Resolved) 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) Ovarian cyst (Resolved 1989) Primary insomnia (Chronic 10/26/16) Pure hypercholesterolemia (02/10/16) Scoliosis (Chronic) Sjogren's syndrome (Chronic 2003) Type 2 diabetes mellitus without complication, without long-term current use of insulin (Chronic 2015) Surgical History Anesthesia complication (Resolved) History of carpal tunnel repair (Resolved 1974) History of cataract removal with insertion of prosthetic lens (2013) History of colonoscopy (Resolved 04/01/07) History of colonoscopy with polypectomy (Resolved 05/08/11) History of left cataract surgery (Resolved 11/13/14) History of right cataract surgery (Resolved 12/11/14) Hx of hand surgery (Resolved 2013) Hx of surgical procedure (Resolved 1996) Status post appendectomy (Resolved 1954) Status post cholecystectomy (Resolved 1964) Status post hysterectomy (Resolved 1990) Family & Social History Family History Child Hypertension Child Hypertension Sister Age: 78 Rheumatoid arthritis Father [place] (myocardial infarction) Heart disease Mother [place] (myocardial infarction) Hypertension Angina pectoris Sister Colon cancer Social History: household members none Prior Living Arrangements House Safety & Behavioral: Feels Safe in Current Yes Environment Been Physically Hurt or No Threatened By a Person Tobacco & Substance use: Smoking Status Never smoker alcohol intake former alcohol intake frequency 0-2 drinks per day Substance Use Type does not use Meds Home Medications and Allergies Home Medications Medication Instructions Recorded Confirmed Type Glucose: Test Strips See Rx Instructions SUBCUT QDAY 06/24/18 10/18/19 Rx #100 strip Lancet: Device 1 ea . Q DAY 04/18/19 10/18/19 History fluoride (sodium) 1 applic DENTAL DIRECTED 04/18/19 10/18/19 History polyethylene glycol 3350 [Miralax] 1 dose PO PRN PRN 04/18/19 10/18/19 History irbesartan 300 mg tablet 300 mg PO DAILY #90 tab 05/09/19 10/18/19 Rx atorvastatin 10 mg tablet 10 mg PO BEDTIME #90 tab 10/10/19 10/18/19 Rx levothyroxine 88 mcg tablet 88 mcg PO DAILY #90 tab 10/10/19 10/18/19 Rx meloxicam 15 mg tablet 15 mg PO DAILY #90 tab 10/10/19 10/18/19 Rx metformin 1,000 mg tablet 1,000 mg PO BID #180 tab 10/10/19 10/18/19 Rx metoprolol succinate 200 mg 200 mg PO DAILY #90 tab 10/10/19 10/18/19 Rx tablet,extended release 24 hr ketotifen fumarate 0.025 % (0.035 1 drop EYE-BOTH BID PRN #5 ml 10/18/19 10/18/19 Rx %) eye drops ondansetron 4 mg disintegrating 4 mg PO Q8H PRN 60 Days #30 tab 10/18/19 10/18/19 Rx tablet Allergies Allergy/AdvReac Type Severity Reaction Status Date / Time ciprofloxacin [CIPROFLOXACIN] AdvReac Severe Bloody Verified 10/18/19 14:10 diahrrea, swollen feet. Benzodiazepines AdvReac Intermediate EXTREME Verified 10/18/19 14:10 SENSITIVITY fentanyl AdvReac Intermediate EXTREME Verified 10/18/19 14:10 SENSITIVITY TO ALL NARCOTICS meperidine AdvReac Intermediate EXTREME Verified 10/18/19 14:10 SENSITIVITY Opioids - Morphine Analogues AdvReac Intermediate EXTREME Verified 10/18/19 14:10 SENSITIVITY - SOMNOLENCE Exam Vital Signs (past 8 hours): - 02/15/20 00:00 Temperature 98.0 F Pulse Rate 81 Respiratory Rate 18 Blood Pressure 125/59 L Pulse Oximetry 99 Oxygen Delivery Method Room Air Oxygen Flow Rate 0 Narrative Exam Narrative: General-no acute distress, elderly female HEENT-moist mucous membranes, no scleral icterus, hemostatic up posterior scalp plaque. Neck-supple, no lymphadenopathy, no new C-spine tenderness, she has some chronic lower posterior neck pain Chest- non labored respirations, clear to auscultation bilaterally Cardiac-regular rate no peripheral edema Abdomen-soft, nontender, non distended Extremities-warm, well perfused Neurological-alert and oriented, no focal deficits Objective Labs Result Diagrams: 02/15/20 05:33 02/15/20 05:33 Labs: Laboratory Results - last 24 hr 02/14/20 02/14/20 02/14/20 18:23 18:23 18:23 WBC 7.1 RBC 3.27 L Hgb 10.7 L Hct 30.4 L MCV 93.0 MCH 32.7 MCHC 35.2 RDW 14.1 Plt Count 341 Neut % (Auto) 66.3 Lymph % (Auto) 22.0 L [place] % (Auto) 9.1 Eos % (Auto) 2.3 Baso % (Auto) 0.3 Neut # (Auto) 4700 Lymph # (Auto) 1600 [place] # (Auto) 700 Eos # (Auto) 200 Baso # (Auto) 0 PT 11.6 INR 1.0 APTT 21 L D Sodium 129 L Potassium 4.0 Chloride 95 L Carbon Dioxide 25 BUN 20 H Creatinine 0.75 Estimated GFR > 60.0 BUN/Creatinine Ratio 26.7 H Glucose 170 H Hemoglobin A1c Calcium 9.4 Magnesium Total Bilirubin 0.2 AST 20 ALT 16 Alkaline Phosphatase 57 Total Creatine Kinase CK-MB (CK-2) CK-MB (CK-2) Rel Index Troponin I Total Protein 6.7 Albumin 3.9 Globulin 2.8 Albumin/Globulin Ratio 1.4 Triglycerides Cholesterol LDL Cholesterol, Calc HDL Cholesterol TSH Urine Color Urine Appearance Urine pH Ur Specific [place] Urine Protein Urine Glucose (UA) Urine Ketones Urine Occult Blood Urine Nitrate Urine Bilirubin Urine Urobilinogen Ur Leukocyte Esterase Urine RBC Urine WBC Ur Squamous Epith Cells Urine Bacteria Ur Culture Indicated? Blood Type Antibody Screen 02/14/20 02/14/20 02/14/20 18:23 18:23 18:23 WBC RBC Hgb Hct MCV MCH MCHC RDW Plt Count Neut % (Auto) Lymph % (Auto) [place] % (Auto) Eos % (Auto) Baso % (Auto) Neut # (Auto) Lymph # (Auto) [place] # (Auto) Eos # (Auto) Baso # (Auto) PT INR APTT Sodium Potassium Chloride Carbon Dioxide BUN Creatinine Estimated GFR BUN/Creatinine Ratio Glucose Hemoglobin A1c 6.0 Calcium Magnesium Total Bilirubin AST ALT Alkaline Phosphatase Total Creatine Kinase 73 CK-MB (CK-2) TNP CK-MB (CK-2) Rel Index TNP Troponin I 0.024 Total Protein Albumin Globulin Albumin/Globulin Ratio Triglycerides Cholesterol LDL Cholesterol, Calc HDL Cholesterol TSH Urine Color Urine Appearance Urine pH Ur Specific [place] Urine Protein Urine Glucose (UA) Urine Ketones Urine Occult Blood Urine Nitrate Urine Bilirubin Urine Urobilinogen Ur Leukocyte Esterase Urine RBC Urine WBC Ur Squamous Epith Cells Urine Bacteria Ur Culture Indicated? Blood Type A Negative Antibody Screen Negative 02/15/20 02/15/20 02/15/20 02:40 05:33 05:33 WBC 6.1 RBC 2.52 L Hgb 8.1 L Hct 23.4 L MCV 92.8 MCH 32.3 MCHC 34.8 RDW 13.9 Plt Count 249 Neut % (Auto) 70.0 Lymph % (Auto) 17.8 L [place] % (Auto) 9.0 Eos % (Auto) 1.9 L Baso % (Auto) 1.3 Neut # (Auto) 4300 Lymph # (Auto) 1100 [place] # (Auto) 600 Eos # (Auto) 100 Baso # (Auto) 100 PT INR APTT Sodium 130 L Potassium 3.8 Chloride 98 Carbon Dioxide 27 BUN 21 H Creatinine 0.76 Estimated GFR > 60.0 BUN/Creatinine Ratio 27.6 H Glucose 119 H Hemoglobin A1c Calcium 8.6 Magnesium 1.5 L Total Bilirubin AST ALT Alkaline Phosphatase Total Creatine Kinase CK-MB (CK-2) CK-MB (CK-2) Rel Index Troponin I Total Protein Albumin Globulin Albumin/Globulin Ratio Triglycerides Cholesterol LDL Cholesterol, Calc HDL Cholesterol TSH Urine Color Yellow Urine Appearance Clear Urine pH 6.5 Ur Specific [place] 1.015 Urine Protein Negative Urine Glucose (UA) Negative Urine Ketones Negative Urine Occult Blood 2+ H Urine Nitrate Negative Urine Bilirubin Negative Urine Urobilinogen 0.2 Ur Leukocyte Esterase 1+ H Urine RBC 1-5/hpf Urine WBC 1-5/hpf Ur Squamous Epith Cells 1-5 /hpf Urine Bacteria Few (2-10) H Ur Culture Indicated? Specimen cultured Blood Type Antibody Screen 02/15/20 02/15/20 05:33 05:33 WBC RBC Hgb Hct MCV MCH MCHC RDW Plt Count Neut % (Auto) Lymph % (Auto) [place] % (Auto) Eos % (Auto) Baso % (Auto) Neut # (Auto) Lymph # (Auto) [place] # (Auto) Eos # (Auto) Baso # (Auto) PT INR APTT Sodium Potassium Chloride Carbon Dioxide BUN Creatinine Estimated GFR BUN/Creatinine Ratio Glucose Hemoglobin A1c Calcium Magnesium Total Bilirubin AST ALT Alkaline Phosphatase Total Creatine Kinase CK-MB (CK-2) CK-MB (CK-2) Rel Index Troponin I Total Protein Albumin Globulin Albumin/Globulin Ratio Triglycerides 98 Cholesterol 154 LDL Cholesterol, Calc 89 HDL Cholesterol 45 TSH 3.84 Urine Color Urine Appearance Urine pH Ur Specific [place] Urine Protein Urine Glucose (UA) Urine Ketones Urine Occult Blood Urine Nitrate Urine Bilirubin Urine Urobilinogen Ur Leukocyte Esterase Urine RBC Urine WBC Ur Squamous Epith Cells Urine Bacteria Ur Culture Indicated? Blood Type Antibody Screen Assessment & Plan Assessment and plan (1) Closed head injury: Problem details: 79-year-old woman status post ground level fall with scalp laceration. Laboratory studies and imaging reviewed. There is no evidence of intracranial injury. I suspect that her initial confusion was secondary to urinary tract infection and and the confusion has cleared at this time she is currently alert and oriented x3. Tertiary trauma survey performed and negative. No trauma intervention required or further workup needed at this time.. Please call with questions. Qualifiers: Encounter type: initial encounter Qualified Code(s): S09.90XA - Unspecified injury of head, initial encounter Current visit: Yes Status: Acute Quality VTE Deep Vein Thrombosis/Pulmonary Embolism Present on Admission: No
[2020-02-15 08:00] VITALS: BP 142/91; PULSE 108; RESP 18; TEMP 36.7; O2SAT 100
--- NOTE | 2020-02-15 08:09 | PC.NURSE ---
Addendum entered by Mikaela Villalta R.N. 02/15/20 14:14: Patient rude and irritated with staff. Does not follow direction and not taking suggestions when offered. She denies pain, IV out, attempted to start twice and unable. Gabriela gonzales will try to start an iv for patient soon. Addendum entered by Mikaela Villalta R.N. 02/15/20 11:30: Patient pleasant and then gets irritated easily if we try to assist her with help. She has tried to get out of bed x1 with bed alarm on. Back to bed. Patient did take her medication but is refusing her insulin. Original Note: Assess- Patient is awake and confused. She does not understand that she is in the hospital, asking to call her mom. Refuses to take her medication and insulin at this time. Voided about 50cc on the bed tomlin, yellow in color. Patient has a laceration to the back of her with donna intact and bloody hair. Chucks pad applied under her head. Will call patients daughter to update her on Carey's condition later. She is eating her breakfast independently.
[2020-02-15] MEDS: SODIUM CHLORIDE 0.9% 1,000 ML 100 ML IV (09:04)
[2020-02-15] MEDS: METOPROLOL IR 50 MG TABLET PO ×2 (10:11→21:41)
[2020-02-15] MEDS: IRBESARTAN 150 MG TABLET 300 MG PO (10:11)
[2020-02-15] MEDS: LEVOTHYROXINE 88 MCG TABLET PO (10:12)
[2020-02-15 12:00] VITALS: BP 165/76; PULSE 79; RESP 18; TEMP 36.3; O2SAT 100
--- NOTE | 2020-02-15 12:52 | PT.IIE ---
Current Diagnoses Unspecified injury of head, initial encounter (02/14/20) Surgical History (Last Reviewed 02/15/20 @ 07:53 by Ata Navarrete MD) Anesthesia complication (Resolved) History of carpal tunnel repair (Resolved 1974) History of cataract removal with insertion of prosthetic lens (2013) History of colonoscopy (Resolved 04/01/07) History of colonoscopy with polypectomy (Resolved 05/08/11) History of left cataract surgery (Resolved 11/13/14) History of right cataract surgery (Resolved 12/11/14) Hx of hand surgery (Resolved 2013) Hx of surgical procedure (Resolved 1996) Status post appendectomy (Resolved 1954) Status post cholecystectomy (Resolved 1964) Status post hysterectomy (Resolved 1990) Medical History (Last Reviewed 02/15/20 @ 07:53 by Ata Navarrete MD) Acquired hypothyroidism (02/10/16) Ankle pain (Chronic 1989) Balance problems (Chronic 02/01/17) Bunion (Chronic 03/02/17) Carpal tunnel syndrome (Resolved 1974) Cataracts, bilateral (Resolved 2013) Chickenpox (Resolved) Chronic pain of both shoulders (Chronic 10/26/16) Diverticulitis (Chronic) Eczema (Chronic 02/10/16) Essential hypertension with goal blood pressure less than 140/90 (02/10/16) Fibroids (Resolved 1979) Foot pain (Chronic 1989) GERD (gastroesophageal reflux disease) (Chronic) Hammer toe of left foot (Chronic 03/02/17) History of diverticulitis (06/25/16) Hot flashes due to menopause (Resolved) Hyperlipemia (Chronic 1979) Hypertension (Chronic 1979) IBS (irritable bowel syndrome) (Chronic 2003) Lumbar spine pain (Chronic 2005) Measles (Resolved) Mumps (Resolved) 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) Ovarian cyst (Resolved 1989) Primary insomnia (Chronic 10/26/16) Pure hypercholesterolemia (02/10/16) Scoliosis (Chronic) Sjogren's syndrome (Chronic 2003) Type 2 diabetes mellitus without complication, without long-term current use of insulin (Chronic 2015) Physical Therapy Inpatient Evaluation/Re-Eval M1 PT/OT-IP Prior Functional Status Start: 02/15/20 08:28 Freq: NEEDED Status: Active Protocol: Document 02/15/20 09:10 HH (Rec: 02/15/20 12:52 HH [id number]) Medical Review Prior Functional Status Medical History Reviewed Yes Diet/Fluid Consistency Regular Communication slurred speech noted. able to answer simple questions but often speaks out her random thoughts. Mobility and Gait Per EMR from her last admission in , Pt has been using 4WW houshold and short community distance. Pt has scoliosis at baseline who present trunk lean during ambulation Activities of Daily Living and IADL's Per EMR from her last admission in , Pt has [facility] for 3-4 hrs shift 3 times per week to assist with shower, dressing and cleaning. Pt used ride service for MD appts. Pt also reports she has a friend to assist her for house cleaning sometimes but she does her own cooking. Social History Household Members none Living Arrangements House Number of Floors (Floors) One Floor Number of Stairs To Enter/Railing? Per EMR pt has 0 LUANN but she stated she has 5 LUANN upon assessment Home Environment Standard Height Toilet,Walk in Shower Home Equipment Four Wheel Walker,Shower Seat without Backrest,Grab Bars Near Toilet,Grab Bars In Shower Employment Status Retired Additional Social History Comment Pt has 7 hospital admission last year, 2of them for falls and TIAs. Pt has a niece lives in [place] and nephew in [facility] and 2 children in [facility]. Per , pt's son has been considering placing pt to a joint terminal attack controller care facility. M2 PT-IP Current Condition Start: 02/15/20 08:28 Freq: NEEDED Status: Active Protocol: Document 02/15/20 09:10 (Rec: 02/15/20 12:52 [email or web address]) Physical Therapy Current Condition Current Condition Evaluation Date 02/15/20 Treatment Diagnosis GLF, confusion, possible UTI and generalized weakness. Onset Date 02/13/20 Weight Bearing Status Weight Bearing Status Full Weight Bearing M3 PT-IP Subjective Start: 02/15/20 08:28 Freq: NEEDED Status: Active Protocol: Document 02/15/20 09:10 HH (Rec: 02/15/20 12:52 [email or web address]) Subjective Physical Therapy Visit Type Type Initial Evaluation Visit Start Time 09:10 Visit Stop Time 10:05 Total Visit Minutes 55 Notes Pt's CBC has been declining as RN stated. Cont to monitor before tx. Number of SUPERVISOR COFFEE Visits 0 Physical Therapy Visit Comments Patient Comments I feel better today Patient Goals To go home Therapy Pain Assessment Pain Present Pain Present Denied Pain M4 PT-IP Mobility and Gait Start: 02/15/20 08:28 Freq: NEEDED Status: Active Protocol: Document 02/15/20 09:10 HH (Rec: 02/15/20 12:52 [email or web address]) PT-Bed Mobility Assessment Scooting Scooting to Edge of Bed Contact Guard Assistance PT-Transfer Assessment Sit to and From Stand Sit to and from Stand Minimal Assistance,Use of Upper Extremities Equipment Transfer Assistive Device Gait Belt,Front Wheeled Walker Orthotic/Prosthetic Devices or Brace: No Transfers Transfer Destination Chair,Toilet Transfer Technique with FWW Transfer Ability Level of Assist Minimal Assistance,Use of Upper Extremities Comments Mobility Comments Pt was getting out of her bathroom with PEOPLESO[employer] TALEO MANAGER upno PT arrival. Pt then sat at EOB to measure BP. 142/91 HR 111 SpO2 100%. Pt overall able to answer simple questions but with inconsistent answers regarding her PLOF/ social history. She often spoke out her random thoughts. Pt then stood up from EOB with min A but slowly and required BUEs to push off from bed. She then amb to hallway but she insisted not to be CGA and appeared to be somewhat irritated. She amb ~ 150 feet with FWW but she was unable to keep it a straight line and often showed difficulty navigating her walker (tends to drive to R side). She also presented a lateral trunk lean with antalgic gait, along with signs of unsteadiness. She then amb back to her bathroom for toileting and she was able to transfer by using grab bar. She then amb to sink counter for pericare but she often attempted to avoid using her walker. Pt also misused baby powder as her tooth paste and lifeline as her hand soap. Pt easily get irritated when this PT provides instructions. Pt overall was unsteady without support and require closed SBA /CGA and reminders to use FWW. Pt went back to bedside chair with FWW and needed min A for stand to sit. Call light placed within reach and chair alarm activated. Gait Assessment Gait Gait Assistance Required: Contact Guard Assist Distance (Feet) 150 Able to Maintain Weight Bearing Status No During Gait Assistive Devices Assistive Device Gait Belt,Front Wheeled Walker Orthotic/Prosthetic Devices or Brace: No Gait Deviations General Gait Pattern Antalgic,Decreased Stride Length,Decreased Feet Clearance,Festinating,Flexed Trunk Factors Limiting Gait Function Factors Limiting Gait Function Decreased Activity Tolerance, Decreased Strength,Difficulty Following Directions,Limited Range of Motion,Poor Balance, Poor Safety Awareness Comments Gait Comments see mobility comments. Stair Climbing Assessment Comments Stair Climbing Comments did not assess d/t weakness. PT-Balance Assessment Sitting Balance and Reactions Static Sitting Balance Ability Good Dynamic Sitting Balance Ability Good Standing Balance and Reactions Static Standing Balance Ability Fair Dynamic Standing Balance Ability Fair Device Used FWW M5 PT-IP Objective Assessments Start: 02/15/20 08:28 Freq: NEEDED Status: Active Protocol: Document 02/15/20 09:10 (Rec: 02/15/20 12:52 [email or web address]) Orientation Orientation/Cognition Level of Alertness Confusional State Orientation Name,Age,Birthday,Month,Date, Year Language Function Ability Uzbek as Second Language, Hard of Hearing Safety Awareness Decreased Safety Awareness Memory Description No Deficits Noted,Short Term Impaired Comments Pt overall able to answer simple questions but with inconsistent answers regarding her PLOF/ social history. She often spoke out her random thoughts. Pt is confused with baby powed as tooth paste and lifeline as her hand soap . Pt is easily irritated with instructions. Gross Range of Motion Upper Extremity ROM Assessment Right Impaired Impairments RUE is unable to reach overhead and needed L UE to assist Lower Extremity ROM Assessment Within Functional Limits Strength Upper Extremity Strength Assessment Right Impaired Shoulder 3-/5 Elbow 4/5 Wrist 4/5 Lower Extremity Strength Assessment Within Functional Limits M6 PT-IP Treatment Start: 02/15/20 08:28 Freq: NEEDED Status: Active Protocol: Document 02/15/20 09:10 (Rec: 02/15/20 12:52 [email or web address]) Physical Therapy Treatment Education Education Provided Safety M7 PT-IP Assessment and Plan Start: 02/15/20 08:28 Freq: NEEDED Status: Active Protocol: Document 02/15/20 09:10 (Rec: 02/15/20 12:52 [email or web address]) PT Summary Assessment and Plan Potential Rehabilitation Potential Good Status of Condition at Evaluation Evolving Summary Impairments ROM,Strength,Balance,Cognition ,Transfers,Gait,Activity Tolerance Assessment Summary This is a mod complexity evaluation for this 79 yo female admitted to s/p GLF and increased confusion and possible UTI. Upon assessment, She was able to answer simple questions but with inconsistent answers regarding her PLOF/ social history. She often spoke out her random thoughts. She also get easily irritated with instructions and does not like to be assisted with mobility. She often needed closed CGA/ min A for all mobility since she is very unsteady along with poor safety awareness. She also has significant fall history and lives alone which becomes unsafe to be d/c home. Pt will benefit from skilled rehab to improve her mobility and strength to reduce her fall risks. Goals Bed Mobility Goal Standby Assistance Transfer Goal Standby Assistance,Front Wheeled Walker Gait Goal Standby Assistance,Front Wheel Walker Gait Distance 300 Days to Meet Goals 5 Frequency of Treatment Frequency Of Treatment Once a Day Treatment Plan Physical Therapy Treatment Plan Bed Mobility Training,Transfer Training,Gait Training, Therapeutic Exercise,Balance Retraining,Discharge Planning Other Recommendations and Next Treatment check vital Focus closed CGA for mobility transfer and gait training as gabriella Recommendations To Nursing Amount of Assist Needed 1 Person Assist Discharge Recommendations PT Discharge Recommendations SNF Rehab Equipment Needed for Home Before FWW if d/c home Discharge Transportation Needs at Discharge Wheelchair/Cabulance
--- NOTE | 2020-02-15 14:13 | DI.MRI.S_ITS ---
PROCEDURE: MR HEAD/BRAIN WO CON INDICATIONS: r/o stroke TECHNIQUE: Noncontrast axial T1 spin echo, axial T2 fast spin echo, sagittal and axial FLAIR, coronal T2 fast spin echo, axial gradient echo, axial diffusion and ADC through the brain. COMPARISON: [facility], , MR HEAD/BRAIN WO CON, 04/18/2019, 18:33. FINDINGS: Image quality: Limited due to patient's inability to hold still. CSF Spaces: Basal cisterns are patent. No extra-axial fluid collections. Ventricles are normal in size and shape. Brain: Punctate foci of periventricular restricted diffusion in the left frontal lobe, left frontal temporal lobe, and right parietal occipital lobe. These are new compared to 04/18/2019 and are most compatible with small infarcts. No obvious intracranial masses or hemorrhage. Intravascular flow voids appear normal. Intubated probable loss and prominent extra-axial bifrontal fluid similar to prior exam. Skull and face: Calvarium has normal marrow signal. Orbits appear normal. Sinuses: Sinuses and mastoids are clear. IMPRESSION: Exam is limited due to patient motion. Small foci of periventricular restricted diffusion in the left frontal, left frontal temporal, and right parietal-occipital lobes are suspicious for small acute or subacute infarcts. Consider repeat exam. Dictated by: Roderick Starr M.D. on 02/15/2020 at 19:22 Approved by: Roderick Starr M.D. on 02/15/2020 at 19:30
--- NOTE | 2020-02-15 15:23 | CM.DANOTE ---
Addendum entered by Maribel Posadas LPN 02/15/20 15:33: Met with pt for brief introduction of self and role and then spoke at length in conference call with pt's daughters: POA/Financial and Medical : Char: Vlad: [phone] and Maribel: Ishaan Singh: [phone]. (POA paperwork has been faxed from Char's deputy prosecuting attorney's office to Medical Records dept today). Pt is an 79 year old female who lives alone in her home in [place]. She admitted to care of hospitalist team last night after a fall, resulting in a scalp laceration with blood all over her home per the caregiver who reported same to the daughter's. Consulting: Dr. Navarrete who saw pt for post trauma and has said that at this point no further trauma workup is needed. PCP: Dr. Santiago P[facility] Medicare [facility] Admission status: INPT: confirmed by UR NATALIO Ramos. Dr. Llanes saw pt this afternoon, her documentation is pending, but she reports that, among other things, she is working pt up for dementia. She says pt is clearly not decisional. Char and Francesca state that pt has had [facility]/private caregiver agency assist but has often dismissed the caregivers. She has found one caregiver at the agency that she now considers a friend and who sees pt a few times a week for very limited help. Sometimes helps with basic ADL's, sometimes gets groceries or meals from restaurants for her. Pt refuses to let anyone help her with her medication or so much of any significance but does at least have the safely net of the caregiver checking on her. Pt has had HH in the past but it is unclear how long she allowed them to see her. Family report she has been very independent, stubborn and mistrustful of others trying to offer assist all of her adult life and that this has only gotten worse since she has aged. They report this has become markedly worse in the last month. PT and OT are seeing pt and have just spoken with PT/Jakob and OT Arabella now. Arabella will be seeing pt this afternoon and will do cognitive testing as part of the evaluation. PT is recommending snf at d/c. Pt is not considered safe to return to the home setting. P: At this point the plan is for pt to d/c to a snf setting under her Medicare snf benefit when stable for same. (Dr. 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 Both are working closely together on this, noting that they both work time study engineer and thus rely on each other as a team to get their mother the help she needs. Have given referral now to [facility] after a review of the updated snf options for referrals/completed today by PARAMJIT Wang and plan to followup tomorrow with the daughter's after hearing from March. Contact info for both CM/dc planning desks is given to the daughters. DCP team to follow closely to assist in facilitation of above plan. Original Note: Discharge Planning/Care Management DCP: assessment: case received, EMR reviewed and discussed with Dr. Llanes after she saw pt and disucssed the POC with pt's daughters by phone. CM Discharge Assessment Start: 02/15/20 15:16 Freq: Status: Active Protocol: Document 02/15/20 15:17 ITV (Rec: 02/15/20 15:22 ITV [id number]) Discharge Planning Assessment Advance Directives? Yes History Provided By Patient,Family Member,Medical Record Has Patient been admitted in last 30 No days? Comment last admission to was in November 2018 but pt has had several ER visists since then. Prior Living Arrangements House Household Members none Independent with ADL's No Is patient alert and oriented? No Caregiver for Another No Comment Allie Aquino: private caregiver company Pt will only accept limited assistance from one caregiver, per her daughters Referrals Initiated Penitentiary Review Status In Process
[2020-02-15 15:25] VITALS: BP 164/100; PULSE 81; RESP 20; TEMP 36.2
--- NOTE | 2020-02-15 15:33 | PC.NURSE ---
I was not taking care of this Pt for the day but I had to respond to her bed alarm going off. The Pt was sitting on the side of the bed getting ready to stand up when I got there. When asked where she was going and what I could help with she said she I have to go to the bathroom. I helped her into the bathroom with the walker and waited outside the bathroom door till she was finished. I told her not to worry I would help her but she was upset about the hat in the toilet so she dumped it herself and threw it away from the toilet. I moved to stand to her side when she got agitated and said you're in my way, get out of my way.. I replied that I was just trying to stay close by for her safety. Once I moved she then shoved the walker all the way to the bed and proceeded to walk to the sink without the walker or help from me. I asked if she could please use the walker for her safety because she seemed to be walking off balanced and I did not want her to fall and she yelled I don't need any of your help, you are walking off balanced and you need to get out of my way!. The Pt was very agitated with me the whole time but I was able to get her safely back in bed with the alarm on and call light in reach.
[2020-02-15] MEDS: MAGNESIUM SULFATE 2 GM/50 ML PIGGYBACK IV (15:43)
--- NOTE | 2020-02-15 15:45 | OT.IP.EVAL ---
Current Diagnoses Unspecified injury of head, initial encounter (02/14/20) Past Medical History (Last Reviewed 02/15/20 @ 07:53 by Ata Navarrete MD) Acquired hypothyroidism (02/10/16) Ankle pain (Chronic 1989) Balance problems (Chronic 02/01/17) Bunion (Chronic 03/02/17) Carpal tunnel syndrome (Resolved 1974) Cataracts, bilateral (Resolved 2013) Chickenpox (Resolved) Chronic pain of both shoulders (Chronic 10/26/16) Diverticulitis (Chronic) Eczema (Chronic 02/10/16) Essential hypertension with goal blood pressure less than 140/90 (02/10/16) Fibroids (Resolved 1979) Foot pain (Chronic 1989) GERD (gastroesophageal reflux disease) (Chronic) Hammer toe of left foot (Chronic 03/02/17) History of diverticulitis (06/25/16) Hot flashes due to menopause (Resolved) Hyperlipemia (Chronic 1979) Hypertension (Chronic 1979) IBS (irritable bowel syndrome) (Chronic 2003) Lumbar spine pain (Chronic 2005) Measles (Resolved) Mumps (Resolved) 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) Ovarian cyst (Resolved 1989) Primary insomnia (Chronic 10/26/16) Pure hypercholesterolemia (02/10/16) Scoliosis (Chronic) Sjogren's syndrome (Chronic 2003) Type 2 diabetes mellitus without complication, without long-term current use of insulin (Chronic 2015) Surgical History (Last Reviewed 02/15/20 @ 07:53 by Ata Navarrete MD) Anesthesia complication (Resolved) History of carpal tunnel repair (Resolved 1974) History of cataract removal with insertion of prosthetic lens (2013) History of colonoscopy (Resolved 04/01/07) History of colonoscopy with polypectomy (Resolved 05/08/11) History of left cataract surgery (Resolved 11/13/14) History of right cataract surgery (Resolved 12/11/14) Hx of hand surgery (Resolved 2013) Hx of surgical procedure (Resolved 1996) Status post appendectomy (Resolved 1954) Status post cholecystectomy (Resolved 1964) Status post hysterectomy (Resolved 1990) Occupational Therapy Inpatient Evaluation/Re-Eval M1 PT/OT-IP Prior Functional Status Start: 02/15/20 16:53 Freq: NEEDED Status: Active Protocol: Document 02/15/20 15:45 CCC (Rec: 02/15/20 17:16 CCC [id number]) Medical Review Prior Functional Status Medical History Reviewed Yes Diet/Fluid Consistency Regular Mobility and Gait Per EMR from her last admission in , Pt has been using 4WW houshold and short community distance. Pt has scoliosis at baseline who present trunk lean during ambulation Activities of Daily Living and IADL's Per EMR from her last admission in , Pt has [facility] [place] [facility] for 3-4 hrs shift 3 times per week to assist with shower, dressing and cleaning. Pt used ride service for MD appts. Pt also reports she has a friend to assist her for house cleaning sometimes but she does her own cooking. clinical laboratory manager able to clarify that pt has a friend that comes a few times a week for limited assist -basic ADl' s, groceries or meals. Pt refuses to allow for any assist for medication needs. Social History Household Members none Living Arrangements House Number of Floors (Floors) One Floor Number of Stairs To Enter/Railing? Per EMR pt has 0 LUANN but she stated she has 5 LUANN upon assessment Home Environment Standard Height Toilet,Walk in Shower Home Equipment Four Wheel Walker,Shower Seat without Backrest,Grab Bars Near Toilet,Grab Bars In Shower Employment Status Retired Additional Social History Comment Pt has family out [facility] trying to set-up a facility for her to stay in [facility] . M2 OT-IP Current Condition Start: 02/15/20 16:53 Freq: Status: Active Protocol: Document 02/15/20 15:45 [facility] (Rec: 02/15/20 17:16 [facility] [id number]) Occupational Therapy Current Condition Current Condition Evaluation Date 02/15/20 Treatment Diagnosis GLF, confusion,probable concussion Diagnosis Onset Date 02/15/20 M3 OT- IP Subjective and Pain Start: 02/15/20 16:53 Freq: Status: Active Protocol: Document 02/15/20 15:45 [facility] (Rec: 02/15/20 17:16 [facility] [id number]) OT- Subjective Occupational Therapy Visit Type Type Initial Evaluation Visit Start Time 15:45 Visit Stop Time 16:15 Total Visit Minutes 30 Occupational Therapy Visit Comments Patient Comments Nursing in the room as pt trying to get to the bathroom and OT stepped in to assist. M4 OT- IP ADL's Start: 02/15/20 16:53 Freq: Status: Active Protocol: Document 02/15/20 15:45 [facility] (Rec: 02/15/20 17:16 [facility] [id number]) OT [id number] Comments OT Self-Feeding Comments Not at meal time. OT ADL-Grooming General Evaluation Grooming Ability Standby Assistance Comments OT Grooming Comments Pt able to wash her hands, comb her hair, and needing occasional cues/ reminders that the sink was automatic. OT ADL-Dressing Comments OT Dressing Comments Not performed. OT ADL-Toileting General Evaluation Toileting Ability Standby Assistance Comments OT Toileting Comments Close SBA while pt standing for brief management needs. OT ADL-Bathing Comments OT Bathing Comments NOt at this time. M5 OT- IP IADL's Start: 02/15/20 16:53 Freq: Status: Active Protocol: Document 02/15/20 15:45 [facility] (Rec: 02/15/20 17:16 [facility] [id number]) OT-Instrumental Activities of Daily Living Home Safety Awareness Home Safety Comments Pt very confused, unsteady on her feet and not thinking well and at this time if going home would requirs someone to stay with her and manage all IADL and assist as needed for ADl needs. M6 OT- IP Functional Cognition Start: 02/15/20 16:53 Freq: Status: Active Protocol: Document 02/15/20 15:45 [facility] (Rec: 02/15/20 17:16 [facility] [id number]) Cognitive Factors Limiting Selfcare Function Cognitive Ability Level of Alertness Alert,Confusional State Patient Orientation Name Attention Span Ability Capable of Focused Attention, Unable to Sustain Attention Ability to Follow Commands Able to Follow One Step Commands Memory Description Short Term Impaired Safety Awareness Underestimates Need for Assistance Problem Solving Ability Unable to Identify Errors, Needs Assist to Identify Solutions Cognitive Comments Cognitive Assessment Comments Pt highly distracted, seeing objects on the floor but nothing present besides moore on the floor, pt a bit impulsive and insistent on doing things her way. Pt resistive to having a gait belt on even after explanations for her safety as pt is very unsteady on her feet at this time. Pt getting confused trying to find the comb in front of her and then reaching for the life alert. Pt perservating on straightening the items on the counter and trying to make sure everything in the right place. Pt's level of confusion and cognitive level maybe also be influenced/exacerbated by her fall, low blood levels. To try SLUMS tomorrow. M7 OT- IP Mobility and Balance Start: 02/15/20 16:53 Freq: Status: Active Protocol: Document 02/15/20 15:45 [facility] (Rec: 02/15/20 17:16 [facility] [id number]) OT- Bed Mobility Assessment Sit to Supine Sit to Supine Assist Contact Guard Assistance OT-Transfer Assessment Sit to and From Stand Sit to and from Stand Standby Assistance,Contact Guard Assistance Transfers Transfer Ability Standby Assistance,Contact Guard Assistance Technique Transfer Destination Bed,Toilet Transfer Technique Stand Step Pivot Devices Transfer Assistive Devices None,Front Wheeled Walker Comments Mobility Comments Pt adamantly refused gait belt . Therapist at times having to hold onto her gown as unsteady on her feet and not using the FWW appropriately at time just leaving it to the side instead on having it in front of her. To try 4ww has one at home. OT- Balance Assessment Sitting Balance and Reactions Static Sitting Balance Ability Normal Dynamic Sitting Balance Ability Good Standing Balance and Reactions Static Standing Balance Ability Fair Comments Other Balance Tests/Deviations/Treatment Pt when holding onto the bed : as pushed the FWW aside hanging on the edge of th ebed and trying to organize the sheet on her bed and needing close SBA to CGA for her safety. M8 OT- IP Objective Assessments Start: 02/15/20 16:53 Freq: Status: Active Protocol: Document 02/15/20 15:45 [facility] (Rec: 02/15/20 17:16 [facility] [id number]) OT Gross Range of Motion Upper Extremity Range of Motion ROM Impairments WFL for toileting and bed mobility needs. OT Strength Comments Strength Comments At least 3+/5, not able to formally assess. M9 OT- IP Assessment and Plan Start: 02/15/20 16:53 Freq: Status: Active Protocol: Document 02/15/20 15:45 [facility] (Rec: 02/15/20 17:16 [facility] [id number]) OT Summary Assessment and Plan Potential Rehabilitation Potential Good Analytic Complexity at Evaluation Low Summary OT Impairments Balance,Functional Cognition, Functional Mobility,Dressing, Toileting,Bathing,Toilet Transfers,Shower Transfers, Activity Tolerance Progress Towards Goals Slow Progress due to Medical Issues,Slow Progress due to Cognition Assessment Summary Pt here from GLF and probable concussion and now confused, unsteady on her feet and needing assist for safety, follow through for sequencing tasks- however noted better since this morning with PT as she confused baby powder for the toothpaste and life line for soap. Pt would benefit from skilled rehab to help improve her balance and maximize her safety with Adl and functional mobility needs. Goals Grooming Goal Independent Dressing Goal Independent Toileting Goal Independent Bathing Goal Standby Assistance Toilet Transfer Goal Independent Shower Transfer Goal Standby Assistance Days to Meet Goals 7 Frequency of Treatment Frequency Of Treatment Once a Day Treatment Plan OT Treatment Plan ADL Training,Functional Cognition Training,Functional Mobility,Patient/Family Education,Discharge Planning Other Treatment Recommendations and Next SLUMS Treatment Focus Discharge Recommendations OT Discharge Recommendations SNF Rehab Home Equipment Needs defer to SNF
--- NOTE | 2020-02-15 15:50 | PM.PN.1 ---
Subjective Subjective Interval history: Patient is slightly angry and hostile currently. She resents being asked questions like, Do you know where you are. She is agreeable for the moment to go to SNF. She is at times impulsive and wants to get up. Patient has had multiple falls and evidence of progressive dementia. Exam Vital Signs (past 8 hours): - 02/15/20 08:00 02/15/20 12:00 Temperature 98.1 F 97.4 F L Pulse Rate 108 H 79 Respiratory Rate 18 18 Blood Pressure 142/91 H 165/76 H Pulse Oximetry 100 100 Oxygen Delivery Method Room Air Oxygen Flow Rate 0 Narrative Exam Narrative: Elderly female lying in bed Lungs: decreased breath sounds but clear to auscultation CV: RRR nl S1 S2 2/6 HILTON Abd; soft/ non tender Scalp: laceration on posterior scalp with [address] no active bleeding Objective Labs Result Diagrams: 02/15/20 05:33 02/15/20 05:33 Labs: Laboratory Results - last 24 hr 02/14/20 02/14/20 02/14/20 18:23 18:23 18:23 WBC 7.1 RBC 3.27 L Hgb 10.7 L Hct 30.4 L MCV 93.0 MCH 32.7 MCHC 35.2 RDW 14.1 Plt Count 341 Neut % (Auto) 66.3 Lymph % (Auto) 22.0 L [place] % (Auto) 9.1 Eos % (Auto) 2.3 Baso % (Auto) 0.3 Neut # (Auto) 4700 Lymph # (Auto) 1600 [place] # (Auto) 700 Eos # (Auto) 200 Baso # (Auto) 0 PT 11.6 INR 1.0 APTT 21 L D Sodium 129 L Potassium 4.0 Chloride 95 L Carbon Dioxide 25 BUN 20 H Creatinine 0.75 Estimated GFR > 60.0 BUN/Creatinine Ratio 26.7 H Glucose 170 H Hemoglobin A1c Calcium 9.4 Magnesium Total Bilirubin 0.2 AST 20 ALT 16 Alkaline Phosphatase 57 Total Creatine Kinase CK-MB (CK-2) CK-MB (CK-2) Rel Index Troponin I Total Protein 6.7 Albumin 3.9 Globulin 2.8 Albumin/Globulin Ratio 1.4 Triglycerides Cholesterol LDL Cholesterol, Calc HDL Cholesterol TSH Urine Color Urine Appearance Urine pH Ur Specific [place] Urine Protein Urine Glucose (UA) Urine Ketones Urine Occult Blood Urine Nitrate Urine Bilirubin Urine Urobilinogen Ur Leukocyte Esterase Urine RBC Urine WBC Ur Squamous Epith Cells Urine Bacteria Ur Culture Indicated? Blood Type Antibody Screen 02/14/20 02/14/20 02/14/20 18:23 18:23 18:23 WBC RBC Hgb Hct MCV MCH MCHC RDW Plt Count Neut % (Auto) Lymph % (Auto) [place] % (Auto) Eos % (Auto) Baso % (Auto) Neut # (Auto) Lymph # (Auto) [place] # (Auto) Eos # (Auto) Baso # (Auto) PT INR APTT Sodium Potassium Chloride Carbon Dioxide BUN Creatinine Estimated GFR BUN/Creatinine Ratio Glucose Hemoglobin A1c 6.0 Calcium Magnesium Total Bilirubin AST ALT Alkaline Phosphatase Total Creatine Kinase 73 CK-MB (CK-2) TNP CK-MB (CK-2) Rel Index TNP Troponin I 0.024 Total Protein Albumin Globulin Albumin/Globulin Ratio Triglycerides Cholesterol LDL Cholesterol, Calc HDL Cholesterol TSH Urine Color Urine Appearance Urine pH Ur Specific [place] Urine Protein Urine Glucose (UA) Urine Ketones Urine Occult Blood Urine Nitrate Urine Bilirubin Urine Urobilinogen Ur Leukocyte Esterase Urine RBC Urine WBC Ur Squamous Epith Cells Urine Bacteria Ur Culture Indicated? Blood Type A Negative Antibody Screen Negative 02/15/20 02/15/20 02/15/20 02:40 05:33 05:33 WBC 6.1 RBC 2.52 L Hgb 8.1 L Hct 23.4 L MCV 92.8 MCH 32.3 MCHC 34.8 RDW 13.9 Plt Count 249 Neut % (Auto) 70.0 Lymph % (Auto) 17.8 L [place] % (Auto) 9.0 Eos % (Auto) 1.9 L Baso % (Auto) 1.3 Neut # (Auto) 4300 Lymph # (Auto) 1100 [place] # (Auto) 600 Eos # (Auto) 100 Baso # (Auto) 100 PT INR APTT Sodium 130 L Potassium 3.8 Chloride 98 Carbon Dioxide 27 BUN 21 H Creatinine 0.76 Estimated GFR > 60.0 BUN/Creatinine Ratio 27.6 H Glucose 119 H Hemoglobin A1c Calcium 8.6 Magnesium 1.5 L Total Bilirubin AST ALT Alkaline Phosphatase Total Creatine Kinase CK-MB (CK-2) CK-MB (CK-2) Rel Index Troponin I Total Protein Albumin Globulin Albumin/Globulin Ratio Triglycerides Cholesterol LDL Cholesterol, Calc HDL Cholesterol TSH Urine Color Yellow Urine Appearance Clear Urine pH 6.5 Ur Specific [place] 1.015 Urine Protein Negative Urine Glucose (UA) Negative Urine Ketones Negative Urine Occult Blood 2+ H Urine Nitrate Negative Urine Bilirubin Negative Urine Urobilinogen 0.2 Ur Leukocyte Esterase 1+ H Urine RBC 1-5/hpf Urine WBC 1-5/hpf Ur Squamous Epith Cells 1-5 /hpf Urine Bacteria Few (2-10) H Ur Culture Indicated? Specimen cultured Blood Type Antibody Screen 02/15/20 02/15/20 05:33 05:33 WBC RBC Hgb Hct MCV MCH MCHC RDW Plt Count Neut % (Auto) Lymph % (Auto) [place] % (Auto) Eos % (Auto) Baso % (Auto) Neut # (Auto) Lymph # (Auto) [place] # (Auto) Eos # (Auto) Baso # (Auto) PT INR APTT Sodium Potassium Chloride Carbon Dioxide BUN Creatinine Estimated GFR BUN/Creatinine Ratio Glucose Hemoglobin A1c Calcium Magnesium Total Bilirubin AST ALT Alkaline Phosphatase Total Creatine Kinase CK-MB (CK-2) CK-MB (CK-2) Rel Index Troponin I Total Protein Albumin Globulin Albumin/Globulin Ratio Triglycerides 98 Cholesterol 154 LDL Cholesterol, Calc 89 HDL Cholesterol 45 TSH 3.84 Urine Color Urine Appearance Urine pH Ur Specific [place] Urine Protein Urine Glucose (UA) Urine Ketones Urine Occult Blood Urine Nitrate Urine Bilirubin Urine Urobilinogen Ur Leukocyte Esterase Urine RBC Urine WBC Ur Squamous Epith Cells Urine Bacteria Ur Culture Indicated? Blood Type Antibody Screen Assessment & Plan Assessment & Plan narrative: Carey Mtz is admitted for a probable concussion to monitor for progressive neurologic deterioration or improvement Probable concussion, in the setting of a ground level fall, acute and present on admission -Q4hour neuro checks -Posterior head laceration repair was done in the ED. -Patient has been admitted or seen in the ED for multiple ground level falls. It is no longer safe for her to live at home alone and during previous visits, the patient was amenable to being placed in assisted living. -Discharge planning consult to initiate discussion with her family regarding fci placement. -PT/OT evaluations -Patient lost a significant amount of blood -Now with acute blood loss anemia, H/ H 06/02. Will transfuse if hemoglobin drops further Confusion, acute, likely secondary to concussion and possible infectious etiology, acute and present on admission -She has exhibited this on prior admissions and has been found previously to have a UTI. -U/A ordered by ED, but cancelled -due to previous history of UTIs at previous admissions, new U/A W/reflex to micro ordered -Suspect progressive dementia -TSH normal, will check B12, Folate, RPR, MRI of brain to r/o intracranial lesion. May need EEG to r/o non convulsive status -low dose seroquel tonight 12.5 qhs Chronic Hypertension, present on admission -admitting blood pressure is 163/73 -will continue current regimen of irbesartan 300 mg daily -She was previously taking metoprolol succinate 200 mg daily, I have changed to metoprolol tartrate 50 mg po bid to start in the am, with a one time dose of metoprolol tartrate 25 mg po X 1. Chronic hyperlipidemia, active, present on admission -patient is currently taking atorvastatin 10 mg daily. -last lipid panel reveals total cholesterol 178, LDL of 109 HDL of 62. -patient previously refused increase in atorvastatin dosage. -will obtain updated lipid panel, was not done during previous admission. Type 2 non insulin dependent diabetes, controlled with an A1c of 6, present on admission -patient is currently taking metformin 1000 mg twice daily -glucose fingerstick a.c. and HS with correctional insulin low-dose range. -medium carbohydrate, heart healthy diet -dietary consult, daughter reports she eats a low carbohydrate diet Moreno's disease, active -will continue patient's home regimen of levothyroxine 88 mcg daily. -last TSH on 06/30 was 1.78, will recheck TSH with reflex to T4. Lumbar spine disease, active -patient with minimal impairment in mobility with scoliosis of the lumbar spine and degenerative joint disease. -Holding home medication of meloxicam due to current risk of bleeding Disposition, patient needs placement, daughters are agreeable ultimately will need termite helper plan, spoke to bernie Monique, they would like her to ultimately go to [place] for Assisted living The patient is admitted as an inpatient to the hospital related to the severity of her symptoms and the risk for potential complications and adverse events. Quality VTE Deep Vein Thrombosis/Pulmonary Embolism Present on Admission: No
[2020-02-15] MEDS: INSULIN ASPART 100 UNIT/ML INSULN PEN SUBCUT (17:11)
[2020-02-15] MEDS: QUETIAPINE 25 MG TABLET 12.5 MG PO (17:59)
[2020-02-15 19:26] LABS: Vitamin B12 177 pg/mL (239-931)
[2020-02-15 21:00] VITALS: BP 157/96; PULSE 94; RESP 16; TEMP 36.7; O2SAT 98
--- NOTE | 2020-02-15 21:24 | PC.NURSE ---
Assumed care of pt at 1500. Pt setting off bed alarm. [employer]INTER RAILRO[employer] CAR in to assist. See PAINTER [employer]RO[employer] note for details. Pt continues to set off alarm states I am leaving your house. Reoriented to hospital and pt states I need to go to the bathroom. Unsteady gait noted pt yells at this service writer for asking her to use walker. Pt states you are a bitch, leave me alone. 1:1 Sitter assigned. Pt off unit for MRI, flight test data acquisition technician stated pt would not remain still but will submit the images taken. Pt continues to be agitated and uncooperative with care. MD notified, Seraquel ordered and given; no effect noted. Pt ambulated in halls several times. Refusing to allow staff assist with ambulation or ADL's. Provider notified again. Awaiting orders. Pt accepted to lay down in bed at approx 2100. Bed alarm on. Sitter at bedside.
[2020-02-15] MEDS: ATORVASTATIN 10 MG TABLET PO (21:41)
[2020-02-15] MEDS: LORazepam 2 MG/ML INJ 0.5 MG IV (22:12)
[2020-02-16] VITALS (7 sets, daily range): BP systolic 111–185; BP diastolic 69–95; PULSE 75–91; RESP 16–17; TEMP 36.3–36.6; O2SAT 96–100
--- NOTE | 2020-02-16 02:12 | PC.NURSE ---
Addendum entered by Latosha Jasso R.N. 02/16/20 05:17: Continues to be resistive when cares attempted and has been incontinent multiple times this shift; not always allowing staff to change her. This morning remains confused and resistive and frequently throwing legs over and/or through siderails stating she needs to get up and get dressed. Refusing to have gown put on so is lying in only incontinent brief with warm blankets over her. Original Note: Patient has been sleeping up until 0130 and found to have been incontinent of urine. Resistive when PHD INTERN's changing brief/linens but cooperative with this RN. Knows own name and birthdate but not age. Occasionally lapses into speaking Israeli. Breath sounds diminished at bases but CTA with RA sat of 99%. HRR. Denies nausea. BT hypoactive; abdomen is soft. Is able to turn herself in bed. Laceration to posterior head with donna; well approximated and without redness and no bleeding. Skin tear/bruising on left anterior LE unchanged. Skin is cool to touch. Did not UE tremoring. Denies pain. Refusing SCD's. Fall risk score is high and bed alarm is activated. Is being provided 1:1 sitter due to earlier behavior on evening shift.
[2020-02-16 05:23] LABS: Add Manual Diff / Slide Review NO; Basophils Absolute Auto 100 /uL (0-100); Basophils Percent Auto 0.8 % (0-2); Eosinophils Absolute Auto 100 /uL (0-450); Eosinophils Percent Auto 1.9 % (2-4); Hematocrit 27.4 % (36-46); Hemoglobin 9.6 g/dL (12.0-16.0); Lymphocytes Absolute Auto 1200 /uL (1100-4500); Lymphocytes Percent Auto 16.6 % (25-40); Mean Corpuscular HGB Conc 35.1 % (30-36); Mean Corpuscular Hemoglobin 32.6 PG (26-34); Mean Corpuscular Volume 92.7 fL (80-100); Monocytes Absolute Auto 500 /uL (0-900); Monocytes Percent Auto 6.5 % (3-14); Neutrophils Absolute Auto 5500 /uL (1500-7000); Neutrophils Percent Auto 74.2 % (50-75); Platelet Count 288 X10^3/uL (150-400); Red Blood Cell Count 2.95 X10^6/uL (4.0-5.2); White Blood Cell Count 7.4 X10^3/uL (4.5-11.0)
[2020-02-16 05:39] LABS: BUN Creatinine Ratio 23.6 (6-22); Blood Urea Nitrogen 17 mg/dL (7-17); Calcium 9.8 mg/dL (8.4-10.2); Carbon Dioxide 29 mmol/L (22-32); Chloride 93 mmol/L (98-107); Estimated Glomerular Filt Rate > 60.0 mL/min (>60); Glucose 142 mg/dL (80-110); HEMOLYSIS < 15 (0-50); Potassium 3.5 mmol/L (3.4-5.1); Sodium 130 mmol/L (137-145)
[2020-02-16 06:40] LABS: Vitamin B12 212 pg/mL (239-931)
[2020-02-16] MEDS: CEFTRIAXONE 1 GM/50 ML FROZ.PIGGY IV (08:29)
[2020-02-16] MEDS: METOPROLOL IR 50 MG TABLET PO ×2 (08:30→20:27)
[2020-02-16] MEDS: LEVOTHYROXINE 88 MCG TABLET PO (08:30)
[2020-02-16] MEDS: IRBESARTAN 150 MG TABLET 300 MG PO (08:30)
[2020-02-16] MEDS: MULTIVITAMIN 1 TABLET 1 TAB PO (08:30)
[2020-02-16] MEDS: SODIUM CHLORIDE 0.9% FLUSH 10 ML IV ×2 (08:31→20:54)
--- NOTE | 2020-02-16 10:17 | CM.DPC ---
Addendum entered by Maribel Posadas LPN 02/16/20 16:21: Daughters are updated via conference call. Provided RAL Opal's cell number and encouraged Char to call her as this facility thus far appears best option to accept pt and be able to meet pt's current needs. Data Center Project Manager Isadora is updated. Addendum entered by Maribel Posadas LPN 02/16/20 15:49: Received a vm from Aileen just now. Her nurse reviewed notes, agreed that only a memory care unit would meet pt's needs, not the lluvia unit. Aileen is reaching out to a sister facility: [facility] [place] and will ask the automation sales manager Sherice to reach out to [facility] dcp dept if a bed is available. Facility number is [phone]. Due to lateness of hour will leave to DCPlanning team for tomorrow to continue with this case. Will update family now. Addendum entered by Maribel Posadas LPN 02/16/20 14:23: Have now faxed referrals to: [facility] CC/SNF: Supriya. She will take to her team for review. Has no possibility of acceptance until Wednesday: 02/18. Referrals: to Memory Care/RAL: Opal. She and her nurse Violeta will review. Violeta will be over to assess pt. If all goes well and COVID-19 is negative Opal would be able to accept pt on Sunday 02/18 or Monday 02/19. She will need to talk with RONNIE Pardo for financial and plan of case specifics. Opal agrees to have her cell# [phone] given to Char. Referral given to Aileen: [facility] in [place] (prior to this was called [facility]). Aileen is very familiar with pt and her daughters as she had accepted pt last year and then the pt, who at that time was decisional, refused to admit. She has been in touch with Char and her sister Maribel frequently. Her only concern is that currently their Memory care portion of the facility is full. She does have a studio apt in the assisted section which may work for pt. She will have her nurse review the notes and then will reach out to Char. Char has indicated prior to this that [facility] would be her preference. DCP team to continue to follow. Will update Char again before leaving for the day. Addendum entered by Maribel Posadas LPN 02/16/20 11:26: Conference call held with daughters: LEAH Pardo and Maribel. They had multiple questions and Dr. Osullivan has agreed to speak later today with them to discuss specifics of MRI, new medications and overall POC. Addendum entered by Maribel Posadas LPN 02/16/20 10:59: COVID-19 testing: Dr. Llanes has planned to order a test yesterday: a review of Serology does not show this yet. Will update Dr. Osullivan and pt's RN Sarah. Will also now update pt's daughters. 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 Winn back from Brisa/Claire. She states that at this point the team will continue to consider this pt BUT pt needs to be without need for a 1/1 sitter and with behavior stabilizing. She will be on over the weekend and will continue to be available for discussion. Have spoken now with Eloisa Thomas/Margaux as this Memory Care facility is able to manage patients with dementia and challenging behaviors. Margaux confirms they have a female opening but the facility is unable to accept anyone new at this time. She states they are updated week to week. Plan to also discuss case with Nadine Olivas and then will send out initial referral inquiries to other snfs. Addendum entered by Maribel Posadas LPN 02/16/20 10:35: Spoke with Brisa this morning and stated this referral would be discussed in their team meeting and she would call back later with update. Further EMR review now of medications and nursing notes from sana and educational paraprofessional reveal: pt became increasingly confused and anxious with need for a 1/1 sitter. Sana shift nursing staff assisted pt several times to walk in the halls. Dr. Llanes started pt on 12.5 mg of Seroquel to be given each evening. Pt did take this medication. Dr. Osullivan has this morning started pt on a daily dose of IV Rocephin and culture/sensitivities are pending. Original Note: DCP: continued: case discussed in Team Rounds. EMR reviewed. Dr. Osullivan is taking over case today and will see pt later. OT was able to work with pt yesterday, SLUMS is planned for today. PT was present at Team Rounds: continues to recommend snf rehab after d/c. Plan remains eventual transition to long-term care setting that will support pt's needs once she is deemed stable and predictable. r
--- NOTE | 2020-02-16 10:35 | OT.IP.TRT ---
Current Diagnoses Unspecified injury of head, initial encounter (02/14/20) Occupational Therapy Treatment Note M2 OT-IP Current Condition Start: 02/15/20 16:53 Freq: Status: Active Protocol: Document 02/15/20 15:45 [facility] (Rec: 02/15/20 17:16 [facility] [id number]) Occupational Therapy Current Condition Current Condition Evaluation Date 02/15/20 Treatment Diagnosis GLF, confusion,probable concussion Diagnosis Onset Date 02/15/20 M3 OT- IP Subjective and Pain Start: 02/15/20 16:53 Freq: Status: Active Protocol: Document 02/16/20 12:44 [facility] (Rec: 02/16/20 13:07 [facility] [email or web address]) OT- Subjective Occupational Therapy Visit Type Type Progress Note Visit Start Time 10:00 Visit Stop Time 10:35 Total Visit Minutes 35 Notes partial co-treat with P.T. OT Pain Assessment Pain When Pain Assessed At Rest Pain Present Pain Present Denied Pain M4 OT- IP ADL's Start: 02/15/20 16:53 Freq: Status: Active Protocol: Document 02/16/20 12:44 [facility] (Rec: 02/16/20 13:07 C[facility] [id number]) OT [id number] Comments OT Self-Feeding Comments Not meal time OT ADL-Grooming General Evaluation Grooming Ability Standby Assistance Areas Needing Assistance Combing/Brushing Hair,Face Washing Comments OT Grooming Comments Standing at sink with multiple LOB but able to regain using the counter OT ADL-Oral Care General Eval Oral Care Ability Standby Assistance Areas of Assistance Brushing Teeth,Retrieving/Set- Up of Items Comments Oral Care Comments Standing at sink with multiple LOB but able to regain using the counter. OT ADL-Dressing General Eval Lower Body Dressing Ability Minimal Assistance Areas Needing Assistance Underpants/Brief Comments OT Dressing Comments Pt donned clean brief seated on toielt with min a for threading feet. OT ADL-Toileting General Evaluation Toileting Ability Contact Guard Assistance Devices Toileting Assistive Devices Grab Bars Comments OT Toileting Comments Pt urinated seated on the toilet and performed pericare. Poor sitting balance on the toilet. OT ADL-Bathing Comments OT Bathing Comments Not performed M5 OT- IP IADL's Start: 02/15/20 16:53 Freq: Status: Active Protocol: Document 02/15/20 15:45 [facility] (Rec: 02/15/20 17:16 [facility] [id number]) OT-Instrumental Activities of Daily Living Home Safety Awareness Home Safety Comments Pt very confused, unsteady on her feet and not thinking well and at this time if going home would requirs someone to stay with her and manage all IADL and assist as needed for ADl needs. M6 OT- IP Functional Cognition Start: 02/15/20 16:53 Freq: Status: Active Protocol: Document 02/16/20 12:44 [facility] (Rec: 02/16/20 13:07 CGR [email or web address]) Cognitive Factors Limiting Selfcare Function Cognitive Ability Level of Alertness Alert Patient Orientation Name,Place Attention Span Ability Unable to Focus,Unable to Sustain Attention Ability to Follow Commands Able to Follow One Step Commands with Increased Time, Able to Follow One Step Commands with Repetition Safety Awareness Underestimates Need for Assistance Problem Solving Ability Unable to Identify Errors, Needs Assist to Identify Solutions Cognitive Comments Cognitive Assessment Comments Pt appeared semi lucid today, stating that she was [place] but becomes agitated when asked orientation questions. M7 OT- IP Mobility and Balance Start: 02/15/20 16:53 Freq: Status: Active Protocol: Document 02/16/20 12:44 [facility] (Rec: 02/16/20 13:07 [facility] [email or web address]) OT- Bed Mobility Assessment Rolling Type of Rolling Roll to Left Level of Assistance Contact Guard Assistance Supine to Sit Supine to Sit Assist Moderate Assistance Sit to Supine Sit to Supine Assist Total Assistance,2 Person Assistance Scooting Scooting to Edge of Bed Minimal Assistance OT-Transfer Assessment Sit to and From Stand Sit to and from Stand Contact Guard Assistance Transfers Transfer Ability Contact Guard Assistance Technique Transfer Destination Bed,Toilet Transfer Technique Stand Step Pivot Devices Transfer Assistive Devices Gait Belt,4 Wheeled Walker Comments Mobility Comments Pt got out of bed and mobilized to the bathroom with very unsteady gate and multiple LOB that did not require assist to regain balance. OT- Balance Assessment Sitting Balance and Reactions Static Sitting Balance Ability Fair Dynamic Sitting Balance Ability Fair M8 OT- IP Objective Assessments Start: 02/15/20 16:53 Freq: Status: Active Protocol: Document 02/15/20 15:45 [facility] (Rec: 02/15/20 17:16 [facility] [id number]) OT Gross Range of Motion Upper Extremity Range of Motion ROM Impairments WFL for toileting and bed mobility needs. OT Strength Comments Strength Comments At least 3+/5, not able to formally assess. M9 OT- IP Assessment and Plan Start: 02/15/20 16:53 Freq: Status: Active Protocol: Document 02/16/20 12:44 [facility] (Rec: 02/16/20 13:07 [facility] [email or web address]) OT Summary Assessment and Plan Potential Rehabilitation Potential Good Analytic Complexity at Evaluation Low Summary OT Impairments Balance,Functional Cognition, Functional Mobility,Dressing, Toileting,Bathing,Toilet Transfers,Shower Transfers, Activity Tolerance Progress Towards Goals Slow Progress due to Medical Issues,Slow Progress due to Cognition Assessment Summary Pt presents as more agreeable to activities this AM. Pt allowed gait belt use and ambulated to BR. Pt donned brief seated on toilet and ambulated to sink with 4ww for ADLs. At end of ADLs at sink, pt leaned over and rested head on the counter. Pt then became mostly unresponsive. She was assisted to sitting on the 4ww and rolled to bedside . Total A x 2 for sit to stand and transfer to bed and for sit to supine. Pt snoring upon laying in bed. AM BP 185/95, Sitting BP after becoming minimally responsive 124/57, supine in bed after becoming unresponsive 142/82. Attempted sternal rub and finger nail bed pinch with minimal response. Nursing present and to notify MD. Pt left supine in bed asleep, bed fall alarm on and nursing present. Unable to perform SLUMS on this date . Goals Grooming Goal Independent Dressing Goal Independent Toileting Goal Independent Bathing Goal Standby Assistance Toilet Transfer Goal Independent Shower Transfer Goal Standby Assistance Days to Meet Goals 6 Frequency of Treatment Frequency Of Treatment Once a Day Treatment Plan OT Treatment Plan ADL Training,Functional Cognition Training,Functional Mobility,Patient/Family Education,Discharge Planning Other Treatment Recommendations and Next SLUMS Treatment Focus Discharge Recommendations OT Discharge Recommendations SNF Rehab Home Equipment Needs defer to SNF Transportation Needs at Discharge Wheelchair/Cabulance
--- NOTE | 2020-02-16 13:04 | PT.IPTN ---
Current Diagnoses Unspecified injury of head, initial encounter (02/14/20) Physical Therapy Treatment Note M2 PT-IP Current Condition Start: 02/15/20 08:28 Freq: NEEDED Status: Active Protocol: Document 02/15/20 09:10 [facility] (Rec: 02/15/20 12:52 [id number]) Physical Therapy Current Condition Current Condition Evaluation Date 02/15/20 Treatment Diagnosis GLF, confusion, possible UTI and generalized weakness. Onset Date 02/13/20 Weight Bearing Status Weight Bearing Status Full Weight Bearing M3 PT-IP Subjective Start: 02/15/20 08:28 Freq: NEEDED Status: Active Protocol: Document 02/16/20 10:12 [facility] (Rec: 02/16/20 13:04 [id number]) Subjective Physical Therapy Visit Type Type Treatment Note Visit Start Time 10:12 Visit Stop Time 10:35 Total Visit Minutes 23 Notes co-tx with OT Physical Therapy Visit Comments Patient Comments Pt was on toilet for self care with OT upon PT arrival. M4 PT-IP Mobility and Gait Start: 02/15/20 08:28 Freq: NEEDED Status: Active Protocol: Document 02/16/20 10:12 [facility] (Rec: 02/16/20 13:04 [id number]) PT-Bed Mobility Assessment Sit to Supine Sit to Supine Total Assistance PT-Transfer Assessment Sit to and From Stand Sit to and from Stand Minimal Assistance,Use of Upper Extremities Equipment Transfer Assistive Device Gait Belt,4 Wheeled Walker Orthotic/Prosthetic Devices or Brace: No Transfers Transfer Destination Bed,Chair,Toilet Transfer Technique with 4WW Transfer Ability Level of Assist Minimal Assistance,Total Assistance Comments Mobility Comments Pt was on toilet for self care with OT upon PT arrival. She was able to stand up with OT min A then used 4WW to amb with this PT min A to sink counter for sink counter. Pt needed assistance to navigate 4WW since she often caught on door frame and wall. Pt then stood infront of counter with 1 UE support for self care. She cont mistaken lifeline as soap. However, pt suddenly lean against table and went unresponsive. Pt needed both PT and OT for support and transferred her back to seating position on 4WW. Pt slept soundly and attempted sternum rub but unsuccessful. BP 124/57 HR 56 RN came in attempted to wake pt up but also unsuccessful. Pt was then transferred back from 4WW to bed with 3PA total asssit. Pt' s BP 142/82 HR 63 in supine but remained unresponsive but sleeping soundly. left pt with RN and call light within reach. Gait Assessment Gait Gait Assistance Required: Minimum Assistance Distance (Feet) 6 Able to Maintain Weight Bearing Status No During Gait Assistive Devices Assistive Device Gait Belt,Front Wheeled Walker Orthotic/Prosthetic Devices or Brace: No Gait Deviations General Gait Pattern Antalgic,Decreased Stride Length,Decreased Feet Clearance,Festinating,Flexed Trunk Factors Limiting Gait Function Factors Limiting Gait Function Decreased Activity Tolerance, Decreased Strength,Difficulty Following Directions,Limited Range of Motion,Poor Balance, Poor Safety Awareness Comments Gait Comments see mobility comments. Stair Climbing Assessment Comments Stair Climbing Comments did not assess d/t weakness. M5 PT-IP Objective Assessments Start: 02/15/20 08:28 Freq: NEEDED Status: Active Protocol: Document 02/15/20 09:10 (Rec: 02/15/20 12:52 [id number]) Orientation Orientation/Cognition Level of Alertness Confusional State Orientation Name,Age,Birthday,Month,Date, Year Language Function Ability Peruvian as Second Language, Hard of Hearing Safety Awareness Decreased Safety Awareness Memory Description No Deficits Noted,Short Term Impaired Comments Pt overall able to answer simple questions but with inconsistent answers regarding her PLOF/ social history. She often spoke out her random thoughts. Pt is confused with baby powed as tooth paste and lifeline as her hand soap . Pt is easily irritated with instructions. Gross Range of Motion Upper Extremity ROM Assessment Right Impaired Impairments RUE is unable to reach overhead and needed L UE to assist Lower Extremity ROM Assessment Within Functional Limits Strength Upper Extremity Strength Assessment Right Impaired Shoulder 3-/5 Elbow 4/5 Wrist 4/5 Lower Extremity Strength Assessment Within Functional Limits M6 PT-IP Treatment Start: 02/15/20 08:28 Freq: NEEDED Status: Active Protocol: Document 02/15/20 09:10 (Rec: 02/15/20 12:52 [email or web address]) Physical Therapy Treatment Education Education Provided Safety M7 PT-IP Assessment and Plan Start: 02/15/20 08:28 Freq: NEEDED Status: Active Protocol: Document 02/16/20 10:12 (Rec: 02/16/20 13:04 HH [id number]) PT Summary Assessment and Plan Potential Rehabilitation Potential Good Status of Condition at Evaluation Evolving Summary Impairments ROM,Strength,Balance,Cognition ,Transfers,Gait,Activity Tolerance Progress Towards Goals Slow Progress due to Medical Issues Assessment Summary Pt had an episode of being unresponsive during this session who was standing in front of counter for self care and suddently fell into sleep soundly, who needed total assist to transfer back to bed . Pt's BP in seated was 124/56 but went back to 142/82. According to nursing BP history, pt tends to have HTN so this episode might be relate to orthostatic hypotension. Will cont monitor during session. Goals Bed Mobility Goal Standby Assistance Transfer Goal Standby Assistance,Front Wheeled Walker Gait Goal Standby Assistance,Front Wheel Walker Gait Distance 300 Days to Meet Goals 5 Frequency of Treatment Frequency Of Treatment Once a Day Treatment Plan Physical Therapy Treatment Plan Bed Mobility Training,Transfer Training,Gait Training, Therapeutic Exercise,Balance Retraining,Discharge Planning Other Recommendations and Next Treatment check vital Focus closed CGA for mobility transfer and gait training as gabriella Recommendations To Nursing Amount of Assist Needed 1 Person Assist Discharge Recommendations PT Discharge Recommendations SNF Rehab Equipment Needed for Home Before FWW if d/c home Discharge Transportation Needs at Discharge Wheelchair/Cabulance
[2020-02-16] MEDS: INSULIN ASPART 100 UNIT/ML INSULN PEN SUBCUT ×2 (13:24→17:27)
--- NOTE | 2020-02-16 14:57 | PC.NURSE ---
Day shift note: Patient awake and alert to self only, unaware of situation and place, or date this am. Sleepy and drowsy this am, up OOB with PT/OT and became very fatigued post therapy. VSS. Sitting up in bed having lunch and pleasantly conversation and responding to questions. Occasionally will state random thoughts. Received bed bath this shift. X 1 incontinent void in brief. X 1 void in BSC. High fall risk precautions maintained and 1:[address] Osullivan to see patient this afternoon. No c/o pain or discomfort. Refusing SCDs, otherwise cooperative with other interventions. DOes not call for staff assistance.
[2020-02-16] MEDS: ACETAMINOPHEN 325 MG TABLET 650 MG PO (16:33)
[2020-02-16 17:55] LABS: COVID19 -Nasal RAPID Negative (Negative)
--- NOTE | 2020-02-16 19:05 | PM.PN.1 ---
Subjective Subjective Date Patient Seen: 02/16/20 Time Patient Seen: 19:06 Interval history: Ms. Carey Mtz is an 79-year-old female patient with a complex medical history significant for type 2 noninsulin dependent diabetes, hypertension, hyperlipidemia, Moreno's thyroiditis, irritable bowel syndrome, lumbar sacral spine pain a history of scoliosis, diverticulosis and prior TIA who was admitted after a ground level fall. She was found to have a low B12 level as well as a UTI for which both are now being treated. She is planned for discharge to a SNF, and she is medically stable for transfer once she has an accepting facility. Exam Vital Signs (past 8 hours): - 02/16/20 15:00 02/16/20 16:00 Temperature 97.8 F Pulse Rate 91 H Respiratory Rate 16 Blood Pressure 139/93 H Pulse Oximetry 99 100 Oxygen Delivery Method Room Air Oxygen Flow Rate 0 Narrative Exam Narrative: Gen:Elderly female lying in bed Lungs: decreased breath sounds but clear to auscultation CV: RRR nl S1 S2 2/6 HILTON Abd; soft/ non tender Scalp: laceration on posterior scalp with [address] no active bleeding Objective Labs Result Diagrams: 02/16/20 05:02 02/16/20 05:02 Labs: Laboratory Results - last 24 hr 02/15/20 02/16/20 02/16/20 05:33 05:02 05:02 WBC 7.4 RBC 2.95 L Hgb 9.6 L Hct 27.4 L MCV 92.7 MCH 32.6 MCHC 35.1 RDW 14.0 Plt Count 288 Neut % (Auto) 74.2 Lymph % (Auto) 16.6 L [place] % (Auto) 6.5 Eos % (Auto) 1.9 L Baso % (Auto) 0.8 Neut # (Auto) 5500 Lymph # (Auto) 1200 [place] # (Auto) 500 Eos # (Auto) 100 Baso # (Auto) 100 Sodium 130 L Potassium 3.5 Chloride 93 L Carbon Dioxide 29 BUN 17 Creatinine 0.72 Estimated GFR > 60.0 BUN/Creatinine Ratio 23.6 H Glucose 142 H Calcium 9.8 Vitamin B12 177 L COVID-19 PCR 02/16/20 02/16/20 02/16/20 05:02 14:30 14:30 WBC RBC Hgb Hct MCV MCH MCHC RDW Plt Count Neut % (Auto) Lymph % (Auto) [place] % (Auto) Eos % (Auto) Baso % (Auto) Neut # (Auto) Lymph # (Auto) [place] # (Auto) Eos # (Auto) Baso # (Auto) Sodium Potassium Chloride Carbon Dioxide BUN Creatinine Estimated GFR BUN/Creatinine Ratio Glucose Calcium Vitamin B12 212 L COVID-19 PCR Cancelled Negative Assessment & Plan Assessment & Plan narrative: Carey Mtz is admitted for a probable concussion to monitor for progressive neurologic deterioration or improvement 1. Probable concussion, in the setting of a ground level fall, acute and present on admission -Q4hour neuro checks -Posterior head laceration repair was done in the ED. -Patient has been admitted or seen in the ED for multiple ground level falls. It is no longer safe for her to live at home alone and during previous visits, the patient was amenable to being placed in assisted living. -Appreciate social work assistance with placement. -PT/OT evaluations -Hg dropped initially, stabilized on repeat. Continue to monitor -further evaluation as noted above. 2. Confusion, acute, likely secondary to concussion and possible infectious etiology, acute and present on admission -She has exhibited this on prior admissions and has been found previously to have a UTI. UA was positive this admission and she has been started on ceftraixone. Acute confused may be related to toxic/metabolic enecphalopathy from acute cystitis, b12 deficiency or progressie dementia. -UA as noted above -continue ceftriaxone x3 days - progressive dementia evaluation as noted below -TSH normal, b12 decreased and has been started on supplementation. Folate, RPR pending, MRI with significant motion artifacts. There is a possible diffusion abnormality consistent with possible CVA, however patient with no lateralizing symptoms on exam. It will be difficult to tell if this truly represents an acute CVA given patient's history. -low dose seroquel started 3. Chronic Hypertension, present on admission -admitting blood pressure is 163/73 and has improved today. -will continue current regimen of irbesartan 300 mg daily -She was previously taking metoprolol succinate 200 mg daily, continue at 50 mg BID. 4. Chronic hyperlipidemia, active, present on admission -patient is currently taking atorvastatin 10 mg daily. -last lipid panel reveals total cholesterol 178, LDL of 109 HDL of 62. -patient previously refused increase in atorvastatin dosage. -will obtain updated lipid panel, was not done during previous admission. 5. Type 2 non insulin dependent diabetes, controlled with an A1c of 6, present on admission -patient is currently taking metformin 1000 mg twice daily -glucose fingerstick a.c. and HS with correctional insulin low-dose range. -medium carbohydrate, heart healthy diet -dietary consult, daughter reports she eats a low carbohydrate diet 6. Moreno's disease, active -will continue patient's home regimen of levothyroxine 88 mcg daily. -last TSH on 06/30 was 1.78. Repeat TSH here unremarkable. 7. Lumbar spine disease, active -patient with minimal impairment in mobility with scoliosis of the lumbar spine and degenerative joint disease. -Holding home medication of meloxicam due to current risk of bleeding Disposition, patient needs placement, daughters are agreeable ultimately will need long-term plan, spoke to daughter Kayden, they would like her to ultimately go to [place] for Assisted living. Appreciate social work assitance with short term placement nearby with SNF placement followed by assisted living here and will transfer to [place] once COVID restrictions are relaxed. Plan for discharge to SNF once she has an accepting facility, hopefully in the next 24-48 hours. The patient is admitted as an inpatient to the hospital related to the severity of her symptoms and the risk for potential complications and adverse events. Quality VTE Deep Vein Thrombosis/Pulmonary Embolism Present on Admission: No
[2020-02-16] MEDS: ATORVASTATIN 10 MG TABLET PO (20:27)
[2020-02-16] MEDS: QUETIAPINE 25 MG TABLET 12.5 MG PO (20:27)
--- NOTE | 2020-02-16 21:44 | PC.NURSE ---
Pt remains confused, but knew details about her daughter and her best friend that had called her. She knew she was in the hospital and had a hole in her head. She rates her head pain 7/10. 650 mg APAP helpful. She was cooperative and redirectable. She has been able to sleep and ate all of her dinner. She has been incontinent and also able to use the BSC. Her stand and pivot was strong this shift. VSS.
[2020-02-17] VITALS: O2SAT 96
[2020-02-17 08:00] VITALS: BP 148/84; PULSE 88; RESP 18; TEMP 36.3; O2SAT 99
[2020-02-17] MEDS: LEVOTHYROXINE 88 MCG TABLET PO (08:12)
[2020-02-17] MEDS: IRBESARTAN 150 MG TABLET 300 MG PO (08:12)
[2020-02-17] MEDS: METOPROLOL IR 50 MG TABLET PO ×2 (08:13→20:21)
[2020-02-17] MEDS: CEFTRIAXONE 1 GM/50 ML FROZ.PIGGY IV (08:13)
[2020-02-17] MEDS: CYANOCOBALAMIN (VITAMIN B-12) 500 MCG TABLET 1000 MCG PO (08:13)
[2020-02-17] MEDS: SODIUM CHLORIDE 0.9% FLUSH 10 ML IV ×2 (08:13→20:23)
[2020-02-17] MEDS: MULTIVITAMIN 1 TABLET 1 TAB PO (08:13)
[2020-02-17] MEDS: INSULIN ASPART 100 UNIT/ML INSULN PEN SUBCUT ×2 (08:14→20:22)
[2020-02-17 09:21] LABS: Add Manual Diff / Slide Review NO; Basophils Absolute Auto 100 /uL (0-100); Basophils Percent Auto 1.4 % (0-2); Eosinophils Absolute Auto 100 /uL (0-450); Hematocrit 29.4 % (36-46); Hemoglobin 10.3 g/dL (12.0-16.0); Lymphocytes Absolute Auto 1000 /uL (1100-4500); Lymphocytes Percent Auto 14.6 % (25-40); Mean Corpuscular Hemoglobin 32.7 PG (26-34); Mean Corpuscular Volume 93.4 fL (80-100); Monocytes Absolute Auto 400 /uL (0-900); Neutrophils Absolute Auto 5500 /uL (1500-7000); Platelet Count 333 X10^3/uL (150-400); Red Blood Cell Count 3.14 X10^6/uL (4.0-5.2); Red Cell Distribution Width 14.3 % (11.6-14.8); White Blood Cell Count 7.1 X10^3/uL (4.5-11.0)
[2020-02-17 09:34] LABS: BUN Creatinine Ratio 30.5 (6-22); Blood Urea Nitrogen 25 mg/dL (7-17); Calcium 9.7 mg/dL (8.4-10.2); Carbon Dioxide 26 mmol/L (22-32); Chloride 91 mmol/L (98-107); Estimated Glomerular Filt Rate > 60.0 mL/min (>60); Glucose 161 mg/dL (80-110); Magnesium 1.8 mg/dL (1.6-2.3); Potassium 4.2 mmol/L (3.4-5.1); Sodium 128 mmol/L (137-145)
[2020-02-17 09:36] LABS: HEMOLYSIS 101 (0-50)
--- NOTE | 2020-02-17 10:35 | CM.DPC ---
Addendum entered by Ksenia Higuera R.N. 02/17/20 15:31: It is noted that a referral was also sent over to [facility], to Supriya in admissions. Called facility, and Mateus answered the phone. Stated that there was no one in admissions today, but would text inquiry regarding to referral to admissions office. Addendum entered by Ksenia Higuera R.N. 02/17/20 13:10: Received a phone call from Sherice, she is nurse performing virtual assessment on patient from [facility] in [place]. Stated that she can do assessment by reviewing notes. Asked for her phone number. It is: [phone]. Her fax number is: [phone]. She mentioned that they have also been in contact with family. She also indicated that they have several [facility] facilities through out the , and may have one close to the [place] area for her to get [facility]. She is requesting COVID results be faxed to her, as well as recent notes. She will plan on assessment for tomorrow, and will be in touch. Stated that they can also accept Wednesday, but hospital will need to provide transportation. She also indicated that she will fax over a form for plan of care that will need to be signed by the hospitalist. She is planning on sending it over tomorrow. Will send her over current notes from today. Have not yet heard back from patient's daughter. Addendum entered by Ksenia Higuera R.N. 02/17/20 11:52: Violeta at [facility] stated that they can accept patient on Wednesday. They have a room picked out for her. She is unclear at this time if daughter has spoken to Opal, environmental control administrator, regarding details. Attempted to call Catherine in [place], it was her personal voice mail, and left her a message regarding acceptance. Also let her know that [facility] can accept patient, not the [place] office. Will await her call back. Brisa at [facility] also stated that the concern is one on one, and will also need to be resolved before acceptance. Original Note: DCP Cont: Violeta at [facility] called and stated that she would be by to see patient between 10:00-11:00. Had also received a voice mail from Sy Reich at [facility] in [place]. His phone number is: [phone]. He mentioned that their sister facility in [place] did not have memory care, and referred to their [place] office. Spoke to Sy and updated him. He mentioned that they can possibly accept patient on Wednesday, and that their nurse would need to do a virtual assessment. Also, would need a COVID test good for 48 hours. He stated that he would fax over their form that they would need for orders. He would also be in touch with daughters. Violeta from [facility] is here seeing patient. She stated, it's highly likely that they can accept patient. Stated that they can't accept until Wednesday. She will touch base with this transplant case manager after she meets with patient. P: DCP to continue to follow. Will update daughter later today on assessment, and options. Ksenia Higeura RN/Research Mechanic
[2020-02-17] MEDS: ACETAMINOPHEN 325 MG TABLET 650 MG PO (10:59)
--- NOTE | 2020-02-17 11:35 | PT-IP ANOTE ---
Pt was laying in bed with nurse when arrived, nurse in room. Pt refused PT today stating I didnt' have a good day yesterday and need to take a step back. I am to tired today. Discussion with nurse, patient was active in transfers out of bed and had a shower this am. CASKET UPHOLSTERER educated patient on importance of mobilization to continue to improve strength for mobility but continued to declined No, I can't. Pt agreed to work with PT tomorrow when asked.
--- NOTE | 2020-02-17 14:03 | CM.DPC ---
Addendum entered by Ksenia Higuera R.N. 02/17/20 14:14: Fax to Sherice at [facility] did not go through. Her correct fax number is: [phone]. Just resent information. Original Note: DCP Cont: Spoke to Dr. Osullivan who had just recently gotten off the phone with patient's daughter. He mentioned, daughter is hopeful that her [facility], other than a [facility] care unit, for she is improving. Let him know that this home health care case manager has left a message with daughter, and she has not yet gotten back. Did let him know that this home health care case manager can reach out again to March at [facility], to let her know that patient has shown some cognitive improvement today. Checked in with March at [facility] and gave her update. Let her know that at this time, patient does not need one on one sitter. According to note, she did refuse P.T. today. Brisa mentioned that they would not be able to accept her until Wednesday, possibly Wednesday, and that they would need to discuss at their team meeting. She also indicated that Oliver, from facility, may need to come over to assess patient. At this time, accepting facilities are [facility] in [place], and potentially [facility]. Will attempt again to reach out to daughter. P: DCP to continue to follow. Patient has accepting facilities for Wednesday. Ksenia Higuera RN/Scroll Shear Operator
--- NOTE | 2020-02-17 14:05 | OT.IP.TRT ---
Current Diagnoses Unspecified injury of head, initial encounter (02/14/20) Occupational Therapy Treatment Note M2 OT-IP Current Condition Start: 02/15/20 16:53 Freq: Status: Active Protocol: Document 02/15/20 15:45 CCC (Rec: 02/15/20 17:16 CCC [id number]) Occupational Therapy Current Condition Current Condition Evaluation Date 02/15/20 Treatment Diagnosis GLF, confusion,probable concussion Diagnosis Onset Date 02/15/20 M3 OT- IP Subjective and Pain Start: 02/15/20 16:53 Freq: Status: Active Protocol: Document 02/17/20 14:45 CGR (Rec: 02/17/20 14:55 CGR [id number]) OT- Subjective Occupational Therapy Visit Type Type Progress Note Visit Start Time 10:29 Visit Stop Time 10:37 Total Visit Minutes 38 Notes split session on this date. [id number] and returned later [id number] for SLUMS OT Pain Assessment Pain When Pain Assessed At Rest Pain Present Pain Present Pain Reported Location hands Scale Used did not rate Management Techniques Modification of Treatment M4 OT- IP ADL's Start: 02/15/20 16:53 Freq: Status: Active Protocol: Document 02/17/20 14:45 CGR (Rec: 02/17/20 14:55 CGR [id number]) OT EOS-Jqme-Svowbro Comments OT Self-Feeding Comments Checked on pt during lunch time. Pt feeds with set up. OT ADL-Grooming General Evaluation Grooming Ability Contact Guard Assistance Areas Needing Assistance Combing/Brushing Hair Comments OT Grooming Comments Pt stood at sink for washing hands once in AM session and again in PM session. Both times with LOB where pt was able to regain her balance without physical assit. OT ADL-Oral Care Comments Oral Care Comments Not performed OT ADL-Dressing Comments OT Dressing Comments Not performed OT ADL-Toileting General Evaluation Toileting Ability Standby Assistance Devices Toileting Assistive Devices Grab Bars Comments OT Toileting Comments seated on toielt. Pt requested to go to the bathroom in the middle of the SLUMS assessment . OT ADL-Bathing Comments OT Bathing Comments Pt just completed shower with nursing when OT entered. M5 OT- IP IADL's Start: 02/15/20 16:53 Freq: Status: Active Protocol: Document 02/15/20 15:45 CCC (Rec: 02/15/20 17:16 [facility] [id number]) OT-Instrumental Activities of Daily Living Home Safety Awareness Home Safety Comments Pt very confused, unsteady on her feet and not thinking well and at this time if going home would requirs someone to stay with her and manage all IADL and assist as needed for ADl needs. M6 OT- IP Functional Cognition Start: 02/15/20 16:53 Freq: Status: Active Protocol: Document 02/17/20 14:45 CGR (Rec: 02/17/20 14:55 CGR [email or web address]) Cognitive Factors Limiting Selfcare Function Cognitive Ability Level of Alertness Alert,Confusional State Patient Orientation Name,Place Attention Span Ability Capable of Focused Attention, Capable of Sustained Attention Ability to Follow Commands Able to Follow One Step Commands with Increased Time, Able to Follow One Step Commands with Repetition Memory Description Immediate Impaired,Short Term Impaired,Working Impaired Safety Awareness Underestimates Need for Assistance Problem Solving Ability Unable to Identify Errors, Needs Assist to Identify Solutions Cognitive Tests SLUMS Pt participated in SLUMS in PM session today. She completed the assessment and scored a 7/ 30. Pt had difficulty with all of the assessment indicating significant dementia. M7 OT- IP Mobility and Balance Start: 02/15/20 16:53 Freq: Status: Active Protocol: Document 02/17/20 14:45 CGR (Rec: 02/17/20 14:55 CGR [email or web address]) OT- Bed Mobility Assessment Supine to Sit Supine to Sit Assist Standby Assistance Sit to Supine Sit to Supine Assist Standby Assistance Scooting Scooting to Edge of Bed Standby Assistance OT-Transfer Assessment Sit to and From Stand Sit to and from Stand Contact Guard Assistance Transfers Transfer Ability Contact Guard Assistance, Minimal Assistance Technique Transfer Destination Bed,Toilet Transfer Technique Stand Step Pivot Devices Transfer Assistive Devices Gait Belt,4 Wheeled Walker Comments Mobility Comments Pt appears more steady in todays session but still with multiple LOB during activities . OT- Balance Assessment Sitting Balance and Reactions Static Sitting Balance Ability Fair M8 OT- IP Objective Assessments Start: 02/15/20 16:53 Freq: Status: Active Protocol: Document 02/15/20 15:45 [facility] (Rec: 02/15/20 17:16 [facility] [id number]) OT Gross Range of Motion Upper Extremity Range of Motion ROM Impairments WFL for toileting and bed mobility needs. OT Strength Comments Strength Comments At least 3+/5, not able to formally assess. M9 OT- IP Assessment and Plan Start: 02/15/20 16:53 Freq: Status: Active Protocol: Document 02/17/20 14:45 CGR (Rec: 02/17/20 14:55 CGR [id number]) OT Summary Assessment and Plan Potential Rehabilitation Potential Good Analytic Complexity at Evaluation Low Summary OT Impairments Balance,Functional Cognition, Functional Mobility,Dressing, Toileting,Bathing,Toilet Transfers,Shower Transfers, Activity Tolerance Progress Towards Goals Slow Progress due to Medical Issues,Slow Progress due to Cognition Assessment Summary Pt agreeable to limited activity this AM but agreeable to SLUMS in PM. Pt scored 7/ 30 indicating severe dementia. This pt is not safe to be home alone. Pt will benefit from SNF and then / care unless her cognitive state improves. Goals Grooming Goal Independent Dressing Goal Independent Toileting Goal Independent Bathing Goal Standby Assistance Toilet Transfer Goal Independent Shower Transfer Goal Standby Assistance Days to Meet Goals 5 Frequency of Treatment Frequency Of Treatment Once a Day Treatment Plan OT Treatment Plan ADL Training,Functional Cognition Training,Functional Mobility,Patient/Family Education,Discharge Planning Other Treatment Recommendations and Next ADLs standing Treatment Focus Discharge Recommendations OT Discharge Recommendations SNF Rehab Home Equipment Needs defer to SNF Transportation Needs at Discharge Wheelchair/Cabulance
--- NOTE | 2020-02-17 14:43 | P.PN_ITS ---
Subjective Subjective Date Patient Seen: 02/17/20 Time Patient Seen: 14:43 Interval history: Ms. Carey Mtz is an 79-year-old female patient with a complex medical history significant for type 2 noninsulin dependent diabetes, hypertension, hyperlipidemia, Moreno's thyroiditis, irritable bowel syndrome, lumbar sacral spine pain a history of scoliosis, diverticulosis and prior TIA who was admitted after a ground level fall. She was found to have a low B12 le cassie as well as a UTI for which both are now being treated. According to her daughter she had an abrupt change as far as her weakness inability to care for herself over the past week. The patient also shows some improvement with IV antibiotics and B12 supplementation, however she is still only alert and oriented x1-2. She is planned for discharge to a SNF, and she is medically stable for transfer once she has an accepting facility. Patient denies any complaints today including abdominal pain, dysuria, or urinary frequency. She did endorse urinary frequency recently. Exam Vital Signs (past 8 hours): - 02/17/20 08:00 Temperature 97.4 F L Pulse Rate 88 Respiratory Rate 18 Blood Pressure 148/84 H Pulse Oximetry 99 Oxygen Delivery Method Room Air Oxygen Flow Rate 0 Narrative Exam Narrative: GENERAL APPEARANCE: Elderly female, well developed well nourished, in no acute distress. SKIN: Inspection of the skin reveals no rashes, ulcerations or petechiae. HEENT: Normocephalic with posterior laceration that is healing, extraocular muscles are intact, oropharynx is clear and mucous membranes are moist, neck is supple without adenopathy NECK: Supple and symmetric. There was no thyroid enlargement, and no tenderness, or masses were felt. CHEST: Normal AP diameter and normal contour without any kyphoscoliosis. LUNGS: Auscultation of the lungs revealed no wheezes, rhonchi, or rales. CARDIOVASCULAR: There was a regular rate and rhythm without any murmurs, gallops, rubs. Peripheral pulses were 2+ and symmetric. ABDOMEN: Soft and nontender with normal bowel sounds. No ascites was noted. MUSCULOSKELETAL: There was no tenderness or effusions noted. Muscle strength and tone were normal. EXTREMITIES: No cyanosis, clubbing or edema. NEUROLOGIC: Alert and oriented x 1-2 (thinks she is in the detention, to name). Normal affect. No focal neurological deficits including weakness or facial asymmetry. Objective Labs Result Diagrams: 02/17/20 09:23 02/17/20 09:36 Labs: Laboratory Results - last 24 hr 02/16/20 02/16/20 02/17/20 14:30 14:30 09:23 WBC 7.1 RBC 3.14 L Hgb 10.3 L Hct 29.4 L MCV 93.4 MCH 32.7 MCHC 35.0 RDW 14.3 Plt Count 333 Neut % (Auto) 77.0 H Lymph % (Auto) 14.6 L [place] % (Auto) 6.0 Eos % (Auto) 1.0 L Baso % (Auto) 1.4 Neut # (Auto) 5500 Lymph # (Auto) 1000 L [place] # (Auto) 400 Eos # (Auto) 100 Baso # (Auto) 100 Sodium Potassium Chloride Carbon Dioxide BUN Creatinine Estimated GFR BUN/Creatinine Ratio Glucose Calcium Magnesium COVID-19 PCR Cancelled Negative 02/17/20 09:36 WBC RBC Hgb Hct MCV MCH MCHC RDW Plt Count Neut % (Auto) Lymph % (Auto) [place] % (Auto) Eos % (Auto) Baso % (Auto) Neut # (Auto) Lymph # (Auto) [place] # (Auto) Eos # (Auto) Baso # (Auto) Sodium 128 L Potassium 4.2 Chloride 91 L Carbon Dioxide 26 BUN 25 H Creatinine 0.82 Estimated GFR > 60.0 BUN/Creatinine Ratio 30.5 H Glucose 161 H Calcium 9.7 Magnesium 1.8 COVID-19 PCR Assessment & Plan Assessment & Plan narrative: Ms. Carey Mtz is an 79-year-old female patient with a complex medical history significant for type 2 noninsulin dependent diabetes, hypertension, hyperlipidemia, Moreno's thyroiditis, irritable bowel syndrome, lumbar sacral spine pain a history of scoliosis, diverticulosis and prior TIA who was admitted after a ground level fall. According to her daughters her confusion was much worsened over the past week or so. This may be due to a toxic metabolic encephalopathy, concussion as a result of her ground level fall, poor nutritional status given B12 deficiency, acute CVA given MRI findings, or progressive dementia (vascular vs multifactorial). It will be difficult to differentiate between these etiologies in a short amount of time. She has shown some improvement with IV antibiotics as well as B12 supplementation. Plan is for discharge to [facility] at this time. 1. Probable concussion, in the setting of a ground level fall, acute and present on admission -Q4hour neuro checks -Posterior head laceration repair was done in the ED. -Patient has been admitted or seen in the ED for multiple ground level falls. It is no longer safe for her to live at home alone and during previous visits, the patient was amenable to being placed in assisted living. -Appreciate social work assistance with placement. -PT/OT evaluations -Hg dropped initially, stabilized on repeat and is continuing to rise. No need to further follow 2. Toxic metabolic encephalopathy, acute, likely secondary to concussion and possible infectious etiology, acute and present on admission -She has exhibited this on prior admissions and has been found previously to have a UTI. UA was positive this admission and she has been started on ceftraixone. Acute confused may be related to toxic/metabolic enecphalopathy from acute cystitis, b12 deficiency or progressie dementia which is likely multifactorial but includes vascular causes.. -UA as noted above -continue IV ceftriaxone x3 days, can be changed to oral antibiotics if a bed is available at a nursing facility. - progressive dementia evaluation as noted below -TSH normal, b12 decreased and has been started on supplementation. Folate, RPR pending, MRI with significant motion artifacts. There is a possible diffusion abnormality consistent with possible CVA, however patient with no lateralizing symptoms on exam. It will be difficult to tell if this truly represents an acute CVA given patient's history. Patient will be started on a daily aspirin and increased dose of Lipitor for possible CVA given MRI results. Repeating the exam will not currently change management director. -low dose seroquel started 3. Chronic Hypertension, present on admission -admitting blood pressure is 163/73 and has improved today. -will continue current regimen of irbesartan 300 mg daily -She was previously taking metoprolol succinate 200 mg daily, continue at 50 mg BID. 4. Chronic hyperlipidemia, active, present on admission -patient is currently taking atorvastatin 10 mg daily. Will increase to 40 mg today as noted above given MRI findings. -last lipid panel reveals total cholesterol 178, LDL of 109 HDL of 62. -patient previously refused increase in atorvastatin dosage. -will obtain updated lipid panel, was not done during previous admission. 5. Type 2 non insulin dependent diabetes, controlled with an A1c of 6, present on admission -patient is currently taking metformin 1000 mg twice daily -glucose fingerstick a.c. and HS with correctional insulin low-dose range. -medium carbohydrate, heart healthy diet -dietary consult, daughter reports she eats a low carbohydrate diet 6. Moreno's disease, active -will continue patient's home regimen of levothyroxine 88 mcg daily. -last TSH on 06/30 was 1.78. Repeat TSH here unremarkable. 7. Lumbar spine disease, active -patient with minimal impairment in mobility with scoliosis of the lumbar spine and degenerative joint disease. -Holding home medication of meloxicam due to current risk of bleeding Disposition, patient needs placement, daughters are agreeable ultimately will need residential plan, spoke to daughter Kayden, they would like her to ultimately go to [place] for Assisted living. Appreciate social work assitance with short term placement nearby with SNF placement followed by assisted living here and will transfer to [place] once COVID restrictions are relaxed. Plan for discharge to SNF once she has an accepting facility, hopefully in the next 24-48 hours. The patient is admitted as an inpatient to the hospital related to the severity of her symptoms and the risk for potential complications and adverse events. Quality VTE Deep Vein Thrombosis/Pulmonary Embolism Present on Admission: No
[2020-02-17 15:00] VITALS: O2SAT 97
[2020-02-17 15:30] VITALS: BP 127/68; PULSE 79; RESP 17; TEMP 36.4; O2SAT 97
[2020-02-17 16:07] LABS: RPR Screen Non Reactive (Non Reactive)
[2020-02-17] MEDS: QUETIAPINE 25 MG TABLET 12.5 MG PO (20:21)
[2020-02-17] MEDS: ATORVASTATIN 10 MG TABLET 40 MG PO (20:21)
[2020-02-17 23:15] VITALS: BP 143/69; PULSE 80; RESP 18; TEMP 36.3; O2SAT 98
[2020-02-18] VITALS (8 sets, daily range): BP systolic 133–157; BP diastolic 75–97; PULSE 78–94; RESP 12–18; TEMP 36.5–36.6; O2SAT 96–100
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
[2020-02-18] MEDS: risperiDONE 1 MG TABLET 0.25 MG PO (00:42)
--- NOTE | 2020-02-18 05:33 | PC.NURSE ---
Pt.did not sleep well last night, even after medicated with 0.25 mg. of RisperDal, restless & ambulating in the [address]. Declined blood draw this morning 1:1 monitoring since 0000. Will cont. POC & monitor.
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
[2020-02-18] MEDS: CYANOCOBALAMIN (VITAMIN B-12) 500 MCG TABLET 1000 MCG PO (08:10)
[2020-02-18] MEDS: SODIUM CHLORIDE 0.9% FLUSH 10 ML IV ×2 (08:10→09:55)
[2020-02-18] MEDS: METOPROLOL IR 50 MG TABLET PO (08:10)
[2020-02-18] MEDS: ASPIRIN EC 81 MG TABLET PO (08:10)
[2020-02-18] MEDS: ACETAMINOPHEN 325 MG TABLET 650 MG PO (08:10)
[2020-02-18] MEDS: MULTIVITAMIN 1 TABLET 1 TAB PO (08:10)
[2020-02-18] MEDS: LEVOTHYROXINE 88 MCG TABLET PO (08:11)
[2020-02-18] MEDS: INSULIN ASPART 100 UNIT/ML INSULN PEN SUBCUT ×2 (08:12→11:39)
[2020-02-18] MEDS: IRBESARTAN 150 MG TABLET 300 MG PO (08:12)
[2020-02-18] MEDS: CEFTRIAXONE 1 GM/50 ML FROZ.PIGGY IV (08:12)
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
[2020-02-18 08:34] LABS: Add Manual Diff / Slide Review NO; Basophils Absolute Auto 0 /uL (0-100); Basophils Percent Auto 0.6 % (0-2); Eosinophils Absolute Auto 0 /uL (0-450); Eosinophils Percent Auto 0.5 % (2-4); Hematocrit 26.8 % (36-46); Hemoglobin 9.4 g/dL (12.0-16.0); Lymphocytes Absolute Auto 900 /uL (1100-4500); Lymphocytes Percent Auto 10.8 % (25-40); Mean Corpuscular HGB Conc 35.1 % (30-36); Mean Corpuscular Hemoglobin 32.6 PG (26-34); Monocytes Absolute Auto 400 /uL (0-900); Monocytes Percent Auto 4.6 % (3-14); Neutrophils Absolute Auto 7000 /uL (1500-7000); Neutrophils Percent Auto 83.5 % (50-75); Platelet Count 311 X10^3/uL (150-400); Red Blood Cell Count 2.88 X10^6/uL (4.0-5.2); Red Cell Distribution Width 13.9 % (11.6-14.8); White Blood Cell Count 8.4 X10^3/uL (4.5-11.0)
[2020-02-18 08:45] LABS: BUN Creatinine Ratio 34.5 (6-22); Blood Urea Nitrogen 29 mg/dL (7-17); Calcium 9.7 mg/dL (8.4-10.2); Carbon Dioxide 26 mmol/L (22-32); Chloride 91 mmol/L (98-107); Estimated Glomerular Filt Rate > 60.0 mL/min (>60); Glucose 184 mg/dL (80-110); HEMOLYSIS < 15 (0-50); Magnesium 1.6 mg/dL (1.6-2.3); Potassium 3.6 mmol/L (3.4-5.1); Sodium 127 mmol/L (137-145)
--- NOTE | 2020-02-18 09:11 | PC.NURSE ---
Addendum entered by Stephanie Nelson R.N. 02/18/20 11:17: New COVID swab collected per MD order, placed on isolation per protocol. Up to BR with 1-person assist, FWW and gait belt. Fairly steady on feet, followed direction well, cooperative and appreciative of care interventions. Resting quietly at this time with eyes closed. Respirations regular and unlabored. Call light and belongings within reach, bed alarm on. Original Note: Shift summary: Patient has been alert and awake this morning. Oriented to self and birthdate, and is aware that today is her birthday. Calm and cooperative with care interventions thus far. Vitals stable, afebrile. Room air. Lungs CTA. HRR. 1X unmeasured void, urine clear yellow. Denies pain or difficulty with urination, denies post-void urgency. Abd soft, nontender. Reports feeling much better today compared to how I have been feeling. Resting quietly in bed now and was hoping to nap a bit. Call light and belongings within reach, bed alarm on.
--- NOTE | 2020-02-18 09:58 | P.PN_ITS ---
Subjective Subjective Date Patient Seen: 02/18/20 Time Patient Seen: 10:00 Interval history: Ms. Carey Mtz is an 79-year-old female patient with a complex medical history significant for type 2 noninsulin dependent diabetes, hypertension, hyperlipidemia, Moreno's thyroiditis, irritable bowel syndrome, lumbar sacral spine pain a history of scoliosis, diverticulosis and prior TIA who was admitted after a ground level fall. She was found to have a low B12 le cassie as well as a UTI for which both are now being treated. According to her daughter she had an abrupt change as far as her weakness inability to care for herself over the past week. The patient also shows some improvement with IV antibiotics and B12 supplementation, however she is still only alert and oriented x2. She is planned for discharge to a SNF, and she is medically stable for transfer once she has an accepting facility. Patient denies any complaints today including abdominal pain, dysuria, or urinary frequency. She did endorse urinary frequency recently. Exam Vital Signs (past 8 hours): - 02/18/20 06:10 02/18/20 07:43 02/18/20 07:51 Temperature 97.7 F Pulse Rate 83 90 Respiratory Rate 12 16 Blood Pressure 154/97 H 157/92 H Pulse Oximetry 98 96 96 Oxygen Delivery Method Room Air Oxygen Flow Rate 0 Narrative Exam Narrative: GENERAL APPEARANCE: Elderly female, well developed well nourished, in no acute distress. SKIN: Inspection of the skin reveals no rashes, ulcerations or petechiae. HEENT: Normocephalic with posterior laceration that is healing, extraocular muscles are intact, oropharynx is clear and mucous membranes are moist, neck is supple without adenopathy NECK: Supple and symmetric. There was no thyroid enlargement, and no tenderness, or masses were felt. CHEST: Normal AP diameter and normal contour without any kyphoscoliosis. LUNGS: Auscultation of the lungs revealed no wheezes, rhonchi, or rales. CARDIOVASCULAR: There was a regular rate and rhythm without any murmurs, gallops, rubs. Peripheral pulses were 2+ and symmetric. ABDOMEN: Soft and nontender with normal bowel sounds. No ascites was noted. MUSCULOSKELETAL: There was no tenderness or effusions noted. Muscle strength and tone were normal. EXTREMITIES: No cyanosis, clubbing or edema. NEUROLOGIC: Alert and oriented x2. Normal affect. No focal neurological deficits including weakness or facial asymmetry. Objective Labs Result Diagrams: 02/18/20 08:14 02/18/20 08:14 Labs: Laboratory Results - last 24 hr 02/15/20 02/18/20 02/18/20 05:33 08:14 08:14 WBC 8.4 RBC 2.88 L Hgb 9.4 L Hct 26.8 L MCV 93.0 MCH 32.6 MCHC 35.1 RDW 13.9 Plt Count 311 Neut % (Auto) 83.5 H Lymph % (Auto) 10.8 L [place] % (Auto) 4.6 Eos % (Auto) 0.5 L Baso % (Auto) 0.6 Neut # (Auto) 7000 Lymph # (Auto) 900 L [place] # (Auto) 400 Eos # (Auto) 0 Baso # (Auto) 0 Sodium 127 L Potassium 3.6 Chloride 91 L Carbon Dioxide 26 BUN 29 H Creatinine 0.84 Estimated GFR > 60.0 BUN/Creatinine Ratio 34.5 H Glucose 184 H Calcium 9.7 Magnesium 1.6 Serum VDRL Non reactive Assessment & Plan Assessment & Plan narrative: Ms. Carey Mtz is an 79-year-old female patient with a complex medical history significant for type 2 noninsulin dependent diabetes, hypertension, hyperlipidemia, Moreno's thyroiditis, irritable bowel syndrome, lumbar sacral spine pain a history of scoliosis, diverticulosis and prior TIA who was admitted after a ground level fall. According to her daughters her confusion was much worsened over the past week or so. This may be due to a toxic metabolic encephalopathy, concussion as a result of her ground level fall, poor nutritional status given B12 deficiency, acute CVA given MRI f indings, or progressive dementia (vascular vs multifactorial). It will be difficult to differentiate between these etiologies in a short amount of time. She has shown some improvement with IV antibiotics as well as B12 supplementation. Plan is [facility] at [facility], however if there is no accepting facility by tomorrow plan is for discharge to [facility] assisted living. 1. Probable concussion, in the setting of a ground level fall, acute and present on admission -Q4hour neuro checks -Posterior head laceration repair was done in the ED. -Patient has been admitted or seen in the ED for multiple ground level falls. It is no longer safe for her to live at home alone and during previous visits, the patient was amenable to being placed in assisted living. -Appreciate social work assistance with placement. -PT/OT evaluations -Hg dropped initially, stabilized on repeat and is continuing to rise. No need to further follow 2. Toxic metabolic encephalopathy, acute, likely secondary to concussion and possible infectious etiology, acute and present on admission, improving -She has exhibited this on prior admissions and has been found previously to have a UTI. UA was positive this admission and she has been started on ceftraixone. Acute confused may be related to toxic/metabolic enecphalopathy from acute cystitis, b12 deficiency or progressie dementia which is likely multifactorial but includes vascular causes.. -UA as noted above -continue IV ceftriaxone x3 days, completed today. - progressive dementia evaluation as noted below -TSH normal, b12 decreased and has been started on supplementation. Folate, RPR pending, MRI with significant motion artifacts. There is a possible diffusion abnormality consistent with possible CVA, however patient with no lateralizing symptoms on exam. It will be difficult to tell if this truly represents an acute CVA given patient's history. Patient will be started on a daily aspirin and increased dose of Lipitor for possible CVA given MRI results. Repeating the exam will not currently policy change clerk. -seroquel has been started 3. Chronic Hypertension, present on admission -admitting blood pressure is 163/73 and remains stable today -will continue current regimen of irbesartan 300 mg daily -She was previously taking metoprolol succinate 200 mg daily, decreased to 50 initially BID and will increase today to 100 mg BID. 4. Chronic hyperlipidemia, active, present on admission -patient is currently taking atorvastatin 10 mg daily. Will increase to 40 mg today as noted above given MRI findings. 5. Type 2 non insulin dependent diabetes, controlled with an A1c of 6, present on admission -patient is currently taking metformin 1000 mg twice daily -glucose fingerstick a.c. and HS with correctional insulin low-dose range. -medium carbohydrate, heart healthy diet -dietary consult, daughter reports she eats a low carbohydrate diet 6. Moreno's disease, active -will continue patient's home regimen of levothyroxine 88 mcg daily. -last TSH on 06/30 was 1.78. Repeat TSH here unremarkable. 7. Lumbar spine disease, active -patient with minimal impairment in mobility with scoliosis of the lumbar spine and degenerative joint disease. -Holding home medication of meloxicam due to current risk of bleeding Disposition, patient needs placement, daughters are agreeable ultimately will need superintendent [employer] plan, spoke to daughter Kayden, they would like her to ultimately go to [place] for Assisted living. Appreciate social work assitance with short term placement nearby with SNF placement followed by assisted living here and will transfer to [place] once COVID restrictions are relaxed. Plan for discharge to SNF once she has an accepting facility, hopefully tomorrow. If no accepting SNF is found will likely discharge to assisted living. Will repeat COVID 19 testing today. The patient is admitted as an inpatient to the hospital related to the severity of her symptoms and the risk for potential complications and adverse events. Quality VTE Deep Vein Thrombosis/Pulmonary Embolism Present on Admission: No
--- NOTE | 2020-02-18 13:21 | PC.NURSE ---
Assumed care of patient approx. 1230 as day shift nurse leaving. Patient is oriented to self at this time, confused on date, place and is restless. Coordinator assisting to help keep patient occupied and safe, as patient wanting to walk and do things in the room, using her walker and contact guard assist. Denies pain, denies shortness of breath. Call light within reach, bed alarm active when patient in bed.
--- NOTE | 2020-02-18 15:17 | PT.IPTN ---
Current Diagnoses Unspecified injury of head, initial encounter (02/14/20) Physical Therapy Treatment Note M2 PT-IP Current Condition Start: 02/15/20 08:28 Freq: NEEDED Status: Active Protocol: Document 02/15/20 09:10 HH (Rec: 02/15/20 12:52 HH [id number]) Physical Therapy Current Condition Current Condition Evaluation Date 02/15/20 Treatment Diagnosis GLF, confusion, possible UTI and generalized weakness. Onset Date 02/13/20 Weight Bearing Status Weight Bearing Status Full Weight Bearing M3 PT-IP Subjective Start: 02/15/20 08:28 Freq: NEEDED Status: Active Protocol: Document 02/18/20 15:09 AW (Rec: 02/18/20 15:16 AW [id number]) Subjective Physical Therapy Visit Type Type Treatment Note Visit Start Time 14:50 Visit Stop Time 15:07 Total Visit Minutes 17 Physical Therapy Visit Comments Patient Comments What are you doing here? M4 PT-IP Mobility and Gait Start: 02/15/20 08:28 Freq: NEEDED Status: Active Protocol: Document 02/18/20 15:09 AW (Rec: 02/18/20 15:16 AW [id number]) PT-Transfer Assessment Comments Mobility Comments Pt standing at sink with RN and BUCKLE STRAP PUNCHER upon arrival to room. She required constant cues to use the 4WW and she refused the gait belt. She sat EOB to attempt to put toothpaste on her toothbrush and then sat to brush her teeth. Before finishing oral care, she stood without AD and walked to sink requiring close CGA due to unsteadiness. She stood at the sink finishing oral care and then meticulously put her toothbrush and hairbrush into socks which had been stashed on the counter. Pt turned away from the sink and used the 4WW to walk out into the hallway to speak with the nurses. All mobility required close CGA. Pt was left with nursing. Gait Assessment Gait Gait Assistance Required: Contact Guard Assist,Minimum Assistance Distance (Feet) 50 Assistive Devices Assistive Device Gait Belt,4 Wheeled Walker Orthotic/Prosthetic Devices or Brace: No Gait Deviations General Gait Pattern Antalgic,Decreased Stride Length,Decreased Feet Clearance,Festinating,Flexed Trunk Factors Limiting Gait Function Factors Limiting Gait Function Decreased Activity Tolerance, Decreased Strength,Difficulty Following Directions,Limited Range of Motion,Poor Balance, Poor Safety Awareness Comments Gait Comments Gait with 4WW was unsteady but clearly safer than without AD . Pt was uninterested in PT feedback regarding safe use of walker. M5 PT-IP Objective Assessments Start: 02/15/20 08:28 Freq: NEEDED Status: Active Protocol: Document 02/15/20 09:10 HH (Rec: 02/15/20 12:52 HH [id number]) Orientation Orientation/Cognition Level of Alertness Confusional State Orientation Name,Age,Birthday,Month,Date, Year Language Function Ability Mongolian as Second Language, Hard of Hearing Safety Awareness Decreased Safety Awareness Memory Description No Deficits Noted,Short Term Impaired Comments Pt overall able to answer simple questions but with inconsistent answers regarding her PLOF/ social history. She often spoke out her random thoughts. Pt is confused with baby powed as tooth paste and lifeline as her hand soap . Pt is easily irritated with instructions. Gross Range of Motion Upper Extremity ROM Assessment Right Impaired Impairments RUE is unable to reach overhead and needed L UE to assist Lower Extremity ROM Assessment Within Functional Limits Strength Upper Extremity Strength Assessment Right Impaired Shoulder 3-/5 Elbow 4/5 Wrist 4/5 Lower Extremity Strength Assessment Within Functional Limits M6 PT-IP Treatment Start: 02/15/20 08:28 Freq: NEEDED Status: Active Protocol: Document 02/18/20 15:09 AW (Rec: 02/18/20 15:16 AW [id number]) Physical Therapy Treatment Education Education Provided Safety M7 PT-IP Assessment and Plan Start: 02/15/20 08:28 Freq: NEEDED Status: Active Protocol: Document 02/18/20 15:09 AW (Rec: 02/18/20 15:16 AW [id number]) PT Summary Assessment and Plan Potential Rehabilitation Potential Good Status of Condition at Evaluation Evolving Summary Impairments ROM,Strength,Balance,Cognition ,Transfers,Gait,Activity Tolerance Progress Towards Goals Slow Progress due to Medical Issues Assessment Summary Pt refused VS assessment, gait belt, and all feedback regarding gait. She was extremely busy this afternoon and unable to focus on task. Will check on appropriateness for PT treatment tomorrow. Goals Bed Mobility Goal Standby Assistance Transfer Goal Standby Assistance,Front Wheeled Walker Gait Goal Standby Assistance,Front Wheel Walker Gait Distance 300 Days to Meet Goals 5 Frequency of Treatment Frequency Of Treatment Once a Day Treatment Plan Physical Therapy Treatment Plan Bed Mobility Training,Transfer Training,Gait Training, Therapeutic Exercise,Balance Retraining,Discharge Planning Other Recommendations and Next Treatment check vital Focus close CGA for mobility transfer and gait training as gabriella Recommendations To Nursing Amount of Assist Needed 1 Person Assist Discharge Recommendations PT Discharge Recommendations SNF Rehab Equipment Needed for Home Before FWW if d/c home Discharge Transportation Needs at Discharge Wheelchair/Cabulance
--- NOTE | 2020-02-18 16:15 | CM.DPC ---
DCP Cont: Called daughter, Catherine back, and her sister, Maribel, joined in conference call. Let them know that [facility] is not accepting at this time, and [facility]. Stated that is is uncertain if [facility] will accept, or [facility]. Reminded them that patient is medically ready to discharge tomorrow, and that there are two facilities that will accept her, [facility] and [facility]. Daughters are wanting to appeal. Stated, my mom has worked hard all of her life, and you just want to kick her out of the hospital, that's not right. Explained medical stability, and that insurance companies look at this in regarding to hospital paying. Gave her [facility] information and phone number, but let her know that she can't appeal unless patient is discharged, which will happen tomorrow. Daughter, Maribel, stated, I want to know what's wrong with my mom, she's not at her normal mentality, and if her urine culture came back. Let her know that she can discuss her concerns with the hospitalist, and have already asked him to call them. At this time, appeal process will be in place tomorrow morning, for Isadora, community manager, has been updated on situation. Updated Dr. Osulliavn, and asked him to discharge early in the morning, possibly 0700, so appeal process can be started. P: DCP will follow up tomorrow. Appeal process will be in place. Daughters have requested that patient not be discharged until Wednesday, but have already told them that she will be ready for tomorrow. Ksenia Higuera RN/Cryptography Teacher
[2020-02-18 16:49] LABS: COVID19 -Nasal RAPID Negative (Negative)
--- NOTE | 2020-02-18 17:17 | PC.NURSE ---
Addendum entered by Laurie Alexander CNA 02/18/20 23:11: 2300 The patient became restless and agitated again at the end of shift, walking the halls with this ORDER DISPATCHER CHIEF. She became increasingly angry when I blocked the door of room 223 and wouldn't let her in, she rammed her walker into many times and told me to move away, I need to see in there and called me idiotic girl and useless thing. Several CNAs and RNs came over to assist. She is back in her room, still very agitated. Report was given to RAFFI Mello. Addendum entered by Laurie Alexander CNA 02/18/20 22:30: 2230 The patient has been more or less cooperative the last few hours and has allowed this ORDER DISPATCHER CHIEF to assist her to the bathroom several times and change her brief. The patient has had a few flares of anger when she is given a direction, but has calmed down when she feels she is in control of her situation. She is still getting up without calling and frequently calls out for Maribel and Char, her daughters, and it takes several minutes to calm her down and reorient to time and place. Bed rails in place, 1:1 supervision maintain throughout the shift. Original Note: 0800 This ORDER DISPATCHER CHIEF is 1:1 supervising this patient. The patient has walked 5-6 laps around the acute care floor. On the latest lap, she became very angry and tried to enter a different patient's room and when I blocked the door and explained it wasn't her room, she began to eloy her walker into my knee several times. She walked a few doors down and tried to get into another patient's room again and when I blocked the door, she took a swing at my face. I was able to avoid being hit and an RN, Sravani, came to help calm the patient down. The patient has been verbally abusive all shift, calling me a dumb b and repeatedly telling me to shut up you stupid girl. The patient refused to take her walker with her into the restroom and almost fell twice and would not allow staff to assist. This ORDER DISPATCHER CHIEF will continue to supervise 1:1 for safety.
[2020-02-18] MEDS: ATORVASTATIN 10 MG TABLET 40 MG PO (19:44)
[2020-02-18] MEDS: MELATONIN 3 MG TABLET 6 MG PO (19:44)
[2020-02-18] MEDS: QUETIAPINE 25 MG TABLET 12.5 MG PO (19:45)
[2020-02-18] MEDS: METOPROLOL IR 50 MG TABLET 100 MG PO (19:45)
--- NOTE | 2020-02-19 03:07 | PC.NURSE ---
Addendum entered by Deana De La Rosa R.N. 02/19/20 06:52: Pt continues to tell CT SCAN TECHNICIAN to get out of her room and just leave. CT SCAN TECHNICIAN asking if patient needed to use the bathroom or if she was wet and if her brief needed to be changed. Pt agreed once her brief was saturated and bed saturated, as well. Became argumentative during personal care and linen change. Closer to morning pt is more docile and less argumentative. Pt has had 1:1 care during this 8 hours. Original Note: Rouge Mixer Pt OOB ambulating down hallway with walker and CT SCAN TECHNICIAN. Pt allowing CT SCAN TECHNICIAN to change gown and slippers after spilling cup of water. Agreeable to getting back to bed. Would not allow full nursing assessment after vital signs taken. Pt stating that she had just come home from school and needed to get out of here to go back. As police shift commander progressed pt hollering for her . Pt telling CT SCAN TECHNICIAN to get out of her room and will not allow an incontinent brief check.
[2020-02-19 07:25] VITALS: BP 144/76; PULSE 85; RESP 18; O2SAT 100
[2020-02-19] MEDS: CYANOCOBALAMIN (VITAMIN B-12) 500 MCG TABLET 1000 MCG PO (07:55)
[2020-02-19] MEDS: ACETAMINOPHEN 325 MG TABLET 650 MG PO (07:55)
[2020-02-19] MEDS: ASPIRIN EC 81 MG TABLET PO (07:55)
[2020-02-19] MEDS: METOPROLOL IR 50 MG TABLET 100 MG PO (07:55)
[2020-02-19] MEDS: LEVOTHYROXINE 88 MCG TABLET PO (07:56)
[2020-02-19] MEDS: IRBESARTAN 150 MG TABLET 300 MG PO (07:56)
[2020-02-19] MEDS: MULTIVITAMIN 1 TABLET 1 TAB PO (07:56)
[2020-02-19] MEDS: SODIUM CHLORIDE 0.9% FLUSH 10 ML IV (07:57)
[2020-02-19 08:03] VITALS: O2SAT 100
--- NOTE | 2020-02-19 08:08 | P.DS_ITS ---
History of Present Illness History of Present Illness Date Patient Seen: 02/19/20 Time Patient Seen: 08:08 Chief complaint: Trip/fell hit head Narrative: As per TRACEY Stanley: Carey Mtz is an 79-year-old Latvian and Maltese speaking female who lives at home alone was brought into the emergency department after a ground level fall resulting in a scalp laceration. She has a history of having 7 visits since March of 2019 and 2 admissions for falls and TIAs resulting in falls and admitted for workups. She is quite confused tonight and keeps talking about her parents and has speaks in unintellegable words (possibly Maltese) with me during my interview with her. She refers to living with her parents and when asked how old they are and how old she is she seems to get quite confused. She is unable to give me a history or provide a review of systems. Upon reviewing her prior records, her admissions have always been accompanied with a UTI. Review of her medical records and prescription history indicate that she has been mistrustful of medications changed on discharge and a questionable compliance history. In the ED, they did a head CT which was negative for an acute process. They sutured up a posterior head laceration. Discharge Providers Provider Date of admission: 02/14/20 21:12 Discharge Date: 02/19/20 Primary care physician: Catrachito Santiago MD Consults: 02/14/20 21:40 Consult to Occupational Therapy Evaluate & Treat Comment: Confusion Physician Instructions: Evaluate and treat Consult to Physical Therapy Evaluate & Treat Comment: Multiple falls at home Physician Instructions: Evaluate and Treat 02/14/20 21:42 Consult to Discharge Planning Routine Comment: Assisted living Discharge provider: Ryley Osullivan DO Summary Hospital Course Discharge Diagnosis: Please see hospital course by problem list below: Hospital Course: Ms. Carey Mtz is an 79-year-old female patient with a complex medical history significant for type 2 noninsulin dependent diabetes, hypertension, hyperlipidemia, Moreno's thyroiditis, irritable bowel syndrome, lumbar sacral spine pain a history of scoliosis, diverticulosis and prior TIA who was admitted after a ground level fall. According to her daughters her confusion was much worsened over the past week or so. This may be due to a toxic metabolic encephalopathy, concussion as a result of her ground level fall, poor nut ritional status given B12 deficiency, acute CVA given MRI findings, or progressive dementia (vascular vs multifactorial). It will be difficult to differentiate between these etiologies in a short amount of time. She has shown some improvement with IV antibiotics as well as B12 supplementation however dementia is seeming more and more plausible. Plan is for discharge to fdc at this time, however if there is no accepting facility by tomorrow plan is for discharge to [facility] assisted living. 1. Probable concussion, in the setting of a ground level fall, acute and present on admission -Posterior head laceration repair was done in the ED. [place] to be removed 02/20 - 02/23 (7-10 days) -Patient has been admitted or seen in the ED for multiple ground level falls. -Appreciate social work assistance with placement. -PT/OT evaluations recommended SNF placement. -Hg dropped initially however varied between 9 and 10 while admitted. 2. Toxic metabolic encephalopathy, acute, likely secondary to concussion and possible infectious etiology, acute and present on admission, improving -She has exhibited this on prior admissions and has been found previously to have a UTI. UA was positive this admission and she completed a course of ceftriaxone. Acute confused may be related to toxic/metabolic enecphalopathy from acute cystitis, b12 deficiency or progressie dementia which is likely multifactorial but includes vascular causes. Acute CVA is also a possibility as noted below. -UA as noted above -continue IV ceftriaxone x3 day. - progressive dementia evaluation as noted below -TSH normal, b12 decreased and has been started on supplementation. Folate, RPR pending, MRI with significant motion artifacts. There is a possible diffusion abnormality consistent with possible CVA, however patient with no lateralizing symptoms on exam. It will be difficult to tell if this truly represents an acute CVA given patient's history. Patient was started on a daily aspirin and increased dose of Lipitor for possible CVA given MRI results. 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 -seroquel has been started as noted below 3. Chronic Hypertension, present on admission -admitting blood pressure is 163/73 and is slightly improved upon discharge. -will continue current regimen of irbesartan 300 mg daily -She was previously taking metoprolol succinate 200 mg daily, decreased to 50 initially BID and increased back to 100 mg BID upon discharge. 4. Chronic hyperlipidemia, active, present on admission -patient is currently taking atorvastatin 10 mg daily. Increased to 40 mg daily as noted above given MRI findings. 5. Type 2 non insulin dependent diabetes, controlled with an A1c of 6, present on admission -patient is currently taking metformin 1000 mg twice daily -medium carbohydrate, heart healthy diet -dietary consult, daughter reports she eats a low carbohydrate diet 6. Moreno's disease, active -will continue patient's home regimen of levothyroxine 88 mcg daily. -last TSH on 06/30 was 1.78. Repeat TSH here unremarkable. 7. Lumbar spine disease, active -patient with minimal impairment in mobility with scoliosis of the lumbar spine and degenerative joint disease. 8. Acute cystitis, - patient with Positive UA, received three doses of ceftriaxone while inpatient. She did complain of urinary frequency but is an unrealiable historian. Patient does not require further antibiotics. Urine culture did not grow an organism. 9. Severe cognitive impairment - indicated by a SLUMS of 07/10 with occupational therapy. Likely represents chronic dementia (vascular vs multifactorial). SLUMS may be decreased in the setting of probable concussion or UTI as noted above. Family requests outpatient neurology evaluation for more definitive diagnosis. - started on seroquel 12.5 mg nightly while here - started on melatonin for sleep regulation. Disposition, transfer to SNF. Code: DNR Time Spent with Patient Time spent: Greater than 30 minutes Exam Vital Signs (past 8 hours): - 02/19/20 07:25 Pulse Rate 85 Respiratory Rate 18 Blood Pressure 144/76 H Pulse Oximetry 100 Oxygen Delivery Method Room Air Oxygen Flow Rate 0 Narrative Exam Narrative: GENERAL APPEARANCE: Elderly female, well developed well nourished, in no acute distress. SKIN: Inspection of the skin reveals no rashes, ulcerations or petechiae. HEENT: Normocephalic with posterior laceration that is healing, extraocular muscles are intact, oropharynx is clear and mucous membranes are moist, neck is supple without adenopathy NECK: Supple and symmetric. There was no thyroid enlargement, and no tenderness, or masses were felt. CHEST: Normal AP diameter and normal contour without any kyphoscoliosis. LUNGS: Auscultation of the lungs revealed no wheezes, rhonchi, or rales. CARDIOVASCULAR: There was a regular rate and rhythm without any murmurs, gallops, rubs. Peripheral pulses were 2+ and symmetric. ABDOMEN: Soft and nontender with normal bowel sounds. No ascites was noted. MUSCULOSKELETAL: There was no tenderness or effusions noted. Muscle strength and tone were normal. EXTREMITIES: No cyanosis, clubbing or edema. NEUROLOGIC: Alert and oriented x2. Normal affect. No focal neurological deficits including weakness or facial asymmetry. Objective Labs Result Diagrams: 02/19/20 08:10 02/19/20 08:10 Labs: Laboratory Results - last 24 hr 02/18/20 02/18/20 02/18/20 08:14 08:14 10:30 WBC 8.4 RBC 2.88 L Hgb 9.4 L Hct 26.8 L MCV 93.0 MCH 32.6 MCHC 35.1 RDW 13.9 Plt Count 311 Neut % (Auto) 83.5 H Lymph % (Auto) 10.8 L Twiggs % (Auto) 4.6 Eos % (Auto) 0.5 L Baso % (Auto) 0.6 Neut # (Auto) 7000 Lymph # (Auto) 900 L Twiggs # (Auto) 400 Eos # (Auto) 0 Baso # (Auto) 0 Sodium 127 L Potassium 3.6 Chloride 91 L Carbon Dioxide 26 BUN 29 H Creatinine 0.84 Estimated GFR > 60.0 BUN/Creatinine Ratio 34.5 H Glucose 184 H Calcium 9.7 Magnesium 1.6 COVID-19 PCR Cancelled 02/18/20 10:30 WBC RBC Hgb Hct MCV MCH MCHC RDW Plt Count Neut % (Auto) Lymph % (Auto) Twiggs % (Auto) Eos % (Auto) Baso % (Auto) Neut # (Auto) Lymph # (Auto) Twiggs # (Auto) Eos # (Auto) Baso # (Auto) Sodium Potassium Chloride Carbon Dioxide BUN Creatinine Estimated GFR BUN/Creatinine Ratio Glucose Calcium Magnesium COVID-19 PCR Negative Discharge Plan Discharge Plan Patient Disposition: SNF Transfer to: [facility] Discharge comment: Ms. Carey Mtz is an 79-year-old female patient with a complex medical history significant for type 2 noninsulin dependent diabetes, hypertension, hyperlipidemia, Moreno's thyroiditis, irritable bowel syndrome, lumbar sacral spine pain a history of scoliosis, diverticulosis and prior TIA who was admitted after a ground level fall. According to her daughters her confusion was much worsened over the past week or so. This may be due to a toxic metabolic encephalopathy, concussion as a result of her ground level fall, poor nutritional status given B12 deficiency, acute CVA given MRI findings, or progressive dementia (vascular vs multifactorial). It will be difficult to differentiate between these etiologies in a short amount of time. She has shown some improvement with IV antibiotics as well as B12 supplementation however dementia is seeming more and more plausible. Plan is for discharge to fdc at this time, however if there is no accepting facility by tomorrow plan is for discharge to [facility] assisted living. 1. Probable concussion, in the setting of a ground level fall, acute and present on admission -Posterior head laceration repair was done in the ED. [place] to be removed 02/20 - 02/23 (7-10 days) -Patient has been admitted or seen in the ED for multiple ground level falls. -Appreciate social work assistance with placement. -PT/OT evaluations recommended SNF placement. -Hg dropped initially however varied between 9 and 10 while admitted. 2. Toxic metabolic encephalopathy, acute, likely secondary to concussion and possible infectious etiology, acute and present on admission, improving -She has exhibited this on prior admissions and has been found previously to have a UTI. UA was positive this admission and she completed a course of ceftriaxone. Acute confused may be related to toxic/metabolic enecphalopathy from acute cystitis, b12 deficiency or progressie dementia which is likely multifactorial but includes vascular causes. Acute CVA is also a possibility as noted below. -UA as noted above -continue IV ceftriaxone x3 day. - progressive dementia evaluation as noted below -TSH normal, b12 decreased and has been started on supplementation. Folate, RPR pending, MRI with significant motion artifacts. There is a possible diffusion abnormality consistent with possible CVA, however patient with no lateralizing symptoms on exam. It will be difficult to tell if this truly represents an acute CVA given patient's history. Patient was started on a daily aspirin and increased dose of Lipitor for possible CVA given MRI results. 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 -seroquel has been started as noted below 3. Chronic Hypertension, present on admission -admitting blood pressure is 163/73 and is slightly improved upon discharge. -will continue current regimen of irbesartan 300 mg daily -She was previously taking metoprolol succinate 200 mg daily, decreased to 50 initially BID and increased back to 100 mg BID upon discharge. 4. Chronic hyperlipidemia, active, present on admission -patient is currently taking atorvastatin 10 mg daily. Increased to 40 mg daily as noted above given MRI findings. 5. Type 2 non insulin dependent diabetes, controlled with an A1c of 6, present on admission -patient is currently taking metformin 1000 mg twice daily -glucose fingerstick a.c. and HS with correctional insulin low-dose range. -medium carbohydrate, heart healthy diet -dietary consult, daughter reports she eats a low carbohydrate diet 6. Moreno's disease, active -will continue patient's home regimen of levothyroxine 88 mcg daily. -last TSH on 06/30 was 1.78. Repeat TSH here unremarkable. 7. Lumbar spine disease, active -patient with minimal impairment in mobility with scoliosis of the lumbar spine and degenerative joint disease. -Holding home medication of meloxicam due to current risk of bleeding 8. Acute cystitis, - patient with Positive UA, received three doses of ceftriaxone while inpatient. She did complain of urinary frequency but is an unrealiable historian. Patient does not require further antibiotics. Urine culture did not grow an organism. 9. Severe cognitive impairment - indicated by a SLUMS of 07/10 with occupational therapy. 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 SLUMS may be decreased in the setting of probable concussion or UTI as noted above. Family requests outpatient neurology evaluation for more definitive diagnosis. - started on seroquel 12.5 mg nightly while here - started on melatonin for sleep regulation. Disposition, transfer to SNF. Discharge orders & Medications Prescriptions: No Action aspirin 81 mg tablet,delayed release (DR/EC) 81 mg PO DAILY Qty: 90 RF: 3 atorvastatin [Lipitor] 10 mg tablet 10 mg PO BEDTIME Qty: 90 RF: 3 irbesartan [Avapro] 300 mg tablet 300 mg PO DAILY Qty: 90 RF: 3 ketotifen fumarate 0.025 % (0.035 %) drops 1 drop EYE-BOTH BID PRN (Reason: allergy symptoms) Qty: 5 RF: 5 levothyroxine 88 mcg tablet 88 mcg PO DAILY Qty: 90 RF: 3 melatonin 5 mg tablet 5 mg PO BEDTIME Qty: 90 RF: 3 meloxicam 15 mg tablet 15 mg PO DAILY Qty: 90 RF: 3 metformin 1,000 mg tablet 1,000 mg PO BID Qty: 180 RF: 3 metoprolol tartrate 100 mg tablet 100 mg PO BID Qty: 180 RF: 3 multivitamin [Tab-A-N[place]] Tablet 1 tab PO DAILY Qty: 30 RF: 0 quetiapine 25 mg tablet 12.5 mg PO BEDTIME Qty: 45 RF: 3 Follow up/Referrals: Catrachito Santiago MD [Primary Care Provider] - Discharge Health Status Precautions: Success Diet/Activity/Treatments Diet: Diet as Tolerated and Carb-consistent/Diabetic Activity: As tolerated Visit Report/Discharge Packet Instructions: DI for Laceration Repair -- [place], DI for Urinary Tract Inf ection (UTI), How to Prevent Falls Visit Report Forms: Patient Portal/API, Stroke Signs & Symptoms Discharge Data Primary Care Provider: Catrachito Santiago Quality VTE Deep Vein Thrombosis/Pulmonary Embolism Present on Admission: No
[2020-02-19] MEDS: INSULIN ASPART 100 UNIT/ML INSULN PEN SUBCUT ×2 (08:14→11:57)
[2020-02-19 08:18] LABS: Add Manual Diff / Slide Review NO; Basophils Absolute Auto 100 /uL (0-100); Basophils Percent Auto 1.3 % (0-2); Eosinophils Absolute Auto 100 /uL (0-450); Eosinophils Percent Auto 1.1 % (2-4); Hematocrit 27.3 % (36-46); Hemoglobin 9.6 g/dL (12.0-16.0); Lymphocytes Absolute Auto 1200 /uL (1100-4500); Lymphocytes Percent Auto 13.8 % (25-40); Mean Corpuscular HGB Conc 35.1 % (30-36); Mean Corpuscular Hemoglobin 32.6 PG (26-34); Monocytes Absolute Auto 500 /uL (0-900); Monocytes Percent Auto 6.2 % (3-14); Neutrophils Absolute Auto 6900 /uL (1500-7000); Neutrophils Percent Auto 77.6 % (50-75); Platelet Count 343 X10^3/uL (150-400); Red Blood Cell Count 2.93 X10^6/uL (4.0-5.2); Red Cell Distribution Width 13.9 % (11.6-14.8); White Blood Cell Count 8.9 X10^3/uL (4.5-11.0)
[2020-02-19] MEDS: MAGNESIUM HYDROXIDE 30 ML UDC PO (08:26)
--- NOTE | 2020-02-19 08:39 | PC.NURSE ---
Patient alert to her self and her birthday, incorrect on year and knows she is not at home but not sure where. Calm and cooperative this morning, assisted into bathroom with walker, gait belt and 1 assist. Currently up in chair eating breakfast. States her head is bothering her a bit, and rubs the back where she has her laceration with donna, and states she would like some tylenol with her morning medications. Patient now appears very tired and in report she did not sleep at all last night, patient states it was a very rough night last night. Chair alarm in place and call light within reach. Will continue to monitor and anticipate discharge to facility today.
[2020-02-19 08:46] LABS: BUN Creatinine Ratio 40.2 (6-22); Blood Urea Nitrogen 35 mg/dL (7-17); Calcium 10.1 mg/dL (8.4-10.2); Carbon Dioxide 27 mmol/L (22-32); Chloride 94 mmol/L (98-107); Estimated Glomerular Filt Rate > 60.0 mL/min (>60); Glucose 158 mg/dL (80-110); HEMOLYSIS < 15 (0-50); Magnesium 1.7 mg/dL (1.6-2.3); Potassium 3.9 mmol/L (3.4-5.1); Sodium 130 mmol/L (137-145)
--- NOTE | 2020-02-19 09:05 | CM.DPC ---
Addendum entered by JAKE Baltazar 02/19/20 12:22: ADD: Return call from [facility] admissions Valentine stating that they reviewed and can accept pt today around 1300. MICHAEL called Dtrs Giulia and updated on SNF acceptance and prior to them officially agreeing with d/c plan of [facility] today they would like to discuss the facility and questions with Valentine at [facility]. MICHAEL provided the contact number and encouraged family to call thor to allow for sufficient time to coordinate discharge. MICHAEL also called Valentine at [facility] with update to please answer call from Dtrs. MICHAEL confirmed the case # given to [facility] from [facility] is [id number]. MICHAEL called [facility] to request their fax requesting clinicals be faxed to the Care Management office and unclear if Medical Records is staffed today. [facility] fax arrived and MYNOR Blunt faxed requested clinicals to [facility] and fax confirmation received. Return call from [facility] stating she spoke to Dtrs and they are in agreement with discharge to SNF rehab today at their facility today at 1300. MICHAEL faxed signed med rec, no scripts, MD HANG orders with d/c summ to follow when available. MICHAEL called [facility] and confirmed they are agreeable to d/c to [facility] today at 1300 and aware that [facility] was faxed clinicals to review even though pt is discharging today. MICHAEL updated RN, DOMINIC, NTL, MD. MICHAEL spoke to Opal at [facility] and Sherice at [facility] with update on pt discharge to SNF and that SW highly encouraged Dtrs to keep open communication with JOVITA for pt's discharge from SNF as LTC plan will be needed and Dtrs agreeable and plan to call [facility] next. Plan: Patient to d/c to [facility] SNF rehab today via facility van at 1300. JAKE Baltazar Original Note: DCP Discharge Contested Per MD, pt remains medically stable for discharge and discharge order placed this morning. Per RN, pt had a difficult night with minimal sleep, needing to ambulate the halls, etc. and this morning oriented to self but not agitated. Pt's two Dtrs/DPOAs (Maribel and Char) live in [place] and preference is SNF at d/c. So far these SNF's faxed: [facility]-no due to behaviors [facility]- no due to dementia [facility]- not accepting new referrals [facility]- only COVID + pts [facility]- faxed referral, reviewing (left msg this morning) [facility]- faxed referral, reviewing (Left msg this morning) Both [facility] and [facility] in [place] willing to accept pt but would need to move forward with completing pwk with Dtrs prior to acceptance. Opal at [facility] called and confirmed they can accept pt today with further coordination with Dtr for pwk. SW called both Dtr's on conference call and updated on discharge orders and they confirmed that they just initiated contesting discharge through Medicare/[facility] right before my call as they still feel pt needs SNF level of care prior to [facility]. SW discussed that pt could still receive HH therapies at home with 24/7 caregiver through [facility] or at [facility] and that if no SNF secured today pt will still need to d/c once [facility] decision made as pt/Dtrs could be held responsible for the hospital bill after [facility] determination and they appreciate the information. SW strongly encouraged Dtrs to make a backup plan today knowing SNF may not be secured by the time [facility] determination made and Dtrs plan to call Allie Aquino and Opal at [facility] this morning for further financial information to create best back up plan. MICHAEL updated MD and requested he call as yesterday he was unable with triage needs and he is agreeable to call and answer their medical questions. Plan: SW to follow for return call from [facility] and [facility] if they can accept and updated Nadine Joseph regarding d/c plan. SW to follow for [facility] request for clinicals faxed for review. JAKE Baltazar
--- NOTE | 2020-02-19 09:49 | PC.NURSE ---
Addendum entered by Didier Allen R.N. 02/19/20 13:03: Monica LANCE from [facility] called back and report given with opportunity to ask questions. Transport here to [facility] patient. IV was dc'd intact. Patient left in hospital gown with her own sweater, socks and shoes on. Glasses with a case, electric toothbrush (no riverboat master), nightgown, and carrying case/bag. Paperwork packet sent with facility designee transport. Addendum entered by Didier Allen R.N. 02/19/20 12:24: Notified by [facility] case management that patient is going to be discharged to [facility] with [facility] for transport at 1300 today. Attempted to call [facility] main line ([phone]) to give report and have not been able to reach nurse x 2. Left message on admission line ([phone]) for Valentine with my return call number in order to give report. Original Note: Patient finished breakfast, assisted to bathroom with 1 assist/contact gaurd/gait belt and walker. Patient then stood at sink and brushed her teeth, combed her hair and washed her face, cueing needed to stay on task. Assisted to bed as patient is very tired and would like to nap. Warm blanket given, patient able to turn and adjust herself in bed to shift weight. Call light activated for high fall risk precautions. Call light within reach. Patient now asleep at this time, continue to monitor.
[2020-02-19 11:00] VITALS: TEMP 36
== END 2020-02-19 13:25 | DRG 71 ==
LOC: ED 20:19 → AC 21:48
PROVIDERS: Internal Medicine; Nurse Practitioner Family; Admitting Provider Nurse Practitioner Family; Emergency Provider Emergency Medicine; PCP Student in an Organized Health Care Education/Training Program; Referring Provider Emergency Medicine; Visit Provider Nurse Practitioner Family
DX: G93.41 Metabolic encephalopathy (principal); N30.00 Acute cystitis without hematuria; S06.0X0A Concussion without loss of consciousness, initial encounter; B95.1 Streptococcus, group B, as the cause of diseases classified elsewhere; M41.86 Other forms of scoliosis, lumbar region; E53.8 Deficiency of other specified B group vitamins; S01.01XA Laceration without foreign body of scalp, initial encounter; I10 Essential (primary) hypertension; M47.896 Other spondylosis, lumbar region; E78.5 Hyperlipidemia, unspecified; E11.9 Type 2 diabetes mellitus without complications; E06.3 Autoimmune thyroiditis; Z03.818 Encounter for observation for suspected exposure to other biological agents ruled out; Z79.84 Long term (current) use of oral hypoglycemic drugs; W18.39XA Other fall on same level, initial encounter; Y92.009 Unspecified place in unspecified non-institutional (private) residence as the place of occurrence of the external cause; Z86.73 Personal history of transient ischemic attack (TIA), and cerebral infarction without residual deficits; Z66 Do not resuscitate
CPT/HCPCS: 12001; 36415; 70450; 70551; 71045; 80048; 80053; 80061; 81001; 82550; 82607; 82962; 83036; 83735; 84443; 84484; 85025; 85610; 85730; 86592; 86850; 86900; 86901; 87077; 87086; 87147; 87635; 93005; 96360; 97129; 97130; 97162; 97165; 97530; 97535; 99284; J2060

== ENCOUNTER → 2020-07-05 07:31 | Outpatient (ROUT) | payer MEDICARE, SELFPAY ==
[2020-07-05 09:00] LABS: Add Manual Diff / Slide Review NO; Basophils Absolute Auto 100 /uL (0-100); Basophils Percent Auto 2.3 % (0-2); Eosinophils Absolute Auto 100 /uL (0-450); Eosinophils Percent Auto 2.3 % (2-4); Hematocrit 29.5 % (36-46); Hemoglobin 9.7 g/dL (12.0-16.0); Lymphocytes Absolute Auto 1000 /uL (1100-4500); Lymphocytes Percent Auto 20.9 % (25-40); Mean Corpuscular HGB Conc 33.1 % (30-36); Mean Corpuscular Hemoglobin 27.4 PG (26-34); Mean Corpuscular Volume 82.8 fL (80-100); Monocytes Absolute Auto 500 /uL (0-900); Monocytes Percent Auto 10.4 % (3-14); Neutrophils Absolute Auto 3000 /uL (1500-7000); Neutrophils Percent Auto 64.1 % (50-75); Platelet Count 335 X10^3/uL (150-400); Red Blood Cell Count 3.56 X10^6/uL (4.0-5.2); Red Cell Distribution Width 17.5 % (11.6-14.8); White Blood Cell Count 4.8 X10^3/uL (4.5-11.0)
[2020-07-05 09:06] LABS: Alanine Aminotransferase 11 IU/L (<35); Albumin 3.3 g/dL (3.5-5.0); Albumin Globulin Ratio 1.3 (1.0-2.8); Alkaline Phosphatase 53 U/L (38-126); Aspartate Aminotransferase 17 IU/L (14-36); BUN Creatinine Ratio 21.7 (6-22); Bilirubin Total 0.4 mg/dL (0.2-1.3); Blood Urea Nitrogen 18 mg/dL (7-17); Calcium 9.1 mg/dL (8.4-10.2); Carbon Dioxide 26 mmol/L (22-32); Chloride 95 mmol/L (98-107); Estimated Glomerular Filt Rate > 60.0 mL/min (>60); Globulin 2.6 g/dL (1.7-4.1); Glucose 104 mg/dL (80-110); HEMOLYSIS < 15 (0-50); Potassium 3.8 mmol/L (3.4-5.1); Sodium 127 mmol/L (137-145); Total Protein 5.9 g/dL (6.3-8.2)
[2020-07-05 09:53] LABS: Thyroid Stimulating Hormone 5.27 uIU/mL (0.47-4.68)
[2020-07-05 09:55] LABS: Vitamin B12 472 pg/mL (239-931)
== END ==
PROVIDERS: PCP Student in an Organized Health Care Education/Training Program; Visit Provider Nurse Practitioner Family
DX: R41.89 Other symptoms and signs involving cognitive functions and awareness (principal)
CPT/HCPCS: 36415; 80053; 82607; 84443; 85025

== ENCOUNTER → 2020-08-15 14:50 | Outpatient (CLI) | payer MEDICARE, SELFPAY ==
--- NOTE | 2020-08-15 | DI.RAD.S_ITS ---
PROCEDURE: XR THORACIC SPINE 2V INDICATIONS: MIDBACK PAIN, S/P FALL TECHNIQUE: 2 views of the thoracic spine were acquired. COMPARISON: None. FINDINGS: Bones: No fractures or dislocations. No suspicious bony lesions. There is moderate to severe degenerative disc disease throughout the thoracic spine. 12 pairs of ribs are noted, and appear intact where visualized. Soft tissues: No paravertebral stripe thickening. IMPRESSION: Moderate to severe degenerative disc disease. Dictated by: Marjorie Gallo M.D. on 08/15/2020 at 16:45 Approved by: Marjorie Gallo M.D. on 08/15/2020 at 16:47
== END ==
PROVIDERS: PCP Internal Medicine; Referring Provider Internal Medicine; Visit Provider Internal Medicine
DX: M51.34 Other intervertebral disc degeneration, thoracic region (principal)
CPT/HCPCS: 72070

== ENCOUNTER → 2021-02-05 07:54 | Outpatient (ROUT) | payer MEDICARE, SELFPAY ==
[2021-02-05 09:00] LABS: Add Manual Diff / Slide Review NO; Basophils Absolute Auto 100 /uL (0-100); Eosinophils Absolute Auto 200 /uL (0-450); Eosinophils Percent Auto 2.5 % (2-4); Hematocrit 33.5 % (36-46); Hemoglobin 11.3 g/dL (12.0-16.0); Lymphocytes Absolute Auto 1100 /uL (1100-4500); Mean Corpuscular HGB Conc 33.7 % (30-36); Mean Corpuscular Hemoglobin 29.1 PG (26-34); Mean Corpuscular Volume 86.4 fL (80-100); Monocytes Absolute Auto 500 /uL (0-900); Monocytes Percent Auto 8.5 % (3-14); Neutrophils Absolute Auto 4200 /uL (1500-7000); Platelet Count 341 X10^3/uL (150-400); Red Blood Cell Count 3.88 X10^6/uL (4.0-5.2); Red Cell Distribution Width 14.5 % (11.6-14.8); White Blood Cell Count 6.1 X10^3/uL (4.5-11.0)
[2021-02-05 09:12] LABS: Alanine Aminotransferase 17 IU/L (<35); Albumin 4.2 g/dL (3.5-5.0); Albumin Globulin Ratio 1.4 (1.0-2.8); Alkaline Phosphatase 63 U/L (38-126); Aspartate Aminotransferase 23 IU/L (14-36); BUN Creatinine Ratio 16.9 (6-22); Bilirubin Total 0.3 mg/dL (0.2-1.3); Blood Urea Nitrogen 14 mg/dL (7-17); C-Reactive Protein Quant < 0.5 mg/dL (<1.0); Calcium 9.8 mg/dL (8.4-10.2); Carbon Dioxide 24 mmol/L (22-32); Chloride 91 mmol/L (98-107); Estimated Glomerular Filt Rate > 60.0 mL/min (>60); Globulin 2.9 g/dL (1.7-4.1); Glucose 152 mg/dL (80-110); HEMOLYSIS < 15 (0-50); Potassium 4.3 mmol/L (3.4-5.1); Sodium 124 mmol/L (137-145); Total Protein 7.1 g/dL (6.3-8.2)
[2021-02-05 09:28] LABS: Erythrocyte Sedimentation Rate 16 MM/HR (0-20)
[2021-02-05 10:04] LABS: Thyroid Stimulating Hormone 2.85 uIU/mL (0.47-4.68)
[2021-02-07 21:07] LABS: CCP Antibodies IgG/IgA 5 units (0-19)
== END ==
PROVIDERS: PCP Internal Medicine; Visit Provider Nurse Practitioner Family
DX: M35.00 Sjogren syndrome, unspecified (principal); M25.50 Pain in unspecified joint
CPT/HCPCS: 36415; 80053; 84443; 85025; 85651; 86140; 86200

== ENCOUNTER → 2021-02-12 09:13 | Outpatient (ROUT) | payer MEDICARE, SELFPAY ==
[2021-02-12 10:21] LABS: Carbon Dioxide 27 mmol/L (22-32); Chloride 92 mmol/L (98-107); HEMOLYSIS 25 (0-50); Potassium 4.4 mmol/L (3.4-5.1); Sodium 124 mmol/L (137-145)
[2021-02-12 14:01] LABS: Hemoglobin A1C% w Est Avg Glu 6.4 % (4.0-6.0)
== END ==
PROVIDERS: PCP Internal Medicine; Visit Provider Nurse Practitioner Family
DX: E87.1 Hypo-osmolality and hyponatremia (principal); E11.8 Type 2 diabetes mellitus with unspecified complications
CPT/HCPCS: 36415; 80051; 83036

== ENCOUNTER → 2021-02-19 07:56 | Outpatient (ROUT) | payer MEDICARE, SELFPAY ==
[2021-02-19 08:58] LABS: BUN Creatinine Ratio 17.6 (6-22); Blood Urea Nitrogen 15 mg/dL (7-17); Calcium 9.7 mg/dL (8.4-10.2); Carbon Dioxide 24 mmol/L (22-32); Chloride 91 mmol/L (98-107); Estimated Glomerular Filt Rate > 60.0 mL/min (>60); Glucose 130 mg/dL (80-110); HEMOLYSIS < 15 (0-50); Potassium 4.2 mmol/L (3.4-5.1); Sodium 123 mmol/L (137-145)
== END ==
PROVIDERS: PCP Internal Medicine; Visit Provider Nurse Practitioner Family
DX: E87.1 Hypo-osmolality and hyponatremia (principal)
CPT/HCPCS: 36415; 80048

== ENCOUNTER → 2021-02-26 08:06 | Outpatient (ROUT) | payer MEDICARE, SELFPAY ==
[2021-02-26 08:43] LABS: Carbon Dioxide 26 mmol/L (22-32); Chloride 90 mmol/L (98-107); HEMOLYSIS < 15 (0-50); Potassium 4.4 mmol/L (3.4-5.1); Sodium 123 mmol/L (137-145)
== END ==
PROVIDERS: PCP Internal Medicine; Visit Provider Internal Medicine
DX: E87.1 Hypo-osmolality and hyponatremia (principal)
CPT/HCPCS: 36415; 80051

== ENCOUNTER → 2021-02-28 15:14 | Outpatient (CLI) | payer MEDICARE, SELFPAY ==
--- NOTE | 2021-02-28 | DI.RAD.S_ITS ---
PROCEDURE: XR HAND LT MIN 3V INDICATIONS: pain TECHNIQUE: 3 views of the hand(s) acquired. COMPARISON: None. FINDINGS: Bones: No fractures or dislocations. Carpal bones are normally aligned. No suspicious bony lesions. Joint space narrowing, subchondral sclerosis and small marginal osteophytes involve the 1st carpometacarpal joint, 2nd through 4th DIP and 2nd through 5th PIP joints. Generalized decrease in osseous mineralization noted. Soft tissues: No suspicious soft tissue calcifications. IMPRESSION: Osteoarthritic changes noted predominantly over the PIP and DIP joints. Dictated by: Ross Acosta M.D. on 02/28/2021 at 16:21 Approved by: Ross Acosta M.D. on 02/28/2021 at 16:28
--- NOTE | 2021-02-28 15:20 | DI.RAD.S_ITS ---
PROCEDURE: XR WRIST LT MIN 3V INDICATIONS: PAIN IN HAND/ WRIST/KNEE TECHNIQUE: 4 views of the wrist were acquired. COMPARISON: [facility], CR, XR HAND LT MIN 3V, 02/28/2021, 15:22. FINDINGS: Bones: No fractures or dislocations. No suspicious bony lesions. There is severe 1st CMC joint space narrowing with periarticular osteophytosis and radial subluxation of the 1st metacarpal base. Scaphoid view: Intact scaphoid. Soft tissues: Chondrocalcinosis involving the ulnar carpal joint. IMPRESSION: 1. 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 2 Chondrocalcinosis. Differential diagnosis includes but is not limited to hemochromatosis, hyperparathyroidism and CPPD. Dictated by: Stefan VÁZQUEZ Interpreted: Shellie Pulido MD on 02/28/2021 at 16:24 Transcribed by: ZARA on 02/28/2021 at 16:25 Approved by: Shellie Pulido M.D. on 02/28/2021 at 17:07
--- NOTE | 2021-02-28 15:21 | DI.RAD.S_ITS ---
PROCEDURE: XR KNEE RT 3V INDICATIONS: PAIN IN HAND/ WRIST/KNEE TECHNIQUE: 3 views of the knee were acquired. COMPARISON: None. FINDINGS: Bones: No fractures or dislocations. No suspicious bony lesions. Mild narrowing of the medial femoral tibial joint and tricompartmental periarticular osteophyte formation. Soft tissues: Small joint effusion. No suspicious soft tissue calcifications. Chondrocalcinosis. IMPRESSION: 1. Tricompartmental knee joint degeneration, most notably involving the medial femoral tibial joint and chondrocalcinosis present. Dictated by: Stefan Dacosta Rosario Interpreted: Shellie Pulido MD on 02/28/2021 at 16:23 Transcribed by: ZARA on 02/28/2021 at 16:24 Approved by: Shellie Pulido M.D. on 02/28/2021 at 17:07
== END ==
PROVIDERS: PCP Internal Medicine; Referring Provider Internal Medicine; Visit Provider Internal Medicine
DX: M06.9 Rheumatoid arthritis, unspecified (principal); M25.561 Pain in right knee; M25.532 Pain in left wrist; M79.642 Pain in left hand; M17.11 Unilateral primary osteoarthritis, right knee; M11.261 Other chondrocalcinosis, right knee; M18.12 Unilateral primary osteoarthritis of first carpometacarpal joint, left hand; M11.232 Other chondrocalcinosis, left wrist
CPT/HCPCS: 73110; 73130; 73562

== ENCOUNTER → 2021-03-05 07:42 | Outpatient (ROUT) | payer MEDICARE, SELFPAY ==
[2021-03-05 08:46] LABS: C-Reactive Protein Quant 0.5 mg/dL (<1.0)
[2021-03-05 08:49] LABS: Rheumatoid Factor 33.2 IU/mL (<12.0)
[2021-03-05 08:56] LABS: Erythrocyte Sedimentation Rate 17 MM/HR (0-20)
[2021-03-08 03:37] LABS: CCP Antibodies IgG/IgA 6 units (0-19)
== END ==
PROVIDERS: PCP Internal Medicine; Visit Provider Internal Medicine
DX: R52 Pain, unspecified (principal)
CPT/HCPCS: 36415; 85651; 86140; 86200; 86430

== ENCOUNTER 2021-03-08 10:36 | Emergency (ER) | payer MEDICARE, SELFPAY ==
[2021-03-08] VITALS (8 sets, daily range): BP systolic 140–178; BP diastolic 60–74; PULSE 65–73; RESP 16–18; TEMP 37.1; O2SAT 98–99; BMI 28.3
--- NOTE | 2021-03-08 11:38 | DI.RAD.S_ITS ---
PROCEDURE: XR HUMERUS LT 2V INDICATIONS: Pain/swelling TECHNIQUE: 2 views of the humerus were acquired. COMPARISON: None. FINDINGS: Bones: There is a mildly impacted radial neck fracture seen. No additional fractures are detected. Age-appropriate bony degenerative changes are seen. Soft tissues: No suspicious soft tissue calcifications. IMPRESSION: Mildly impacted radial neck fracture. If clinically appropriate, please consider a dedicated elbow CT or plain film series for further evaluation. Dictated by: Ramírez Mauro M.D. on 03/08/2021 at 12:03 Approved by: Ramírez Mauro M.D. on 03/08/2021 at 12:04
--- NOTE | 2021-03-08 11:38 | DI.US.S_ITS ---
PROCEDURE: US PERIPH VENOUS UP EXTREM LT INDICATIONS: HAND EDEMA TECHNIQUE: Real-time imaging, as well as color and pulse Doppler interrogation, was performed of the left upper extremity deep veins from the inferior neck to the antecubital fossa. COMPARISON: None. FINDINGS: The internal jugular vein, visualized portions of the subclavian vein, axillary, and brachial veins are free of intraluminal thrombus. Where physically possible, the veins are normally compressible. Color and pulse Doppler demonstrate normal intraluminal flow, with expected phasicity and pulsatility. Additional scanning of the cephalic and basilic veins of the superficial system demonstrate normal compressibility, without thrombus. IMPRESSION: No evidence of deep vein thrombosis involving the left upper extremity. Dictated by: Rhiannon Gracia MD, PhD on 03/08/2021 at 13:29 Approved by: Rhiannon Gracia MD, PhD on 03/08/2021 at 13:29
--- NOTE | 2021-03-08 11:38 | DI.RAD.S_ITS ---
PROCEDURE: XR FOREARM LT 2V INDICATIONS: Pain/swelling TECHNIQUE: 2 views of the forearm were acquired. COMPARISON: [facility], CR, XR HAND LT MIN 3V, 02/28/2021, 15:22. [facility], CR, XR WRIST LT MIN 3V, 02/28/2021, 15:22. [facility], CR, XR HUMERUS LT 2V, 03/08/2021, 12:15. [facility], CR, XR SHOULDER LT MIN 2V, 03/08/2021, 12:15. FINDINGS: Bones: There is a mildly impacted fracture seen involving the radial neck. Age-appropriate bony degenerative changes are seen. Soft tissues: No suspicious soft tissue calcifications or masses. IMPRESSION: Mildly impacted radial neck fracture. If clinically appropriate, please consider a dedicated elbow plain film series or CT. Dictated by: Ramírez Mauro M.D. on 03/08/2021 at 12:00 Approved by: Ramírez Mauro M.D. on 03/08/2021 at 12:02
--- NOTE | 2021-03-08 11:38 | DI.RAD.S_ITS ---
PROCEDURE: XR SHOULDER LT MIN 2V INDICATIONS: Pain/swelling TECHNIQUE: 2 views of the shoulder were acquired. COMPARISON: [facility], CR, XR SHOULDER LT MIN 2V, 12/09/2018, 10:42. [facility], CR, XR HUMERUS LT 2V, 03/08/2021, 12:15. [facility], CR, XR FOREARM LT 2V, 03/08/2021, 12:15. [facility], CR, XR SHOULDER RT MIN 2V, 12/09/2018, 10:42. FINDINGS: Bones: No fractures or dislocations. No suspicious bony lesions. Visualized ribs appear intact. Age-appropriate bony degenerative changes are seen. Soft tissues: No suspicious soft tissue calcifications. The visualized lung demonstrates an unremarkable appearance. IMPRESSION: No significant plain film abnormality is seen Dictated by: Ramírez Mauro M.D. on 03/08/2021 at 12:02 Approved by: Ramírez Mauro M.D. on 03/08/2021 at 12:03
--- NOTE | 2021-03-08 11:41 | ED_ITS ---
HPI - Extremity Problem General Chief complaint: Extremity Problem,Nontraumatic Stated complaint: left arm pain all the way up to the shoulder Time Seen by Provider: 03/08/21 11:33 Source: patient Mode of arrival: Wheelchair Limitations: no limitations History of Present Illness HPI Narrative: Patient complains of left upper extremity pain for the past couple days. History arthritis. Recently had x-rays of the upper extremity on left side 8 days ago. Done here. No known injury or fall. Patient family also requesting urinalysis. Patient denies any urinary complaints. Pain with any movement. MD Complaint: extremity pain and extremity swelling Related Data Previous Rx's Medication Instructions Recorded aspirin 81 mg tablet,delayed 81 mg PO DAILY #90 tab 02/19/20 release atorvastatin 10 mg tablet 10 mg PO BEDTIME #90 tab 02/19/20 irbesartan 300 mg tablet 300 mg PO DAILY #90 tab 02/19/20 ketotifen fumarate 0.025 % (0.035 1 drop EYE-BOTH BID PRN #5 ml 02/19/20 %) eye drops levothyroxine 88 mcg tablet 88 mcg PO DAILY #90 tab 02/19/20 melatonin 5 mg tablet 5 mg PO BEDTIME #90 tab 02/19/20 meloxicam 15 mg tablet 15 mg PO DAILY #90 tab 02/19/20 metformin 1,000 mg tablet 1,000 mg PO BID #180 tab 02/19/20 metoprolol tartrate 100 mg tablet 100 mg PO BID #180 tab 02/19/20 multivitamin 1 tab PO DAILY #30 tab 02/19/20 quetiapine 25 mg tablet 12.5 mg PO BEDTIME #45 tab 02/19/20 Allergies Allergy/AdvReac Type Severity Reaction Status Date / Time ciprofloxacin [CIPROFLOXACIN] AdvReac Severe Bloody Verified 10/18/19 14:10 diahrrea, swollen feet. Benzodiazepines AdvReac Intermediate EXTREME Verified 10/18/19 14:10 SENSITIVITY fentanyl AdvReac Intermediate EXTREME Verified 10/18/19 14:10 SENSITIVITY TO ALL NARCOTICS meperidine AdvReac Intermediate EXTREME Verified 10/18/19 14:10 SENSITIVITY Opioids - Morphine Analogues AdvReac Intermediate EXTREME Verified 10/18/19 14:10 SENSITIVITY - SOMNOLENCE Review of Systems Review of Systems Narrative: GENERAL: Denies chills, fatigue, malaise, fever, sweats. HEENT: Denies sinus pain, ear pain, sore throat RESPIRATORY: Denies dyspnea, cough CARDIOVASCULAR: Denies chest pain, palpitations GASTROINTESTINAL: Denies nausea, vomiting, abdominal pain : Denies dysuria, frequency, hematuria MUSCULOSKELETAL: Complains muscle or bony pain SKIN: Denies rash, skin lesions NEUROLOGIC: Denies weakness, numbness ROS Unobtainable: All systems reviewed & are unremarkable except as noted in HPI and below Patient History Medical History (Updated 03/08/21 @ 13:32 by Carlos Dodd MD) Acquired hypothyroidism (02/10/16) Ankle pain (1989) Balance problems (02/01/17) Bunion (03/02/17) Carpal tunnel syndrome (1974) Cataracts, bilateral (2013) Chickenpox Chronic pain of both shoulders (10/26/16) Diverticulitis Eczema (02/10/16) Essential hypertension with goal blood pressure less than 140/90 (02/10/16) Fibroids (1979) Foot pain (1989) GERD (gastroesophageal reflux disease) Hammer toe of left foot (03/02/17) History of diverticulitis (06/25/16) Hot flashes due to menopause Hyperlipemia (1979) Hypertension (1979) IBS (irritable bowel syndrome) (2003) Lumbar spine pain (2005) Measles Mumps 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) Ovarian cyst (1989) Primary insomnia (10/26/16) Pure hypercholesterolemia (02/10/16) Scoliosis Sjogren's syndrome (2003) Type 2 diabetes mellitus without complication, without long-term current use of insulin (2015) Surgical History Anesthesia complication History of carpal tunnel repair (1974) History of cataract removal with insertion of prosthetic lens (2013) History of colonoscopy (04/01/07) History of colonoscopy with polypectomy (05/08/11) History of left cataract surgery (11/13/14) History of right cataract surgery (12/11/14) Hx of hand surgery (2013) Hx of surgical procedure (1996) Status post appendectomy (1954) Status post cholecystectomy (1964) Status post hysterectomy (1990) Family History Child Hypertension Child Hypertension Sister Age: 79 Rheumatoid arthritis Father NM (myocardial infarction) Heart disease Mother NM (myocardial infarction) Hypertension Angina pectoris Sister Colon cancer Social History household members: none Smoking Status: Never smoker second hand exposure: No alcohol intake: former substance use type: does not use Smoking Status: Never smoker alcohol intake frequency: 0-2 drinks per day Substance Use Type: does not use Exam Narrative Exam Narrative: GENERAL: in no distress, not toxic not dyspneic HEAD: Normocephalic. EYES: Pupils equal round No scleral icterus. No injection no discharge ENT: Mucous membranes moist. NECK: Trachea midline. CARDIOVASCULAR: Regular rate and rhythm without murmurs RESPIRATORY: Clear to auscultation. Breath sounds equal bilaterally. No wheezes, rales, or rhonchi. GASTROINTESTINAL: Abdomen soft, non-tender EXTREMITIES: No gross deformities. Examination left upper extremity. Mild edema at the wrist and hand. Diffuse tenderness from shoulder down to finger tips. Has decreased range of motion to shoulder elbow and wrist due to pain. No gross deformity. No rash. No bruising. Strong buffer copper in radial pulse with light touch intact deltoid in fingertips and thumb. BACK: No flank tenderness. NEURO: AOx4. SKIN: Warm and dry PSYCH: Not anxious, is cooperative Initial Vital Signs Initial Vital Signs: Vital Signs Pulse Oximetry 99 03/08/21 10:45 Procedures Orthopedic Splinting/Casting Injury #1: Side: left Upper Extremity Injury Location: elbow Upper Extremity Immobilizer: sugar tong splint Post splinting neuro exam: intact Post splinting vascular exam: intact Placed by: Nursing Course Course Course Narrative: No new issues during course of stay Orders Ordered: Discontinued Medications Ibuprofen (Ibuprofen 400 Mg Tablet) 400 mg PO NOW ONE Stop: 03/08/21 12:04 Last Admin: 03/08/21 13:23 Dose: 400 mg Documented by: MICHAEL Reevaluation(s) Reevaluation #1: Spoke with patient results of x-ray imaging and ultrasound. She does not recall any injury or fall. Agrees with treatment plan and follow- up. Pain is controlled. Time: 13:30 Consultations Consultation #1: Spoke with primary care Dr. Pittman. Sodium is chronically low for the past 1 year. Average 123. Patient has been worked up by her for left upper extremity pain and joint pain. Likely arthritis. Is scheduled to get steroid shots. Patient did not get her scheduled ibuprofen yesterday. Pain was not controlled. In addition she states the staff did not respond to patient's knees last night due to communication error/telephone device was not connected to the right staff member. Patient did get some x-rays a few days ago. They were placed on the chart here. She does not see the need for the urinalysis. Family was requesting it. Treat with antibiotics if abnormal. Time: 12:04 Consultation #2: Spoke with Orthopedics Dr. Cervantes, appropriate for Ortho Glass splint and sling and follow-up in the office. Time: 13:15 Vital Signs Vital signs: Vital Signs - 8 hr 03/08/21 10:45 03/08/21 10:46 03/08/21 10:49 Temperature 98.8 F Pulse Rate 73 Respiratory Rate 16 Blood Pressure 178/74 H Pulse Oximetry 99 98 99 03/08/21 11:00 03/08/21 11:30 03/08/21 12:00 Temperature Pulse Rate 69 68 68 Respiratory Rate Blood Pressure 146/71 H 149/72 H 145/68 H Pulse Oximetry 98 98 98 03/08/21 12:41 Temperature Pulse Rate 71 Respiratory Rate Blood Pressure Pulse Oximetry 99 MDM - Extremity (Nontraumatic) Differential Diagnosis Differential diagnosis: Likely gout, deep venous thrombosis of upper extremity and other (Arthritis/fracture) Medical Records Attestation: I reviewed the patient's medical records. Lab Data Labs: Lab Results 03/08/21 Range/Units 11:55 Urine Color Yellow Urine Appearance Clear Urine pH 7.0 (4.5-8.0) Ur Specific [place] 1.015 (1.000-1.035) Urine Protein Negative (Negative) Urine Glucose (UA) Negative (Negative) g/dL Urine Ketones Negative (NEGATIVE) Urine Occult Blood Negative (Negative) Urine Nitrate Negative (Negative) Urine Bilirubin Negative (NEGATIVE) Urine Urobilinogen 0.2 (0.2) E.U./dL Ur Leukocyte Esterase Negative (NEGATIVE) Urine RBC None seen (0-5/HPF) Urine WBC 0-1/hpf (0-5/HPF) Urine Bacteria None seen (None) Ur Culture Indicated? Cult not indicated Imaging Data X-ray left hand: Radiologist's Impression: [address] [place] [id number] ReportSigned Patient: Carey Mtz EMR#: [id number]: 8Acct:[id number]/Sex: 81 / FDate of Service: 02/28/21Lo: RADAccession Number: [id number] Procedure: XR hand LT min 3V Ordering Provider: Kristin Pittman MD PROCEDURE: XR HAND LT MIN 3V INDICATIONS: pain TECHNIQUE: 3 views of the hand(s) acquired. COMPARISON: None. FINDINGS: Bones: No fractures or dislocations. Carpal bones are normally aligned. No suspicious bony lesions. Joint space narrowing, subchondral sclerosis and small marginal osteophytes involve the 1st carpometacarpal joint, 2nd through 4th DIP and 2nd through 5th PIP joints. Generalized decrease in osseous mineralization noted. Soft tissues: No suspicious soft tissue calcifications. IMPRESSION: Osteoarthritic changes noted predominantly over the PIP and DIP j oints. Dictated by: Ross Acosta M.D. on 02/28/2021 at 16:21 Approved by: Ross Acosta M.D. on 02/28/2021 at 16:28 X-ray left wrist: Radiologist's Impression: [address] [id number] ReportSigned Patient: Carey Mtz EMR#: [id number]: 8Acct:[id number]/Sex: 81 / FDate of Service: 02/28/21Loc: RADAccession Number: [id number] Procedure: XR wrist LT min 3V Ordering Provider: Kristin Pittman MD PROCEDURE: XR WRIST LT MIN 3V INDICATIONS: PAIN IN HAND/ WRIST/KNEE TECHNIQUE: 4 views of the wrist were acquired. COMPARISON: [facility], XR HAND LT MIN 3V, 02/28/2021, 15:22. FINDINGS: Bones: No fractures or dislocations. No suspicious bony lesions. There is severe 1st CMC joint space narrowing with periarticular osteophytosis and radial subluxation of the 1st metacarpal base. Scaphoid view: Intact scaphoid. Soft tissues: Chondrocalcinosis involving the ulnar carpal joint. IMPRESSION: 1. 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 2 Chondrocalcinosis. Differential diagnosis includes but is not limited to hemochromatosis, hyperparathyroidism and CPPD. Dictated by: Stefan Dacosta [facility] Interpreted: Shellie Pulido MD on 02/28/2021 at 16:24 Transcribed by: ZARA on 02/28/2021 at 16:25 Approved by: Shellie Pulido M.D. on 02/28/2021 at 17:07 Extremity x-ray #1: Radiologist's Impression: [address] [id number] ReportSigned Patient: Carey Mtz EMR#: [id number]: 8Acct:[id number]/Sex: 81 / FDate of Service: 03/08/21Loc: EDAccession Number: [id number] Procedure: XR shoulder LT min 2V Ordering Provider: Carlos Dodd MD PROCEDURE: XR SHOULDER LT MIN 2V INDICATIONS: Pain/swelling TECHNIQUE: 2 views of the shoulder were acquired. COMPARISON: [facility], CR, XR SHOULDER LT MIN 2V, 12/09/2018, 10:42. [facility], CR, XR HUMERUS LT 2V, 03/08/2021, 12:15. [facility], CR, XR FOREARM LT 2V, 03/08/2021, 12:15. [facility], CR, XR SHOULDER RT MIN 2V, 12/09/2018, 10:42. FINDINGS: Bones: No fractures or dislocations. No suspicious bony lesions. Visualized ribs appear intact. Age-appropriate bony degenerative changes are seen. Soft tissues: No suspicious soft tissue calcifications. The visualized lung demonstrates an unremarkable appearance. IMPRESSION: No significant plain film abnormality is seen Dictated by: Ramírez Mauro M.D. on 03/08/2021 at 12:02 Approved by: Ramírez Mauro M.D. on 03/08/2021 at 12:03 Extremity x-ray #2: Radiologist's Impression: [address] [id number] ReportSigned Patient: Carey Mtz EMR#: [id number]: 8Acct:[id number]/Sex: 81 / FDate of Service: 03/08/21Loc: EDAccession Number: [id number] Procedure: XR humerus LT 2V Ordering Provider: Carlos Dodd MD PROCEDURE: XR HUMERUS LT 2V INDICATIONS: Pain/swelling TECHNIQUE: 2 views of the humerus were acquired. COMPARISON: None. FINDINGS: Bones: There is a mildly impacted radial neck fracture seen. No additional fractures are detected. Age-appropriate bony degenerative changes are seen. Soft tissues: No suspicious soft tissue calcifications. IMPRESSION: Mildly impacted radial neck fracture. If clinically appropriate, please consider a dedicated elbow CT or plain film series for further evaluation. Dictated by: Ramírez Mauro M.D. on 03/08/2021 at 12:03 Approved by: Ramírez Mauro M.D. on 03/08/2021 at 12:04 Extremity x-ray #3: Radiologist's Impression: [address] [id number] ReportSigned Patient: Carey Mtz EMR#: [id number]: 8Acct:[id number]/Sex: 81 / FDate of Service: 03/08/21Loc: EDAccession Number: [id number] Procedure: XR forearm LT 2V Ordering Provider: Carlos Dodd MD PROCEDURE: XR FOREARM LT 2V INDICATIONS: Pain/swelling TECHNIQUE: 2 views of the forearm were acquired. COMPARISON: [facility], CR, XR HAND LT MIN 3V, 02/28/2021, 15:22. [facility], CR, XR WRIST LT MIN 3V, 02/28/2021, 15:22. [facility], CR, XR HUMERUS LT 2V, 03/08/2021, 12:15. [facility], CR, XR SHOULDER LT MIN 2V, 03/08/2021, 12:15. FINDINGS: Bones: There is a mildly impacted fracture seen involving the radial neck. Age-appropriate bony degenerative changes are seen. Soft tissues: No suspicious soft tissue calcifications or masses. IMPRESSION: Mildly impacted radial neck fracture. If clinically appropriate, please consider a dedicated elbow plain film series or CT. Dictated by: Ramírez Mauro M.D. on 03/08/2021 at 12:00 Approved by: Ramírez Mauro M.D. on 03/08/2021 at 12:02 [facility] Narrative Medical decision making narrative: Appropriate for discharge home. Exam reassuring. Reviewed with primary care as well as Orthopedics. Follow-up is appropriate. I did speak with primary care Dr. Pittman regarding findings on x-rays from today. Discharge Plan Departure Patient Disposition: Home Clinical Impression: Closed fracture of elbow Qualifiers: Encounter type: initial encounter Laterality: left Qualified Code(s): S42.402A - Unspecified fracture of lower end of left humerus, initial encounter for closed fracture Instructions: DI for Elbow Fracture Activity Restrictions/Additional Instructions: Call Dr. Crevantes office on Wednesday for office recheck next week. Use splint and sling for comfort. Continue ibuprofen at home for pain. Return if worse if any questions or concerns Prescriptions: No Action aspirin 81 mg tablet,delayed release (DR/EC) 81 mg PO DAILY Qty: 90 RF: 3 atorvastatin [Lipitor] 10 mg tablet 10 mg PO BEDTIME Qty: 90 RF: 3 irbesartan [Avapro] 300 mg tablet 300 mg PO DAILY Qty: 90 RF: 3 ketotifen fumarate 0.025 % (0.035 %) drops 1 drop EYE-BOTH BID PRN (Reason: allergy symptoms) Qty: 5 RF: 5 levothyroxine 88 mcg tablet 88 mcg PO DAILY Qty: 90 RF: 3 melatonin 5 mg tablet 5 mg PO BEDTIME Qty: 90 RF: 3 meloxicam 15 mg tablet 15 mg PO DAILY Qty: 90 RF: 3 metformin 1,000 mg tablet 1,000 mg PO BID Qty: 180 RF: 3 metoprolol tartrate 100 mg tablet 100 mg PO BID Qty: 180 RF: 3 multivitamin [Tab-A-[place]] Tablet 1 tab PO DAILY Qty: 30 RF: 0 quetiapine 25 mg tablet 12.5 mg PO BEDTIME Qty: 45 RF: 3 Referrals: Staci Sen MD [Physician] - Kristin Pittman MD [Primary Care Provider] -
[2021-03-08 12:04] LABS: Bacteria Urine None Seen; RBC Urine None Seen (0-5/HPF)
[2021-03-08 12:14] LABS: Appearance Urine UA CLEAR; Bilirubin Urine UA NEGATIVE (NEGATIVE); Color Urine UA YELLOW; Glucose Urine UA NEGATIVE (Negative); Ketones Urine UA NEGATIVE (NEGATIVE); Leukocyte Esterase Urine UA NEGATIVE (NEGATIVE); Nitrite Urine UA NEGATIVE (Negative); Occult Blood Urine UA NEGATIVE (Negative); Protein Urine UA NEGATIVE (Negative); Specific Gravity Urine UA 1.015 (1.000-1.035); Urobilinogen Urine UA 0.2 E.U./dL (0.2)
[2021-03-08 12:39] LABS: Culture Indicated Urine Cult Not Indicated; WBC Urine 0-1/HPF (0-5/HPF)
[2021-03-08] MEDS: IBUPROFEN 400 MG TABLET PO (13:23)
== END 2021-03-08 14:04 | disposition home or self-care (01) ==
PROVIDERS: Emergency Provider Emergency Medicine; PCP Internal Medicine
DX: S42.402A Unspecified fracture of lower end of left humerus, initial encounter for closed fracture (principal)
CPT/HCPCS: 73030; 73060; 73090; 81001; 93971; 99283

== ENCOUNTER → 2021-05-17 11:05 | Outpatient (CLI) | payer MEDICARE, SELFPAY ==
--- NOTE | 2021-05-17 | DI.RAD.S_ITS ---
PROCEDURE: XR KNEE RT 3V INDICATIONS: PAIN TECHNIQUE: 3 views of the knee were acquired. COMPARISON: [facility], CR, XR FOOT RT MIN 3V, 05/17/2021, 11:27. [facility], CR, XR SHOULDER LT MIN 2V, 05/17/2021, 11:27. [facility], CR, XR KNEE LT 3V, 05/17/2021, 11:27. [facility], CR, XR FOOT LT MIN 3V, 05/17/2021, 11:27. [facility], CR, XR HAND LT MIN 3V, 05/17/2021, 11:27. [facility], CR, XR HAND RT MIN 3V, 05/17/2021, 11:27. [facility], CR, XR SHOULDER RT MIN 2V, 05/17/2021, 11:27. [facility], CR, XR KNEE RT 3V, 02/28/2021, 15:22. FINDINGS: Bones: No fractures or dislocations. No suspicious bony lesions. There is mild medial femorotibial joint space narrowing seen, with associated remodeling changes including subchondral sclerosis and osteophyte formation along the jointline. On the sunrise view, there is minimal to mild patellofemoral joint space narrowing seen. Osteophyte formation can be seen along the margins of the patella. Soft tissues: There is a mild joint effusion. Calcification can be seen along the joint line, which is attributed to meniscal calcification. IMPRESSION: Osteoarthritic degenerative changes are seen, which are most prominent involving the medial femorotibial compartment of the knee. Dictated by: Ramírez Mauro M.D. on 05/17/2021 at 12:17 Approved by: Ramírez Mauro M.D. on 05/17/2021 at 12:18
--- NOTE | 2021-05-17 | DI.RAD.S_ITS ---
PROCEDURE: XR KNEE LT 3V INDICATIONS: PAIN TECHNIQUE: 3 views of the knee were acquired. COMPARISON: [facility], CR, XR KNEE RT 3V, 05/17/2021, 11:27. [facility], CR, XR SHOULDER LT MIN 2V, 05/17/2021, 11:27. [facility], CR, XR FOOT RT MIN 3V, 05/17/2021, 11:27. [facility], CR, XR FOOT LT MIN 3V, 05/17/2021, 11:27. [facility], CR, XR HAND LT MIN 3V, 05/17/2021, 11:27. [facility], CR, XR HAND RT MIN 3V, 05/17/2021, 11:27. [facility], CR, XR SHOULDER RT MIN 2V, 05/17/2021, 11:27. [facility], CR, XR KNEE RT 3V, 02/28/2021, 15:22. FINDINGS: Bones: No fractures or dislocations. No suspicious bony lesions. There is at least moderate medial femorotibial joint space narrowing seen, with associated remodeling changes including subchondral sclerosis and osteophyte formation along the jointline. There is an enthesophyte seen along the superior aspect of the patella on the lateral view. Soft tissues: There is a minimal joint effusion. Calcification is seen along the joint line, which is attributed to meniscal calcification. IMPRESSION: Osteoarthritic degenerative changes are seen, with at least moderate medial femorotibial joint space narrowing seen. Dictated by: Ramírez Mauro M.D. on 05/17/2021 at 12:18 Approved by: Ramírez Mauro M.D. on 05/17/2021 at 12:19
--- NOTE | 2021-05-17 11:12 | DI.RAD.S_ITS ---
PROCEDURE: XR FOOT RT MIN 3V INDICATIONS: pain TECHNIQUE: 3 views of the foot were acquired. COMPARISON: [facility], CR, XR KNEE RT 3V, 05/17/2021, 11:27. [facility], CR, XR SHOULDER LT MIN 2V, 05/17/2021, 11:27. [facility], CR, XR KNEE LT 3V, 05/17/2021, 11:27. [facility], CR, XR FOOT LT MIN 3V, 05/17/2021, 11:27. [facility], CR, XR HAND LT MIN 3V, 05/17/2021, 11:27. [facility], CR, XR HAND RT MIN 3V, 05/17/2021, 11:27. [facility], CR, XR SHOULDER RT MIN 2V, 05/17/2021, 11:27. Prior foot plain films are not available for review from the archive at the time of this dictation. FINDINGS: Bones: No fractures or dislocations. No suspicious bony lesions. Moderate hallux valgus deformity is seen, with associated focal degenerative change of the 1st metatarsophalangeal joint. Moderate to prominent degenerative change can be seen along the Lisfranc joint, with joint space narrowing with subchondral irregularity and partial bridging osteophytes. Soft tissues: No tibiotalar joint effusion. Achilles tendon appears normal. IMPRESSION: Focal Lisfranc joint degenerative change. Moderate hallux valgus deformity. Dictated by: Ramírez Mauro M.D. on 05/17/2021 at 12:25 Approved by: Ramírez Mauro M.D. on 05/17/2021 at 12:26
--- NOTE | 2021-05-17 11:13 | DI.RAD.S_ITS ---
PROCEDURE: XR HAND RT MIN 3V INDICATIONS: pain TECHNIQUE: 3 views of the hand(s) acquired. COMPARISON: [facility], CR, XR WRIST LT MIN 3V, 02/28/2021, 15:22. [facility], CR, XR FOOT RT MIN 3V, 05/17/2021, 11:27. [facility], CR, XR SHOULDER LT MIN 2V, 05/17/2021, 11:27. [facility], CR, XR KNEE LT 3V, 05/17/2021, 11:27. [facility], CR, XR KNEE RT 3V, 05/17/2021, 11:27. [facility], CR, XR FOOT LT MIN 3V, 05/17/2021, 11:27. [facility], CR, XR HAND LT MIN 3V, 05/17/2021, 11:27. [facility], CR, XR SHOULDER RT MIN 2V, 05/17/2021, 11:27. [facility], CR, XR HAND LT MIN 3V, 02/28/2021, 15:22. FINDINGS: Bones: No acute fractures are seen. The trapezium is eroded versus surgically removed. Advanced degenerative changes are seen involving the distal interphalangeal joints and the proximal interphalangeal joints. Pencil in cup deformity can be seen at least involving the distal interphalangeal joint of the 2nd finger. Age-appropriate osteopenia is seen. Soft tissues: Calcification of the triangular fibrocartilage can be seen. IMPRESSION: Prominent degenerative changes are seen. Please consider rheumatoid versus psoriatic arthritis Dictated by: Ramírez Mauro M.D. on 05/17/2021 at 12:03 Approved by: Ramírez Mauro M.D. on 05/17/2021 at 12:06
--- NOTE | 2021-05-17 11:13 | DI.RAD.S_ITS ---
PROCEDURE: XR HAND LT MIN 3V INDICATIONS: pain TECHNIQUE: 3 views of the hand(s) acquired. COMPARISON: [facility], CR, XR FOOT RT MIN 3V, 05/17/2021, 11:27. [facility], CR, XR SHOULDER LT MIN 2V, 05/17/2021, 11:27. [facility], CR, XR KNEE LT 3V, 05/17/2021, 11:27. [facility], CR, XR KNEE RT 3V, 05/17/2021, 11:27. [facility], CR, XR FOOT LT MIN 3V, 05/17/2021, 11:27. [facility], CR, XR HAND RT MIN 3V, 05/17/2021, 11:27. [facility], CR, XR SHOULDER RT MIN 2V, 05/17/2021, 11:27. [facility], CR, XR HAND LT MIN 3V, 02/28/2021, 15:22. FINDINGS: Bones: No fractures or dislocations. Carpal bones are normally aligned. Degenerative changes are seen throughout. There is prominent degenerative change of the 1st carpometacarpal joint, with fragmentation and remodeling. Generalized osteopenia can be seen. Soft tissues: There is calcification seen of the triangular fibrocartilage. IMPRESSION: Generalized degenerative changes are seen. Underlying inflammatory arthropathy is suspected. Dictated by: Ramírez Mauro M.D. on 05/17/2021 at 12:06 Approved by: Ramírez Mauro M.D. on 05/17/2021 at 12:07
--- NOTE | 2021-05-17 11:13 | DI.RAD.S_ITS ---
PROCEDURE: XR SHOULDER LT MIN 2V INDICATIONS: pain TECHNIQUE: 3 views of the shoulder were acquired. COMPARISON: [facility], CR, XR FOOT RT MIN 3V, 05/17/2021, 11:27. [facility], CR, XR SHOULDER RT MIN 2V, 05/17/2021, 11:27. [facility], CR, XR KNEE LT 3V, 05/17/2021, 11:27. [facility], CR, XR KNEE RT 3V, 05/17/2021, 11:27. [facility], CR, XR FOOT LT MIN 3V, 05/17/2021, 11:27. [facility], CR, XR HAND LT MIN 3V, 05/17/2021, 11:27. [facility], CR, XR HAND RT MIN 3V, 05/17/2021, 11:27. [facility], CR, XR SHOULDER LT MIN 2V, 03/08/2021, 12:15. FINDINGS: Bones: No fractures or dislocations. No suspicious bony lesions. Visualized ribs appear intact. Age-appropriate bony degenerative changes are seen. Soft tissues: No suspicious soft tissue calcifications. The visualized lung demonstrates an unremarkable appearance. Atherosclerotic calcification of the aortic arch is noted. IMPRESSION: Left shoulder degenerative changes seen by plain film, which are considered to be within normal limits for age. Dictated by: Ramírez Mauro M.D. on 05/17/2021 at 12:09 Approved by: Ramírez Mauro M.D. on 05/17/2021 at 12:14
--- NOTE | 2021-05-17 11:13 | DI.RAD.S_ITS ---
PROCEDURE: XR FOOT LT MIN 3V INDICATIONS: pain TECHNIQUE: 3 views of the foot were acquired. COMPARISON: [facility], CR, XR FOOT RT MIN 3V, 05/17/2021, 11:27. [facility], CR, XR SHOULDER LT MIN 2V, 05/17/2021, 11:27. [facility], CR, XR KNEE LT 3V, 05/17/2021, 11:27. [facility], CR, XR KNEE RT 3V, 05/17/2021, 11:27. [facility], CR, XR HAND LT MIN 3V, 05/17/2021, 11:27. [facility], CR, XR HAND RT MIN 3V, 05/17/2021, 11:27. [facility], CR, XR SHOULDER RT MIN 2V, 05/17/2021, 11:27. Prior foot plain films are not available for review from the archive at the time of this dictation. FINDINGS: Bones: No fractures or dislocations. No suspicious bony lesions. Moderate to prominent hallux valgus deformity is seen, with associated focal degenerative change of the 1st metatarsophalangeal joint. Generalized degenerative changes are seen elsewhere, including along the Lisfranc joint. Toe alignment abnormalities are seen. Soft tissues: No tibiotalar joint effusion. Achilles tendon appears normal. IMPRESSION: Moderate to prominent hallux valgus deformity. Underlying relatively prominent degenerative changes are seen. Dictated by: Ramírez Mauro M.D. on 05/17/2021 at 12:20 Approved by: Ramírez Mauro M.D. on 05/17/2021 at 12:24
--- NOTE | 2021-05-17 11:13 | DI.RAD.S_ITS ---
PROCEDURE: XR SHOULDER RT MIN 2V INDICATIONS: pain TECHNIQUE: 3 views of the shoulder were acquired. COMPARISON: [facility], CR, XR FOOT RT MIN 3V, 05/17/2021, 11:27. [facility], CR, XR SHOULDER LT MIN 2V, 05/17/2021, 11:27. [facility], CR, XR KNEE LT 3V, 05/17/2021, 11:27. [facility], CR, XR KNEE RT 3V, 05/17/2021, 11:27. [facility], CR, XR FOOT LT MIN 3V, 05/17/2021, 11:27. [facility], CR, XR HAND LT MIN 3V, 05/17/2021, 11:27. [facility], CR, XR HAND RT MIN 3V, 05/17/2021, 11:27. [facility], CR, XR SHOULDER LT MIN 2V, 03/08/2021, 12:15. FINDINGS: Bones: No fractures or dislocations. No suspicious bony lesions. Visualized ribs appear intact. The right humeral head is high riding within the glenoid fossa, with less than 1 mm seen between the humerus and the acromion. Underlying degenerative changes are seen. Soft tissues: There is a likely intra-articular body seen inferior and medial to the humeral head. The visualized lung demonstrates an unremarkable appearance. IMPRESSION: Presumed underlying rotator cuff tear, with a high-riding humeral head. Dictated by: Ramírez Mauro M.D. on 05/17/2021 at 12:15 Approved by: Ramírez Mauro M.D. on 05/17/2021 at 12:16
== END ==
PROVIDERS: PCP Internal Medicine Rheumatology; Referring Provider Internal Medicine Rheumatology; Visit Provider Internal Medicine Rheumatology
DX: M06.9 Rheumatoid arthritis, unspecified (principal); M20.12 Hallux valgus (acquired), left foot; M20.11 Hallux valgus (acquired), right foot
CPT/HCPCS: 73030; 73130; 73562; 73630

== ENCOUNTER → 2021-05-21 08:36 | Outpatient (ROUT) | payer MEDICARE, SELFPAY ==
[2021-05-21 09:35] LABS: Add Manual Diff / Slide Review NO; Basophils Absolute Auto 0 /uL (0-100); Basophils Percent Auto 0.6 % (0-2); Eosinophils Absolute Auto 100 /uL (0-450); Eosinophils Percent Auto 1.2 % (2-4); Hematocrit 31.4 % (36-46); Hemoglobin 10.4 g/dL (12.0-16.0); Lymphocytes Absolute Auto 1200 /uL (1100-4500); Lymphocytes Percent Auto 15.3 % (25-40); Mean Corpuscular Hemoglobin 27.6 PG (26-34); Mean Corpuscular Volume 83.7 fL (80-100); Monocytes Absolute Auto 700 /uL (0-900); Monocytes Percent Auto 8.8 % (3-14); Neutrophils Absolute Auto 5600 /uL (1500-7000); Neutrophils Percent Auto 74.1 % (50-75); Platelet Count 326 X10^3/uL (150-400); Red Blood Cell Count 3.75 X10^6/uL (4.0-5.2); Red Cell Distribution Width 14.6 % (11.6-14.8); White Blood Cell Count 7.6 X10^3/uL (4.5-11.0)
[2021-05-21 10:03] LABS: Alanine Aminotransferase 19 IU/L (<35); Albumin 3.7 g/dL (3.5-5.0); Albumin Globulin Ratio 1.3 (1.0-2.8); Alkaline Phosphatase 58 U/L (38-126); Aspartate Aminotransferase 18 IU/L (14-36); BUN Creatinine Ratio 22.1 (6-22); Bilirubin Total 0.4 mg/dL (0.2-1.3); Blood Urea Nitrogen 17 mg/dL (7-17); C-Reactive Protein Quant < 0.5 mg/dL (<1.0); Calcium 9.4 mg/dL (8.4-10.2); Carbon Dioxide 21 mmol/L (22-32); Chloride 95 mmol/L (98-107); Estimated Glomerular Filt Rate > 60.0 mL/min (>60); Globulin 2.8 g/dL (1.7-4.1); Glucose 153 mg/dL (80-110); HEMOLYSIS < 15 (0-50); Potassium 3.6 mmol/L (3.4-5.1); Sodium 125 mmol/L (137-145); Total Protein 6.5 g/dL (6.3-8.2)
[2021-05-21 10:18] LABS: Erythrocyte Sedimentation Rate 12 MM/HR (0-20)
== END ==
PROVIDERS: PCP Internal Medicine Rheumatology; Visit Provider Internal Medicine Rheumatology
DX: M06.9 Rheumatoid arthritis, unspecified (principal)
CPT/HCPCS: 36415; 80053; 85025; 85651; 86140

== ENCOUNTER → 2021-07-27 14:08 | Outpatient (ROUT) | payer MEDICARE, SELFPAY ==
[2021-07-27 14:17] LABS: Appearance Urine UA CLOUDY; Bilirubin Urine UA NEGATIVE (NEGATIVE); Color Urine UA YELLOW; Glucose Urine UA NEGATIVE (Negative); Ketones Urine UA NEGATIVE (NEGATIVE); Leukocyte Esterase Urine UA 3+ (NEGATIVE); Nitrite Urine UA POSITIVE (Negative); Occult Blood Urine UA TRACE-LYSED (Negative); Protein Urine UA NEGATIVE (Negative); Urobilinogen Urine UA 0.2 E.U./dL (0.2)
[2021-07-27 14:48] LABS: Bacteria Urine Many (>30); Culture Indicated Urine Specimen Cultured; RBC Urine 1-5/HPF (0-5/HPF); Squamous Epithelial Cell Urine 1-5 /HPF (0-5/HPF); WBC Urine >100/HPF (0-5/HPF)
== END ==
PROVIDERS: PCP Internal Medicine Rheumatology; Visit Provider Nurse Practitioner Family
DX: R35.0 Frequency of micturition (principal)
CPT/HCPCS: 81001; 87077; 87086; 87186

== ENCOUNTER 2021-08-08 10:26 | Emergency (ER) | payer MEDICARE, SELFPAY ==
[2021-08-08] VITALS (17 sets, daily range): BP systolic 133–177; BP diastolic 65–93; PULSE 60–73; RESP 13–36; TEMP 37; O2SAT 96–100; BMI 30.1
--- NOTE | 2021-08-08 10:51 | DI.CT.S_ITS ---
PROCEDURE: CT STROKE INDICATIONS: Prior CVA with right weakness TECHNIQUE: Noncontrast 4.5 mm thick angled axial sections acquired from the foramen magnum to the vertex, with coronal reformats. For radiation dose reduction, the following was used: automated exposure control, adjustment of mA and/or kV according to patient size. COMPARISON: [facility], CT, CT ANGIO HEAD AND NECK, 03/24/2020, 8:09. FINDINGS: Image quality: Excellent. CSF spaces: Basal cisterns are patent. No extra-axial fluid collections. The ventricles are symmetric in size and shape. Brain: No intracranial bleeds or masses. There is cerebral volume loss for age, with resultant ventricular and sulcal prominence. There are periventricular and deep white matter chronic small vessel ischemic changes. Small posterior left block radiata lacunar infarct. There is intracranial internal carotid artery atherosclerosis. Skull and face: Calvarium and visualized facial bones appear intact, without suspicious lesions. Sinuses: Visualized sinuses and mastoids are clear. IMPRESSION: No acute intracranial disease process. This study fulfills neurological imaging criteria for inclusion or exclusion of acute stroke therapies based on available published neurological guidelines. Dictated by: Rhiannon Gracia MD, PhD on 08/08/2021 at 11:02 Approved by: Rhiannon Gracia MD, PhD on 08/08/2021 at 11:06
[2021-08-08 10:52] LABS: Add Manual Diff / Slide Review NO; Basophils Absolute Auto 0 /uL (0-100); Basophils Percent Auto 0.3 % (0-2); Eosinophils Absolute Auto 100 /uL (0-450); Eosinophils Percent Auto 0.8 % (2-4); Hematocrit 34.7 % (36-46); Hemoglobin 11.4 g/dL (12.0-16.0); Lymphocytes Absolute Auto 700 /uL (1100-4500); Lymphocytes Percent Auto 6.5 % (25-40); Mean Corpuscular Hemoglobin 26.5 PG (26-34); Mean Corpuscular Volume 80.5 fL (80-100); Monocytes Absolute Auto 500 /uL (0-900); Monocytes Percent Auto 4.8 % (3-14); Neutrophils Absolute Auto 9300 /uL (1500-7000); Neutrophils Percent Auto 87.6 % (50-75); Platelet Count 341 X10^3/uL (150-400); Red Blood Cell Count 4.31 X10^6/uL (4.0-5.2); Red Cell Distribution Width 15.6 % (11.6-14.8); White Blood Cell Count 10.6 X10^3/uL (4.5-11.0)
[2021-08-08] MEDS: SODIUM CHLORIDE 0.9% 1,000 ML 150 ML IV (10:58)
[2021-08-08 11:08] LABS: INR 0.9 (0.9-1.3); Prothrombin Time 10.3 SECONDS (10.1-12.7)
[2021-08-08 11:30] LABS: BUN Creatinine Ratio 21.8 (6-22); Blood Urea Nitrogen 17 mg/dL (7-17); Calcium 9.8 mg/dL (8.4-10.2); Carbon Dioxide 24 mmol/L (22-32); Chloride 91 mmol/L (98-107); Creatine Kinase 59 U/L (30-135); Estimated Glomerular Filt Rate > 60.0 mL/min (>60); Glucose 248 mg/dL (80-110); HEMOLYSIS 19 (0-50); Potassium 4.5 mmol/L (3.4-5.1); Sodium 124 mmol/L (137-145)
[2021-08-08 11:43] LABS: Troponin I < 0.012 ng/mL (0.01-0.034)
--- NOTE | 2021-08-08 11:58 | DI.CT.S_ITS ---
PROCEDURE: CT ANGIO HEAD AND NECK INDICATIONS: CVA, SLURRED SPEACH TECHNIQUE: Noncontrast images were performed earlier in the day and not repeated. After the administration of intravenous contrast, 1 mm thick sections acquired from the aortic arch through the [place] of [place]. Post-contrast 4.5 mm thick sections then re-acquired from the foramen magnum to the vertex. 3-dimensional [id number]-orijzwnfpo (MIP) and/or volume rendering reformats were acquired of the central intracranial vasculature and neck separately. COMPARISON: [facility], CT, CT ANGIO HEAD AND NECK, 03/24/2020, 8:09. [facility], CT, CT STROKE, 08/08/2021, 10:55. [facility], CT, CT ANGIO HEAD AND NECK, 06/30/2019, 17:29. FINDINGS: Image quality: Excellent. BRAIN: CSF spaces: Ventricles are normal in size and shape. Basal cisterns are patent. No extra-axial fluid collections. Brain: No midline shift. No intracranial bleeds or masses. [place]-white matter interface appears intact. Skull and face: Calvarium and facial bones appear intact, without suspicious lesions. Orbits appear normal. Sinuses: Sinuses and mastoids are clear. HEAD CT ANGIOGRAPHY: Anterior circulation: Intracranial internal carotid arteries are normal in size and flow. The flow within the paired anterior cerebral arteries is normal and symmetric. The flow within the middle cerebral arteries is normal and symmetric. The anterior communicating artery is seen. No aneurysms are seen. Posterior circulation: There is relatively poor flow seen within the distal right V4 segment, which is similar to 2020. The left V4 segment is unremarkable. The basilar artery is within normal limits. Flow within the posterior cerebral arteries is normal and symmetric. No aneurysms are seen. NECK CT ANGIOGRAPHY: Carotid system: The great vessels demonstrate a conventional anatomy as they arise from the aortic arch. There is 30-40% narrowing seen involving the proximal aspect of the left subclavian artery. The origins of the common carotid arteries appear patent. The common carotid arteries demonstrate normal caliber and courses. The bifurcation regions are both widely patent. The internal carotid arteries demonstrate normal calibers and courses. Posterior circulation: The origins of the vertebral arteries both appear widely patent. The more superior extracranial portions of both vertebral arteries also demonstrate normal courses and calibers. The left vertebral artery is dominant to the right. Soft tissues: Visualized neck soft tissues demonstrate no suspicious abnormalities. Bones: No suspicious bony lesions. Visualized cervical spine appears normally aligned. At least moderate cervical spine degenerative change can be seen. IMPRESSION: There is relatively poor flow seen within the distal right V4 segment, which is similar to prior examination. The right vertebral artery is relatively diminutive compared to the left vertebral artery. 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 Normal appearing carotids. Any quantitative measurements of stenosis were performed using NASCET criteria. Dictated by: Ramírez Mauro M.D. on 08/08/2021 at 11:15 Approved by: Ramírez Mauro M.D. on 08/08/2021 at 11:19
[2021-08-08 12:22] LABS: UR Morphine/Opiate cutoff 300 Negative (Negative); Ur Creatinine Normal (Normal); Ur Specific Gravity Normal (Normal); Urine Amphetamines Negative (Negative); Urine Barbiturates Negative (Negative); Urine Benzodiazepines Negative (Negative); Urine Cocaine Negative (Negative); Urine MDMA Negative (Negative); Urine Methadone Negative (Negative); Urine Methamphetamines Negative (Negative); Urine Oxycodone Negative (Negative); Urine Phencyclidine Negative (Negative); Urine Tetrahydrocannabinol Negative (Negative); Urine Tricyclic Antidepressant Negative (Negative); Urine pH Normal (Normal)
[2021-08-08 13:10] LABS: Appearance Urine UA CLEAR; Bilirubin Urine UA NEGATIVE (NEGATIVE); Color Urine UA YELLOW; Glucose Urine UA TRACE g/dL (Negative); Ketones Urine UA NEGATIVE (NEGATIVE); Leukocyte Esterase Urine UA NEGATIVE (NEGATIVE); Nitrite Urine UA NEGATIVE (Negative); Occult Blood Urine UA NEGATIVE (Negative); Protein Urine UA NEGATIVE (Negative); Specific Gravity Urine UA <=1.005 (1.000-1.035); Urobilinogen Urine UA 0.2 E.U./dL (0.2)
[2021-08-08] MEDS: ASPIRIN 81 MG CHEW TAB 324 MG PO (13:17)
--- NOTE | 2021-08-08 13:22 | ED_ITS ---
HPI - Neuro Symptoms/Deficit General Chief Complaint: Neuro Symptoms/Deficit Stated Complaint: R sided def. Time Seen by Provider: 08/08/21 10:45 Source: patient Mode of arrival: Ambulatory Limitations: no limitations History of Present Illness HPI Narrative: The patient is a local resident in assisted living. She has a prior history of CVA with right-sided deficits. She has decreased strength in the right arm but uses the right arm. She writes with her right hand. She is ambulatory with right leg weakness. She has comorbidities of hypertension, diabetes and hyperlipidemia. She is treated for hypothyroidism. Yesterday evening she developed new onset weakness in her right upper extremity. She briefly lost her ability to write. She has increased weakness in the right leg. She experienced no visual changes, speech changes or confusion. She has her own historian at this time. She has no chest pain, dyspnea or cough. She has no GI complaint. She feels like she has had a new stroke. On Anticoagulants: No (asa) Related Data Previous Rx's Medication Instructions Recorded aspirin 81 mg tablet,delayed 81 mg PO DAILY #90 tab 02/19/20 release atorvastatin 10 mg tablet (Lipitor) 10 mg PO BEDTIME #90 tab 02/19/20 irbesartan 300 mg tablet (Avapro) 300 mg PO DAILY #90 tab 02/19/20 ketotifen fumarate 0.025 % (0.035 1 drop EYE-BOTH BID PRN #5 ml 02/19/20 %) eye drops levothyroxine 88 mcg tablet 88 mcg PO DAILY #90 tab 02/19/20 melatonin 5 mg tablet 5 mg PO BEDTIME #90 tab 02/19/20 meloxicam 15 mg tablet 15 mg PO DAILY #90 tab 02/19/20 metformin 1,000 mg tablet 1,000 mg PO BID #180 tab 02/19/20 metoprolol tartrate 100 mg tablet 100 mg PO BID #180 tab 02/19/20 multivitamin (Tab-A-[place]) 1 tab PO DAILY #30 tab 02/19/20 quetiapine 25 mg tablet 12.5 mg PO BEDTIME #45 tab 02/19/20 clopidogrel 75 mg tablet (Plavix) 75 mg PO DAILY 21 Days tab 08/08/21 Allergies Allergy/AdvReac Type Severity Reaction Status Date / Time ciprofloxacin [CIPROFLOXACIN] AdvReac Severe Bloody Verified 08/08/21 10:34 diahrrea, swollen feet. Benzodiazepines AdvReac Intermediate EXTREME Verified 08/08/21 10:34 SENSITIVITY fentanyl AdvReac Intermediate EXTREME Verified 08/08/21 10:34 SENSITIVITY TO ALL NARCOTICS meperidine AdvReac Intermediate EXTREME Verified 08/08/21 10:34 SENSITIVITY Opioids - Morphine Analogues AdvReac Intermediate EXTREME Verified 08/08/21 10:34 SENSITIVITY - SOMNOLENCE Review of Systems Constitutional Constitutional: Denies chills, Denies fatigue, Denies fever(s), Denies frequent falls, Denies lethargy and Reports weakness Eyes Eyes: Denies change in vision, Denies eye discharge, Denies irritation and Denies loss of vision ENT Ears, Nose, Mouth, and Throat: Denies change in voice, Denies dizziness, Denies neck pain and Denies sore throat Cardiovascular Cardiovascular: Denies chest pain, Denies irregular heart rhythm, Denies li ghtheadedness, Denies palpitations, Denies dyspnea, Denies dyspnea on exertion and Denies orthopnea Respiratory Respiratory: Denies cough, Denies dyspnea, Denies dyspnea on exertion and Denies wheezing Gastrointestinal Gastrointestinal: Denies abdominal pain, Denies change in bowel habits, Denies diarrhea, Denies nausea and Denies vomiting Musculoskeletal Musculoskeletal: Denies neck pain and Reports numbness Neurologic Neurologic: Reports as per HPI, Denies behavioral changes, Denies confusion, Den ies dizziness, Denies frequent falls, Denies loss of vision, Reports numbness and Reports weakness Psychiatric Psychiatric: Denies anxiety, Denies behavioral changes, Denies confusion, Denies depression, Denies homicidal ideation and Denies suicidal ideation Endocrine Endocrine: Denies fatigue, Denies flushing and Denies palpitations Hematologic/Lymphatic On Anticoagulants: No (asa) Allergic/Immunologic Allergic/Immunologic: Denies wheezing Patient History Medical History (Updated 08/08/21 @ 15:50 by Fletcher Vasquez MD) Acquired hypothyroidism (02/10/16) Ankle pain (1989) Balance problems (02/01/17) Bunion (03/02/17) Carpal tunnel syndrome (1974) Cataracts, bilateral (2013) Chickenpox Chronic pain of both shoulders (10/26/16) Diverticulitis Eczema (02/10/16) Essential hypertension with goal blood pressure less than 140/90 (02/10/16) Fibroids (1979) Foot pain (1989) GERD (gastroesophageal reflux disease) Hammer toe of left foot (03/02/17) History of diverticulitis (06/25/16) Hot flashes due to menopause Hyperlipemia (1979) Hypertension (1979) IBS (irritable bowel syndrome) (2003) Lumbar spine pain (2005) Measles Mumps 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) Ovarian cyst (1989) Primary insomnia (10/26/16) Pure hypercholesterolemia (02/10/16) Scoliosis Sjogren's syndrome (2003) Type 2 diabetes mellitus without complication, without long-term current use of insulin (2015) Surgical History Anesthesia complication History of carpal tunnel repair (1974) History of cataract removal with insertion of prosthetic lens (2013) History of colonoscopy (04/01/07) History of colonoscopy with polypectomy (05/08/11) History of left cataract surgery (11/13/14) History of right cataract surgery (12/11/14) Hx of hand surgery (2013) Hx of surgical procedure (1996) Status post appendectomy (1954) Status post cholecystectomy (1964) Status post hysterectomy (1990) Family History Child Hypertension Child Hypertension Sister Age: 79 Rheumatoid arthritis Father MT (myocardial infarction) Heart disease Mother MT (myocardial infarction) Hypertension Angina pectoris Sister Colon cancer Social History household members: none Smoking Status: Never smoker second hand exposure: No alcohol intake: former substance use type: does not use Smoking Status: Never smoker alcohol intake frequency: 0-2 drinks per day Substance Use Type: does not use Exam Initial Vital Signs Initial Vital Signs: Vital Signs Temperature 98.6 F 08/08/21 10:34 Pulse Rate 66 08/08/21 10:34 Respiratory Rate 22 08/08/21 10:34 Blood Pressure 157/83 H 08/08/21 10:34 Pulse Oximetry 96 08/08/21 10:34 Const General: cooperative HENMT Head: normocephalic and atraumatic Ears: external ears normal and TM's normal bilaterally Nose: external nose normal and No nasal discharge Face and sinus: sinuses nontender, face symmetric, no sinus tenderness and No dry mucous membranes Mouth: oral mucosae normal and moist mucous membranes Teeth and gingiva: dentition normal Throat: tonsils normal and uvula midline Eyes General: appearance normal, both eyes and all related structures Eyelids: eyelids normal Conjunctivae: conjunctivae normal Sclera: sclerae normal Pupils: PERRL EOM: EOM intact bilaterally Neck Neck: normal visual inspection, trachea midline, No lymphadenopathy, No midline deformity and No JVD Lymphatic: No lymphedema Chest Chest: normal inspection of the chest Resp Effort & Inspection: normal respiratory effort, able to speak in complete sentences, no respiratory distress and no use of accessory muscles Auscultation: clear to auscultation bilaterally, no rales, no rhonchi and no wheezes Cardio Rate: regular rate Rhythm: regular rhythm Heart Sounds: no click, no gallops, no murmurs and no rubs Pulses: normal peripheral pulses GI Inspection: non-distended Palpation: soft, no hepatosplenomegaly, No guarding, No pulsatile mass and No tender Auscultation: normal bowel sounds Back/Spine/Pelvis Back: No CVA tenderness Cervical Spine: cervical ROM normal and No pain with cervical ROM Thoracic/Lumbar Spine: thoracic and lumbar spine normal to inspection Skin General: no rashes or lesions noted, No jaundice and No petechiae Neuro General: patient alert, patient awake and patient oriented x3 Cognition: normal cognition Speech: speech normal Motor: other (Right-sided weakness.) Sensory Exam: other (Right leg decreased sensation to touch.) Psych Appearance: well kempt Mental Status: mental status grossly normal Attitude: cooperative Thought Content: normal and suicidality Judgment: judgment good Scores NIH Stroke Scale Level of Conciousness: Alert, keenly responsive Ask month/age: Answers both questions correctly. Open/close eyes, close hand: Performs both tasks correctly Best gaze horizontal: Normal Visual pryor: No visual loss Facial palsy: Minor paralysis, flattened nasolabial fold, asymmetry on smiling Left arm drift: No drift for full 10 sec Right arm drift: Drifts down, not to bed Left leg drift: No drift for full 5 sec Right leg drift: Drifts down, not to bed Limb ataxia: Absent Sensory on face/arms/legs: Mild to moderate sensory loss, can tell touch Best language: No aphasia, normal Dysarthria: Normal Extinction or inattention: Visual, tactile, auditory, spacial or personal inattention to stimuli Total NIH Stroke scale score: 5 Course Course Course Narrative: The patient has resolved the right-sided weakness during the stay in the ER. CT and CTA of the brain indicate chronic changes, there is no evidence of acute changes. This case was discussed in detail with the hospitalist, Dr. Osullivan, who has cared for her before. Admission was discussed. Patient was initially receptive did decide to go home. Reviewed her current medications, considering this to be a T&A, she will be started on Plavix for 3 weeks. She can follow up with her PCM. Orders Ordered: ED Orders 08/08/21 10:29 EKG-12 Lead Stat 08/08/21 10:30 Basic Metabolic Panel Stat Complete Blood Count AUTO DIFF Stat Prothrombin Time INR Stat Troponin & CK Cardiac Panel Stat 08/08/21 10:51 CT Stroke Stat 08/08/21 11:58 CT angio head and neck Stat 08/08/21 12:17 UA Complete [Urinalysis and Microscopic] Stat Urine Drug Screen, Rapid Stat Sodium Chloride (Normal Saline 0.9%) 1,000 mls @ 150 mls/hr IV CONT MILADY Last Admin: 08/08/21 10:58 Dose: 150 mls/hr Documented by: MELINDA Discontinued Medications Aspirin (Aspirin 81 Mg Chew Tab) 324 mg PO NOW ONE Stop: 08/08/21 13:05 Last Admin: 08/08/21 13:17 Dose: 324 mg Documented by: DARÍO Clopidogrel Bisulfate (Clopidogrel 75 Mg Tablet) 75 mg PO NOW ONE Stop: 08/08/21 15:23 Vital Signs Vital signs: Vital Signs - 8 hr 08/08/21 10:34 08/08/21 10:48 08/08/21 10:59 Temperature 98.6 F Pulse Rate 66 67 67 Respiratory Rate 22 23 Blood Pressure 157/83 H 155/74 H Pulse Oximetry 96 99 99 08/08/21 11:00 08/08/21 11:30 08/08/21 12:00 Temperature Pulse Rate 66 60 67 Respiratory Rate 15 13 Blood Pressure 159/74 H 156/76 H Pulse Oximetry 100 98 100 08/08/21 12:30 08/08/21 12:37 08/08/21 13:00 Temperature Pulse Rate 62 63 61 Respiratory Rate 23 32 H 26 H Blood Pressure 144/68 H 133/75 Pulse Oximetry 99 99 99 08/08/21 13:30 08/08/21 13:31 08/08/21 14:00 Temperature Pulse Rate 66 68 64 Respiratory Rate 32 H 36 H 22 Blood Pressure 177/70 H 174/83 H Pulse Oximetry 98 98 99 08/08/21 14:30 08/08/21 15:00 Temperature Pulse Rate 65 73 Respiratory Rate 19 29 H Blood Pressure 151/74 H 167/85 H Pulse Oximetry 99 100 MDM - Neuro Symptoms/Deficit Lab Data Result diagrams: 08/08/21 10:30 08/08/21 10:30 Labs: Lab Results 08/08/21 08/08/21 08/08/21 Range/Units 10:30 10:30 10:30 WBC 10.6 (4.5-11.0) X10^3/uL RBC 4.31 (4.0-5.2) X10^6/uL Hgb 11.4 L (12.0-16.0) g/dL Hct 34.7 L (36-46) % MCV 80.5 (80-100) fL MCH 26.5 (26-34) PG MCHC 33.0 (30-36) % RDW 15.6 H (11.6-14.8) % Plt Count 341 (150-400) X10^3/uL Neut % (Auto) 87.6 H (50-75) % Lymph % (Auto) 6.5 L (25-40) % Bates % (Auto) 4.8 (3-14) % Eos % (Auto) 0.8 L (2-4) % Baso % (Auto) 0.3 (0-2) % Neut # (Auto) 9300 H (1919-7952) /uL Lymph # (Auto) 700 L (3226-0361) /uL Bates # (Auto) 500 (0-900) /uL Eos # (Auto) 100 (0-450) /uL Baso # (Auto) 0 (0-100) /uL PT 10.3 (10.1-12.7) SECONDS INR 0.9 (0.9-1.3) Sodium 124 L (137-145) mmol/L Potassium 4.5 (3.4-5.1) mmol/L Chloride 91 L (98-107) mmol/L Carbon Dioxide 24 (22-32) mmol/L BUN 17 (7-17) mg/dL Creatinine 0.78 (0.52-1.04) mg/dL Estimated GFR > 60.0 (>60) mL/min BUN/Creatinine Ratio 21.8 (6-22) Glucose 248 H (80-110) mg/dL Calcium 9.8 (8.4-10.2) mg/dL Total Creatine Kinase 59 (30-135) U/L CK-MB (CK-2) TNP CK-MB (CK-2) Rel Index TNP Troponin I < 0.012 (0.01-0.034) ng/mL Urine Color Urine Appearance Urine pH (4.5-8.0) Ur Specific [place] (1.000-1.035) Urine Protein (Negative) Urine Glucose (UA) (Negative) g/dL Urine Ketones (NEGATIVE) Urine Occult Blood (Negative) Urine Nitrate (Negative) Urine Bilirubin (NEGATIVE) Urine Urobilinogen (0.2) E.U./dL Ur Leukocyte Esterase (NEGATIVE) Urine RBC (0-5/HPF) Urine WBC (0-5/HPF) Urine Bacteria (None) Ur Culture Indicated? Micro UA Comment U Opiates 300ng/mL cut (Negative) Ur Oxycodone Screen (Negative) Urine Methadone Screen (Negative) Ur Barbiturates Screen (Negative) U Tricyclic Antidepress (Negative) Ur Phencyclidine Scrn (Negative) Ur Amphetamines Screen (Negative) U Methamphetamines Scrn (Negative) Ur MDMA Scrn (Ecstasy) (Negative) U Benzodiazepines Scrn (Negative) Urine Cocaine Screen (Negative) U Marijuana (THC) Screen (Negative) 08/08/21 08/08/21 Range/Units 12:17 12:17 WBC (4.5-11.0) X10^3/uL RBC (4.0-5.2) X10^6/uL Hgb (12.0-16.0) g/dL Hct (36-46) % MCV (80-100) fL MCH (26-34) PG MCHC (30-36) % RDW (11.6-14.8) % Plt Count (150-400) X10^3/uL Neut % (Auto) (50-75) % Lymph % (Auto) (25-40) % Bates % (Auto) (3-14) % Eos % (Auto) (2-4) % Baso % (Auto) (0-2) % Neut # (Auto) (8139-9796) /uL Lymph # (Auto) (1459-2482) /uL Bates # (Auto) (0-900) /uL Eos # (Auto) (0-450) /uL Baso # (Auto) (0-100) /uL PT (10.1-12.7) SECONDS INR (0.9-1.3) Sodium (137-145) mmol/L Potassium (3.4-5.1) mmol/L Chloride (98-107) mmol/L Carbon Dioxide (22-32) mmol/L BUN (7-17) mg/dL Creatinine (0.52-1.04) mg/dL Estimated GFR (>60) mL/min BUN/Creatinine Ratio (6-22) Glucose (80-110) mg/dL Calcium (8.4-10.2) mg/dL Total Creatine Kinase (30-135) U/L CK-MB (CK-2) CK-MB (CK-2) Rel Index Troponin I (0.01-0.034) ng/mL Urine Color Yellow Urine Appearance Clear Urine pH 7.0 (4.5-8.0) Ur Specific [place] <=1.005 (1.000-1.035) Urine Protein Negative (Negative) Urine Glucose (UA) Trace H (Negative) g/dL Urine Ketones Negative (NEGATIVE) Urine Occult Blood Negative (Negative) Urine Nitrate Negative (Negative) Urine Bilirubin Negative (NEGATIVE) Urine Urobilinogen 0.2 (0.2) E.U./dL Ur Leukocyte Esterase Negative (NEGATIVE) Urine RBC None seen (0-5/HPF) Urine WBC None seen (0-5/HPF) Urine Bacteria None seen (None) Ur Culture Indicated? Cult not indicated Micro UA Comment Microscopic normal U Opiates 300ng/mL cut Negative (Negative) Ur Oxycodone Screen Negative (Negative) Urine Methadone Screen Negative (Negative) Ur Barbiturates Screen Negative (Negative) U Tricyclic Antidepress Negative (Negative) Ur Phencyclidine Scrn Negative (Negative) Ur Amphetamines Screen Negative (Negative) U Methamphetamines Scrn Negative (Negative) Ur MDMA Scrn (Ecstasy) Negative (Negative) U Benzodiazepines Scrn Negative (Negative) Urine Cocaine Screen Negative (Negative) U Marijuana (THC) Screen Negative (Negative) Imaging Data CT scan - head: Radiologist's Impression: Launch?[address] [address] [address] Scan Report Signed Patient: Carey Mtz MR#: [id number] : 1940 Acct:[id number] Age/Sex: 81 / F Date of Service: 08/08/21 Loc: ED Accession Number: [id number] ?? Procedure: CT Stroke Ordering Provider: Fletcher Vasquez MD PROCEDURE:? CT STROKE ? INDICATIONS:? Prior CVA with right weakness ? TECHNIQUE:? Noncontrast 4.5 mm thick angled axial sections acquired from the foramen magnum to the vertex, with coronal reformats.? For radiation dose reduction, the following was used:? automated exposure control, adjustment of mA and/or kV according to patient size.? ? COMPARISON:? [facility], CT, CT ANGIO HEAD AND NECK, 03/24/2020, 8:09. ? FINDINGS:? Image quality:? Excellent.? ? CSF spaces:? Basal cisterns are patent.? No extra-axial fluid collections.? The ventricles are symmetric in size and shape.? ? Brain:? No intracranial bleeds or masses.? There is cerebral volume loss for age, with resultant ventricular and sulcal prominence.? There are periventricular and deep white matter chronic small vessel ischemic changes.? Small posterior left block radiata lacunar infarct.? There is intracranial internal carotid artery atheroscle rosis.? ? Skull and face:? Calvarium and visualized facial bones appear intact, without suspicious lesions.? ? Sinuses:? Visualized sinuses and mastoids are clear.? ? IMPRESSION:? No acute intracranial disease process. ? This study fulfills neurological imaging criteria for inclusion or exclusion of acute stroke therapies based on available published neurological guidelines.? ? ? Dictated by: Rhiannon Gracia MD, PhD on 08/08/2021 at 11:02 ? ? Approved by: Rhiannon Gracia MD, PhD on 08/08/2021 at 11:06?? CTA Head: Radiologist's Impression: Launch?[address] [address] [address] Scan Report Signed Patient: Carey Mtz MR#: [id number] : 1940 Acct:[id number] Age/Sex: 81 / F Date of Service: 08/08/21 Loc: ED Accession Number: [id number] ?? Procedure: CT angio head and neck Ordering Provider: Fletcher Vasquez MD PROCEDURE:? CT ANGIO HEAD AND NECK ? INDICATIONS:? CVA, SLURRED SPEACH ? TECHNIQUE:? Noncontrast images were performed earlier in the day and not repeated.? ? After the administration of intravenous contrast, 1 mm thick sections acquired from the aortic arch through the Freeman of [place].? Post-contrast 4.5 mm thick sections then re- acquired from the foramen magnum to the vertex.? 3-dimensional zminzkx-kmohjgflg-gckgheeset (MIP) and/or volume rendering reformats were acquired of the central intracranial vasculature and neck separately. ? COMPARISON:? [facility], CT, CT ANGIO HEAD AND NECK, 03/24/2020, 8:09.? [facility], CT, CT STROKE, 08/08/2021, 10:55.? [facility], CT, CT ANGIO HEAD AND NECK, 06/30/2019, 17:29. ? FINDINGS:? Image quality:? Excellent.? ? BRAIN:? CSF spaces:? Ventricles are normal in size and shape.? Basal cisterns are patent.? No extra-axial fluid collections.? ? Brain:? No midline shift.? No intracranial bleeds or masses.? Rico-white matter interface appears intact.? ? Skull and face:? Calvarium and facial bones appear intact, without suspicious lesions.? Orbits appear normal.? ? Sinuses:? Sinuses and mastoids are clear.? ? HEAD CT ANGIOGRAPHY:? Anterior circulation:? Intracranial internal carotid arteries are normal in size and flow.? The flow within the paired anterior cerebral arteries is normal and symmetric.? The flow within the middle cerebral arteries is normal and symmetric.? The anterior communicating artery is seen.? No aneurysms are seen.? ? Posterior circulation:? There is relatively poor flow seen within the distal right V4 segment, which is similar to 2020.? The left V4 segment is unremarkable.? The basilar artery is within normal limits.? Flow within the posterior cerebral arteries is normal and symmetric.? No aneurysms are seen.? ? NECK CT ANGIOGRAPHY:? Carotid system:? The great vessels demonstrate a conventional anatomy as they arise from the aortic arch.? There is 30-40% narrowing seen involving the proximal aspect of the left subclavian artery.? The origins of the common carotid arteries appear patent.? The common carotid arteries demonstrate normal caliber and courses.? The bifurcation regions are both widely patent.? The internal carotid arteries demonstrate normal calibers and courses.? ? Posterior circulation:? The origins of the vertebral arteries both appear widely patent.? The more superior extracranial portions of both vertebral arteries also demonstrate normal courses and calibers.? The left vertebral artery is dominant to the right. ? Soft tissues:? Visualized neck soft tissues demonstrate no suspicious abnormali ties.? ? Bones:? No suspicious bony lesions.? Visualized cervical spine appears normally aligned.? At least moderate cervical spine degenerative change can be seen. ? ? IMPRESSION:? There is relatively poor flow seen within the distal right V4 segment, which is similar to prior examination.? The right vertebral artery is relatively diminutive compared to the left vertebral artery. ? 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 ? Normal appearing carotids. ? Any quantitative measurements of stenosis were performed using NASCET criteria.? ? ? Dictated by: Ramírez Mauro M.D. on 08/08/2021 at 11:15 ? ? Approved by: Ramírez Mauro M.D. on 08/08/2021 at 11:19?? ECG Data Attestation: I personally reviewed and interpreted this ECG as follows: (Normal sinus rhythm. Normal intervals. No acute ST T wave changes. No significant change compared to prior EKG.) Stroke Core Measures Exclusion Criteria TPA in CVA: Symptom Onset >3 or 4.5 Hours Discharge Plan Departure Patient Disposition: Home Clinical Impression: TIA (transient ischemic attack) Instructions: DI for Transient Ischemic Attack Activity Restrictions/Additional Instructions: Admission was considered. If symptoms worsen, return here. Continue current medications. Plavix 75 mg daily for the next 3 weeks. Follow up with her PCM next week. Prescriptions: New clopidogrel [Plavix] 75 mg tablet 75 mg PO DAILY 21 Days RF: 0 No Action aspirin 81 mg tablet,delayed release (DR/EC) 81 mg PO DAILY Qty: 90 RF: 3 atorvastatin [Lipitor] 10 mg tablet 10 mg PO BEDTIME Qty: 90 RF: 3 irbesartan [Avapro] 300 mg tablet 300 mg PO DAILY Qty: 90 RF: 3 ketotifen fumarate 0.025 % (0.035 %) drops 1 drop EYE-BOTH BID PRN (Reason: allergy symptoms) Qty: 5 RF: 5 levothyroxine 88 mcg tablet 88 mcg PO DAILY Qty: 90 RF: 3 melatonin 5 mg tablet 5 mg PO BEDTIME Qty: 90 RF: 3 meloxicam 15 mg tablet 15 mg PO DAILY Qty: 90 RF: 3 metformin 1,000 mg tablet 1,000 mg PO BID Qty: 180 RF: 3 metoprolol tartrate 100 mg tablet 100 mg PO BID Qty: 180 RF: 3 multivitamin [Tab-A-[place]] Tablet 1 tab PO DAILY Qty: 30 RF: 0 quetiapine 25 mg tablet 12.5 mg PO BEDTIME Qty: 45 RF: 3 Referrals: Kristin Pittman MD [Primary Care Provider] -
[2021-08-08 13:26] LABS: Bacteria Urine None Seen; Culture Indicated Urine Cult Not Indicated; RBC Urine None Seen (0-5/HPF); Urine Comments Microscopic Normal; WBC Urine None Seen (0-5/HPF)
--- NOTE | 2021-08-08 15:09 | PM.CN ---
History of Present Illness Consult details Date Patient Seen: 08/08/21 Time Patient Seen: 15:10 Chief complaint: R sided def. Reason for consult: possible CVA or TIA Requesting provider: Fletcher Vasquez Narrative: Ms. Carey Mtz is an 79-year-old female patient with a complex medical history significant for type 2 noninsulin dependent diabetes, hypertension, hyperlipidemia, Moreno's thyroiditis, irritable bowel syndrome, lumbar sacral spine pain a history of scoliosis, dementia, diverticulosis and prior CVA and TIA who presents with right sided weakness, timing is not entirely clear but probably last known normal yesterday evening. She is a notably inconsistent historian. To me she states she had difficulty moving her right arm and foot this morning and was unable to get out of bed. She states this is much improved now but not back to her usual self. She denies any slurred speech that she is aware of. She does have some RUE pain chronically, slightly worsened today. Previous admission patient had a SLUMS score of 9, was distrustful of medical system. She denies any back pain, chest pain, palpitations, shortness of breath, fever, chills, lower extremity edema. Meds Home Medications and Allergies Home Medications Medication Instructions Recorded Confirmed Type aspirin 81 mg tablet,delayed 81 mg PO DAILY #90 tab 02/19/20 Rx release atorvastatin 10 mg tablet (Lipitor) 10 mg PO BEDTIME #90 tab 02/19/20 Rx irbesartan 300 mg tablet (Avapro) 300 mg PO DAILY #90 tab 02/19/20 Rx ketotifen fumarate 0.025 % (0.035 1 drop EYE-BOTH BID PRN #5 ml 02/19/20 Rx %) eye drops levothyroxine 88 mcg tablet 88 mcg PO DAILY #90 tab 02/19/20 Rx melatonin 5 mg tablet 5 mg PO BEDTIME #90 tab 02/19/20 Rx meloxicam 15 mg tablet 15 mg PO DAILY #90 tab 02/19/20 Rx metformin 1,000 mg tablet 1,000 mg PO BID #180 tab 02/19/20 Rx metoprolol tartrate 100 mg tablet 100 mg PO BID #180 tab 02/19/20 Rx multivitamin (Tab-[place]) 1 tab PO DAILY #30 tab 02/19/20 Rx quetiapine 25 mg tablet 12.5 mg PO BEDTIME #45 tab 02/19/20 Rx Allergies Allergy/AdvReac Type Severity Reaction Status Date / Time ciprofloxacin [CIPROFLOXACIN] AdvReac Severe Bloody Verified 08/08/21 10:34 diahrrea, swollen feet. Benzodiazepines AdvReac Intermediate EXTREME Verified 08/08/21 10:34 SENSITIVITY fentanyl AdvReac Intermediate EXTREME Verified 08/08/21 10:34 SENSITIVITY TO ALL NARCOTICS meperidine AdvReac Intermediate EXTREME Verified 08/08/21 10:34 SENSITIVITY Opioids - Morphine Analogues AdvReac Intermediate EXTREME Verified 08/08/21 10:34 SENSITIVITY - SOMNOLENCE Review of Systems Review of Systems Narrative: All other systems reviewed with the patient and are negative unless otherwise stated. This is somewhat limited by the patient's probable dementia. Exam Vital Signs (past 8 hours): - 08/08/21 10:34 08/08/21 10:48 08/08/21 10:59 Temperature 98.6 F Pulse Rate 66 67 67 Respiratory Rate 22 23 Blood Pressure 157/83 H 155/74 H Pulse Oximetry 96 99 99 08/08/21 11:00 08/08/21 11:30 08/08/21 12:00 Temperature Pulse Rate 66 60 67 Respiratory Rate 15 13 Blood Pressure 159/74 H 156/76 H Pulse Oximetry 100 98 100 08/08/21 12:30 08/08/21 12:37 08/08/21 13:00 Temperature Pulse Rate 62 63 61 Respiratory Rate 23 32 H 26 H Blood Pressure 144/68 H 133/75 Pulse Oximetry 99 99 99 08/08/21 13:30 08/08/21 13:31 08/08/21 14:00 Temperature Pulse Rate 66 68 64 Respiratory Rate 32 H 36 H 22 Blood Pressure 177/70 H 174/83 H Pulse Oximetry 98 98 99 08/08/21 14:30 08/08/21 15:00 Temperature Pulse Rate 65 73 Respiratory Rate 19 29 H Blood Pressure 151/74 H 167/85 H Pulse Oximetry 99 100 Oxygen Delivery Method Room Air Narrative Exam Narrative: GENERAL APPEARANCE:? Elderly female, well developed well nourished, in no acute distress. SKIN: Inspection of the skin reveals no rashes, ulcerations or petechiae. HEENT:? Normocephalic with posterior laceration that is healing, extraocular muscles are intact, oropharynx is clear and mucous membranes are moist, neck is supple without adenopathy NECK: Supple and symmetric. There was no thyroid enlargement, and no tenderness, or masses were felt. CHEST: Normal AP diameter and normal contour without any kyphoscoliosis. LUNGS: Auscultation of the lungs revealed no wheezes, rhonchi, or rales. CARDIOVASCULAR: There was a regular rate and rhythm without any murmurs, gallops, rubs. Peripheral pulses were 2+ and symmetric. ABDOMEN: Soft and nontender with normal bowel sounds. No ascites was noted. MUSCULOSKELETAL: There was no tenderness or effusions noted. Muscle strength and tone were normal. EXTREMITIES: No cyanosis, clubbing or edema. NEUROLOGIC: Alert and oriented x2. Normal affect.? slight weakness of R compared to L, but still +5/5 in all extremities. No slurred speech or facial asymmetry. Reported dullness to sensation of the R. Objective ECG Impression: Normal sinus rhythm Left axis deviation Incomplete right bundle branch block Nonspecific ST abnormality Imaging CT scan - head: Radiologist's impression: IMPRESSION:? There is relatively poor flow seen within the distal right V4 segment, which is similar to prior examination.? The right vertebral artery is relatively diminutive compared to the left vertebral artery. ? 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 ? Normal appearing carotids. ? Any quantitative measurements of stenosis were performed using NASCET criteria.? Labs Result Diagrams: 08/08/21 10:30 08/08/21 10:30 Labs: Laboratory Results - last 24 hr 08/08/21 08/08/21 08/08/21 10:30 10:30 10:30 WBC 10.6 RBC 4.31 Hgb 11.4 L Hct 34.7 L MCV 80.5 MCH 26.5 MCHC 33.0 RDW 15.6 H Plt Count 341 Neut % (Auto) 87.6 H Lymph % (Auto) 6.5 L [place] % (Auto) 4.8 Eos % (Auto) 0.8 L Baso % (Auto) 0.3 Neut # (Auto) 9300 H Lymph # (Auto) 700 L [place] # (Auto) 500 Eos # (Auto) 100 Baso # (Auto) 0 PT 10.3 INR 0.9 Sodium 124 L Potassium 4.5 Chloride 91 L Carbon Dioxide 24 BUN 17 Creatinine 0.78 Estimated GFR > 60.0 BUN/Creatinine Ratio 21.8 Glucose 248 H Calcium 9.8 Total Creatine Kinase 59 CK-MB (CK-2) TNP CK-MB (CK-2) Rel Index TNP Troponin I < 0.012 Urine Color Urine Appearance Urine pH Ur Specific [place] Urine Protein Urine Glucose (UA) Urine Ketones Urine Occult Blood Urine Nitrate Urine Bilirubin Urine Urobilinogen Ur Leukocyte Esterase Urine RBC Urine WBC Urine Bacteria Ur Culture Indicated? Micro UA Comment U Opiates 300ng/mL cut Ur Oxycodone Screen Urine Methadone Screen Ur Barbiturates Screen U Tricyclic Antidepress Ur Phencyclidine Scrn Ur Amphetamines Screen U Methamphetamines Scrn Ur MDMA Scrn (Ecstasy) U Benzodiazepines Scrn Urine Cocaine Screen U Marijuana (THC) Screen 08/08/21 08/08/21 12:17 12:17 WBC RBC Hgb Hct MCV MCH MCHC RDW Plt Count Neut % (Auto) Lymph % (Auto) [place] % (Auto) Eos % (Auto) Baso % (Auto) Neut # (Auto) Lymph # (Auto) [place] # (Auto) Eos # (Auto) Baso # (Auto) PT INR Sodium Potassium Chloride Carbon Dioxide BUN Creatinine Estimated GFR BUN/Creatinine Ratio Glucose Calcium Total Creatine Kinase CK-MB (CK-2) CK-MB (CK-2) Rel Index Troponin I Urine Color Yellow Urine Appearance Clear Urine pH 7.0 Ur Specific [place] <=1.005 Urine Protein Negative Urine Glucose (UA) Trace H Urine Ketones Negative Urine Occult Blood Negative Urine Nitrate Negative Urine Bilirubin Negative Urine Urobilinogen 0.2 Ur Leukocyte Esterase Negative Urine RBC None seen Urine WBC None seen Urine Bacteria None seen Ur Culture Indicated? Cult not indicated Micro UA Comment Microscopic normal U Opiates 300ng/mL cut Negative Ur Oxycodone Screen Negative Urine Methadone Screen Negative Ur Barbiturates Screen Negative U Tricyclic Antidepress Negative Ur Phencyclidine Scrn Negative Ur Amphetamines Screen Negative U Methamphetamines Scrn Negative Ur MDMA Scrn (Ecstasy) Negative U Benzodiazepines Scrn Negative Urine Cocaine Screen Negative U Marijuana (THC) Screen Negative [facility] Medical History Acquired hypothyroidism (02/10/16) Ankle pain (1989) Balance problems (02/01/17) Bunion (03/02/17) Carpal tunnel syndrome (1974) Cataracts, bilateral (2013) Chickenpox Chronic pain of both shoulders (10/26/16) Diverticulitis Eczema (02/10/16) Essential hypertension with goal blood pressure less than 140/90 (02/10/16) Fibroids (1979) Foot pain (1989) GERD (gastroesophageal reflux disease) Hammer toe of left foot (03/02/17) History of diverticulitis (06/25/16) Hot flashes due to menopause Hyperlipemia (1979) Hypertension (1979) IBS (irritable bowel syndrome) (2003) Lumbar spine pain (2005) Measles Mumps 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) Ovarian cyst (1989) Primary insomnia (10/26/16) Pure hypercholesterolemia (02/10/16) Scoliosis Sjogren's syndrome (2003) Type 2 diabetes mellitus without complication, without long-term current use of insulin (2015) Surgical History Anesthesia complication History of carpal tunnel repair (1974) History of cataract removal with insertion of prosthetic lens (2013) History of colonoscopy (04/01/07) History of colonoscopy with polypectomy (05/08/11) History of left cataract surgery (11/13/14) History of right cataract surgery (12/11/14) Hx of hand surgery (2013) Hx of surgical procedure (1996) Status post appendectomy (1954) Status post cholecystectomy (1964) Status post hysterectomy (1990) Family History Child Hypertension Child Hypertension Sister Age: 79 Rheumatoid arthritis Father [place] (myocardial infarction) Heart disease Mother [place] (myocardial infarction) Hypertension Angina pectoris Sister Colon cancer Social History household members: none Tobacco & Substance Use Smoking Status: Never smoker second hand exposure: No alcohol intake: former substance use type: does not use Assessment & Plan Assessment & Plan narrative: Ms. Carey Mtz is an 79-year-old female patient with a complex medical history significant for type 2 noninsulin dependent diabetes, hypertension, hyperlipidemia, Moreno's thyroiditis, irritable bowel syndrome, lumbar sacral spine pain a history of scoliosis, dementia, diverticulosis and prior CVA and TIA who presents with right sided weakness, timing is not entirely clear but probably last known normal yesterday evening. Patient essentially refused admission, and this seems reasonable given the patient's current wishes. 1. Probable CVA or TIA, R sided weakness and numbness. -discussed extensively with the patient and recommended admission for monitoring overnight given her slight decrease from her usual baseline. However patient essentially refused admission. She seemed to comprehend the risk including possible worsening of her right lower sided weakness with residual disability, and was agreeable for medication management but she ultimately stated that she would not want to go to a prison facility again, and wished to return back to her assisted living. - I recommend a 3 week course of 75 mg of plavix daily for possible CVA or TIA. ABCD2 score of 6, NIHSS if acute CVA of 2. MRI at this time further does not change acute management decisions regarding her need for PT/OT evaluations or medication management. She has prior brain imaging which showed multiple prior strokes in the past. - return to ER if worsening symptoms - would recommend outpatient holter monitor to evaluate for possible atrial fibrillation given prior brain imaging. 2. Chronic hyponatremia - recommend continued outpatient monitoring, Na of 124 not likely contributing towards patient's symptoms and she has chronic hyponatremia with baseline Na of the upper 120s. 3. Type 2 diabetes 4. HTN 5. Dementia - for 2-5 no current additional recommendations on discharge. Had previously been recommended for neurology consultation, unclear at this time if this has been obtained. Code: DNR, surrogate decision maker is the patient's daughter. Time Spent With Patient Critical Care time: I spent a total of [] minutes of critical care time on this patient's care today; this time is exclusive of procedural time.
[2021-08-08] MEDS: CLOPIDOGREL 75 MG TABLET PO (15:51)
== END 2021-08-08 16:31 | disposition home or self-care (01) ==
PROVIDERS: Emergency Provider Emergency Medicine; PCP Internal Medicine
DX: G45.9 Transient cerebral ischemic attack, unspecified (principal); I69.351 Hemiplegia and hemiparesis following cerebral infarction affecting right dominant side; R29.705 NIHSS score 5; I10 Essential (primary) hypertension
CPT/HCPCS: 36415; 70450; 70496; 70498; 80048; 80305; 81001; 82550; 84484; 85025; 85610; 93005; 96360; 96361; 99285

== ENCOUNTER → 2021-08-20 12:33 | Outpatient (CLI) | payer MEDICARE, SELFPAY ==
[2021-08-20 13:32] LABS: Add Manual Diff / Slide Review NO; Basophils Absolute Auto 100 /uL (0-100); Basophils Percent Auto 0.7 % (0-2); Eosinophils Absolute Auto 0 /uL (0-450); Eosinophils Percent Auto 0.3 % (2-4); Hematocrit 33.2 % (36-46); Lymphocytes Absolute Auto 600 /uL (1100-4500); Lymphocytes Percent Auto 6.1 % (25-40); Mean Corpuscular Hemoglobin 26.5 PG (26-34); Mean Corpuscular Volume 80.1 fL (80-100); Monocytes Absolute Auto 300 /uL (0-900); Monocytes Percent Auto 3.1 % (3-14); Neutrophils Absolute Auto 8800 /uL (1500-7000); Neutrophils Percent Auto 89.8 % (50-75); Platelet Count 366 X10^3/uL (150-400); Red Blood Cell Count 4.15 X10^6/uL (4.0-5.2); Red Cell Distribution Width 15.7 % (11.6-14.8); White Blood Cell Count 9.8 X10^3/uL (4.5-11.0)
[2021-08-20 13:41] LABS: Hemoglobin A1C% w Est Avg Glu 7.4 % (4.0-6.0)
[2021-08-20 15:15] LABS: Alanine Aminotransferase 19 IU/L (<35); Albumin Globulin Ratio 1.7 (1.0-2.8); Alkaline Phosphatase 63 U/L (38-126); Aspartate Aminotransferase 21 IU/L (14-36); BUN Creatinine Ratio 21.1 (6-22); Bilirubin Total 0.4 mg/dL (0.2-1.3); Blood Urea Nitrogen 19 mg/dL (7-17); Calcium 9.9 mg/dL (8.4-10.2); Carbon Dioxide 24 mmol/L (22-32); Chloride 88 mmol/L (98-107); Estimated Glomerular Filt Rate 59.8 mL/min (>60); Globulin 2.4 g/dL (1.7-4.1); Glucose 247 mg/dL (80-110); HEMOLYSIS < 15 (0-50); Potassium 4.7 mmol/L (3.4-5.1); Sodium 121 mmol/L (137-145); Total Protein 6.4 g/dL (6.3-8.2)
== END ==
PROVIDERS: PCP Internal Medicine; Referring Provider Nurse Practitioner Family; Visit Provider Nurse Practitioner Family
DX: I63.9 Cerebral infarction, unspecified (principal); E87.1 Hypo-osmolality and hyponatremia
CPT/HCPCS: 36415; 80053; 83036; 85025

== ENCOUNTER 2021-08-22 09:00 | Inpatient (IN) | payer MEDICARE, SELFPAY ==
[2021-08-22] VITALS (24 sets, daily range): BP systolic 135–192; BP diastolic 70–120; PULSE 64–71; RESP 14–30; TEMP 36.3–36.8; O2SAT 95–100; BMI 28.4
--- NOTE | 2021-08-22 09:16 | ED_ITS ---
HPI - Neuro Symptoms/Deficit General Chief Complaint: Neuro Symptoms/Deficit Stated Complaint: Stroke on 08/08, Declining health Time Seen by Provider: 08/22/21 09:09 History of Present Illness HPI Narrative: The patient denies a prior history of stroke with right-sided weakness. She was seen here 08/08/21 with increased right-sided weakness. Symptoms resolved. The case was reviewed with the hospitalist, who knows her well. Risk factor management has been optimized. With the resolving symptoms, was felt she is appropriate for discharge. She returns with increased right- sided weakness, apparently starting yesterday. However, the history is a little vague. The weakness may have been more persistent for longer period of time. She returns this morning, accompanied by her daughter. There is concern for right facial droop, as well as the increased right-sided weakness. Patient complains of no visual changes, the speech changes, no difficulty swallowing. She has right-sided weakness with decreased sensation. She has left-sided weakness. She is oriented. Other than recent fatigue, she has not felt ill. She has had cold symptoms, sore throat, chest pain. She has no GI or urinary symptoms. Related Data Home Medications Medication Instructions Recorded Confirmed amlodipine 10 mg tablet 10 mg PO QAM 08/22/21 08/22/21 aspirin 81 mg tablet,delayed 81 mg PO QAM 08/22/21 08/22/21 release clopidogrel 75 mg tablet (Plavix) 75 mg PO QAM 08/22/21 08/22/21 ibuprofen 400 mg tablet 400 mg PO QID 08/22/21 08/22/21 levothyroxine 88 mcg tablet 88 mcg PO QAM 08/22/21 08/22/21 losartan 50 mg tablet 50 mg PO QAM 08/22/21 08/22/21 omeprazole 20 mg capsule,delayed 20 mg PO QAM 08/22/21 08/22/21 release prednisone 5 mg tablet 5 mg PO QAM 08/22/21 08/22/21 sennosides 8.6 mg tablet (senna) 8.6 mg PO DAILY 08/22/21 08/22/21 Previous Rx's Medication Instructions Recorded atorvastatin 10 mg tablet (Lipitor) 10 mg PO BEDTIME #90 tab 02/19/20 metoprolol tartrate 100 mg tablet 100 mg PO BID #180 tab 02/19/20 Allergies Allergy/AdvReac Type Severity Reaction Status Date / Time ciprofloxacin [CIPROFLOXACIN] AdvReac Severe Bloody Verified 08/22/21 09:44 diahrrea, swollen feet. Benzodiazepines AdvReac Intermediate EXTREME Verified 08/22/21 09:44 SENSITIVITY fentanyl AdvReac Intermediate EXTREME Verified 08/22/21 09:44 SENSITIVITY TO ALL NARCOTICS meperidine AdvReac Intermediate EXTREME Verified 08/22/21 09:44 SENSITIVITY Opioids - Morphine Analogues AdvReac Intermediate EXTREME Verified 08/22/21 09:44 SENSITIVITY - SOMNOLENCE Review of Systems Constitutional Constitutional: Reports as per HPI, Denies anorexia, Reports body ache(s), Denies chills, Denies fatigue, Denies fever(s), Denies headache(s), Reports malaise and Reports weakness (Right side is noted HPI) Eyes Eyes: Denies change in vision ENT Ears, Nose, Mouth, and Throat: Denies vertigo, Denies dizziness, Denies headache(s), Denies neck pain, Denies sinus pain and Denies sore throat Cardiovascular Cardiovascular: Denies chest pain, Denies syncope, Denies rapid heart rate, Denies pedal edema, Denies lightheadedness and Denies dyspnea Respiratory Respiratory: Denies chest congestion, Denies cough and Denies dyspnea Gastrointestinal Gastrointestinal: Denies abdominal pain, Denies cramping, Denies nausea and Denies vomiting Genitourinary Genitourinary: Denies dysuria, Denies urinary incontinence and Denies urinary hesitancy Musculoskeletal Musculoskeletal: Denies back pain, Denies arthralgias and Denies neck pain Neurologic Neurologic: Denies behavioral changes, Denies confusion, Denies vertigo, Denies dizziness, Denies syncope, Denies headache(s), Denies memory loss, Denies sensory deficit and Reports weakness (Right side is noted HPI) Psychiatric Psychiatric: Denies behavioral changes, Denies confusion and Denies memory loss Endocrine Endocrine: Denies fatigue Patient History Medical History (Updated 08/22/21 @ 16:55 by Fletcher Vasquez MD) Acquired hypothyroidism (02/10/16) Ankle pain (1989) Balance problems (02/01/17) Bunion (03/02/17) Carpal tunnel syndrome (1974) Cataracts, bilateral (2013) Chickenpox Chronic pain of both shoulders (10/26/16) Diverticulitis Eczema (02/10/16) Essential hypertension with goal blood pressure less than 140/90 (02/10/16) Fibroids (1979) Foot pain (1989) GERD (gastroesophageal reflux disease) Hammer toe of left foot (03/02/17) History of diverticulitis (06/25/16) Hot flashes due to menopause Hyperlipemia (1979) Hypertension (1979) IBS (irritable bowel syndrome) (2003) Lumbar spine pain (2005) Measles Mumps 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) Ovarian cyst (1989) Primary insomnia (10/26/16) Pure hypercholesterolemia (02/10/16) Scoliosis Sjogren's syndrome (2003) Type 2 diabetes mellitus without complication, without long-term current use of insulin (2015) Surgical History Anesthesia complication History of carpal tunnel repair (1974) History of cataract removal with insertion of prosthetic lens (2013) History of colonoscopy (04/01/07) History of colonoscopy with polypectomy (05/08/11) History of left cataract surgery (11/13/14) History of right cataract surgery (12/11/14) Hx of hand surgery (2013) Hx of surgical procedure (1996) Status post appendectomy (1954) Status post cholecystectomy (1964) Status post hysterectomy (1990) Family History Child Hypertension Child Hypertension Sister Age: 79 Rheumatoid arthritis Father IN (myocardial infarction) Heart disease Mother IN (myocardial infarction) Hypertension Angina pectoris Sister Colon cancer Social History household members: none Smoking Status: Never smoker second hand exposure: No alcohol intake: former substance use type: does not use Smoking Status: Never smoker alcohol intake frequency: 0-2 drinks per day Substance Use Type: does not use Exam Initial Vital Signs Initial Vital Signs: Vital Signs Temperature 98.1 F 08/22/21 09:00 Pulse Rate 64 08/22/21 09:00 Respiratory Rate 17 08/22/21 09:00 Blood Pressure 143/70 H 08/22/21 09:00 Pulse Oximetry 99 08/22/21 09:00 Const General: cooperative, comfortable and well hydrated [facility] Head: normocephalic and atraumatic Face and sinus: normal facial exam Mouth: oral mucosae normal Eyes General: appearance normal, both eyes and all related structures Eyelids: eyelids normal Conjunctivae: conjunctivae normal Pupils: PERRL EOM: EOM intact bilaterally Neck Neck: normal visual inspection, full ROM and No JVD Chest Chest: normal inspection of the chest Resp Auscultation: clear to auscultation bilaterally Cardio Rate: regular rate Rhythm: regular rhythm Heart Sounds: S1 normal and S2 normal GI Inspection: normal to inspection Percussion: normal to percussion Auscultation: normal bowel sounds Back/Spine/Pelvis Back: normal to inspection Skin General: no rashes or lesions noted Neuro General: patient alert, patient awake and patient oriented x3 Cognition: normal cognition Speech: speech normal Other: Review NIHSS. Extrem General: no pedal edema and no calf tenderness Other: Weakness on the right side. Psych Appearance: grossly normal Mental Status: mental status grossly normal Scores NIH Stroke Scale Level of Conciousness: Alert, keenly responsive Ask month/age: Answers both questions correctly. Open/close eyes, close hand: Performs both tasks correctly Best gaze horizontal: Normal Visual pryor: No visual loss Facial palsy: Minor paralysis, flattened nasolabial fold, asymmetry on smiling Left arm drift: No drift for full 10 sec Right arm drift: Some effort against gravity, cannot maintain, drifts down to bed Left leg drift: No drift for full 5 sec Right leg drift: Some effort against gravity, cannot maintain, drifts down to bed Limb ataxia: Absent Sensory on face/arms/legs: Normal, no sensory loss Best language: No aphasia, normal Dysarthria: Normal Extinction or inattention: No abnormality Total NIH Stroke scale score: 5 Course Course Course Narrative: The patient has increased right-sided weakness since last here on 08/08/2021. MRI showed changes suggesting expansion of the prior CVA. I reviewed the current CT and MRI and the CT and MRA from [address] Tavares, Stroke Neurology at [facility]. The patient does not qualify for tPA. She has had a recent stroke. Her timeline is greater than 24 hours. There is no obvious stenotic lesion or other lesion that may be improved with pr ocedural intervention. The patient's COVID-19 positive, she has no obvious, recent symptoms of concern. She is under management for hyperlipidemia and hypertension. She takes Plavix and aspirin. The patient will be admitted to the hospitalist, Dr. Osullivan, for ongoing treatment and management after hospitalization Orders Ordered: ED Orders 08/22/21 09:15 Basic Metabolic Panel Stat Complete Blood Count AUTO DIFF Stat 08/22/21 09:17 CT Stroke Stat EKG-12 Lead Stat 08/22/21 09:47 COVID19 - ADMIT ([employer] swab/PCR) Stat 08/22/21 09:49 MR stroke Stat 08/22/21 11:25 Urinalysis and Microscopic Stat Urine Culture Stat Urine Drug Screen, Rapid Stat Acetaminophen (Acetaminophen 325 Mg Tablet) 650 mg PO Q6HR PRN PRN Reason: Fever/Mild Pain (1-3) Amlodipine Besylate (Amlodipine 5 Mg Tablet) 10 mg PO QAM [facility] Aspirin (Aspirin Ec 81 Mg Tablet) 81 mg PO QAM [facility] Atorvastatin Calcium (Atorvastatin 20 Mg Tablet) 40 mg PO BEDTIME [facility] Calcium Carbonate (Calcium Carbonate 500 Mg Tab) 1,000 mg PO Q4HR PRN PRN Reason: Dyspepsia Docusate Sodium (Docusate 100 Mg Capsule) 100 mg PO BID [facility] Enoxaparin Sodium (Enoxaparin 40 Mg/0.4 Ml Syringe) 40 mg SUBCUT DAILY [facility] Levothyroxine Sodium (Levothyroxine 88 Mcg Tablet) 88 mcg PO QAM [facility] Losartan Potassium (Losartan 50 Mg Tablet) 50 mg PO QAM [facility] Metoprolol Tartrate (Metoprolol Ir 50 Mg Tablet) 100 mg PO BID [facility] Ondansetron HCl (Ondansetron 4 Mg Odt) 4 mg PO Q8HR PRN PRN Reason: Nausea And Vomiting Pantoprazole Sodium (Pantoprazole Dr 20 Mg Tablet) 20 mg PO 0700 [facility] Prednisone (Prednisone 5 Mg Tablet) 5 mg PO QAM [facility] Sennosides (Sennosides 8.6 Mg Tablet) 17.2 mg PO BEDTIME [facility] Discontinued Medications Sodium Chloride (Normal Saline 0.9%) 1,000 mls @ 150 mls/hr IV CONT MILADY Last Admin: 08/22/21 09:57 Dose: Not Given Documented by: JOHNSON Vital Signs Vital signs: Vital Signs - 8 hr 08/22/21 09:00 08/22/21 09:30 08/22/21 09:45 Temperature 98.1 F Pulse Rate 64 67 64 Respiratory Rate 17 14 Blood Pressure 143/70 H 143/70 H Pulse Oximetry 99 100 99 08/22/21 10:00 08/22/21 10:15 08/22/21 10:30 Temperature Pulse Rate 66 65 66 Respiratory Rate 15 20 20 Blood Pressure 135/81 151/74 H Pulse Oximetry 100 100 98 08/22/21 11:28 08/22/21 11:29 08/22/21 11:30 Temperature Pulse Rate 71 70 70 Respiratory Rate 21 Blood Pressure 159/78 H Pulse Oximetry 99 100 100 08/22/21 12:00 08/22/21 12:01 08/22/21 12:30 Temperature Pulse Rate 67 67 68 Respiratory Rate 16 15 30 H Blood Pressure 147/107 H 145/120 H Pulse Oximetry 95 99 99 08/22/21 13:00 08/22/21 13:30 08/22/21 13:53 Temperature Pulse Rate 71 70 69 Respiratory Rate 19 16 20 Blood Pressure 192/91 H 155/76 H 190/79 H Pulse Oximetry 100 99 99 08/22/21 14:00 08/22/21 14:01 Temperature Pulse Rate 66 66 Respiratory Rate 24 22 Blood Pressure 152/75 H Pulse Oximetry 99 100 MDM - Neuro Symptoms/Deficit Lab Data Result diagrams: 08/22/21 09:15 08/22/21 09:15 Labs: Lab Results 08/22/21 08/22/21 08/22/21 Range/Units 09:15 09:15 09:47 WBC 9.4 (4.5-11.0) X10^3/uL RBC 4.12 (4.0-5.2) X10^6/uL Hgb 11.1 L (12.0-16.0) g/dL Hct 33.1 L (36-46) % MCV 80.3 (80-100) fL MCH 26.9 (26-34) PG MCHC 33.5 (30-36) % RDW 15.9 H (11.6-14.8) % Plt Count 369 (150-400) X10^3/uL Neut % (Auto) 83.7 H (50-75) % Lymph % (Auto) 8.5 L (25-40) % [place] % (Auto) 6.2 (3-14) % Eos % (Auto) 0.8 L (2-4) % Baso % (Auto) 0.8 (0-2) % Neut # (Auto) 7900 H (0688-8579) /uL Lymph # (Auto) 800 L (4762-7378) /uL [place] # (Auto) 600 (0-900) /uL Eos # (Auto) 100 (0-450) /uL Baso # (Auto) 100 (0-100) /uL Sodium 125 L (137-145) mmol/L Potassium 4.2 (3.4-5.1) mmol/L Chloride 93 L (98-107) mmol/L Carbon Dioxide 24 (22-32) mmol/L BUN 18 H (7-17) mg/dL Creatinine 0.76 (0.52-1.04) mg/dL Estimated GFR > 60.0 (>60) mL/min BUN/Creatinine Ratio 23.7 H (6-22) Glucose 178 H (80-110) mg/dL Calcium 9.7 (8.4-10.2) mg/dL Urine Color Urine Appearance Urine pH (4.5-8.0) Ur Specific [place] (1.000-1.035) Urine Protein (Negative) Urine Glucose (UA) (Negative) g/dL Urine Ketones (NEGATIVE) Urine Occult Blood (Negative) Urine Nitrate (Negative) Urine Bilirubin (NEGATIVE) Urine Urobilinogen (0.2) E.U./dL Ur Leukocyte Esterase (NEGATIVE) Urine RBC (0-5/HPF) Urine WBC (0-5/HPF) Ur Squamous Epith Cells (0-5/HPF) Urine Bacteria (None) Ur Culture Indicated? U Opiates 300ng/mL cut (Negative) Ur Oxycodone Screen (Negative) Urine Methadone Screen (Negative) Ur Barbiturates Screen (Negative) U Tricyclic Antidepress (Negative) Ur Phencyclidine Scrn (Negative) Ur Amphetamines Screen (Negative) U Methamphetamines Scrn (Negative) Ur MDMA Scrn (Ecstasy) (Negative) U Benzodiazepines Scrn (Negative) Urine Cocaine Screen (Negative) U Marijuana (THC) Screen (Negative) SARS-CoV-2 (PCR) Positive H (Negative) 08/22/21 08/22/21 Range/Units 11:25 11:25 WBC (4.5-11.0) X10^3/uL RBC (4.0-5.2) X10^6/uL Hgb (12.0-16.0) g/dL Hct (36-46) % MCV (80-100) fL MCH (26-34) PG MCHC (30-36) % RDW (11.6-14.8) % Plt Count (150-400) X10^3/uL Neut % (Auto) (50-75) % Lymph % (Auto) (25-40) % [place] % (Auto) (3-14) % Eos % (Auto) (2-4) % Baso % (Auto) (0-2) % Neut # (Auto) (9215-8610) /uL Lymph # (Auto) (4119-0345) /uL [place] # (Auto) (0-900) /uL Eos # (Auto) (0-450) /uL Baso # (Auto) (0-100) /uL Sodium (137-145) mmol/L Potassium (3.4-5.1) mmol/L Chloride (98-107) mmol/L Carbon Dioxide (22-32) mmol/L BUN (7-17) mg/dL Creatinine (0.52-1.04) mg/dL Estimated GFR (>60) mL/min BUN/Creatinine Ratio (6-22) Glucose (80-110) mg/dL Calcium (8.4-10.2) mg/dL Urine Color Yellow Urine Appearance Clear Urine pH 7.0 (4.5-8.0) Ur Specific [place] 1.010 (1.000-1.035) Urine Protein Negative (Negative) Urine Glucose (UA) Trace H (Negative) g/dL Urine Ketones Negative (NEGATIVE) Urine Occult Blood Negative (Negative) Urine Nitrate Positive H (Negative) Urine Bilirubin Negative (NEGATIVE) Urine Urobilinogen 0.2 (0.2) E.U./dL Ur Leukocyte Esterase Trace H (NEGATIVE) Urine RBC 1-5/hpf (0-5/HPF) Urine WBC 5-10/hpf H (0-5/HPF) Ur Squamous Epith Cells None seen (0-5/HPF) Urine Bacteria Many (>30) H (None) Ur Culture Indicated? Specimen cultured U Opiates 300ng/mL cut Negative (Negative) Ur Oxycodone Screen Negative (Negative) Urine Methadone Screen Negative (Negative) Ur Barbiturates Screen Negative (Negative) U Tricyclic Antidepress Negative (Negative) Ur Phencyclidine Scrn Negative (Negative) Ur Amphetamines Screen Negative (Negative) U Methamphetamines Scrn Negative (Negative) Ur MDMA Scrn (Ecstasy) Negative (Negative) U Benzodiazepines Scrn Negative (Negative) Urine Cocaine Screen Negative (Negative) U Marijuana (THC) Screen Negative (Negative) SARS-CoV-2 (PCR) (Negative) Point of Care Testing Glucose POC 207 Imaging Data CTA Head: Radiologist's Impression: No acute intracranial process. Brain MRI: Radiologist's Impression: Launch?Image [address] [address] Magnetic Resonance Report Signed Patient: Carey Mtz MR#: [id number] : 1940 Acct:[id number] Age/Sex: 81 / F Date of Service: 08/22/21 Loc: ED Accession Number: [id number] ?? Procedure: MR stroke Ordering Provider: Fletcher Vasquez MD PROCEDURE:? MR STROKE Pre- and post-contrast brain MRI, non-contrast brain MR angiogram, pre- and postcontrast neck MR angiogram ? INDICATIONS:? stroke protocol ? TECHNIQUE:? Brain:? Noncontrast axial T1 spin echo, axial T2 fast spin echo, sagittal and axial FLAIR, coronal T2 fast spin echo, axial gradient echo, axial diffusion and ADC through the brain.? After the administration of contrast, axial 3D VIBE of the cranial vasculature and brain.? Brain MRA:? Non-contrast 3-D time of flight MR angiogram, with multiple mdhmocj-sxtaqbmzt-anbsgkfvnz (MIP) reformats performed.? Neck MRA:? Axial and sagittal TruFISP through the neck.? Coronal dynamic MR angiogram during administration of contrast in the arterial and venous phases, with 3- dimenstional qalapzf-dgazaghpr-teycylbeli (MIP) reformats constructed from subtraction images.? ? COMPARISON:? [facility], MR, MR HEAD/BRAIN WO CON, 04/18/2019, 18:33.? [facility], MR, MR HEAD/BRAIN WO CON, 02/15/2020, 16:43.? [facility], MR, MR BRAIN WITHOUT CONTRAST, 03/24/2020, 9:39.? [facility], CT, CT STROKE, 08/08/2021, 10:55.? [facility], CT, CT ANGIO HEAD AND NECK, 08/08/2021, 11:43.? [facility], CT, CT STROKE, 08/22/2021, 9:24. ? FINDINGS:? Image quality:? Excellent.? ? BRAIN:? CSF spaces:? Ventricles are dilated but symmetrical in size and shape.? Basal cisterns are patent.? No extra-axial fluid collections.? Brain:? No intracranial bleeds or mass effects.? Rico-white matter interface is normal.? Diffusion weighted images foci of restricted diffusion in the posterior putamen and left coronal radiata, compatible with subacute infarcts.? There is moderate cerebral volume loss and severe periventricular white matter chronic small vessel ischemic changes.? Brainstem appears normal.? Normal intravascular flow voids are present.? No abnormal intracranial enhancement.? Skull and face:? Calvarial marrow signal is normal.? Orbits appear normal.? Sinuses:? Sinuses and mastoids are clear.? ? BRAIN MR ANGIOGRAM:? Anterior circulation:? Intracranial internal carotid arteries are normal in size and enhancement.? The flow within the paired anterior cerebral arteries is normal and symmetric.? The flow within the middle cerebral arteries is normal and symmetric.? The anterior communicating artery is seen.? No stenoses, occlusions, or aneurysms.? Posterior circulation:? Dominant left vertebral artery.? The distal right vertebral artery not well seen, either congenitally hypoplasia or occluded.? The basilar artery is normal.? The flow within the posterior cerebral arteries is normal and symmetric.? No stenoses, occlusions, or aneurysms.? ? NECK MR ANGIOGRAM:? Carotids:? Great vessels demonstrate a conventional anatomy as they arise from the aortic arch.? The origins of the common carotid arteries appear patent.? The calibers and courses of both common carotid arteries are normal.? The bifurcation regions appear normal bilaterally.? The internal carotid arteries demonstrate normal course and caliber. ? Posterior circulation:? Dominant left vertebral artery.? The origins of the vertebral arteries appear patent.? More superior portions of left vertebral artery demonstrates normal course and caliber, and join to form a normal appearing basilar artery.? 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 Miscellaneous:? Subclavian arteries appear patent.? Pre-contrast images through the neck show no soft tissue abnormalities.? ? IMPRESSION:? ? BRAIN MRI:? ? 1. Foci of subacute infarcts involving the left putamen and block radiata. 2. Moderate cerebral volume loss. 3. Severe chronic microvascular ischemic changes. ? BRAIN MR ANGIOGRAM:? ? 1. No high-grade disease in anterior circulation. 2. Dominant left vertebral artery.? 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 Basilar artery is normal in caliber and primarily supplied by the left vertebral artery. ? NECK MR ANGIOGRAM:? ? 1. Normal caliber without significant stenosis of the carotid arteries bilaterally. 2. Dominant left vertebral artery.? The right vertebral artery is small in scott michelle.? 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 ? ? ? Dictated by: Marjorie Gallo M.D. on 08/22/2021 at 11:38 ? ? Approved by: Marjorie Gallo M.D. on 08/22/2021 at 11:52?? ECG Data Attestation: I personally reviewed and interpreted this ECG as follows: (Normal sinus rhythm rate 65 beats per minute. Incomplete RBBB. No suggest CT wave changes.) Critical Care Time Critical Care Time Critical Care Time: Yes Total Critical Care Time: 55 Attestation: Critical care time included the initial assessed with the patient, review of medical records, and multiple clinical decisions here in the ER. Findings were discussed with the patient and, at her reuest, her daughters. I discussed her clinical presentation with the hospitalist, Dr. Osullivan. Discharge Plan Departure Patient Disposition: Admitted As Inpatient Clinical Impression: Acute CVA (cerebrovascular accident), COVID-19 Admit Date/Time: 08/22/21 14:16 Admit Provider: Ryley Osullivan
--- NOTE | 2021-08-22 09:17 | DI.CT.S_ITS ---
PROCEDURE: CT STROKE INDICATIONS: Right arm weakness, pain TECHNIQUE: Noncontrast 4.5 mm thick angled axial sections acquired from the foramen magnum to the vertex, with coronal reformats. For radiation dose reduction, the following was used: automated exposure control, adjustment of mA and/or kV according to patient size. COMPARISON: [facility], CT, CT STROKE, 08/08/2021, 10:55. FINDINGS: Image quality: Excellent. CSF spaces: Basal cisterns are patent. No extra-axial fluid collections. The ventricles are symmetric in size and shape. Brain: No intracranial bleeds or masses. There is cerebral volume loss for age, with resultant ventricular and sulcal prominence. There are periventricular and deep white matter chronic small vessel ischemic changes. There is intracranial internal carotid artery atherosclerosis. Skull and face: Calvarium and visualized facial bones appear intact, without suspicious lesions. Sinuses: Visualized sinuses and mastoids are clear. IMPRESSION: No acute intracranial process. Findings (including all critical results) and recommendations were personally telephoned and discussed with Dr. Vasquez on 08-22-21 09:27 This study fulfills neurological imaging criteria for inclusion or exclusion of acute stroke therapies based on available published neurological guidelines. Dictated by: Stephen Dukes M.D. on 08/22/2021 at 9:24 Approved by: Stephen Dukes M.D. on 08/22/2021 at 9:28
[2021-08-22 09:44] LABS: Add Manual Diff / Slide Review NO; Basophils Absolute Auto 100 /uL (0-100); Basophils Percent Auto 0.8 % (0-2); Eosinophils Absolute Auto 100 /uL (0-450); Eosinophils Percent Auto 0.8 % (2-4); Hematocrit 33.1 % (36-46); Hemoglobin 11.1 g/dL (12.0-16.0); Lymphocytes Absolute Auto 800 /uL (1100-4500); Lymphocytes Percent Auto 8.5 % (25-40); Mean Corpuscular HGB Conc 33.5 % (30-36); Mean Corpuscular Hemoglobin 26.9 PG (26-34); Mean Corpuscular Volume 80.3 fL (80-100); Monocytes Absolute Auto 600 /uL (0-900); Monocytes Percent Auto 6.2 % (3-14); Neutrophils Absolute Auto 7900 /uL (1500-7000); Neutrophils Percent Auto 83.7 % (50-75); Platelet Count 369 X10^3/uL (150-400); Red Blood Cell Count 4.12 X10^6/uL (4.0-5.2); Red Cell Distribution Width 15.9 % (11.6-14.8); White Blood Cell Count 9.4 X10^3/uL (4.5-11.0)
--- NOTE | 2021-08-22 09:49 | DI.MRI.S_ITS ---
PROCEDURE: MR STROKE Pre- and post-contrast brain MRI, non-contrast brain MR angiogram, pre- and postcontrast neck MR angiogram INDICATIONS: stroke protocol TECHNIQUE: Brain: Noncontrast axial T1 spin echo, axial T2 fast spin echo, sagittal and axial FLAIR, coronal T2 fast spin echo, axial gradient echo, axial diffusion and ADC through the brain. After the administration of contrast, axial 3D VIBE of the cranial vasculature and brain. Brain MRA: Non-contrast 3-D time of flight MR angiogram, with multiple fcgwqfu-wzbmdflaw-cbtiynlaza (MIP) reformats performed. Neck MRA: Axial and sagittal TruFISP through the neck. Coronal dynamic MR angiogram during administration of contrast in the arterial and venous phases, with 3-dimenstional zacmtxi-rerckbano-ggcvwxovzm (MIP) reformats constructed from subtraction images. COMPARISON: [facility], MR, MR HEAD/BRAIN WO CON, 04/18/2019, 18:33. [facility], MR, MR HEAD/BRAIN WO CON, 02/15/2020, 16:43. [facility], MR, MR BRAIN WITHOUT CONTRAST, 03/24/2020, 9:39. [facility], CT, CT STROKE, 08/08/2021, 10:55. [facility], CT, CT ANGIO HEAD AND NECK, 08/08/2021, 11:43. [facility], CT, CT STROKE, 08/22/2021, 9:24. FINDINGS: Image quality: Excellent. BRAIN: CSF spaces: Ventricles are dilated but symmetrical in size and shape. Basal cisterns are patent. No extra-axial fluid collections. Brain: No intracranial bleeds or mass effects. Rico-white matter interface is normal. Diffusion weighted images foci of restricted diffusion in the posterior putamen and left coronal radiata, compatible with subacute infarcts. There is moderate cerebral volume loss and severe periventricular white matter chronic small vessel ischemic changes. Brainstem appears normal. Normal intravascular flow voids are present. No abnormal intracranial enhancement. Skull and face: Calvarial marrow signal is normal. Orbits appear normal. Sinuses: Sinuses and mastoids are clear. BRAIN MR ANGIOGRAM: Anterior circulation: Intracranial internal carotid arteries are normal in size and enhancement. The flow within the paired anterior cerebral arteries is normal and symmetric. The flow within the middle cerebral arteries is normal and symmetric. The anterior communicating artery is seen. No stenoses, occlusions, or aneurysms. Posterior circulation: Dominant left vertebral artery. The distal right vertebral artery not well seen, either congenitally hypoplasia or occluded. The basilar artery is normal. The flow within the posterior cerebral arteries is normal and symmetric. No stenoses, occlusions, or aneurysms. NECK MR ANGIOGRAM: Carotids: Great vessels demonstrate a conventional anatomy as they arise from the aortic arch. The origins of the common carotid arteries appear patent. The calibers and courses of both common carotid arteries are normal. The bifurcation regions appear normal bilaterally. The internal carotid arteries demonstrate normal course and caliber. Posterior circulation: Dominant left vertebral artery. The origins of the vertebral arteries appear patent. More superior portions of left vertebral artery demonstrates normal course and caliber, and join to form a normal appearing basilar artery. 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 Miscellaneous: Subclavian arteries appear patent. Pre-contrast images through the neck show no soft tissue abnormalities. IMPRESSION: BRAIN MRI: 1. Foci of subacute infarcts involving the left putamen and block radiata. 2. Moderate cerebral volume loss. 3. Severe chronic microvascular ischemic changes. BRAIN MR ANGIOGRAM: 1. No high-grade disease in anterior circulation. 2. Dominant left vertebral artery. 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 Basilar artery is normal in caliber and primarily supplied by the left vertebral artery. NECK MR ANGIOGRAM: 1. Normal caliber without significant stenosis of the carotid arteries bilaterally. 2. Dominant left vertebral artery. The right vertebral artery is small in caliber. 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 Dictated by: Marjorie Gallo M.D. on 08/22/2021 at 11:38 Approved by: Marjorie Gallo M.D. on 08/22/2021 at 11:52
[2021-08-22 10:05] LABS: BUN Creatinine Ratio 23.7 (6-22); Blood Urea Nitrogen 18 mg/dL (7-17); Calcium 9.7 mg/dL (8.4-10.2); Carbon Dioxide 24 mmol/L (22-32); Chloride 93 mmol/L (98-107); Estimated Glomerular Filt Rate > 60.0 mL/min (>60); Glucose 178 mg/dL (80-110); HEMOLYSIS < 15 (0-50); Potassium 4.2 mmol/L (3.4-5.1); Sodium 125 mmol/L (137-145)
[2021-08-22 10:59] LABS: COVID19 - ADMIT (NP swab/PCR) POSITIVE (Negative)
--- NOTE | 2021-08-22 11:08 | PC.NURSE ---
Informed [facility] (Lynn Son RN) that pt is Positive Covid.
[2021-08-22 11:48] LABS: Appearance Urine UA CLEAR; Bilirubin Urine UA NEGATIVE (NEGATIVE); Glucose Urine UA TRACE g/dL (Negative); Ketones Urine UA NEGATIVE (NEGATIVE); Leukocyte Esterase Urine UA TRACE (NEGATIVE); Nitrite Urine UA POSITIVE (Negative); Occult Blood Urine UA NEGATIVE (Negative); Protein Urine UA NEGATIVE (Negative); Urobilinogen Urine UA 0.2 E.U./dL (0.2)
[2021-08-22 11:50] LABS: Color Urine UA YELLOW
[2021-08-22 11:54] LABS: UR Morphine/Opiate cutoff 300 Negative (Negative); Ur Creatinine Normal (Normal); Ur Specific Gravity Normal (Normal); Urine Amphetamines Negative (Negative); Urine Barbiturates Negative (Negative); Urine Benzodiazepines Negative (Negative); Urine Cocaine Negative (Negative); Urine MDMA Negative (Negative); Urine Methadone Negative (Negative); Urine Methamphetamines Negative (Negative); Urine Oxycodone Negative (Negative); Urine Phencyclidine Negative (Negative); Urine Tetrahydrocannabinol Negative (Negative); Urine Tricyclic Antidepressant Negative (Negative); Urine pH Normal (Normal)
[2021-08-22 12:28] LABS: RBC Urine 1-5/HPF (0-5/HPF)
[2021-08-22 12:29] LABS: Bacteria Urine Many (>30); Culture Indicated Urine Specimen Cultured; Squamous Epithelial Cell Urine None Seen (0-5/HPF); WBC Urine 5-10/HPF (0-5/HPF)
--- NOTE | 2021-08-22 13:05 | PC.NURSE ---
Addendum entered by Sundar Altamirano CNA 08/22/21 13:57: [facility] returned consult call at 13:45. Provider Mark from [facility] was connected to Dr. Vasquez at that time. Original Note: Provider Pedro asked for patient consult from [facility] neurology department at 13:00. I called the transfer center at 13:01 and placed a consult request, pushed images and faxed facesheet.
--- NOTE | 2021-08-22 16:12 | PM.HP.1 ---
History of Present Illness History of Present Illness Chief complaint: Stroke on 08/08, Declining health Narrative: Ms. Carey Mtz is an 79-year-old female patient with a complex medical history significant for type 2 noninsulin dependent diabetes, hypertension, hyperlipidemia, Moreno's thyroiditis, irritable bowel syndrome, lumbar sacral spine pain a history of scoliosis, dementia, diverticulosis and prior CVA and TIA who presents with right sided weakness, numbness, and facial droop, timing is not entirely clear at this time but was probably yesterday. Patient relates prior R shoulder weakness, she states starting today she cannot feel her R arm or R leg and she cannot walk. She also has difficulty speaking. She denies fever, chills, nausea, vomiting, chest pain, shortness of breath, palpitations. She was in recently for TIA vs stroke symptoms, refused admission at that time and had refused rehab services then, but is agreeable at this moment. She had been prescribed aspirin and plavix after prior symptoms. In the emergency room, the patient was mildly hypertensive, but the remainder of her vital signs were unremarkable. Laboratory evaluation revealed an unremarkable CBC, chronic and stable hyponatremia with a sodium of 100 in 25, a positive UA with 5-10 wbc's and many urine bacteria. Urine drug screen was negative. COVID-19 testing was positive. MRI performed in the ER showed subacute infarcts on the L corresponding to her symptoms. Patient was admitted for further management. Patient History Medical History (Updated 08/22/21 @ 16:55 by Fletcher Vasquez MD) Acquired hypothyroidism (02/10/16) Ankle pain (1989) Balance problems (02/01/17) Bunion (03/02/17) Carpal tunnel syndrome (1974) Cataracts, bilateral (2013) Chickenpox Chronic pain of both shoulders (10/26/16) Diverticulitis Eczema (02/10/16) Essential hypertension with goal blood pressure less than 140/90 (02/10/16) Fibroids (1979) Foot pain (1989) GERD (gastroesophageal reflux disease) Hammer toe of left foot (03/02/17) History of diverticulitis (06/25/16) Hot flashes due to menopause Hyperlipemia (1979) Hypertension (1979) IBS (irritable bowel syndrome) (2003) Lumbar spine pain (2005) Measles Mumps 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) Ovarian cyst (1989) Primary insomnia (10/26/16) Pure hypercholesterolemia (02/10/16) Scoliosis Sjogren's syndrome (2003) Type 2 diabetes mellitus without complication, without long-term current use of insulin (2015) Surgical History Anesthesia complication History of carpal tunnel repair (1974) History of cataract removal with insertion of prosthetic lens (2013) History of colonoscopy (04/01/07) History of colonoscopy with polypectomy (05/08/11) History of left cataract surgery (11/13/14) History of right cataract surgery (12/11/14) Hx of hand surgery (2013) Hx of surgical procedure (1996) Status post appendectomy (1954) Status post cholecystectomy (1964) Status post hysterectomy (1990) Family & Social History Family History Child Hypertension Child Hypertension Sister Age: 79 Rheumatoid arthritis Father ID (myocardial infarction) Heart disease Mother ID (myocardial infarction) Hypertension Angina pectoris Sister Colon cancer Social History: household members none Safety & Behavioral: Feels Safe in Current Yes Environment Been Physically Hurt or No Threatened By a Person Suicidal Ideation Description None Tobacco & Substance use: Smoking Status Never smoker alcohol intake former alcohol intake frequency 0-2 drinks per day Substance Use Type does not use Meds Home Medications and Allergies Home Medications Medication Instructions Recorded Confirmed Type atorvastatin 10 mg tablet (Lipitor) 10 mg PO BEDTIME #90 tab 02/19/20 08/22/21 Rx metoprolol tartrate 100 mg tablet 100 mg PO BID #180 tab 02/19/20 08/22/21 Rx amlodipine 10 mg tablet 10 mg PO QAM 08/22/21 08/22/21 History aspirin 81 mg tablet,delayed 81 mg PO QAM 08/22/21 08/22/21 History release clopidogrel 75 mg tablet (Plavix) 75 mg PO QAM 08/22/21 08/22/21 History ibuprofen 400 mg tablet 400 mg PO QID 08/22/21 08/22/21 History levothyroxine 88 mcg tablet 88 mcg PO QAM 08/22/21 08/22/21 History losartan 50 mg tablet 50 mg PO QAM 08/22/21 08/22/21 History omeprazole 20 mg capsule,delayed 20 mg PO QAM 08/22/21 08/22/21 History release prednisone 5 mg tablet 5 mg PO QAM 08/22/21 08/22/21 History sennosides 8.6 mg tablet (senna) 8.6 mg PO DAILY 08/22/21 08/22/21 History Allergies Allergy/AdvReac Type Severity Reaction Status Date / Time ciprofloxacin [CIPROFLOXACIN] AdvReac Severe Bloody Verified 08/22/21 09:44 diahrrea, swollen feet. Benzodiazepines AdvReac Intermediate EXTREME Verified 08/22/21 09:44 SENSITIVITY fentanyl AdvReac Intermediate EXTREME Verified 08/22/21 09:44 SENSITIVITY TO ALL NARCOTICS meperidine AdvReac Intermediate EXTREME Verified 08/22/21 09:44 SENSITIVITY Opioids - Morphine Analogues AdvReac Intermediate EXTREME Verified 08/22/21 09:44 SENSITIVITY - SOMNOLENCE Review of Systems Review of Systems Narrative: All other systems reviewed with the patient and are negative unless otherwise stated. Though this may be unreliable given the patient's dementia Exam Vital Signs (past 8 hours): - 08/22/21 09:00 08/22/21 09:30 08/22/21 09:45 Temperature 98.1 F Pulse Rate 64 67 64 Respiratory Rate 17 14 Blood Pressure 143/70 H 143/70 H Pulse Oximetry 99 100 99 08/22/21 10:00 08/22/21 10:15 08/22/21 10:30 Temperature Pulse Rate 66 65 66 Respiratory Rate 15 20 20 Blood Pressure 135/81 151/74 H Pulse Oximetry 100 100 98 08/22/21 11:28 08/22/21 11:29 08/22/21 11:30 Temperature Pulse Rate 71 70 70 Respiratory Rate 21 Blood Pressure 159/78 H Pulse Oximetry 99 100 100 08/22/21 12:00 08/22/21 12:01 08/22/21 12:30 Temperature Pulse Rate 67 67 68 Respiratory Rate 16 15 30 H Blood Pressure 147/107 H 145/120 H Pulse Oximetry 95 99 99 08/22/21 13:00 08/22/21 13:30 08/22/21 13:53 Temperature Pulse Rate 71 70 69 Respiratory Rate 19 16 20 Blood Pressure 192/91 H 155/76 H 190/79 H Pulse Oximetry 100 99 99 08/22/21 14:00 08/22/21 14:01 08/22/21 14:30 Temperature Pulse Rate 66 66 66 Respiratory Rate 24 22 18 Blood Pressure 152/75 H 154/80 H Pulse Oximetry 99 100 99 08/22/21 15:00 Temperature 98.3 F Pulse Rate 65 Respiratory Rate 16 Blood Pressure 172/87 H Pulse Oximetry 100 Oxygen Delivery Method Room Air Oxygen Flow Rate 0 Narrative Exam Narrative: ?GENERAL APPEARANCE:? Elderly female, well developed well nourished, in no acute distress. Irritable. SKIN: Inspection of the skin reveals no rashes, ulcerations or petechiae. HEENT:? Normocephalic, extraocular muscles are intact, oropharynx is clear and mucous membranes are moist, neck is supple without adenopathy. Slight facial asymmetry. NECK: Supple and symmetric. There was no thyroid enlargement, and no tenderness, or masses were felt. CHEST: Normal AP diameter and normal contour without any kyphoscoliosis. LUNGS: Auscultation of the lungs revealed no wheezes, rhonchi, or rales. CARDIOVASCULAR: There was a regular rate and rhythm without any murmurs, gallops, rubs. Peripheral pulses were 2+ and symmetric. ABDOMEN: Soft and nontender with normal bowel sounds. No ascites was noted. MUSCULOSKELETAL: There was no tenderness or effusions noted. Muscle strength and tone were normal. EXTREMITIES: No cyanosis, clubbing or edema. NEUROLOGIC: Alert and oriented x2. Normal affect.? able to lift R arm minimally against gravity, same with RLE. Reported decreased in sensation to R side. R facial droop, slight. Mild word finding difficulties. Objective ECG Impression: NSR, no significant changes to previous. Incomplete right bundle branch block Nonspecific ST abnormality Imaging MRI - head: Radiologist's impression: IMPRESSION:? ? BRAIN MRI:? ? 1. Foci of subacute infarcts involving the left putamen and block radiata. 2. Moderate cerebral volume loss. 3. Severe chronic microvascular ischemic changes. ? BRAIN MR ANGIOGRAM:? ? 1. No high-grade disease in anterior circulation. 2. Dominant left vertebral artery.? 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 Basilar artery is normal in caliber and primarily supplied by the left vertebral artery. ? NECK MR ANGIOGRAM:? ? 1. Normal caliber without significant stenosis of the carotid arteries bilaterally. 2. Dominant left vertebral artery.? The right vertebral artery is small in caliber.? 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 Labs Result Diagrams: 08/22/21 09:15 08/22/21 09:15 Labs: Laboratory Results - last 24 hr 08/22/21 08/22/21 08/22/21 09:15 09:15 09:47 WBC 9.4 RBC 4.12 Hgb 11.1 L Hct 33.1 L MCV 80.3 MCH 26.9 MCHC 33.5 RDW 15.9 H Plt Count 369 Neut % (Auto) 83.7 H Lymph % (Auto) 8.5 L [place] % (Auto) 6.2 Eos % (Auto) 0.8 L Baso % (Auto) 0.8 Neut # (Auto) 7900 H Lymph # (Auto) 800 L [place] # (Auto) 600 Eos # (Auto) 100 Baso # (Auto) 100 Sodium 125 L Potassium 4.2 Chloride 93 L Carbon Dioxide 24 BUN 18 H Creatinine 0.76 Estimated GFR > 60.0 BUN/Creatinine Ratio 23.7 H Glucose 178 H Calcium 9.7 Urine Color Urine Appearance Urine pH Ur Specific [place] Urine Protein Urine Glucose (UA) Urine Ketones Urine Occult Blood Urine Nitrate Urine Bilirubin Urine Urobilinogen Ur Leukocyte Esterase Urine RBC Urine WBC Ur Squamous Epith Cells Urine Bacteria Ur Culture Indicated? U Opiates 300ng/mL cut Ur Oxycodone Screen Urine Methadone Screen Ur Barbiturates Screen U Tricyclic Antidepress Ur Phencyclidine Scrn Ur Amphetamines Screen U Methamphetamines Scrn Ur MDMA Scrn (Ecstasy) U Benzodiazepines Scrn Urine Cocaine Screen U Marijuana (THC) Screen SARS-CoV-2 (PCR) Positive H 08/22/21 08/22/21 11:25 11:25 WBC RBC Hgb Hct MCV MCH MCHC RDW Plt Count Neut % (Auto) Lymph % (Auto) [place] % (Auto) Eos % (Auto) Baso % (Auto) Neut # (Auto) Lymph # (Auto) [place] # (Auto) Eos # (Auto) Baso # (Auto) Sodium Potassium Chloride Carbon Dioxide BUN Creatinine Estimated GFR BUN/Creatinine Ratio Glucose Calcium Urine Color Yellow Urine Appearance Clear Urine pH 7.0 Ur Specific [place] 1.010 Urine Protein Negative Urine Glucose (UA) Trace H Urine Ketones Negative Urine Occult Blood Negative Urine Nitrate Positive H Urine Bilirubin Negative Urine Urobilinogen 0.2 Ur Leukocyte Esterase Trace H Urine RBC 1-5/hpf Urine WBC 5-10/hpf H Ur Squamous Epith Cells None seen Urine Bacteria Many (>30) H Ur Culture Indicated? Specimen cultured U Opiates 300ng/mL cut Negative Ur Oxycodone Screen Negative Urine Methadone Screen Negative Ur Barbiturates Screen Negative U Tricyclic Antidepress Negative Ur Phencyclidine Scrn Negative Ur Amphetamines Screen Negative U Methamphetamines Scrn Negative Ur MDMA Scrn (Ecstasy) Negative U Benzodiazepines Scrn Negative Urine Cocaine Screen Negative U Marijuana (THC) Screen Negative SARS-CoV-2 (PCR) Assessment & Plan Assessment & Plan narrative: 1. Acute CVA - MRI shows acute infarcts, she has multiple prior strokes based on prior imaging. - PT/OT. - was on asa/plavix. Continue tele over concern for possible afib. EKG with NSR. - given stroke scale >5, continue asa only over risk of bleeding. - increase statin to 40 mg from 10. 2. Positive COVID-19 testing - currently asymptomatic. 3. Chronic Hypertension, present on admission - continue home medications as able, allow some hypertension given CVA. 4. Chronic hyperlipidemia, active, present on admission -patient is currently taking atorvastatin 10 mg daily.? Increased to 40 mg daily. 5. Type 2 non insulin dependent diabetes, controlled with prior A1c of 6, present on admission -previously on metformin. No acute management needed other than diabetic diet. 6. Moreno's disease, active -will continue patient's home regimen of levothyroxine 88 mcg daily. 7. Lumbar spine disease, active -patient with minimal impairment in mobility with scoliosis of the lumbar spine and degenerative joint disease. 8. Acute cystitis, - patient with Positive UA, will give ceftriaxone x3 doses. Symptoms not reliable. 9. Severe cognitive impairment - prior SLUMS score of 9. - OT ordered. Code: DNR, surrogate decision maker is the patient's daughter. DVT: lovenox daily Dispo: Admit as inpatient, likely will need SNF I have utilized all available immediate resources to obtain, update, or review the patient's current medications. Time Spent With Patient Critical Care time: I spent a total of [] minutes of critical care time on this patient's care today; this time is exclusive of procedural time. Scores NIHSS Level of Conciousness: Alert, keenly responsive Ask month/age: Answers both questions correctly. Open/close eyes, close hand: Performs both tasks correctly Best gaze horizontal: Normal Visual pryor: No visual loss Facial palsy: Minor paralysis, flattened nasolabial fold, asymmetry on smiling Left arm drift: No drift for full 10 sec Right arm drift: Some effort against gravity, cannot maintain, drifts down to bed Left leg drift: No drift for full 5 sec Right leg drift: Some effort against gravity, cannot maintain, drifts down to bed Limb ataxia: Absent Sensory on face/arms/legs: Mild to moderate sensory loss, can tell touch Best language: No aphasia, normal Dysarthria: Mild to mod,some slurring Extinction or inattention: No abnormality Total NIH Stroke scale score: 7 Quality Stroke Contraindication Not Initiating IV-Tpa: Contraindicated (last known normal not clear) MIPS - Admit I confirm the patient?s Advance Care Plan is present, Code status is documented, Surrogate decision maker is in patient?s record [If Yes, STOP here]: Yes
--- NOTE | 2021-08-22 16:47 | DIET.CONS ---
Dietary Consultation Note Admission Date: 08/22/2021 14:16 Assessment: 81 y/o F admitted today for acute CVA with +covid test. Provider notes indicate PMH HTN, HLD, T2Dm non-insulin dependant, Moreno's, lumbar spine disease, acute cystitis, and severe cognitive impairment. MNA indicates moderate decrease in food intake, unclear of weight loss, and mild dementia. Inconsistent weight history ranging from 63-73kg since 02/2020. Weight from 08/08/21 of 70kg would indicate a 5.7% weight loss over the last month, which would be significant for acute moderate malnutrition. Will further evaluate malnutrition status on Wednesday. May be more appropriate for a medium CHO (3 CHO) level CCD. Currently on large CCD. Recent BG of 207-210 mg/dL. Ht: 152.4 cm Wt: 66 kg BMI: 28.4 Last BM: 08/20/21 (08/22/21 15:10) MNA: 7 Booker Score: 16 Diet: 08/22/21 Dinner Carbohydrate Consistent Diet Diet Modifications: Carbohydrate level: Large (4 CHO) Labs: hgA1c 7.4% RBC 4.12 X10^6/uL (4.0-5.2) 08/22/21 09:15 Hgb 11.1 g/dL (12.0-16.0) L 08/22/21 09:15 Hct 33.1 % (36-46) L 08/22/21 09:15 Creatinine 0.76 mg/dL (0.52-1.04) 08/22/21 09:15 Nutrition Diagnosis: Increased energy needs r/t acute inflammation aeb covid+ Interventions: 1. change CCD to medium CHO (3 CHO). 2. Send Ensure Max ONS to support increased nutrient needs. Monitoring/Evaluations: PO, ONS tolerance, labs. Electronically Signed by: Tonia Rowe 08/22/21 16:47 Clinical Dietitian [address] [address]
--- NOTE | 2021-08-22 17:32 | PC.NURSE ---
1510- Rec'd pt from ED. 2PA with slider board to debra. Pt oriented to rm/routine, fall risk, use of call light. Pt verbalized understanding. Admission complete.
[2021-08-22] MEDS: cefTRIAXone 1,000 MG in SODIUM CHLORIDE 0.9% 100 ML 200 ML IV (17:44)
[2021-08-22] MEDS: SENNOSIDES 8.6 MG TABLET 17.2 MG PO (20:06)
[2021-08-22] MEDS: DOCUSATE 100 MG CAPSULE PO (20:06)
[2021-08-22] MEDS: METOPROLOL IR 50 MG TABLET 100 MG PO (20:06)
[2021-08-22] MEDS: ATORVASTATIN 20 MG TABLET 40 MG PO (20:06)
[2021-08-23] VITALS (25 sets, daily range): BP systolic 120–165; BP diastolic 66–81; PULSE 62–80; RESP 18–19; TEMP 36.6–36.9; O2SAT 85–100
[2021-08-23] MEDS: LEVOTHYROXINE 88 MCG TABLET PO (05:19)
[2021-08-23] MEDS: ONDANSETRON 4 MG ODT PO (05:19)
--- NOTE | 2021-08-23 05:41 | PC.NURSE ---
Patient states she slept well during night. Patient states that she has some nausea after turning back and forth in bed. Patient medicated with Zofran per EMAR. Pt relates that nausea is resolving. R arm is flacid, with some R side facial droop. Pt able to move R leg some against gravity, but drifts down to bed. No slurring of words noted.
[2021-08-23 06:48] LABS: Add Manual Diff / Slide Review NO; Basophils Absolute Auto 100 /uL (0-100); Eosinophils Absolute Auto 100 /uL (0-450); Eosinophils Percent Auto 1.6 % (2-4); Hematocrit 31.5 % (36-46); Hemoglobin 10.6 g/dL (12.0-16.0); Lymphocytes Absolute Auto 1100 /uL (1100-4500); Lymphocytes Percent Auto 15.3 % (25-40); Mean Corpuscular HGB Conc 33.6 % (30-36); Mean Corpuscular Hemoglobin 26.7 PG (26-34); Mean Corpuscular Volume 79.3 fL (80-100); Monocytes Absolute Auto 600 /uL (0-900); Monocytes Percent Auto 8.2 % (3-14); Neutrophils Absolute Auto 5400 /uL (1500-7000); Neutrophils Percent Auto 73.9 % (50-75); Platelet Count 333 X10^3/uL (150-400); Red Blood Cell Count 3.97 X10^6/uL (4.0-5.2); Red Cell Distribution Width 16.2 % (11.6-14.8); White Blood Cell Count 7.3 X10^3/uL (4.5-11.0)
[2021-08-23 06:56] LABS: BUN Creatinine Ratio 20.6 (6-22); Blood Urea Nitrogen 14 mg/dL (7-17); Calcium 9.2 mg/dL (8.4-10.2); Carbon Dioxide 29 mmol/L (22-32); Chloride 92 mmol/L (98-107); Estimated Glomerular Filt Rate > 60.0 mL/min (>60); Glucose 164 mg/dL (80-110); HEMOLYSIS 16 (0-50); Magnesium 1.4 mg/dL (1.6-2.3); Potassium 3.7 mmol/L (3.4-5.1); Sodium 123 mmol/L (137-145)
[2021-08-23] MEDS: PANTOPRAZOLE DR 20 MG TABLET PO (06:57)
--- NOTE | 2021-08-23 07:25 | PC.NURSE ---
Addendum entered by Deana De La Rosa R.N. 08/23/21 07:28: Patient states that nausea is resolved. Requesting that medication be given with food. Sugar free pudding given with 0700 Protinix. Original Note: Previous note is a nurses note. It is not CM Medical necessity.
[2021-08-23] MEDS: MAGNESIUM SULFATE 2 GM/50 ML PIGGYBACK IV (07:29)
[2021-08-23] MEDS: predniSONE 5 MG TABLET PO (09:50)
[2021-08-23] MEDS: LOSARTAN 50 MG TABLET PO (09:50)
[2021-08-23] MEDS: AMLODIPINE 5 MG TABLET 10 MG PO (09:50)
[2021-08-23] MEDS: ASPIRIN EC 81 MG TABLET PO (09:50)
[2021-08-23] MEDS: ENOXAPARIN 40 MG/0.4 ML SYRINGE SUBCUT (09:50)
[2021-08-23] MEDS: METOPROLOL IR 50 MG TABLET 100 MG PO ×2 (09:51→21:18)
--- NOTE | 2021-08-23 12:51 | ST.IPCSEOM ---
Visit Care Team Role Provider Type Kristin Pittman MD Primary Care Provider Physician Specialty: Medical Address: [address], [address] Email: Fletcher Vasquez MD Emergency Provider Physician Referring Provider Specialty: Emergency Medicine Address: [address] [place] [address], [address] Email: [email or web address] Ryley Osullivan DO Admit Provider Physician Attending Provider Specialty: Internal Medicine Address: [address] [place] [address], [id number] Email: [email or web address] Medical History (Last Reviewed 08/22/21 @ 16:43 by Fletcher Vasquez MD) Acquired hypothyroidism (Medical 02/10/16) Ankle pain (Medical 1989) Balance problems (Medical 02/01/17) Bunion (Medical 03/02/17) Carpal tunnel syndrome (Medical 1974) Bilateral Cataracts, bilateral (Medical 2013) Chickenpox (Medical) as child Chronic pain of both shoulders (Medical 10/26/16) Diverticulitis (Medical) Eczema (Medical 02/10/16) Essential hypertension with goal blood pressure less than 140/90 (Medical 02/10/16) Fibroids (Medical 1979) Foot pain (Medical 1989) GERD (gastroesophageal reflux disease) (Medical) Hammer toe of left foot (Medical 03/02/17) History of colonoscopy (Medical 04/01/07) Dr. Johns History of colonoscopy with polypectomy (Medical 05/08/11) Random biopsies x2 - Dr. Johns History of diverticulitis (Medical 06/25/16) History of left cataract surgery (Medical 11/13/14) Dr. Thapa History of right cataract surgery (Medical 12/11/14) Dr. Thapa Hot flashes due to menopause (Medical) Hx of hand surgery (Medical 2013) Right trapezium carpal removal w/tendon transfer Hx of surgical procedure (Medical 1996) Left leg ligation Hyperlipemia (Medical 1979) Hypertension (Medical 1979) IBS (irritable bowel syndrome) (Medical 2003) Lumbar spine pain (Medical 2005) Measles (Medical) As child Mumps (Medical) as child Osteoarthritis of lumbar spine (Medical 02/10/16) Ovarian cyst (Medical 1989) Primary insomnia (Medical 10/26/16) Pure hypercholesterolemia (Medical 02/10/16) Scoliosis (Medical) Sjogren's syndrome (Medical 2003) Type 2 diabetes mellitus without complication, without long-term current use of insulin (Medical 2015) Speech-Language Pathology Swallow Evaluation STONE RIGGER Clinical Swallow Evaluation Start: 08/23/21 12:26 Freq: Status: Active Protocol: Document 08/23/21 12:26 MG (Rec: 08/23/21 12:51 MG [id number]) Clinical Swallow Evaluation Session Time Visit Start Time 11:45 Visit Stop Time 12:15 Total Visit Minutes 30 Visit Information Visit Number 1 Setting Assessment Location Acute Care Visit Type Note Type Initial evaluation Next Note Type Next Note Type Treatment Note Patient Information Identification Type Name,Wristband History Pt is an 79-year-old female with a complex medical history significant for type 2 noninsulin dependent diabetes, hypertension, hyperlipidemia, Moreno's thyroiditis, irritable bowel syndrome, lumbar sacral spine pain a history of scoliosis, dementia , diverticulosis and prior CVA and TIA who presents with right sided weakness, numbness , and facial droop, timing is not entirely clear at this time but was probably yesterday. Patient relates prior R shoulder weakness, she states starting today she cannot feel her R arm or R leg and she cannot walk. She also has difficulty speaking. She denies fever, chills, nausea, vomiting, chest pain, shortness of breath, palpitations. She was in recently for TIA vs stroke symptoms, refused admission at that time and had refused rehab services then, but is agreeable at this moment. BRAIN MRI: 1. Foci of subacute infarcts involving the left putamen and block radiata. 2. Moderate cerebral volume loss. 3. Severe chronic microvascular ischemic changes . Subjective Observations Pt was resting in bed upon STONE RIGGER entry. Pt overall was in a state of being uncomfortable and was not agreeable to education or safe swallowing strategies given by the STONE RIGGER. Pt reported frequently to this STONE RIGGER that her swallowing was fine and she didn't need help. Pt appeared to have knowledge of what she could tolerate and not tolerate (for example, she reported to this STONE RIGGER that she can't eat swapnil crackers as they are too hard for her) but does not utilize strategies for a safe swallow , even when prompted to (e.g., take 1 small sip of water at a time vs multiple large sips) . Per nurse working with this pt, she heard an audible swallow when consuming liquids , but is taking her pills with no problems and consuming her current diet with no overt s/ sx of aspiration at this time. Reported by Patient Other Symptoms Other Comment Audible swallow when drinking from straw Current Diet Regular Baseline Feeding Method Needs some assistance Patient Questionnaire No Objective Assessment Mental Status Alert,Impulsive,Uncooperative Oral Integrity Oral residue Dentition Missing teeth,Decay Lip Function Mild impairment Observation of Lips at Rest Right sided weakness/Drooping Pucker Right sided weakness/drooping Lip Retraction Right sided weakness/Drooping Alternating Pucker/Lip Retraction Reduced range of motion Tongue Function Moderate impairment Observations of Tongue at Rest Involuntary movement(s) Tongue Protrusion Reduced range of motion, Reduced strength Tongue Retraction Reduced range of motion, Reduced strength Jaw Function Mild impairment Observations of Jaw at Rest Deviates to the right Jaw Opening Reduced range of motion, Reduced strength Jaw Closing Reduced range of motion, Reduced strength Jaw Lateralization Deviates to the right Jaw Protrusion Reduced range of motion, Reduced strength Jaw Retraction Reduced range of motion, Reduced strength Hard/Soft Palate Function Within normal limits Observations of Hard/Soft Palate Within normal limits Phonation Reduced loudness Respiratory Sufficiency Within normal limits Comment Pt refused to participate in formal OME. Right facial droop is significant. Pt demonstrates overall weakness and reduced range of motion of all articulators at this time . Food and Liquid Trials Position During Assessment Slightly reclined Liquids Trialed Thin Solids Trialed Puree,Dysphagia Mechanical, Dysphagia Advanced,Mechanical Soft Administration Type Tea spoon,Straw,Self-feeding, Needs some assistance Oral Impairment Mildly impaired Oral Phase Comments Pt appears to have knowledge of how to modify feeding self efficiently. Pt also demonstrated awareness of what she can and can't tolerate. Mild oral residue was noted but cleared with liquid wash. Pt masticated all solid trials with no observed difficulty at this time. Pharyngeal Impairment Mildly impaired Pharyngeal Phase Comments Laryngeal palpation indicated WFL for hyolaryngeal movement but slightly reduced anterior hyoid excursion. Through all trials of solids/liquids, pt did not demonstrate any overt s/sx of aspiration at this time. No wet/gurgly voice noted. Fatigue/Endurance Endurance WNL Response/Comments STONE RIGGER attempted to implement safe swallow strategies with the pt (i.e., single sips of liquid). Pt refused to follow strategies while STONE RIGGER was in the room. Findings Swallowing Function Oropharyngeal phase dysphagia Severity of Swallow Impairment Mildly-moderately impaired Contributing Factors to Swallow Difficulty following Impairment directions,Reduced oral strength/coordination/ sensation,Impaired airway protection Prognosis Guarded Based on Cognitive status,Family support,Other (comment) Comment Refusal to utilize safe swallow strategies. Impact on Safety and Functioning Risk for aspiration Recommendations Instrumental Assessment No Swallowing Treatment Yes Frequency x1-x2 Recommended Solids Mechanical Soft Recommended Liquids Thin Other Recommendations Follow up with staff if more concerns arise with the pt's swallowing Safety Precautions/Swallowing Reduce distractions,Remain Recommendations upright (90 degrees) during all oral intake,Needs verbal cues to use recommended strategies,Small bites and sips when eating,Slow rate; swallow between bites,Sip by straw only,Set-up assistance, Strict oral care after intake, Check for pocketing Medication Recommendations As Tolerated Discharge Recommendations [facility] facility,[facility] care facility Education Patient/Caregiver Education Described results of evaluation,Patient expressed understanding of evaluation, Patient expressed understanding of evaluation but refused treatment Goals Long-term Goals Pt will tolerate least restrictive diet w/o demonstrating overt s/sx of aspiration.
--- NOTE | 2021-08-23 13:34 | PT-IP ANOTE ---
checked on pt for PT eval. Pt refused PT. pt gets easily agitated but apologetic afterwards. agreed to try to do PT in the afternoon. informed nurse. After a few minutes, nurse came to inform PT that pt is really tired today and does not want to do PT in the afternoon. To check pt again tomorrow.
--- NOTE | 2021-08-23 15:00 | OT.IPNOTE ---
Attempted to co-treat with P.T. for eval. Pt declined before lunch and then told the nurse that she just wants to rest. Nursing requested that we hold for the day.
--- NOTE | 2021-08-23 16:14 | P.PN_ITS ---
Subjective Subjective Date Patient Seen: 08/23/21 Time Patient Seen: 16:14 Interval history: No new complaints today. Sensation is reportedly improved. She refused PT today. Exam Vital Signs (past 8 hours): - 08/23/21 08:22 08/23/21 08:23 08/23/21 09:50 Temperature Pulse Rate 62 62 64 Respiratory Rate Blood Pressure 146/74 H 146/74 H Pulse Oximetry 85 L 96 08/23/21 11:50 08/23/21 12:00 08/23/21 14:00 Temperature 97.8 F 98.4 F Pulse Rate 62 67 Respiratory Rate 19 18 Blood Pressure 148/75 H 148/75 H Pulse Oximetry 98 100 100 Oxygen Delivery Method Room Air Oxygen Flow Rate 0 Narrative Exam Narrative: ??GENERAL APPEARANCE:? Elderly female, well developed well nourished, in no acute distress. SKIN: Inspection of the skin reveals no rashes, ulcerations or petechiae. HEENT:? Normocephalic, extraocular muscles are intact, oropharynx is clear and mucous membranes are moist, neck is supple without adenopathy. Slight facial asymmetry. NECK: Supple and symmetric. There was no thyroid enlargement, and no tenderness, or masses were felt. CHEST: Normal AP diameter and normal contour without any kyphoscoliosis. LUNGS: Auscultation of the lungs revealed no wheezes, rhonchi, or rales. CARDIOVASCULAR: There was a regular rate and rhythm without any murmurs, gallops, rubs. Peripheral pulses were 2+ and symmetric. ABDOMEN: Soft and nontender with normal bowel sounds. No ascites was noted. MUSCULOSKELETAL: There was no tenderness or effusions noted. Muscle strength and tone were normal. EXTREMITIES: No cyanosis, clubbing or edema. NEUROLOGIC: Alert and oriented x2. Normal affect.? unable to lift R arm against gravity can move in plane of the bed, same with RLE. Reported decreased in sensation to R side though improved. R facial droop, slight, and improved. Objective Labs Result Diagrams: 08/23/21 06:32 08/23/21 06:32 Labs: Laboratory Results - last 24 hr 08/22/21 08/23/21 08/23/21 15:50 06:32 06:32 WBC 7.3 RBC 3.97 L Hgb 10.6 L Hct 31.5 L MCV 79.3 L MCH 26.7 MCHC 33.6 RDW 16.2 H Plt Count 333 Neut % (Auto) 73.9 Lymph % (Auto) 15.3 L [place] % (Auto) 8.2 Eos % (Auto) 1.6 L Baso % (Auto) 1.0 Neut # (Auto) 5400 Lymph # (Auto) 1100 [place] # (Auto) 600 Eos # (Auto) 100 Baso # (Auto) 100 Sodium 123 L Potassium 3.7 Chloride 92 L Carbon Dioxide 29 BUN 14 Creatinine 0.68 Estimated GFR > 60.0 BUN/Creatinine Ratio 20.6 Glucose 164 H Calcium 9.2 Magnesium 1.4 L Nasal Screen MRSA (PCR) Negative for mrsa [facility] Medical History (Updated 08/23/21 @ 00:00 by ) Acquired hypothyroidism (02/10/16) Ankle pain (1989) Balance problems (02/01/17) Bunion (03/02/17) Carpal tunnel syndrome (1974) Cataracts, bilateral (2013) Chickenpox Chronic pain of both shoulders (10/26/16) Diverticulitis Eczema (02/10/16) Essential hypertension with goal blood pressure less than 140/90 (02/10/16) Fibroids (1979) Foot pain (1989) GERD (gastroesophageal reflux disease) Hammer toe of left foot (03/02/17) History of diverticulitis (06/25/16) Hot flashes due to menopause Hyperlipemia (1979) Hypertension (1979) IBS (irritable bowel syndrome) (2003) Lumbar spine pain (2005) Measles Mumps 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) Ovarian cyst (1989) Primary insomnia (10/26/16) Pure hypercholesterolemia (02/10/16) Scoliosis Sjogren's syndrome (2003) Type 2 diabetes mellitus without complication, without long-term current use of insulin (2015) Surgical History Anesthesia complication History of carpal tunnel repair (1974) History of cataract removal with insertion of prosthetic lens (2013) History of colonoscopy (04/01/07) History of colonoscopy with polypectomy (05/08/11) History of left cataract surgery (11/13/14) History of right cataract surgery (12/11/14) Hx of hand surgery (2013) Hx of surgical procedure (1996) Status post appendectomy (1954) Status post cholecystectomy (1964) Status post hysterectomy (1990) Family History Child Hypertension Child Hypertension Sister Age: 79 Rheumatoid arthritis Father [place] (myocardial infarction) Heart disease Mother [place] (myocardial infarction) Hypertension Angina pectoris Sister Colon cancer Social History household members: none Smoking Status: Never smoker second hand exposure: No alcohol intake: former substance use type: does not use Assessment & Plan Assessment & Plan narrative: 1. Acute CVA ?- MRI shows acute infarcts, she has multiple prior strokes based on prior imaging. ?- PT/OT/speech appreciated. Patient refused today, will need to work with them tomorrow. ?- was on asa/plavix. Continue tele over concern for possible afib. EKG with NSR. ?- given stroke scale >5, continue asa only over risk of bleeding. ?- increase statin to 40 mg from 10. 2. Positive COVID-19 testing ?- currently asymptomatic. 3. Chronic Hypertension, present on admission - continue home medications as able, allow some hypertension given CVA. 4. Chronic hyperlipidemia, active, present on admission -patient is currently taking atorvastatin 10 mg daily.? Increased to 40 mg daily. 5. Type 2 non insulin dependent diabetes, controlled with prior A1c of 6, present on admission -previously on metformin. No acute management needed other than diabetic diet. 6. Moreno's disease, active -will continue patient's home regimen of levothyroxine 88 mcg daily. 7. Lumbar spine disease, active -patient with minimal impairment in mobility with scoliosis of the lumbar spine and degenerative joint disease. 8. Acute cystitis - patient with Positive UA, will give ceftriaxone x3 doses. Symptoms not reliable. 9. Severe cognitive impairment ?- prior SLUMS score of 9. ?- OT ordered. Code: DNR, surrogate decision maker is the patient's daughter. DVT: lovenox daily Dispo: Admit as inpatient, likely SNF but patient will need to work with PT. I have utilized all available immediate resources to obtain, update, or review the patient's current medications. Time Spent With Patient Critical Care time: I spent a total of [] minutes of critical care time on this patient's care today; this time is exclusive of procedural time. Quality Stroke Contraindication Not Initiating IV-Tpa: Contraindicated (last known normal not clear)
[2021-08-23] MEDS: cefTRIAXone 1,000 MG in SODIUM CHLORIDE 0.9% 100 ML 200 ML IV (16:52)
[2021-08-23] MEDS: ATORVASTATIN 20 MG TABLET 40 MG PO (21:18)
[2021-08-23] MEDS: SODIUM CHLORIDE 0.9% FLUSH 10 ML IV (21:20)
[2021-08-24] VITALS (33 sets, daily range): BP systolic 126–153; BP diastolic 62–86; PULSE 61–108; RESP 11–31; TEMP 33.8–37.1; O2SAT 97–100
[2021-08-24 05:20] LABS: BUN Creatinine Ratio 19.7 (6-22); Blood Urea Nitrogen 14 mg/dL (7-17); Calcium 8.8 mg/dL (8.4-10.2); Carbon Dioxide 26 mmol/L (22-32); Chloride 92 mmol/L (98-107); Estimated Glomerular Filt Rate > 60.0 mL/min (>60); Glucose 138 mg/dL (80-110); HEMOLYSIS < 15 (0-50); Magnesium 1.7 mg/dL (1.6-2.3); Potassium 3.9 mmol/L (3.4-5.1); Sodium 123 mmol/L (137-145)
[2021-08-24] MEDS: PANTOPRAZOLE DR 20 MG TABLET PO (08:26)
[2021-08-24] MEDS: LEVOTHYROXINE 88 MCG TABLET PO (08:26)
[2021-08-24] MEDS: METOPROLOL IR 50 MG TABLET 100 MG PO ×2 (09:17→21:32)
[2021-08-24] MEDS: predniSONE 5 MG TABLET PO (09:17)
[2021-08-24] MEDS: ASPIRIN EC 81 MG TABLET PO (09:17)
[2021-08-24] MEDS: LOSARTAN 50 MG TABLET PO (09:17)
[2021-08-24] MEDS: ENOXAPARIN 40 MG/0.4 ML SYRINGE SUBCUT (09:18)
[2021-08-24] MEDS: AMLODIPINE 5 MG TABLET 10 MG PO (09:19)
[2021-08-24] MEDS: SODIUM CHLORIDE 0.9% FLUSH 10 ML IV ×2 (09:20→21:32)
--- NOTE | 2021-08-24 12:26 | CM.DANOTE ---
DCP Assessment: Patient is a 81 yr old female who is COVID + , Asymptomatic and had a CVA. Patient is displaying Facial droop. Patient currently lives at [facility] and CM spoke with [facility] who stated they don't have a nurse to take her back today but will be able to tomorrow.. CM also contacted [facility] in [place] who is reviewing patients clinicals for possible admission to their Covid unit. CM will fax PT clinicals when they are available. CM spoke with patients DPOA her daughter Char to discuss discharge planning. CM attempted to call the patients room and she hung up on CM when CM tried to explain role. Patients daughters are concerned about patients DC plan back to [facility] since patient is not able to move around and PT is not available to her since she is covid positive. I: medicare and AARP Plan: first plan is to [facility] in [place] Back up plan is back to [facility] tomorrow. If [facility] can accept will need new covid swab showing + for covid and will need a PASRR done. Margaux Byers RNdirector of professional services. Discharge Planning/Care Management Advanced directive, confirm from FAMILY Start: 08/22/21 16:04 Freq: Q24H Status: Complete Protocol: Document 08/22/21 16:04 LENCHO (Rec: 08/22/21 16:05 LENCHO [id number]) Advance Directive, confirm on record Time 16:05 Person contacted POL in CHART Copy received Yes CM Discharge Assessment Start: 08/24/21 12:21 Freq: Status: Active Protocol: Document 08/24/21 12:21 HS (Rec: 08/24/21 12:26 HS [id number]) Discharge Planning Assessment Assigned Psychology Assistant Margaux Byers RNdirector of professional services DPOA/Assigned Designee Name Char Mtz (Daughter) Contact Information [phone] Advance Directives? Yes Advance Directives on File Yes History Provided By Patient,Medical Record Has Patient been admitted in last 30 No days? Prior Living Arrangements Assisted Living Comment Patient lives at [facility] Household Members none Type of transporation used prior to Relies on Others admit Facility Name Admitted From: [facility] Willing to Return to Facility? Yes Independent with ADL's No Is patient alert and oriented? Yes Caregiver for Another No Patient/Family Preference Longterm Facility Comment CM contacted [facility] they are reviewing Barriers to Discharge Yes Comment Patient been refusing PT and OT while she has been here - going to work with PT now and wants SNF Discharge Plan Longterm Facility Transportation Arrangement Unclear because of patient's uncooperative. Referrals Initiated Longterm Medicare Choice List Provided Yes SNF/HH Preference [facility] - since it is the only Covid SNF currently available in the area Contact Name/Phone Marlene Has Agency SNF been contacted Yes Comment Currently reviewing Review Status In Process Next Review Type Continued Stay Review
--- NOTE | 2021-08-24 13:10 | PM.PN.1 ---
Subjective Subjective Date Patient Seen: 08/24/21 Time Patient Seen: 13:11 Interval history: States she does not feel good. Cant move right arm. Sensation improved. Denies shortness of breath, chest pain. Exam Vital Signs (past 8 hours): - 08/24/21 08:00 08/24/21 08:15 08/24/21 09:17 Temperature 97.2 F L Pulse Rate 66 108 H Respiratory Rate 18 Blood Pressure 139/70 139/70 Pulse Oximetry 100 99 Oxygen Delivery Method Room Air Oxygen Flow Rate 0 Narrative Exam Narrative: ?GENERAL APPEARANCE:? Elderly female, well developed well nourished, in no acute distress. SKIN: Inspection of the skin reveals no rashes, ulcerations or petechiae. HEENT:? Normocephalic, extraocular muscles are intact, oropharynx is clear and mucous membranes are moist, neck is supple without adenopathy. Slight facial asymmetry. NECK: Supple and symmetric. There was no thyroid enlargement, and no tenderness, or masses were felt. CHEST: Normal AP diameter and normal contour without any kyphoscoliosis. LUNGS: Auscultation of the lungs revealed no wheezes, rhonchi, or rales. CARDIOVASCULAR: There was a regular rate and rhythm without any murmurs, gallops, rubs. Peripheral pulses were 2+ and symmetric. ABDOMEN: Soft and nontender with normal bowel sounds. No ascites was noted. MUSCULOSKELETAL: There was no tenderness or effusions noted. Muscle strength and tone were normal. EXTREMITIES: No cyanosis, clubbing or edema. NEUROLOGIC: Alert and oriented x2. Normal affect.? unable to lift R arm against gravity can move in plane of the bed, same with RLE. Reported decreased in sensation to R side though improved. R facial droop, slight, and improved. Objective Labs Result Diagrams: 08/23/21 06:32 08/24/21 04:46 Labs: Laboratory Results - last 24 hr 08/24/21 04:46 Sodium 123 L Potassium 3.9 Chloride 92 L Carbon Dioxide 26 BUN 14 Creatinine 0.71 Estimated GFR > 60.0 BUN/Creatinine Ratio 19.7 Glucose 138 H Calcium 8.8 Magnesium 1.7 PFSH Medical History (Updated 08/23/21 @ 00:00 by ) Acquired hypothyroidism (02/10/16) Ankle pain (1989) Balance problems (02/01/17) Bunion (03/02/17) Carpal tunnel syndrome (1974) Cataracts, bilateral (2013) Chickenpox Chronic pain of both shoulders (10/26/16) Diverticulitis Eczema (02/10/16) Essential hypertension with goal blood pressure less than 140/90 (02/10/16) Fibroids (1979) Foot pain (1989) GERD (gastroesophageal reflux disease) Hammer toe of left foot (03/02/17) History of diverticulitis (06/25/16) Hot flashes due to menopause Hyperlipemia (1979) Hypertension (1979) IBS (irritable bowel syndrome) (2003) Lumbar spine pain (2005) Measles Mumps 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) Ovarian cyst (1989) Primary insomnia (10/26/16) Pure hypercholesterolemia (02/10/16) Scoliosis Sjogren's syndrome (2003) Type 2 diabetes mellitus without complication, without long-term current use of insulin (2015) Surgical History Anesthesia complication History of carpal tunnel repair (1974) History of cataract removal with insertion of prosthetic lens (2013) History of colonoscopy (04/01/07) History of colonoscopy with polypectomy (05/08/11) History of left cataract surgery (11/13/14) History of right cataract surgery (12/11/14) Hx of hand surgery (2013) Hx of surgical procedure (1996) Status post appendectomy (1954) Status post cholecystectomy (1964) Status post hysterectomy (1990) Family History Child Hypertension Child Hypertension Sister Age: 79 Rheumatoid arthritis Father [place] (myocardial infarction) Heart disease Mother [place] (myocardial infarction) Hypertension Angina pectoris Sister Colon cancer Social History household members: none Smoking Status: Never smoker second hand exposure: No alcohol intake: former substance use type: does not use Assessment & Plan Assessment & Plan narrative: 1. Acute CVA ?- MRI shows acute infarcts, she has multiple prior strokes based on prior imaging. ?- PT/OT/speech appreciated. Pending SNF most likely if patient agreeable or return to [facility] if patient refuses PT again. ?- was on asa/plavix. Continue tele over concern for possible afib. EKG with NSR. ?- given stroke scale >5, continue asa only over risk of bleeding. ?- increase statin to 40 mg from 10. 2. Positive COVID-19 testing ?- currently asymptomatic. 3. Chronic Hypertension, present on admission - continue home medications as able, allow some hypertension given CVA. 4. Chronic hyperlipidemia, active, present on admission -patient is currently taking atorvastatin 10 mg daily.? Increased to 40 mg daily. 5. Type 2 non insulin dependent diabetes, controlled with prior A1c of 6, present on admission -previously on metformin. No acute management needed other than diabetic diet. 6. Moreno's disease, active -will continue patient's home regimen of levothyroxine 88 mcg daily. 7. Lumbar spine disease, active -patient with minimal impairment in mobility with scoliosis of the lumbar spine and degenerative joint disease. 8. Acute cystitis - patient with Positive UA, will give ceftriaxone x3 doses. Symptoms not reliable. 9. Severe cognitive impairment ?- prior SLUMS score of 9. ?- OT ordered. Code: DNR, surrogate decision maker is the patient's daughter. DVT: lovenox daily Dispo: Admit as inpatient, likely SNF but patient will need to work with PT. Discharge probable for tomorrow to SNF or return to [facility] if patient refusing PT. I have utilized all available immediate resources to obtain, update, or review the patient's current medications. Time Spent With Patient Critical Care time: I spent a total of [] minutes of critical care time on this patient's care today; this time is exclusive of procedural time. Quality Stroke Contraindication Not Initiating IV-Tpa: Contraindicated (last known normal not clear)
--- NOTE | 2021-08-24 14:35 | PT.IIE ---
Current Diagnoses Cerebral infarction, unspecified (08/22/21) Surgical History (Last Reviewed 08/22/21 @ 16:43 by Fletcher Vasquez MD) Anesthesia complication History of carpal tunnel repair (1974) History of cataract removal with insertion of prosthetic lens (2013) Status post appendectomy (1954) Status post cholecystectomy (1964) Status post hysterectomy (1990) Medical History (Last Reviewed 08/22/21 @ 16:43 by Fletcher Vasquez MD) Acquired hypothyroidism (02/10/16) Ankle pain (1989) Balance problems (02/01/17) Bunion (03/02/17) Carpal tunnel syndrome (1974) Cataracts, bilateral (2013) Chickenpox Chronic pain of both shoulders (10/26/16) Diverticulitis Eczema (02/10/16) Essential hypertension with goal blood pressure less than 140/90 (02/10/16) Fibroids (1979) Foot pain (1989) GERD (gastroesophageal reflux disease) Hammer toe of left foot (03/02/17) History of diverticulitis (06/25/16) Hot flashes due to menopause Hyperlipemia (1979) Hypertension (1979) IBS (irritable bowel syndrome) (2003) Lumbar spine pain (2005) Measles Mumps 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) Ovarian cyst (1989) Primary insomnia (10/26/16) Pure hypercholesterolemia (02/10/16) Scoliosis Sjogren's syndrome (2003) Type 2 diabetes mellitus without complication, without long-term current use of insulin (2015) Physical Therapy Inpatient Evaluation/Re-Eval M1 PT/OT-IP Prior Functional Status Start: 08/24/21 08:22 Freq: NEEDED Status: Active Protocol: Document 08/24/21 14:35 AW (Rec: 08/24/21 15:25 AW [id number]) Medical Review Prior Functional Status Medical History Reviewed Yes Communication Pt is able to make her needs known. At baseline, she is an effective verbal communicator. On assessment today, pt has notable right-side facial droop and slurs her words slightly. Speech is appropriate in content. Mobility and Gait Pt states she is able to mobilize with 4WW in her assisted living facility. Activities of Daily Living and IADL's Facility staff assist pt with showers. She states she is independent with dressing and toileting tasks. Social History Household Members none Living Arrangements Assisted Living Home Equipment Four Wheel Walker Additional Social History Comment Pt resides at [facility]. 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 M2 PT-IP Current Condition Start: 08/24/21 08:22 Freq: NEEDED Status: Active Protocol: Document 08/24/21 14:35 AW (Rec: 08/24/21 15:25 AW [id number]) Physical Therapy Current Condition Current Condition Evaluation Date 08/24/21 Treatment Diagnosis CVA; R-sided weakness; COVID ( +); impaired mobility and gait Onset Date 08/08/21 M3 PT-IP Subjective Start: 08/24/21 08:22 Freq: NEEDED Status: Active Protocol: Document 08/24/21 14:35 AW (Rec: 08/24/21 15:25 AW [id number]) Subjective Physical Therapy Visit Type Type Initial Evaluation Visit Start Time 13:44 Visit Stop Time 14:35 Total Visit Minutes 51 Notes SPT provided mobility assist. Number of DRY WALL FINISHER Visits 0 Physical Therapy Visit Comments Patient Comments Pt is willing to participate with PT Therapy Pain Assessment Pain When Pain Assessed During Mobility Pain Present Pain Present Pain Reported Location right low arm Scale Used not quantified Pain Management Techniques Modification of Treatment,Re- positioning M4 PT-IP Mobility and Gait Start: 08/24/21 08:22 Freq: NEEDED Status: Active Protocol: Document 08/24/21 14:35 AW (Rec: 08/24/21 15:25 AW [id number]) PT-Bed Mobility Assessment Supine to Sit Supine to Sit Maximum Assistance,2 Person Assistance,Head of Bed Elevated Sit to Supine Sit to Supine Maximum Assistance,2 Person Assistance Scooting Scooting to Edge of Bed Maximum Assistance Scooting Up and Down in Bed Maximum Assistance PT-Transfer Assessment Sit to and From Stand Sit to and from Stand Maximum Assistance,2 Person Assistance,Use of Upper Extremities Equipment Transfer Assistive Device Gait Belt,Front Wheeled Walker Orthotic/Prosthetic Devices or Brace: No Comments Mobility Comments Pt was sitting up in bed as PT and SPT arrived. She agreed to try getting up. BP was 147/ 86 HR 68. With HOB elevated, pt was able to adduct her right leg heading toward left EOB but ultimately needed max A x 2 to transition to sitting EOB. She needed assist at first to maintain seated balance but was able to support herself once her left hand grasped the bed rail. Pt agreed to attempt to stand. PT educated pt on need to attend to right shoulder and pt was able to place her right hand on her lap using left hand. With max A x 2 and her right hand on FWW, pt attempted to stand x 3 but was unable to fully extend her hips/knees for safe standing, returning to seated each time with assist for safe descent. Pt requested return to bed and required max A x 2 for sit to supine and for scooting up in bed. Pt was positioned with pillow under right elbow, call light and tray table in reach , bed alarm on for safety. Gait Assessment Comments Gait Comments Unable at this time. PT-Balance Assessment Sitting Balance and Reactions Static Sitting Balance Ability Fair Dynamic Sitting Balance Ability Poor Standing Balance and Reactions Static Standing Balance Ability Poor Dynamic Standing Balance Ability Poor Device Used FWW M5 PT-IP Objective Assessments Start: 08/24/21 08:22 Freq: NEEDED Status: Active Protocol: Document 08/24/21 14:35 AW (Rec: 08/24/21 15:25 AW [id number]) Orientation Orientation/Cognition Level of Alertness Alert Orientation Name,Day of Week,Place, Situation Language Function Ability Garbled Speech Safety Awareness Decreased Safety Awareness Comments Pt's speech was slurred but content was appropriate. No word-finding difficulties noted. Gross Range of Motion Upper Extremity ROM Assessment Right Impaired Impairments Pt with history of CVA affecting RUE states she was able to flex her right shoulder to ~30 degrees. She is now unable to move her arm vs gravity. LUE grossly 4/5 Lower Extremity ROM Assessment Right Impaired Strength Upper Extremity Strength Assessment Right Impaired Lower Extremity Strength Assessment Right Impaired Hip 2/5 Knee 1/5 Ankle 1/5 Comments Strength Comments RUE grossly 1/5. Sensation Assessment Sensation Gross Sensation Right UE Impaired,Right LE Impaired Light Touch Impaired Proprioception (Position) Impaired Comments Sensation Comments Dull light touch sensation in RUE and RLE. Muscle Tone Muscle Tone WNL No Muscle Tone Location Right Type of Tone Hypotonicity Severity of Tone Severe Comments Muscle Tone Comments Flaccid right UE/LE M6 PT-IP Treatment Start: 08/24/21 08:22 Freq: NEEDED Status: Active Protocol: Document 08/24/21 14:35 AW (Rec: 08/24/21 15:25 AW [id number]) Physical Therapy Treatment Education Education Provided Safety Other Treatments Other Treatment Performed Educated pt on protecting her right UE joints, especially her shoulder, during functional mobility. M7 PT-IP Assessment and Plan Start: 08/24/21 08:22 Freq: NEEDED Status: Active Protocol: Document 08/24/21 14:35 AW (Rec: 08/24/21 15:25 AW [id number]) PT Summary Assessment and Plan Potential Rehabilitation Potential Fair Status of Condition at Evaluation Evolving Summary Impairments Pain,ROM,Strength,Balance, Sensation,Tone,Bed Mobility, Transfers,Gait Assessment Summary Carey is an 81 yo woman with history of CVA seen for PT evaluation with subacute CVA affecting right-sided strength and sensation. She is modified independent at baseline with use of 4WW for walking at her assisted living facility. On evaluation, pt required max assist x 2 for bed mobility and attempts to stand. She will require SNF rehab to improve strength and mobility independence before return to [facility]. Goals Bed Mobility Goal Minimal Assistance Transfer Goal Minimal Assistance Gait Goal Minimal Assistance,Juan Walker Gait Distance 20 Days to Meet Goals 10 Frequency of Treatment Frequency Of Treatment Once a Day Treatment Plan Physical Therapy Treatment Plan Bed Mobility Training,Transfer Training,Gait Training, Therapeutic Exercise,Balance Retraining,Discharge Planning, Neuromuscular Re-ed, Coordination Retraining Other Recommendations and Next Treatment bed mobility, transfers; Focus consider squat pivot transfer; consider sit to stand machine Precautions Other Precautions COVID (+); falls Recommendations To Nursing Amount of Assist Needed Mechanical Lift Discharge Recommendations PT Discharge Recommendations SNF Rehab Transportation Needs at Discharge Stretcher/Ambulance
[2021-08-24] MEDS: cefTRIAXone 1,000 MG in SODIUM CHLORIDE 0.9% 100 ML 200 ML IV (16:48)
[2021-08-24] MEDS: DOCUSATE 100 MG CAPSULE PO (21:31)
[2021-08-24] MEDS: SENNOSIDES 8.6 MG TABLET 17.2 MG PO (21:31)
[2021-08-24] MEDS: ATORVASTATIN 20 MG TABLET 40 MG PO (21:31)
[2021-08-25] VITALS (7 sets, daily range): BP systolic 139–153; BP diastolic 71–84; PULSE 60–80; RESP 14–17; TEMP 36.6–37.1; O2SAT 95–99
[2021-08-25 05:29] LABS: BUN Creatinine Ratio 28.2 (6-22); Blood Urea Nitrogen 22 mg/dL (7-17); Calcium 9.1 mg/dL (8.4-10.2); Carbon Dioxide 27 mmol/L (22-32); Chloride 92 mmol/L (98-107); Estimated Glomerular Filt Rate > 60.0 mL/min (>60); Glucose 148 mg/dL (80-110); HEMOLYSIS < 15 (0-50); Magnesium 1.6 mg/dL (1.6-2.3); Potassium 3.7 mmol/L (3.4-5.1); Sodium 124 mmol/L (137-145)
[2021-08-25] MEDS: PANTOPRAZOLE DR 20 MG TABLET PO (08:19)
[2021-08-25] MEDS: LEVOTHYROXINE 88 MCG TABLET PO (08:20)
[2021-08-25] MEDS: METOPROLOL IR 50 MG TABLET 100 MG PO (09:10)
[2021-08-25] MEDS: predniSONE 5 MG TABLET PO (09:11)
[2021-08-25] MEDS: AMLODIPINE 5 MG TABLET 10 MG PO (09:11)
[2021-08-25] MEDS: ENOXAPARIN 40 MG/0.4 ML SYRINGE SUBCUT (09:11)
[2021-08-25] MEDS: LOSARTAN 50 MG TABLET PO (09:11)
[2021-08-25] MEDS: DOCUSATE 100 MG CAPSULE PO (09:11)
[2021-08-25] MEDS: ASPIRIN EC 81 MG TABLET PO (09:11)
[2021-08-25] MEDS: SODIUM CHLORIDE 0.9% FLUSH 10 ML IV (09:12)
--- NOTE | 2021-08-25 10:33 | PT.IPTN ---
Current Diagnoses Cerebral infarction, unspecified (08/22/21) Physical Therapy Treatment Note M2 PT-IP Current Condition Start: 08/24/21 08:22 Freq: NEEDED Status: Active Protocol: Document 08/24/21 14:35 AW (Rec: 08/24/21 15:25 AW [id number]) Physical Therapy Current Condition Current Condition Evaluation Date 08/24/21 Treatment Diagnosis CVA; R-sided weakness; COVID ( +); impaired mobility and gait Onset Date 08/08/21 M3 PT-IP Subjective Start: 08/24/21 08:22 Freq: NEEDED Status: Active Protocol: Document 08/25/21 10:33 AW (Rec: 08/25/21 11:07 AW [id number]) Subjective Physical Therapy Visit Type Type Treatment Note Visit Start Time 10:01 Visit Stop Time 10:33 Total Visit Minutes 32 Notes SPT provided mobility assist. Number of COOK APPRENTICE PASTRY Visits 0 Physical Therapy Visit Comments Patient Comments Pt is willing to participate with PT Therapy Pain Assessment Pain When Pain Assessed During Mobility Pain Present Pain Present Denied Pain M4 PT-IP Mobility and Gait Start: 08/24/21 08:22 Freq: NEEDED Status: Active Protocol: Document 08/25/21 10:33 AW (Rec: 08/25/21 11:07 AW [id number]) PT-Bed Mobility Assessment Supine to Sit Supine to Sit Moderate Assistance,2 Person Assistance,Head of Bed Elevated Scooting Scooting to Edge of Bed Maximum Assistance PT-Transfer Assessment Sit to and From Stand Sit to and from Stand Maximum Assistance,2 Person Assistance,Use of Upper Extremities Equipment Transfer Assistive Device Gait Belt Orthotic/Prosthetic Devices or Brace: No Transfers Transfer Destination Chair Transfer Technique Squat Pivot Transfer Ability Level of Assist Maximum Assistance,2 Person Assistance,Use of Upper Extremities Comments Mobility Comments Pt was lying in bed as PT and SPT arrived. BP 122/78 HR 69. She was able to move her legs toward left EOB but needed assist to get them over the edge. She was able to sit with LUE support but leaned to the right. Pt is aware of her rightward lean but is only minimally able to correct it. PT demonstrated standing and pivoting with hemiwalker and pt agreed to attempt. She was able to stand max A x 2 using HW on her left side. Standing was with significant retro lean and pt's legs were pushing against the bed for stability. PT cued pt to bring her hips forward but pt needed to sit. She sat EOB. Pt agreed to attempt squat pivot . With PT in front and SPT behind, pt reached across to opposite chair arm with her left hand and completed squat pivot to her left max A x 2. Pt completed sit to stand three more times from the chair needing max A x 2 and cues to push off the chair arm with left hand. Pt agreed to sit up on the chair. BP was 112/70 HR 76 after activity. Pt was left with call light, room phone, and tray table in reach. Notified nursing of pt' s mobility. Gait Assessment Comments Gait Comments Unable at this time. With max assist, she was able to laterally shift weight in standing to advance her RLE using HW. PT-Balance Assessment Sitting Balance and Reactions Static Sitting Balance Ability Fair Dynamic Sitting Balance Ability Poor Standing Balance and Reactions Static Standing Balance Ability Poor Dynamic Standing Balance Ability Poor Device Used FWW M5 PT-IP Objective Assessments Start: 08/24/21 08:22 Freq: NEEDED Status: Active Protocol: Document 08/24/21 14:35 AW (Rec: 08/24/21 15:25 AW [id number]) Orientation Orientation/Cognition Level of Alertness Alert Orientation Name,Day of Week,Place, Situation Language Function Ability Garbled Speech Safety Awareness Decreased Safety Awareness Comments Pt's speech was slurred but content was appropriate. No word-finding difficulties noted. Gross Range of Motion Upper Extremity ROM Assessment Right Impaired Impairments Pt with history of CVA affecting RUE states she was able to flex her right shoulder to ~30 degrees. She is now unable to move her arm vs gravity. LUE grossly 4/5 Lower Extremity ROM Assessment Right Impaired Strength Upper Extremity Strength Assessment Right Impaired Lower Extremity Strength Assessment Right Impaired Hip 2/5 Knee 1/5 Ankle 1/5 Comments Strength Comments RUE grossly 1/5. Sensation Assessment Sensation Gross Sensation Right UE Impaired,Right LE Impaired Light Touch Impaired Proprioception (Position) Impaired Comments Sensation Comments Dull light touch sensation in RUE and RLE. Muscle Tone Muscle Tone WNL No Muscle Tone Location Right Type of Tone Hypotonicity Severity of Tone Severe Comments Muscle Tone Comments Flaccid right UE/LE M6 PT-IP Treatment Start: 08/24/21 08:22 Freq: NEEDED Status: Active Protocol: Document 08/25/21 10:33 AW (Rec: 08/25/21 11:07 AW [id number]) Physical Therapy Treatment Education Education Provided Safety Other Treatments Other Treatment Performed Educated pt on PROM/AAROM for her right hand. M7 PT-IP Assessment and Plan Start: 08/24/21 08:22 Freq: NEEDED Status: Active Protocol: Document 08/25/21 10:33 AW (Rec: 08/25/21 11:07 AW [id number]) PT Summary Assessment and Plan Summary Impairments Pain,ROM,Strength,Balance, Sensation,Tone,Bed Mobility, Transfers,Gait Progress Towards Goals Progressing Toward Goals,Slow Progress due to Medical Issues Assessment Summary Carey was able to stand with hemiwalker and complete squat pivot transfer max A x 2 today . She has improving muscle activation on her right leg but right arm remains flaccid with slight shoulder movement and pronation. She used a hemiwalker for standing today but may be more comfortable with a quad cane. Pt will require SNF rehab to improve strength and mobility independence. Goals Bed Mobility Goal Minimal Assistance Transfer Goal Minimal Assistance Gait Goal Minimal Assistance,Juan Walker Gait Distance 20 Days to Meet Goals 10 Frequency of Treatment Frequency Of Treatment Once a Day Treatment Plan Physical Therapy Treatment Plan Bed Mobility Training,Transfer Training,Gait Training, Therapeutic Exercise,Balance Retraining,Discharge Planning, Neuromuscular Re-ed, Coordination Retraining Other Recommendations and Next Treatment bed mobility, transfers; Focus consider stand pivot transfer with HW or QC Precautions Other Precautions COVID (+); falls Recommendations To Nursing Amount of Assist Needed 2 Person Assist Discharge Recommendations PT Discharge Recommendations SNF Rehab Transportation Needs at Discharge Wheelchair/Cabulance,Stretcher /Ambulance
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
[2021-08-25 12:28] LABS: COVID19 - ADMIT (NP swab/PCR) Negative (Negative)
--- NOTE | 2021-08-25 13:01 | PC.NURSE ---
PT ABLE TO EXPRESS NEEDS AND DENIES PAIN OTHER THAN OCCASIONALLY TO RIGHT UPPER EXTREMITY- SWALLOWS PILLS WHOLE WITH THIN LIQUIDS AND IS ABLE TO FEED HERSELF USING LEFT HAND- TRANSFER ASSIST OF 2 USING GAIT BELT AND WALKER- INCONT OF URINE- SKIN IS CLEAR NO OPEN AREAS OR OTHER SKIN CONCERNS NOTED- CALLED REPORT TO KIP @ [facility]
--- NOTE | 2021-08-25 13:27 | ST.IPDYTX ---
Visit Care Team Role Provider Type Kristin Pittman MD Primary Care Provider Physician Specialty: Medical Address: [address], [address] Email: Fletcher Vasquez MD Emergency Provider Physician Referring Provider Specialty: Emergency Medicine Address: [address] [place] [address], [id number] Email: [email or web address] Ryley Osullivan DO Admit Provider Physician Attending Provider Specialty: Internal Medicine Address: [address] [place] [address], [id number] Email: [email or web address] COMMISSARY AGENT Dysphagia Treatment COMMISSARY AGENT Dysphagia Treatment Start: 08/25/21 13:16 Freq: Status: Active Protocol: Document 08/25/21 13:16 ZS (Rec: 08/25/21 13:24 ZS [id number]) Dysphagia Treatment Session Time Visit Start Time 12:15 Visit Stop Time 12:25 Total Visit Minutes 10 Setting Assessment Location Acute Care Visit Type Note Type Treatment Note Next Note Type Next Note Type Treatment Note Patient Information Identification Type Name,ID Wristband Subjective Observations Carey was seated upright in her bed and her noon meal had just been delivered when clinician arrived. Treatment Liquids Trialed Thin Solids Trialed Regular Administration Type Self-Feeding Oral Strategies Upright at 90 degrees Pharyngeal Strategies Sitting Upright (90 deg) Treatment Activities Observed Carey eat her noon meal. Assessment Patient Response to Treatment Good Rehab Potential Good Assessment of Improvement Carey was observed to take large bites when eating and took a second bite before swallowing the first bite. She requested clinician leave after a few minutes of observation, so only a few bites were observed. For observed bites, Carey masticated food well and demonstrated no overt signs or symptoms of aspiration when eating or drinking. No difficulty with transportation of food to mouth and no anterior spillage observed. Carey used a combination of utensils and fingers to manipulate her food. Per nursing, Carey has not demonstrated any difficulty with eating. Diet Recommendations Recommendations Continue Current Diet Liquids Order Thin Diet Order Regular Medication Recommendations As Tolerated Aspiration Precautions Recommended Precautions Upright at 90 Degrees,Small Bites/Sips Treatment Plan Appropriate for Continued Therapy No Therapy Recommendations Patient refused treatment. Discharging due to patient request.
--- NOTE | 2021-08-25 18:48 | PM.PN.1 ---
Subjective Subjective Interval history: Patient denies any acute complaints this morning. She denies there being any issues with her speech. However, she does endorse persistent right-sided weakness. Exam Vital Signs (past 8 hours): - 08/25/21 11:05 08/25/21 12:08 Temperature 97.9 F Pulse Rate 65 Respiratory Rate 17 Blood Pressure 153/73 H Pulse Oximetry 99 95 Oxygen Delivery Method Room Air Oxygen Flow Rate 0 Const Other: Patient sitting up in bed comfortably upon my entering the room, in no apparent acute distress. Eyes Other: No scleral icterus appreciated. Resp Other: Clear to auscultation bilaterally. Cardio Other: Regular rate and rhythm. S1 and S2 heart sounds auscultated with no extra heart sounds or murmurs appreciated. No peripheral edema noted. Neuro Other: CN II-XII intact. Right-sided weakness notable on exam. Extrem Other: Palpable and equal bilateral dorsalis pedis pulses. Objective Labs Result Diagrams: 08/23/21 06:32 08/25/21 04:57 Labs: Laboratory Results - last 24 hr 08/25/21 08/25/21 04:57 11:45 Sodium 124 L Potassium 3.7 Chloride 92 L Carbon Dioxide 27 BUN 22 H Creatinine 0.78 Estimated GFR > 60.0 BUN/Creatinine Ratio 28.2 H Glucose 148 H Calcium 9.1 Magnesium 1.6 SARS-CoV-2 (PCR) Negative [facility] Medical History (Updated 08/23/21 @ 00:00 by ) Acquired hypothyroidism (02/10/16) Ankle pain (1989) Balance problems (02/01/17) Bunion (03/02/17) Carpal tunnel syndrome (1974) Cataracts, bilateral (2013) Chickenpox Chronic pain of both shoulders (10/26/16) Diverticulitis Eczema (02/10/16) Essential hypertension with goal blood pressure less than 140/90 (02/10/16) Fibroids (1979) Foot pain (1989) GERD (gastroesophageal reflux disease) Hammer toe of left foot (03/02/17) History of diverticulitis (06/25/16) Hot flashes due to menopause Hyperlipemia (1979) Hypertension (1979) IBS (irritable bowel syndrome) (2003) Lumbar spine pain (2005) Measles Mumps 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) Ovarian cyst (1989) Primary insomnia (10/26/16) Pure hypercholesterolemia (02/10/16) Scoliosis Sjogren's syndrome (2004) Type 2 diabetes mellitus without complication, without long-term current use of insulin (2015) Surgical History Anesthesia complication History of carpal tunnel repair (1974) History of cataract removal with insertion of prosthetic lens (2013) History of colonoscopy (04/01/07) History of colonoscopy with polypectomy (05/08/11) History of left cataract surgery (11/13/14) History of right cataract surgery (12/11/14) Hx of hand surgery (2013) Hx of surgical procedure (1996) Status post appendectomy (1954) Status post cholecystectomy (1964) Status post hysterectomy (1990) Family History Child Hypertension Child Hypertension Sister Age: 79 Rheumatoid arthritis Father [place] (myocardial infarction) Heart disease Mother [place] (myocardial infarction) Hypertension Angina pectoris Sister Colon cancer Social History household members: none Smoking Status: Never smoker second hand exposure: No alcohol intake: former substance use type: does not use Assessment & Plan Assessment & Plan narrative: Assessment: 1. 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 Hypertension 3. Hypothyroidism 4. GERD Plan: 1. As demonstrated on MRI brain. CT angiogram head/neck with no significant intracranial vessel atherosclerosis. No hx of atrial fibrillation, and no arrythmias here. Will maintain on dual antiplatelet therapy. Atherosclerotic plaque protection medications on-board. 2. Will continue home losartan 50 mg daily, Lopressor 100 mg bid, amlodipine 10 mg daily. 3. Will continue home levothyroxine 88 mcg daily. 4. Will continue home omemprazole 20 mg daily. VTE prophylaxis: Held for now given acute/subacute CVA Disposition: PT/OT recommends SNF Time Spent With Patient Critical Care time: I spent a total of [] minutes of critical care time on this patient's care today; this time is exclusive of procedural time. Quality Stroke Contraindication Not Initiating IV-Tpa: Contraindicated (last known normal not clear)
--- NOTE | 2021-08-25 23:28 | P.DS_ITS ---
History of Present Illness History of Present Illness Chief complaint: Stroke on 08/08, Declining health Narrative: Ms. Carey Mtz is an 79-year-old female patient with a complex medical history significant for type 2 noninsulin dependent diabetes, hypertension, hyperlipidemia, Moreno's thyroiditis, irritable bowel syndrome, lumbar sacral spine pain a history of scoliosis, dementia, diverticulosis and prior CVA and TIA who presents with right sided weakness, numbness, and facial droop, timing is not entirely clear at this time but was probably yesterday. Patient relates prior R shoulder weakness, she states starting today she cannot feel her R arm or R leg and she cannot walk. She also has difficulty speaking. She denies fever, chills, nausea, vomiting, chest pain, shortness of breath, palpitations. She was in recently for TIA vs stroke symptoms, refused admission at that time and had refused rehab services then, but is agreeable at this moment. She had been prescribed aspirin and plavix after prior symptoms. In the emergency room, the patient was mildly hypertensive, but the remainder of her vital signs were unremarkable.? Laboratory evaluation revealed an unremarkable CBC, chronic and stable hyponatremia with a sodium of 100 in 25, a positive UA with 5-10 wbc's and many urine bacteria.? Urine drug screen was negative.? COVID-19 testing was positive. MRI performed in the ER showed s ubacute infarcts on the L corresponding to her symptoms. Patient was admitted for further management. Discharge Providers Provider Date of admission: 08/22/21 14:16 Discharge Date: 08/25/21 Primary care physician: Kristin Pittman MD Consults: 08/22/21 16:01 Consult to Dietitian, Adult Routine Comment: Reason For Exam: risk for malnutrition 08/22/21 16:37 Consult to Discharge Planning Routine Comment: Consult to Occupational Therapy Evaluate & Treat Comment: Physician Instructions: Evaluate and treat Consult to Physical Therapy Evaluate & Treat Comment: Physician Instructions: Evaluate and Treat 08/22/21 18:40 Consult to Speech Therapy Evaluate & Treat Comment: Physician Instructions: Evaluate and treat Discharge provider: Jayy Kothari MD Summary Hospital Course Discharge Diagnosis: 1. 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 Hypertension 3. Hypothyroidism 4. GERD Exam Vital Signs (past 8 hours): Oxygen Delivery Method Room Air Oxygen Flow Rate 0 Objective Labs Result Diagrams: 08/23/21 06:32 08/25/21 04:57 [facility] Medical History (Updated 08/23/21 @ 00:00 by ) Acquired hypothyroidism (02/10/16) Ankle pain (1989) Balance problems (02/01/17) Bunion (03/02/17) Carpal tunnel syndrome (1974) Cataracts, bilateral (2013) Chickenpox Chronic pain of both shoulders (10/26/16) Diverticulitis Eczema (02/10/16) Essential hypertension with goal blood pressure less than 140/90 (02/10/16) Fibroids (1979) Foot pain (1989) GERD (gastroesophageal reflux disease) Hammer toe of left foot (03/02/17) History of diverticulitis (06/25/16) Hot flashes due to menopause Hyperlipemia (1979) Hypertension (1979) IBS (irritable bowel syndrome) (2003) Lumbar spine pain (2005) Measles Mumps 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) Ovarian cyst (1989) Primary insomnia (10/26/16) Pure hypercholesterolemia (02/10/16) Scoliosis Sjogren's syndrome (2003) Type 2 diabetes mellitus without complication, without long-term current use of insulin (2015) Surgical History Anesthesia complication History of carpal tunnel repair (1974) History of cataract removal with insertion of prosthetic lens (2013) History of colonoscopy (04/01/07) History of colonoscopy with polypectomy (05/08/11) History of left cataract surgery (11/13/14) History of right cataract surgery (12/11/14) Hx of hand surgery (2013) Hx of surgical procedure (1996) Status post appendectomy (1954) Status post cholecystectomy (1964) Status post hysterectomy (1990) Family History Child Hypertension Child Hypertension Sister Age: 79 Rheumatoid arthritis Father [place] (myocardial infarction) Heart disease Mother [place] (myocardial infarction) Hypertension Angina pectoris Sister Colon cancer Social History household members: none Smoking Status: Never smoker second hand exposure: No alcohol intake: former substance use type: does not use Discharge Assessment & Plan Assessment and Plan Assessment: 1. 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 Hypertension 3. Hypothyroidism 4. GERD Plan of Treatment: 1. As demonstrated on MRI brain. CT angiogram head/neck with no significant intracranial vessel atherosclerosis. No hx of atrial fibrillation, and no arrythmias here. Will maintain on dual antiplatelet therapy. Atherosclerotic plaque protection medications on-board. 2. Will continue home losartan 50 mg daily, Lopressor 100 mg bid, amlodipine 10 mg daily. 3. Will continue home levothyroxine 88 mcg daily. 4. Will continue home omemprazole 20 mg daily. Discharge Plan Discharge Plan Patient Disposition: SNF Provider Discharge Comment: Patient presenting with worsening right-sided hemiplegia from a likely ischemic stroke. No tPA was administered, as patient was outside of the administration window. Continuing medical management for now with the patient's listed dual antiplatelet therapy. Discharge orders & Medications Prescriptions: Continued atorvastatin [Lipitor] 10 mg tablet 10 mg PO BEDTIME Qty: 90 3RF metoprolol tartrate 100 mg tablet 100 mg PO BID Qty: 180 3RF sennosides [senna] 8.6 mg Tablet 8.6 mg PO DAILY 0RF losartan 50 mg Tablet 50 mg PO QAM 0RF prednisone 5 mg Tablet 5 mg PO QAM 0RF amlodipine 10 mg tablet 10 mg PO QAM 0RF ibuprofen 400 mg Tablet 400 mg PO QID 0RF omeprazole 20 mg Capsule,Delayed Release(Dr/Ec) 20 mg PO QAM 0RF clopidogrel [Plavix] 75 mg tablet 75 mg PO QAM 0RF Rx Instructions: written to end @ 08/31 aspirin 81 mg tablet,delayed release (DR/EC) 81 mg PO QAM 0RF levothyroxine 88 mcg tablet 88 mcg PO QAM 0RF Follow up/Referrals: Kristin Pittman MD [Primary Care Provider] - Diet/Activity/Treatments Diet: Carb-consistent/Diabetic Discharge Data Primary Care Provider: Kristin Pittman Quality Stroke Contraindication Not Initiating IV-Tpa: Contraindicated (last known normal not clear)
== END 2021-08-25 13:45 | DRG 64 ==
LOC: ED 09:09 → AC 14:17 → ICU 16:29
PROVIDERS: Student in an Organized Health Care Education/Training Program; Admitting Provider Internal Medicine; Emergency Provider Emergency Medicine; PCP Internal Medicine; Referring Provider Emergency Medicine; Visit Provider Internal Medicine
DX: I63.9 Cerebral infarction, unspecified (principal); U07.1 COVID-19; N30.00 Acute cystitis without hematuria; G81.91 Hemiplegia, unspecified affecting right dominant side; E87.1 Hypo-osmolality and hyponatremia; F03.90 Unspecified dementia, unspecified severity, without behavioral disturbance, psychotic disturbance, mood disturbance, and anxiety; E06.3 Autoimmune thyroiditis; I10 Essential (primary) hypertension; E78.5 Hyperlipidemia, unspecified; E11.9 Type 2 diabetes mellitus without complications; K21.9 Gastro-esophageal reflux disease without esophagitis; R29.705 NIHSS score 5; R29.707 NIHSS score 7; Z66 Do not resuscitate
CPT/HCPCS: 36415; 70450; 70548; 70553; 80048; 80053; 80305; 81001; 82962; 83036; 83735; 85025; 87077; 87086; 87186; 87635; 87797; 92526; 92610; 93005; 93010; 94760; 97162; 97530; 99285; 99291; C9803; A9579; J0696; J1650; J3475

== ENCOUNTER 2022-02-17 14:23 | Emergency (ER) | payer MEDICARE, SELFPAY ==
[2021-08-22 15:10] VITALS: BMI 28.4
[2022-02-17] VITALS (7 sets, daily range): BP systolic 150–182; BP diastolic 76–87; PULSE 74–80; RESP 16; O2SAT 95–97
--- NOTE | 2022-02-17 14:26 | DI.CT.S_ITS ---
PROCEDURE: CT HEAD/BRAIN WO CON INDICATIONS: facial numbness now resolved, prior cva. TECHNIQUE: Noncontrast 4.5 mm thick angled axial sections acquired from the foramen magnum to the vertex, with coronal and sagittal reformats. For radiation dose reduction, the following was used: automated exposure control, adjustment of mA and/or kV according to patient size. COMPARISON: [facility], CT, CT STROKE, 08/08/2021, 10:55. [facility], CT, CT ANGIO HEAD AND NECK, 08/08/2021, 11:43. [facility], CT, CT STROKE, 08/22/2021, 9:24. [facility], MR, MR STROKE, 08/22/2021, 10:47. [facility], CT, CT HEAD/BRAIN WO CON, 02/14/2020, 18:51. FINDINGS: Image quality: Excellent. CSF spaces: Basal cisterns are patent. No extra-axial fluid collections. The ventricles are symmetric in size and shape. Brain: No intracranial bleeds or masses. There is cerebral volume loss for age, with resultant ventricular and sulcal prominence. There are periventricular and deep white matter chronic small vessel ischemic changes. Areas of prior ischemia can be seen, including involving the deep white matter of the left frontal lobe. There is intracranial internal carotid artery atherosclerosis. Skull and face: Calvarium and visualized facial bones appear intact, without suspicious lesions. Sinuses: Visualized sinuses and mastoids are clear. IMPRESSION: Unremarkable intracranial study for age. Stable from prior. If there is strong clinical suspicion for an acute stroke, please consider a brain MRI for further evaluation, as it is more sensitive (assuming that there is no contraindication to MRI). Dictated by: Ramírez Mauro M.D. on 02/17/2022 at 13:44 Approved by: Ramírez Mauro M.D. on 02/17/2022 at 13:45
[2022-02-17 15:09] LABS: Add Manual Diff / Slide Review NO; Basophils Absolute Auto 0 /uL (0-100); Basophils Percent Auto 0.6 % (0-2); Eosinophils Absolute Auto 0 /uL (0-450); Eosinophils Percent Auto 0.2 % (2-4); Hematocrit 31.5 % (36-46); Hemoglobin 10.5 g/dL (12.0-16.0); Lymphocytes Absolute Auto 200 /uL (1100-4500); Lymphocytes Percent Auto 3.4 % (25-40); Mean Corpuscular HGB Conc 33.1 % (30-36); Mean Corpuscular Hemoglobin 28.2 PG (26-34); Monocytes Absolute Auto 200 /uL (0-900); Monocytes Percent Auto 2.9 % (3-14); Neutrophils Absolute Auto 6500 /uL (1500-7000); Neutrophils Percent Auto 92.9 % (50-75); Platelet Count 357 X10^3/uL (150-400); Red Blood Cell Count 3.71 X10^6/uL (4.0-5.2); Red Cell Distribution Width 18.4 % (11.6-14.8)
[2022-02-17 15:21] LABS: Alanine Aminotransferase 243 IU/L (<35); Albumin 3.8 g/dL (3.5-5.0); Albumin Globulin Ratio 1.3 (1.0-2.8); Alkaline Phosphatase 232 U/L (38-126); Aspartate Aminotransferase 73 IU/L (14-36); BUN Creatinine Ratio 29.1 (6-22); Blood Urea Nitrogen 23 mg/dL (7-17); Calcium 8.9 mg/dL (8.4-10.2); Carbon Dioxide 22 mmol/L (22-32); Chloride 96 mmol/L (98-107); Creatine Kinase 83 U/L (30-135); Estimated Glomerular Filt Rate > 60 mL/min (>60); Globulin 2.9 g/dL (1.7-4.1); Glucose 329 mg/dL (80-110); HEMOLYSIS < 15 (0-50); Potassium 4.1 mmol/L (3.4-5.1); Sodium 123 mmol/L (137-145); Total Protein 6.7 g/dL (6.3-8.2)
[2022-02-17 15:32] LABS: Troponin I 0.026 ng/mL (0.01-0.034)
--- NOTE | 2022-02-17 15:32 | ED_ITS ---
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 She said she woke up this morning as she always does and about 1 hour after she woke up she started noticing some numbness around her face and tongue. She had tingling on the palm of her hand as well. No weakness. This is atypical for her CVA symptoms. Symptoms last about 30 minutes and have completely resolved. She resides at assisted living. She has no chest pain palpitations numbness tingling weakness. She was admitted to the hospital 08/22/2021 through August 25, at that time she had an MRI which did show acute infarcts and multiple prior strokes. She was on aspirin and Plavix. On Anticoagulants: No Related Data Home Medications Medication Instructions Recorded Confirmed amlodipine 10 mg tablet 10 mg PO QAM 08/22/21 08/22/21 aspirin 81 mg tablet,delayed 81 mg PO QAM 08/22/21 08/22/21 release clopidogrel 75 mg tablet (Plavix) 75 mg PO QAM 08/22/21 08/22/21 ibuprofen 400 mg tablet 400 mg PO QID 08/22/21 08/22/21 levothyroxine 88 mcg tablet 88 mcg PO QAM 08/22/21 08/22/21 losartan 50 mg tablet 50 mg PO QAM 08/22/21 08/22/21 omeprazole 20 mg capsule,delayed 20 mg PO QAM 08/22/21 08/22/21 release prednisone 5 mg tablet 5 mg PO QAM 08/22/21 08/22/21 sennosides 8.6 mg tablet (senna) 8.6 mg PO DAILY 08/22/21 08/22/21 Previous Rx's Medication Instructions Recorded atorvastatin 10 mg tablet (Lipitor) 10 mg PO BEDTIME #90 tab 02/19/20 metoprolol tartrate 100 mg tablet 100 mg PO BID #180 tab 02/19/20 Allergies Allergy/AdvReac Type Severity Reaction Status Date / Time ciprofloxacin [CIPROFLOXACIN] AdvReac Severe Bloody Verified 02/17/22 14:24 diahrrea, swollen feet. Benzodiazepines AdvReac Intermediate EXTREME Verified 02/17/22 14:24 SENSITIVITY fentanyl AdvReac Intermediate EXTREME Verified 02/17/22 14:24 SENSITIVITY TO ALL NARCOTICS meperidine AdvReac Intermediate EXTREME Verified 02/17/22 14:24 SENSITIVITY Opioids - Morphine Analogues AdvReac Intermediate EXTREME Verified 02/17/22 14:24 SENSITIVITY - SOMNOLENCE Review of Systems Review of Systems Narrative: GENERAL: Denies chills, fatigue, malaise, fever, sweats, travel HEENT: Denies sinus pain, ear pain, sore throat, difficulty swallowing, neck pain RESPIRATORY: Denies dyspnea, cough, wheezing, hemoptysis, sputum. CARDIOVASCULAR: Denies chest pain, palpitations, orthopnea, edema GASTROINTESTINAL: Denies nausea, vomiting, abdominal pain, diarrhea, constipation, melena. : Denies dysuria, frequency, incontinence, hematuria, urinary retention, flank pain. MUSCULOSKELETAL: Denies weakness, joint pain, or bony pain SKIN: No rash, no erythema, no pruritus NEUROLOGIC: See HPI PSYCHIATRIC: No concerning psychosocial issues. 12 point review of systems is negative except for those stated above and HPI Hematologic/Lymphatic On Anticoagulants: No Patient History Medical History (Updated 02/17/22 @ 16:37 by Belkys Chacko DO) Acquired hypothyroidism (02/10/16) Ankle pain (1989) Balance problems (02/01/17) Bunion (03/02/17) Carpal tunnel syndrome (1974) Cataracts, bilateral (2013) Chickenpox Chronic pain of both shoulders (10/26/16) Diverticulitis Eczema (02/10/16) Essential hypertension with goal blood pressure less than 140/90 (02/10/16) Fibroids (1979) Foot pain (1989) GERD (gastroesophageal reflux disease) Hammer toe of left foot (03/02/17) History of diverticulitis (06/25/16) Hot flashes due to menopause Hyperlipemia (1979) Hypertension (1979) IBS (irritable bowel syndrome) (2003) Lumbar spine pain (2005) Measles Mumps 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) Ovarian cyst (1989) Primary insomnia (10/26/16) Pure hypercholesterolemia (02/10/16) Scoliosis Sjogren's syndrome (2003) Type 2 diabetes mellitus without complication, without long-term current use of insulin (2015) Surgical History Anesthesia complication History of carpal tunnel repair (1974) History of cataract removal with insertion of prosthetic lens (2013) History of colonoscopy (04/01/07) History of colonoscopy with polypectomy (05/08/11) History of left cataract surgery (11/13/14) History of right cataract surgery (12/11/14) Hx of hand surgery (2013) Hx of surgical procedure (1996) Status post appendectomy (1954) Status post cholecystectomy (1964) Status post hysterectomy (1990) Family History Child Hypertension Child Hypertension Sister Age: 80 Rheumatoid arthritis Father NV (myocardial infarction) Heart disease Mother NV (myocardial infarction) Hypertension Angina pectoris Sister Colon cancer Social History household members: none Smoking Status: Never smoker second hand exposure: No alcohol intake: former substance use type: does not use Smoking Status: Never smoker alcohol intake frequency: 0-2 drinks per day Substance Use Type: does not use Exam Initial Vital Signs Initial Vital Signs: Vital Signs Pulse Rate 77 02/17/22 14:24 Respiratory Rate 16 02/17/22 14:24 Blood Pressure 182/86 H 02/17/22 14:24 Pulse Oximetry 96 02/17/22 14:24 GENERAL: Alert pleasant 82-year-old female HEENT: Head atraumatic,EOMI, pupils reactive, face symmetric, moist mucous membranes CARDIOVASCULAR: Regular rate and rhythm without murmurs, rubs or gallops. RESPIRATORY: Breath sounds equal bilaterally, no wheezes rales or rhonchi. ABDOMEN: Soft, nontender. Normoactive bowel sounds all 4 quadrants. No guarding or rebound. EXTREMITIES: Normal range of motion, no clubbing or edema. Neurovascularly intact NEUROLOGICAL: Alert and oriented x4.Normal gait and speech. Unable to move right arm which is baseline sensation he face in extremities intact. Now back to baseline SKIN: Warm, dry, no laceration, no petechiae, no rashes or lesions. Scores NIH Stroke Scale Level of Conciousness: Alert, keenly responsive Ask month/age: Answers both questions correctly. Open/close eyes, close hand: Performs both tasks correctly Best gaze horizontal: Normal Visual pryor: No visual loss Facial palsy: Normal symetrical movement Left arm drift: No drift for full 10 sec Right arm drift: No effort against gravity Left leg drift: No drift for full 5 sec Right leg drift: No drift for full 5 sec Limb ataxia: Absent Sensory on face/arms/legs: Normal, no sensory loss Best language: No aphasia, normal Dysarthria: Normal Extinction or inattention: No abnormality Total NIH Stroke scale score: 3 Course Orders Ordered: ED Orders 02/17/22 14:26 CT head/brain wo con Stat 02/17/22 14:28 EKG-12 Lead Stat 02/17/22 14:58 Complete Blood Count AUTO DIFF Stat Comprehensive Metabolic Panel Stat Troponin & CK Cardiac Panel Stat Vital Signs Vital signs: Vital Signs - 8 hr 02/17/22 14:24 02/17/22 15:23 02/17/22 15:28 Pulse Rate 77 80 76 Respiratory Rate 16 Blood Pressure 182/86 H 160/79 H Pulse Oximetry 96 97 96 02/17/22 15:30 02/17/22 16:00 02/17/22 16:30 Pulse Rate 76 74 78 Respiratory Rate Blood Pressure 156/76 H 150/77 H Pulse Oximetry 95 95 96 02/17/22 16:34 Pulse Rate 78 Respiratory Rate Blood Pressure 167/87 H Pulse Oximetry 97 MDM - Neuro Symptoms/Deficit Lab Data Result diagrams: 02/17/22 14:58 02/17/22 14:58 Labs: Lab Results 02/17/22 02/17/22 Range/Units 14:58 14:58 WBC 7.0 (4.5-11.0) X10^3/uL RBC 3.71 L (4.0-5.2) X10^6/uL Hgb 10.5 L (12.0-16.0) g/dL Hct 31.5 L (36-46) % MCV 85.0 (80-100) fL MCH 28.2 (26-34) PG MCHC 33.1 (30-36) % RDW 18.4 H (11.6-14.8) % Plt Count 357 (150-400) X10^3/uL Neut % (Auto) 92.9 H (50-75) % Lymph % (Auto) 3.4 L (25-40) % Mchenry % (Auto) 2.9 L (3-14) % Eos % (Auto) 0.2 L (2-4) % Baso % (Auto) 0.6 (0-2) % Neut # (Auto) 6500 (7110-8482) /uL Lymph # (Auto) 200 L (1384-9845) /uL Mchenry # (Auto) 200 (0-900) /uL Eos # (Auto) 0 (0-450) /uL Baso # (Auto) 0 (0-100) /uL Sodium 123 L (137-145) mmol/L Potassium 4.1 (3.4-5.1) mmol/L Chloride 96 L (98-107) mmol/L Carbon Dioxide 22 (22-32) mmol/L BUN 23 H (7-17) mg/dL Creatinine 0.79 (0.52-1.04) mg/dL Estimated GFR > 60 (>60) mL/min BUN/Creatinine Ratio 29.1 H (6-22) Glucose 329 H (80-110) mg/dL Calcium 8.9 (8.4-10.2) mg/dL Total Bilirubin 1.0 (0.2-1.3) mg/dL AST 73 H (14-36) IU/L ALT 243 H (<35) IU/L Alkaline Phosphatase 232 H (38-126) U/L Total Creatine Kinase 83 (30-135) U/L CK-MB (CK-2) TNP CK-MB (CK-2) Rel Index TNP Troponin I 0.026 (0.01-0.034) ng/mL Total Protein 6.7 (6.3-8.2) g/dL Albumin 3.8 (3.5-5.0) g/dL Globulin 2.9 (1.7-4.1) g/dL Albumin/Globulin Ratio 1.3 (1.0-2.8) Imaging Data CT scan - head: Radiologist's Impression: CT Scan Report Signed Patient: Carey Mtz MR#: [id number] : 1940 Acct:[id number] Age/Sex: 82 / F Date of Service: 02/17/22 Loc: ED Accession Number: [id number] ?? Procedure: CT head/brain wo con Ordering Provider: Belkys Chacko D.O. PROCEDURE:? CT HEAD/BRAIN WO CON ? INDICATIONS:? facial numbness now resolved, prior cva. ? TECHNIQUE:? Noncontrast 4.5 mm thick angled axial sections acquired from the foramen magnum to the vertex, with coronal and sagittal reformats.? For radiation dose reduction, the following was used:? automated exposure control, adjustment of mA and/or kV according to patient size.? ? COMPARISON:? [facility], CT, CT STROKE, 08/08/2021, 10:55.? [facility], CT, CT ANGIO HEAD AND NECK, 08/08/2021, 11:43.? [facility], CT, CT STROKE, 08/22/2021, 9:24.? [facility], MR, MR STROKE, 08/22/2021, 10:47.? [facility], CT, CT HEAD/BRAIN WO CON, 02/14/2020, 18:51. ? FINDINGS:? Image quality:? Excellent.? ? CSF spaces:? Basal cisterns are patent.? No extra-axial fluid collections.? The ventricles are symmetric in size and shape.? ? Brain:? No intracranial bleeds or masses.? There is cerebral volume loss for age, with resultant ventricular and sulcal prominence.? There are periventricular and deep white matter chronic small vessel ischemic changes.? Areas of prior ischemia can be seen, including involving the deep white matter of the left frontal lobe.? There is intracranial internal carotid artery atherosclerosis.? ? Skull and face:? Calvarium and visualized facial bones appear intact, without suspicious lesions.? ? Sinuses:? Visualized sinuses and mastoids are clear.? ? ? IMPRESSION:? Unremarkable intracranial study for age.? Stable from prior. ? If there is strong clinical suspicion for an acute stroke, please consider a brain MRI for further evaluation, as it is more sensitive (assuming that there is no contraindication to MRI). ? ? Dictated by: Ramírez Mauro M.D. on 02/17/2022 at 13:44 ? ? Approved by: Ramírez Mauro M.D. on 02/17/2022 at 13:45 ? ECG Data Interpretation: Normal sinus rhythm rate 75 AL interval 164 QRS 90 QTC 453, significantly improved EKG previous ST depression and T-wave inversion noted in inferior leads has now improved. MDM Narrative Medical decision making narrative: Patient has had multiple strokes according to previous MRI. She had symptoms earlier today which now has completely resolved. She she has no new focal deficits at this time. She is on aspirin and Plavix. She states that she does not care if she goes home and dies or has permanent deficits. She is aware that strokes can cause permanent deficits she cannot use her right arm. I have discussed case with Dr. Osullivan hospitalist for any possible change in medication he states no changes at this time. She she is in sinus rhythm he had concerns for possible intermittent AFib that was never found Discharge Plan Departure Patient Disposition: Home Clinical Impression: CVA (cerebral vascular accident) Instructions: DI for Stroke-Ischemic Activity Restrictions/Additional Instructions: Was recommended that you have an MRI and possible admission, there is concern today that he likely had another stroke fortunately her symptoms have resolved. If you have not already had an echocardiogram that is recommended. Please see your primary care provider in the next 2-3 days Please take all medications as directed Please return to the emergency department if you should have any or worsening symptoms Prescriptions: No Action atorvastatin [Lipitor] 10 mg tablet 10 mg PO BEDTIME Qty: 90 3RF metoprolol tartrate 100 mg tablet 100 mg PO BID Qty: 180 3RF sennosides [senna] 8.6 mg Tablet 8.6 mg PO DAILY 0RF losartan 50 mg Tablet 50 mg PO QAM 0RF prednisone 5 mg Tablet 5 mg PO QAM 0RF amlodipine 10 mg tablet 10 mg PO QAM 0RF ibuprofen 400 mg Tablet 400 mg PO QID 0RF omeprazole 20 mg Capsule,Delayed Release(Dr/Ec) 20 mg PO QAM 0RF clopidogrel [Plavix] 75 mg tablet 75 mg PO QAM 0RF Rx Instructions: written to end @ 08/31 aspirin 81 mg tablet,delayed release (DR/EC) 81 mg PO QAM 0RF levothyroxine 88 mcg tablet 88 mcg PO QAM 0RF Referrals: Kristin Pittman MD [Primary Care Provider] -
== END 2022-02-17 17:10 | disposition home or self-care (01) ==
PROVIDERS: Emergency Provider Emergency Medicine; PCP Internal Medicine
DX: I63.9 Cerebral infarction, unspecified (principal); R07.9 Chest pain, unspecified
CPT/HCPCS: 36415; 70450; 80053; 82550; 84484; 85025; 93005; 99284

== ENCOUNTER → 2022-02-25 08:30 | Outpatient (ROUT) | payer MEDICARE, SELFPAY ==
[2021-08-22 15:10] VITALS: BMI 28.4
[2022-02-25 09:07] LABS: Hemoglobin A1C% w Est Avg Glu 7.2 % (4.0-6.0)
[2022-02-25 09:43] LABS: Thyroid Stimulating Hormone 1.49 uIU/mL (0.47-4.68)
== END ==
PROVIDERS: PCP Internal Medicine; Visit Provider Nurse Practitioner Family
DX: E11.9 Type 2 diabetes mellitus without complications (principal); E03.9 Hypothyroidism, unspecified
CPT/HCPCS: 36415; 83036; 84443